=== PATIENT | male | born 1950 | race Caucasian/White ===

== ENCOUNTER 2016-09-14 16:31 | Emergency (ER) | payer OTHER ==
[~2016-09-14] VITALS: Ht 172.7 cm; Wt 82.0 kg
[~2016-09-14 16:31] MED LIST: ANTI2TAB PO; ATOR80TA PO; CARV3.12 PO; DUONI NEB; FLUT1INH INH; FLUT1SPR9 NASAL; FOLI1TAB PO; FURO40TA PO; HYDR10SO PO; KCL20 PO; LISI20 PO; MAGN400T PO; METF500 PO; NEUR400C PO; PLAV75TA PO; PROT40TA; VENTAER INH; ZOFR4TAB3 PO
[2016-09-14 16:46] VITALS: BP 136/81; PULSE 68; RESP 18; TEMP 97.7; O2SAT 93
[2016-09-14] MEDS ORDERED: FLUT50SP EACH NARE (17:12)
[2016-09-14] MEDS ORDERED: ATOR1TAB18 PO (17:12)
[2016-09-14] MEDS ORDERED: VENTAER INH (17:12)
[2016-09-14] MEDS ORDERED: LISI-515 PO (17:12)
[2016-09-14] MEDS ORDERED: METF500T PO (17:12)
[2016-09-14] MEDS ORDERED: POTA-163 PO (17:12)
[2016-09-14] MEDS ORDERED: CARV3.12 PO (17:12)
[2016-09-14] MEDS ORDERED: GABA400C5 PO (17:12)
[2016-09-14] MEDS ORDERED: FOLI1TAB4 PO (17:12)
[2016-09-14] MEDS ORDERED: FURO40TA PO (17:12)
[2016-09-14] MEDS ORDERED: PLAV75TA29 PO (17:12)
[2016-09-14] MEDS ORDERED: PANT40TA3 PO (17:12)
[2016-09-14] MEDS ORDERED: IPRASOL INH (17:12)
--- NOTE | 2016-09-14 17:47 | RADHPO ---
EXAM DATE/TIME: 09/14/2016 17:36 [facility] COMPARISON: No previous studies available for comparison. INDICATIONS : Left knee pain and abrasion after falling today. MEDICAL HISTORY : Unobtainable. SURGICAL HISTORY : Unobtainable. ENCOUNTER: Initial ACUITY: 1 day PAIN SCORE: Non-responsive. LOCATION: Left anterior knee. FINDINGS: Four view examination of the left knee demonstrates no evidence of fracture or dislocation. Bony min eralization is normal. The articular surfaces are intact. The suprapatellar soft tissues have a nor mal configuration. CONCLUSION: Unremarkable examination of the left knee. Aakash Reyes MD on September 14, 2016 at 17:45 Board Certified Radiologist. This report was verified electronically.
--- NOTE | 2016-09-14 17:49 | PD ---
HPI Chief Complaint: Alcohol/Drug Intoxication Time Seen by Provider: 16:39 Travel History International Travel<30 days: No Contact w/Intl Traveler<30days: No Traveled to known affect area: No History of Present Illness HPI 66-year-old male presents after he had difficulty getting out of the passenger side of the vehicle when he got home with his so she called 911 for assistance. Report was that he slid out and multiple people need to be involved to help. Patient notes taking multiple shots of alcohol. He states he doesn't think he hit his head but has an abrasion to his left knee. History is limited on initial exam PFSH Past Medical History Hx Anticoagulant Therapy: Yes Cancer: No Cardiovascular Problems: Yes High Cholesterol: Yes Chest Pain: Yes COPD: Yes Diabetes: Yes Patient Takes Glucophage: No (unknown) Gastrointestinal Disorders: No Genitourinary: No Hypertension: Yes Implanted Vascular Access Dvce: No Musculoskeletal: No Neurologic: No Psychiatric: No Reproductive: No Respiratory: Yes Immunizations Current: Yes Myocardial Infarction: Yes (2006) Past Surgical History Cardiac Surgery: Yes Coronary Stent: Yes (2006) Other Surgery: Yes (TRACHEOSTOMY AND REVERSAL 2012) Social History 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) Tobacco Use: Yes (1ppd) Substance Use: Yes (MARIJUANA DAILY) Allergies-Medications (Allergen,Severity, Reaction): Coded Allergies: No Known Allergies (Verified , 09/12/15) Reported Meds & Prescriptions Reported Meds & Active Scripts Active Reported Potassium Chloride ER (Potassium Chloride) 20 Meq Tab 20 Meq PO BID Pantoprazole (Pantoprazole Sodium) 40 Mg Tab 40 Mg PO DAILY Metformin (Metformin HCl) 500 Mg Tab 500 Mg PO BIDPC With meals Lisinopril 20 Mg Tab 20 Mg PO DAILY Gabapentin 400 Mg Cap 400 Cap PO TID Furosemide 40 Mg Tab 40 Mg PO DAILY Folate (Folic Acid) 1 Mg Tab 1 Mg PO DAILY Fluticasone Nasal [place] 50 Mcg/Act Naspr 50 Mcg EACH NARE BID 50 mcg/spray Plavix (Clopidogrel Bisulfate) 75 Mg Tab 75 Mg PO DAILY Carvedilol 3.125 Mg Tab 3.125 Mg PO BID Atorvastatin (Atorvastatin Calcium) 80 Mg Tab 80 Mg PO HS Ventolin Hfa 18 GM Inh (Albuterol Sulfate) 90 Mcg/Act Aer 2 Puff INH Q4H PRN Duoneb (Ipratropium-Albuterol Neb) 0.5-2.5 Mg/3 Ml Neb 1 Nebule INH Q4HR NEB Review of Systems Except as stated in HPI: all other systems reviewed are Neg Physical Exam Narrative GENERAL: Well-nourished, well-developed patient. SKIN: Warm and dry. HEAD: Normocephalic and atraumatic. EYES: No injection or drainage. ENT: No nasal drainage noted. NECK: Supple, trachea midline. CARDIOVASCULAR: Regular rate and rhythm RESPIRATORY: Breath sounds equal bilaterally. No accessory muscle use. GASTROINTESTINAL: Abdomen soft, non-tender, nondistended. EXTREMITIES: No edema. Abrasion noted to left knee without significant pain, neurovascularly intact, compartments soft BACK: Nontender without obvious deformity. NEUROLOGICAL: Awake and alert. Motor and sensory grossly within normal limits. Slurred speech. Data Data Last Documented VS Vital Signs Date Time Temp Pulse Resp B/P Pulse Ox O2 Delivery O2 Flow Rate FiO2 09/14/16 16:46 97.7 68 18 136/81 93 Orders Knee, Complete (4vws) (09/14/16 17:20) Ct Brain W/O Iv Contrast(Rout) (09/14/16 ) [facility] Medical Decision Making Medical Screen Exam Complete: Yes Emergency Medical Condition: Yes Medical Record Reviewed: Yes (past history confirmed) Interpretation(s) Last 24 hours Impressions Knee X-Ray 09/14/16 1720 Signed Impressions: Service Date/Time: Wednesday, September 14, 2016 17:36 - CONCLUSION: Unremarkable examination of the left knee. Aakash Reyes MD Head CT 09/14/16 0000 Signed Impressions: Service Date/Time: Wednesday, September 14, 2016 18:15 - CONCLUSION: 1. No acute intracranial abnormalities. 2. Suspected chronic change of the inferior orbital floor on the right and the right maxillary bone and sinus. Humphrey Carranza MD Differential Diagnosis Fracture, strain, head injury, alcohol intoxication Narrative Course Will check left knee x-ray and CT brain and monitored until clinically sober trauma imaging is negative, 191 patient's here to watch over patient, steady gait, clear speech, Patient denies any new complaints and states that they are feeling better. will watch over patient, all questions answered. knows that follow up is incumbent on them and to return to the emergency room immediately if new or worsening symptoms develop. given strict return precautions, vitals reviewed and are normal, agrees to further workup as an outpatient. Diagnosis Primary Impression: Alcohol intoxication Qualified Code: F10.120 - Alcohol intoxication, uncomplicated Additional Impressions: Fall Qualified Code: W19.XXXA - Fall, initial encounter Knee abrasion Qualified Code: S80.212A - Knee abrasion, left, initial encounter Patient Instructions: General Instructions Additional Instructions: return as needed, tylenol as needed, limit alcohol use Med/Other Pt SpecificInfo: No Change to Meds Disposition: 01 DISCHARGE HOME Condition: Stable Janet Sweet MD Sep 14, 2016 17:48
--- NOTE | 2016-09-14 18:54 | RADHPO ---
EXAM DATE/TIME: 09/14/2016 18:15 [facility] COMPARISON: CT BRAIN W/O CONTRAST, December 08, 2013, 15:56. INDICATIONS : Altered mental status with possible fall. RADIATION DOSE: 59.53 CTDIvol (mGy) MEDICAL HISTORY : Hypertension. Cardiovascular disease Chronic obstructive pulmonary disease. SURGICAL HISTORY : None. ENCOUNTER: Initial ACUITY: 1 day PAIN SCALE: 0/10 LOCATION: cranial TECHNIQUE: Multiple contiguous axial images were obtained of the head. Using automated exposure control and adj ustment of the mA and/or kV according to patient size, radiation dose was kept as low as reasonably a chievable to obtain optimal diagnostic quality images. FINDINGS: CEREBRUM: The ventricles are normal for age. No evidence of midline shift, mass lesion, hemorrhage or acute in farction. No extra-axial fluid collections are seen. POSTERIOR FOSSA: The cerebellum and brainstem are intact. The 4th ventricle is midline. The cerebellopontine angle i s unremarkable. EXTRACRANIAL: There is a deformity at the right orbital floor and right maxilla. This appears to have been present on the prior exam. There is increased soft tissue density at the right maxillary sinus. SKULL: The calvaria is intact. No evidence of skull fracture. CONCLUSION: 1. No acute intracranial abnormalities. 2. Suspected chronic change of the inferior orbital floor on the right and the right maxillary bone a nd sinus. Humphrey Carranza MD on September 14, 2016 at 18:50 Board Certified Radiologist. This report was verified electronically.
[2016-09-14 19:05] VITALS: BP 136/81; PULSE 69; RESP 18; O2SAT 97
== END 2016-09-14 19:13 | disposition home or self-care (01) ==
LOC: PHED 16:31
DX: F10.120 Alcohol abuse with intoxication, uncomplicated (principal); S80.212A Abrasion, left knee, initial encounter; J44.9 Chronic obstructive pulmonary disease, unspecified; E78.00 Pure hypercholesterolemia, unspecified; Z79.01 Long term (current) use of anticoagulants; E11.9 Type 2 diabetes mellitus without complications; I10 Essential (primary) hypertension; I25.2 Old myocardial infarction; F17.210 Nicotine dependence, cigarettes, uncomplicated; F12.220 Cannabis dependence with intoxication, uncomplicated; W17.89XA Other fall from one level to another, initial encounter; Y93.89 Activity, other specified; Y92.810 Car as the place of occurrence of the external cause; Y99.8 Other external cause status
CPT/HCPCS: 70450; 73564

== ENCOUNTER 2016-12-10 09:14 | Emergency (ER) | payer OTHER ==
[~2016-12-10] VITALS: Ht 172.7 cm; Wt 82.4 kg
[~2016-12-10 09:14] MED LIST changes: -ANTI2TAB PO; +ATOR1TAB18 PO; -ATOR80TA PO; -DUONI NEB; -FLUT1INH INH; -FLUT1SPR9 NASAL; +FLUT50SP EACH NARE; -FOLI1TAB PO; +FOLI1TAB4 PO; +GABA400C5 PO; -HYDR10SO PO; +IPRASOL INH; -KCL20 PO; +LISI-515 PO; -LISI20 PO; -MAGN400T PO; -METF500 PO; +METF500T PO; -NEUR400C PO; +PANT40TA3 PO; -PLAV75TA PO; +PLAV75TA29 PO; +POTA-163 PO; -PROT40TA; -ZOFR4TAB3 PO
[2016-12-10 09:26] VITALS: BP 166/104; PULSE 73; RESP 16; TEMP 97.9; O2SAT 96
--- NOTE | 2016-12-10 10:25 | PD ---
HPI Chief Complaint: Injury Time Seen by Provider: 10:11 Travel History International Travel<30 days: No Contact w/Intl Traveler<30days: No Traveled to known affect area: No History of Present Illness HPI This patient complains of low back pain. Yesterday afternoon he tripped over a curb and fell backwards landing on his buttocks. He developed low back pain from that fall. Duration is one day. Symptoms severity is moderate. He is ambulatory. No alleviating factors. Denies neurologic complaint PFSH Past Medical History Hx Anticoagulant Therapy: Yes Cancer: No Cardiovascular Problems: Yes High Cholesterol: Yes Chest Pain: Yes COPD: Yes Diabetes: Yes Patient Takes Glucophage: No Gastrointestinal Disorders: No Genitourinary: No Hypertension: Yes Implanted Vascular Access Dvce: No Musculoskeletal: No Neurologic: No Psychiatric: No Reproductive: No Respiratory: Yes Immunizations Current: Yes Myocardial Infarction: Yes (2006) Past Surgical History Cardiac Surgery: Yes Coronary Stent: Yes (2006) Other Surgery: Yes (TRACHEOSTOMY AND REVERSAL 2012) Social History Alcohol Use: Yes (6PACK DAILY) Tobacco Use: Yes (1ppd) Substance Use: No (DENIES AT PRESENT) Allergies-Medications (Allergen,Severity, Reaction): Coded Allergies: No Known Allergies (Verified , 12/10/16) Reported Meds & Prescriptions Reported Meds & Active Scripts Active Reported Potassium Chloride ER (Potassium Chloride) 20 Meq Tab 20 Meq PO BID Pantoprazole (Pantoprazole Sodium) 40 Mg Tab 40 Mg PO DAILY Metformin (Metformin HCl) 500 Mg Tab 500 Mg PO BIDPC With meals Lisinopril 20 Mg Tab 20 Mg PO DAILY Gabapentin 400 Mg Cap 400 Cap PO TID Furosemide 40 Mg Tab 40 Mg PO DAILY Folate (Folic Acid) 1 Mg Tab 1 Mg PO DAILY Fluticasone Nasal [place] 50 Mcg/Act Naspr 50 Mcg EACH NARE BID 50 mcg/spray Plavix (Clopidogrel Bisulfate) 75 Mg Tab 75 Mg PO DAILY Carvedilol 3.125 Mg Tab 3.125 Mg PO BID Atorvastatin (Atorvastatin Calcium) 80 Mg Tab 80 Mg PO HS Ventolin Hfa 18 GM Inh (Albuterol Sulfate) 90 Mcg/Act Aer 2 Puff INH Q4H PRN Duoneb (Ipratropium-Albuterol Neb) 0.5-2.5 Mg/3 Ml Neb 1 Nebule INH Q4HR NEB Review of Systems General / Constitutional: No: Fever HENT: No: Headaches Cardiovascular: No: Chest Pain or Discomfort Physical Exam Narrative GASTROINTESTINAL: Abdomen soft, non-tender, nondistended. Positive bowel sounds. No hepato-splenomegaly, or palpable masses. No guarding. SKIN: Focused skin assessment reveals no rash or ulcers. Skin is warm and dry. Palpation shows no induration or nodules. NEUROLOGICAL: Awake and alert. Pupils are equal round and reactive. Motor and sensory grossly within normal limits. Five out of 5 muscle strength in all muscle groups. Normal speech. Back: No objective findings. There is minor midline tenderness of the low lumbar spine. No bruising Data Data Last Documented VS Vital Signs Date Time Temp Pulse Resp B/P Pulse Ox O2 Delivery O2 Flow Rate FiO2 12/10/16 09:26 97.9 73 16 166/104 96 Orders Spine, Lumbar - Ltd (Ap & Lat) (12/10/16 ) [facility] Medical Decision Making Medical Screen Exam Complete: Yes Emergency Medical Condition: Yes Medical Record Reviewed: Yes Differential Diagnosis Compression fracture, contusion, muscle strain Narrative Course I have reviewed the patient's electronic medical record. No objective findings on exam. I reviewed his lumbar spine x-rays. He has some calcification of the aorta without aneurysmal dilatation. There looks to be a mild compression deformity at L1 but this is nowhere near where his pain is. He is not tender at L1. I don't think this is acute but an incidental finding. Stable for outpatient follow-up I wrote him a few pain pills Advised him not to take them with alcohol consumption. He is a heavy drinker. Diagnosis Primary Impression: Back pain due to injury Additional Instructions: The patient was advised to follow up with their physician and return if they worsen. The patient was warned about potential sedation for the medications they will receive on prescription. Don't drink alcohol with pain pills Med/Other Pt SpecificInfo: Prescription(s) given Disposition: DISCHARGE HOME Condition: Stable Deo Vila MD Dec 10, 2016 10:25
--- NOTE | 2016-12-10 11:17 | RADHPO ---
EXAM DATE/TIME: 12/10/2016 10:34 [facility] COMPARISON: No previous studies available for comparison. INDICATIONS : Low back pain post fall yesterday. MEDICAL HISTORY : Myocardial infarction. Hypercholesterolemia. Chronic obstructive pulmonary disease. Emphysema. Di abetic. Hypertension. SURGICAL HISTORY : Cardiac cath w/ setnt placement. Tracheostomy & reversal. ENCOUNTER: Initial ACUITY: 1 day PAIN SCORE: 9/10 LOCATION: Lumbar spine FINDINGS: AP and lateral views of the lumbar spine were obtained and demonstrate 5 nonrib-bearing lumbar-type v ertebra. There is diffused osteopenia. There is chronic mild wedging of the L1 vertebral body with sc lerotic margins. There is mild chronic appearing endplate invagination at the L2 and L3 levels as wel l. There is mild retrolisthesis of L2 on L3 and L3 on L4 of several millimeters. There are mild degen erative disc and degenerative joint changes. The sacrum appears intact. There are vascular calcificat ions. CONCLUSION: 1. Chronic mild wedging of the L1 vertebral body. 2. Chronic appearing mild endplate invagination at L2 and L3. 3. Mild retrolisthesis of L2 on L3 and L3 on L4. Edenilson Aguila MD on December 10, 2016 at 11:14 Board Certified Radiologist. This report was verified electronically.
[2016-12-10] MEDS ORDERED: TRAM50TA PO (11:23)
== END 2016-12-10 11:33 | disposition home or self-care (01) ==
LOC: PHEFT 09:14
DX: M54.5 Low back pain (principal); E78.00 Pure hypercholesterolemia, unspecified; J44.9 Chronic obstructive pulmonary disease, unspecified; E11.9 Type 2 diabetes mellitus without complications; I10 Essential (primary) hypertension; I25.2 Old myocardial infarction; F17.210 Nicotine dependence, cigarettes, uncomplicated; W01.0XXA Fall on same level from slipping, tripping and stumbling without subsequent striking against object, initial encounter; Y93.9 Activity, unspecified; Y92.9 Unspecified place or not applicable
CPT/HCPCS: 72100; 99283

== ENCOUNTER 2017-12-09 11:34 | Inpatient (IN) | payer OTHER, MEDICARE ==
[2017-12-09] VITALS (14 sets, daily range): BP systolic 101–165; BP diastolic 64–109; PULSE 93–110; RESP 18–30; TEMP 97.4–98.7; O2SAT 92–97
[~2017-12-09] VITALS: Ht 172.7 cm; Wt 80.5 kg
[~2017-12-09 11:34] MED LIST changes: -ATOR1TAB18 PO; +ATOR80TA45 PO; +TRAM50TA PO
[2017-12-09] MEDS ORDERED: FLUT1INH7 INH (11:57)
[2017-12-09] MEDS ORDERED: hydrocodone PO (11:57)
[2017-12-09] MEDS ORDERED: SODIUM CHLORIDE 0.9% FLUSH 10 ML FLUSH IVF PRN (12:00)
[2017-12-09] MEDS ORDERED: RESP: ALBUTEROL 2.5 MG/IPRATROPIUM 0.5 MG NEB (SCH) INH ONE (12:00)
--- NOTE | 2017-12-09 12:13 | PD ---
HPI Chief Complaint: Respiratory Symptoms Time Seen by Provider: 11:48 Travel History International Travel<30 days: No Contact w/Intl Traveler<30days: No Traveled to known affect area: No History of Present Illness HPI Patient is a 67 year old male who comes in complaining of SOB. He says that he has felt a little short of breath over the past few days, but says it got much worse today. He has history of lung issues and follows with a human resources intern. He says he has been taking his Spiriva as directed. He does not use albuterol at home. He denies chest pain. He says he has had a productive cough. He denies fever or chills. He says he has not noticed any leg swelling. Exertion seems to make his symptoms worse. Severity is moderate. PFSH Past Medical History Hx Anticoagulant Therapy: Yes (Plavix) Cancer: No Cardiovascular Problems: Yes (stent) High Cholesterol: Yes Chest Pain: Yes COPD: Yes Diabetes: Yes Patient Takes Glucophage: Yes Gastrointestinal Disorders: No Genitourinary: No Hypertension: Yes Implanted Vascular Access Dvce: No Musculoskeletal: No Neurologic: No Psychiatric: No Reproductive: No Respiratory: Yes (COPD, Trach) Immunizations Current: Yes Myocardial Infarction: Yes (2006) Influenza Vaccination: No ?: Not Past Surgical History Cardiac Surgery: Yes Coronary Stent: Yes (2006) Other Surgery: Yes (TRACHEOSTOMY AND REVERSAL 2012) Social History Alcohol Use: Yes (6PACK DAILY) Tobacco Use: Yes (1ppd) Substance Use: No (DENIES AT PRESENT) Allergies-Medications (Allergen,Severity, Reaction): Coded Allergies: No Known Allergies (Verified Allergy, Unknown, 12/09/17) Reported Meds & Prescriptions Reported Meds & Active Scripts Active Reported [hydrocodone] 7.5 Mg PO Q6HR PRN Breo Ellipta Inh (Fluticasone/Vilanterol) 200-25 Mcg/Act Inh 1 Puff INH DAILY Use daily at the same time. Potassium Chloride ER (Potassium Chloride) 20 Meq Tab 20 Meq PO BID Metformin (Metformin HCl) 500 Mg Tab 500 Mg PO BIDPC With meals Lisinopril 20 Mg Tab 20 Mg PO DAILY Gabapentin 400 Mg Cap 400 Cap PO TID Plavix (Clopidogrel Bisulfate) 75 Mg Tab 75 Mg PO DAILY Carvedilol 3.125 Mg Tab 3.125 Mg PO BID Atorvastatin (Atorvastatin Calcium) 80 Mg Tab 80 Mg PO HS Review of Systems Except as stated in HPI: all other systems reviewed are Neg General / Constitutional: No: Fever, Chills HENT: No: Headaches, Lightheadedness Cardiovascular: No: Chest Pain or Discomfort Respiratory: Positive: Cough, Shortness of Breath Gastrointestinal: No: Nausea, Vomiting Musculoskeletal: No: Myalgias Skin: No Rash, No Change in Pigmentation Neurologic: No: Weakness, Dizziness Physical Exam Narrative GENERAL: Awake and alert, in no acute distress. SKIN: Focused skin assessment warm/dry. HEAD: Atraumatic. Normocephalic. EYES: Pupils equal and round. No scleral icterus. ENT: No nasal bleeding or discharge. Mucous membranes pink and moist. NECK: Trachea midline. No JVD. CARDIOVASCULAR: Regular rate and rhythm. No murmur appreciated. RESPIRATORY:Tachypneic. Coarse breath sounds anteriorly. Breath sounds equal bilaterally. GASTROINTESTINAL: Abdomen soft, non-tender, nondistended. MUSCULOSKELETAL: No obvious deformities. No clubbing. No cyanosis. 1+ pitting edema of the left leg. NEUROLOGICAL: Awake and alert. No obvious cranial nerve deficits. Motor grossly within normal limits. Normal speech. PSYCHIATRIC: Appropriate mood and affect; insight and judgment normal. Data Data Last Documented VS Vital Signs Date Time Temp Pulse Resp B/P (MAP) Pulse Ox O2 Delivery O2 Flow Rate FiO2 12/09/17 13:40 103 22 114/64 (81) 92 Nasal Cannula 2.00 12/09/17 11:50 98.0 Orders Orders Complete Blood Count With Diff (12/09/17 11:52) Comprehensive Metabolic Panel (12/09/17 11:52) B-Type Natriuretic Peptide (12/09/17 11:52) Act Partial Throm Time (Ptt) (12/09/17 11:52) Prothrombin Time / Inr (Pt) (12/09/17 11:52) Troponin I (12/09/17 11:52) Iv Access Insert/Monitor (12/09/17 11:52) Electrocardiogram (12/09/17 11:52) Ecg Monitoring (12/09/17 11:52) Oximetry (12/09/17 11:52) Oxygen Administration (12/09/17 11:52) Chest, Single Ap (12/09/17 11:52) Us Leg Venous Doppler (12/09/17 11:52) Sodium Chloride 0.9% Flush (Ns Flush) (12/09/17 12:00) Albuterol-Ipratropium Neb (Duoneb Neb) (12/09/17 12:00) Ct Pulmonary Angiogram (12/09/17 12:24) Iohexol 350 Inj (Omnipaque 350 Inj) (12/09/17 14:00) Heparin-D5w 25,000 U/250 Ml (Heparin-D5w (12/09/17 15:00) Cbc No Diff, Includes Plts (12/12/17 06:00) Act Partial Throm Time (Ptt) (12/09/17 21:07) Occult Blood (Hemoccult) Stool (12/09/17 14:07) Sodium Chlorid 0.9% 500 Ml Inj (Ns 500 M (12/09/17 14:15) Labs Laboratory Tests Test 12/09/17 12:30 White Blood Count 6.6 TH/MM3 Red Blood Count 4.65 MIL/MM3 Hemoglobin 15.3 GM/DL Hematocrit 47.0 % Mean Corpuscular Volume 101.0 FL Mean Corpuscular Hemoglobin 32.8 PG Mean Corpuscular Hemoglobin Concent 32.5 % Red Cell Distribution Width 14.4 % Platelet Count 164 TH/MM3 Mean Platelet Volume 7.9 FL Neutrophils (%) (Auto) 65.7 % Lymphocytes (%) (Auto) 19.0 % Monocytes (%) (Auto) 11.5 % Eosinophils (%) (Auto) 1.1 % Basophils (%) (Auto) 2.7 % Neutrophils # (Auto) 4.3 TH/MM3 Lymphocytes # (Auto) 1.2 TH/MM3 Monocytes # (Auto) 0.8 TH/MM3 Eosinophils # (Auto) 0.1 TH/MM3 Basophils # (Auto) 0.2 TH/MM3 CBC Comment DIFF FINAL Differential Comment Prothrombin Time 11.0 SEC Prothromb Time International Ratio 1.1 RATIO Activated Partial Thromboplast Time 27.3 SEC Blood Urea Nitrogen 8 MG/DL Creatinine 0.68 MG/DL Random Glucose 73 MG/DL Total Protein 6.8 GM/DL Albumin 3.1 GM/DL Calcium Level 9.5 MG/DL Alkaline Phosphatase 159 U/L Aspartate Amino Transf (AST/SGOT) 76 U/L Alanine Aminotransferase (ALT/SGPT) 44 U/L Total Bilirubin 1.3 MG/DL Sodium Level 138 MEQ/L Potassium Level 3.4 MEQ/L Chloride Level 103 MEQ/L Carbon Dioxide Level 19.8 MEQ/L Anion Gap 15 MEQ/L Estimat Glomerular Filtration Rate 117 ML/MIN Troponin I 0.05 NG/ML B-Type Natriuretic Peptide 518 PG/ML MDM Medical Decision Making Medical Screen Exam Complete: Yes Emergency Medical Condition: Yes Medical Record Reviewed: Yes Interpretation(s) ECG shows sinus tachycardia at 107. RBBB Differential Diagnosis PE vs DVT vs pneumonia vs COPD exacerbation Narrative Course Patient is a 67-year-old male who comes in complaining of shortness of breath. There is edema of his left leg, it is larger than his right. Oxygen saturation is 92-94% on 2 L of oxygen. IV established, labs sent. Troponin is negative, however it is 0.05. Ultrasound study performed of the leg shows several DVTs. CT of the chest shows severe clot burden in the lungs. Last [address] Angiography 12/09/17 1224 Signed Impressions: Service Date/Time: Saturday, December 09, 2017 13:50 - CONCLUSION: Severe and extensive bilateral pulmonary embolism to both main pulmonary arteries with involvement of the lobar branches with the exception of the left upper lobe. Walter Plasencia MD Lower Extremity Ultrasound 12/09/17 1154 Signed Impressions: Service Date/Time: Saturday, December 09, 2017 12:46 - CONCLUSION: Study is positive for deep venous thrombosis with clot in the popliteal vein as well as the posterior tibial vein and peroneal veins. Aakash Reyes MD Chest X-Ray 12/09/17 0352 Signed Impressions: Service Date/Time: Saturday, December 09, 2017 11:59 - CONCLUSION: 1. Mildly tortuous aorta. No focal consolidation. Keyur Meneses MD Patient started on heparin. Due to his low oxygen saturation and his blood pressure has been slightly tenuous, with some readings in the 90s systolic, I feel the patient would be best served in the ICU. He will be admitted for further management. Critical Care Narrative Aggregate critical care time was 35 minutes. Time to perform other separately billable procedures was not included in the critical care time. My time did not include minutes spent treating any other patients simultaneously or on activities that did not directly contribute to the patient's treatment. The services I provided to this patient were to treat and/or prevent clinically significant deterioration that could result in: Serious illness or I provided critical care services requiring my management, as noted below: Chart data review, documentation time, medication orders and management, vital sign assessments/reviewing monitor data, ordering and reviewing lab tests, ordering and interpreting/reviewing x-rays and diagnostic studies, care of the patient and discussion of the patient with the admitting physicians. Diagnosis Primary Impression: Pulmonary embolism Qualified Codes: I26.99 - Other pulmonary embolism without acute cor pulmonale Additional Impressions: DVT (deep venous thrombosis) Qualified Codes: I82.492 - Acute embolism and thrombosis of other specified deep vein of left lower extremity Hypoxia Admitting Information Admitting Physician Requests: it Tabitha Lynn MD Dec 09, 2017 12:13
--- NOTE | 2017-12-09 12:27 | RADRPT ---
EXAM DATE/TIME: 12/09/2017 11:59 [facility] COMPARISON: No previous studies available for comparison. INDICATIONS : Short of breath, cough, weakness. MEDICAL HISTORY : Emphysema. Hypercholesterolemia. Chronic obstructive pulmonary disease. Smoker. Diabetic. Hyperte nison. SURGICAL HISTORY : Cardiac stent. Tracheotomy & reversal. ENCOUNTER: Initial ACUITY: 1 day PAIN SCORE: 0/10 LOCATION: chest FINDINGS: Aorta mildly tortuous. Heart size upper limits normal. No effusion or consolidation. No pneumothorax. CONCLUSION: 1. Mildly tortuous aorta. No focal consolidation. Keyur Meneses MD on December 09, 2017 at 12:23 Board Certified Radiologist. This report was verified electronically.
[2017-12-09 12:37] LABS: AUTOMATED NEUTROPHIL # 4.3 TH/MM3 (1.8-7.7); BASOPHIL # 0.2 TH/MM3 (0-0.2); BASOPHIL % 2.7 % (0.0-2.0); EOSINOPHIL # 0.1 TH/MM3 (0-0.4); EOSINOPHIL % 1.1 % (0.0-4.0); HEMOGLOBIN 15.3 GM/DL (13.0-17.0); LYMPHOCYTE # 1.2 TH/MM3 (1.0-4.8); MEAN CORPUSCULAR HEMOGLOBIN 32.8 PG (27.0-34.0); MEAN CORPUSCULAR HGB CONC 32.5 % (32.0-36.0); MEAN PLATELET VOLUME 7.9 FL (7.0-11.0); MONO % 11.5 % (0.0-8.0); MONOCYTE # 0.8 TH/MM3 (0-0.9); NEUT % 65.7 % (16.0-70.0); PLATELET COUNT 164 TH/MM3 (150-450); RED BLOOD COUNT 4.65 MIL/MM3 (4.50-5.90); RED CELL DISTRIBUTION WIDTH 14.4 % (11.6-17.2); WHITE BLOOD COUNT 6.6 TH/MM3 (4.0-11.0)
[2017-12-09 12:44] LABS: CHLORIDE 103 MEQ/L (98-107); SODIUM (NA) 138 MEQ/L (136-145)
[2017-12-09 12:48] LABS: ALBUMIN 3.1 GM/DL (3.4-5.0); BICARBONATE 19.8 MEQ/L (21.0-32.0); CALCIUM 9.5 MG/DL (8.5-10.1); GLUCOSE,RANDOM 73 MG/DL (74-106); INTERNATIONAL NORMALIZED RATIO 1.1 RATIO
[2017-12-09 12:49] LABS: BLOOD UREA NITROGEN 8 MG/DL (7-18)
[2017-12-09 12:51] LABS: ALT (GPT) 44 U/L (12-78); AST (GOT) 76 U/L (15-37); CREATININE 0.68 MG/DL (0.60-1.30); GLOMERULAR FILTRATION RATE 117 ML/MIN (>89)
[2017-12-09 12:53] LABS: TOTAL BILIRUBIN ADULT 1.3 MG/DL (0.2-1.0); TOTAL PROTEIN 6.8 GM/DL (6.4-8.2)
[2017-12-09 12:54] LABS: ALKALINE PHOSPHATASE 159 U/L (45-117)
[2017-12-09 12:56] LABS: TROPONIN I 0.05 NG/ML (0.02-0.05)
--- NOTE | 2017-12-09 13:26 | RADRPT ---
EXAM DATE/TIME: 12/09/2017 12:46 [facility] COMPARISON: No previous studies available for comparison. INDICATIONS : Left leg swelling. MEDICAL HISTORY : Myocardial infarction. Hypercholesterolemia. Hypertension. Anticoagulant therapy, Plavix. COPD. Di abetes. Emphysema. SURGICAL HISTORY : Coronary stent. Tracheostomy placement and reversal. ENCOUNTER: Initial ACUITY: 1 day PAIN SCORE: 0/10 LOCATION: Left leg. TECHNIQUE: Venous ultrasound of the leg was performed from the inguinal ligament to the proximal calf. Real-maryam e, color Doppler and spectral tracing, compression and augmentation techniques were used. FINDINGS: There is normal compressibility of the deep venous system from the inguinal region lower thigh. No e chogenic clot is seen in the lumen of the common femoral, and femoral veins. There is thrombus in the popliteal vein, posterior tibial vein and peroneal vein. CONCLUSION: Study is positive for deep venous thrombosis with clot in the popliteal vein as well as the posterior tibial vein and peroneal veins. Aakash Reyes MD on December 09, 2017 at 13:22 Board Certified Radiologist. This report was verified electronically.
[2017-12-09] MEDS ORDERED: IOHEXOL 350 MG/ML 10 ML VIAL (for RAD DIAG) IVCONTRAST ONE (14:00)
[2017-12-09] MEDS ORDERED: SODIUM CHLORID 0.9% 500 ML INJ 500 ML IV ONE ×2 (14:15→15:00)
--- NOTE | 2017-12-09 14:32 | RADRPT ---
EXAM DATE/TIME: 12/09/2017 13:50 [facility] COMPARISON: No previous studies available for comparison. INDICATIONS : Short of breath. IV CONTRAST: 75 cc Omnipaque 350 (iohexol) IV RADIATION DOSE: 19.28 CTDIvol (mGy) MEDICAL HISTORY : Diabetes mellitus type 2. Chronic obstructive pulmonary disease. Myocardial infarction.Hypertension. SURGICAL HISTORY : Coronary artery stent. Tracheostomy and reversal. ENCOUNTER: Initial ACUITY: 2 days PAIN SCALE: 0/10 LOCATION: chest TECHNIQUE: Volumetric scanning of the chest was performed using a pulmonary embolism protocol MIP images were re constructed. Using automated exposure control and adjustment of the mA and/or kV according to patien t size, radiation dose was kept as low as reasonably achievable to obtain optimal diagnostic quality images. DICOM format image data is available electronically for review and comparison. Follow-up recommendations for detected pulmonary nodules are based at a minimum on nodule size and pa tient risk factors according to Fleischner Society Guidelines. FINDINGS: There is severe and extensive bilateral pulmonary embolism to both distal main pulmonary arteries ext ending in to both lower lobes. There is sparing of the left upper lobe pulmonary artery but involveme nt of the lingula. There is a wedge-shaped area of peripheral density in the right middle lobe likely reflecting an area of infarction. There is atelectasis in the right lower lobe. Examination of the mediastinum demonstrates no abnormally enlarged lymph nodes by CT criteria. No axi llary or hilar abnormalities are identified. Coronary artery calcifications are present. There is no bulging of the intraventricular status them CONCLUSION: Severe and extensive bilateral pulmonary embolism to both main pulmonary arteries with involvement of the lobar branches with the exception of the left upper lobe. Walter Plasencia MD on December 09, 2017 at 14:23 Board Certified Radiologist. This report was verified electronically.
[2017-12-09] MEDS ORDERED: CHLORHEXIDINE GLUCONATE 2 % 1 PACK (2 CLOTHS) TOP PRN (14:45)
[2017-12-09] MEDS ORDERED: MAGNESIUM HYDROXIDE SUSP 30 ML CUP PO PRN (14:45)
[2017-12-09] MEDS ORDERED: BISACODYL 10 MG SUPP RECTAL PRN (14:45)
[2017-12-09] MEDS ORDERED: LACTULOSE SYRUP 20 GM/30 ML CUP PO PRN (14:45)
[2017-12-09] MEDS ORDERED: NURSING INFORMATION XX SCH (14:45)
[2017-12-09] MEDS ORDERED: SENNOSIDES 8.6 MG TAB PO PRN (14:45)
[2017-12-09] MEDS ORDERED: RESP: ALBUTEROL 2.5 MG/IPRATROPIUM 0.5 MG NEB (PRN) INH (14:45)
[2017-12-09] MEDS ORDERED: HEPARIN-D5W 25,000 U/250 ML 250 ML IV PRN (15:00)
[2017-12-09] MEDS ORDERED: POTASSIUM CHLOR 20 MEQ PREMIX 100 ML IV PRN ×2 (15:15)
[2017-12-09] MEDS ORDERED: DEXTROSE 50% IN WATER 50 ML VIAL(D50) IV PUSH PRN (15:15)
[2017-12-09] MEDS ORDERED: SODIUM PHOSPHATE INJ 30 MMOL in SODIUM CHLOR 0.9% 250 ML INJ 240 ML IV PRN (15:15)
[2017-12-09] MEDS ORDERED: POTASSIUM PHOSPHATE MONOBASIC 500 MG TAB PO/TUBE PRN (15:15)
[2017-12-09] MEDS ORDERED: POTASSIUM CHLORIDE 25 MEQ EFFERVESCENT TAB PO PRN (15:15)
[2017-12-09] MEDS ORDERED: MAGNESIUM OXIDE 400 MG TAB PO PRN (15:15)
[2017-12-09] MEDS ORDERED: MAGNESIUM SULFATE INJ 4 GM in SODIUM CHLORIDE 0.9% INJ 92 ML IV PRN (15:15)
[2017-12-09] MEDS ORDERED: POTASSIUM PHOSPHATE INJ 30 MMOL in SODIUM CHLOR 0.9% 250 ML INJ 250 ML IV PRN (15:15)
[2017-12-09] MEDS ORDERED: MAGNESIUM SULFATE INJ 2 GM in SODIUM CHLORIDE 0.9% INJ 96 ML IV PRN (15:15)
[2017-12-09] MEDS ORDERED: POTASSIUM PHOSPHATE MONOBASIC 500 MG TAB PO PRN (15:15)
[2017-12-09] MEDS ORDERED: GLUCAGON 1 MG/ML VIAL OTHER PRN (15:15)
[2017-12-09] MEDS ORDERED: POTASSIUM CHLOR 40 MEQ PREMIX 100 ML IV PRN ×2 (15:15)
[2017-12-09] MEDS: RESP: ALBUTEROL 2.5 MG/IPRATROPIUM 0.5 MG NEB (SCH) INH ×2 (15:37→21:03)
[2017-12-09] MEDS: INSULIN NovoLIN REGULAR SUPPLEMENTAL SCALE SQ SCH ×2 (16:00→20:00)
[2017-12-09] MEDS ORDERED: ALTEPLASE RECOMBINANT 2 MG VIAL ONE (17:30)
--- NOTE | 2017-12-09 17:30 | RADRPT ---
EXAM DATE/TIME: 12/09/2017 16:17 [facility] COMPARISON: CT BRAIN W/O CONTRAST, September 14, 2016, 18:15. INDICATIONS : General weakness. Pulmonary embolisms. Evaluate for acute process. RADIATION DOSE: 62.82 CTDIvol (mGy) MEDICAL HISTORY : Diabetes mellitus type 2. Chronic obstructive pulmonary disease. Myocardial infarction.Hypertension. SURGICAL HISTORY : Coronary artery stent. Tracheostomy and reversal. ENCOUNTER: Initial ACUITY: 1 day PAIN SCALE: 0/10 LOCATION: cranial TECHNIQUE: Multiple contiguous axial images were obtained of the head. Using automated exposure control and adj ustment of the mA and/or kV according to patient size, radiation dose was kept as low as reasonably a chievable to obtain optimal diagnostic quality images. DICOM format image data is available electro nically for review and comparison. FINDINGS: CEREBRUM: Old area of encephalomalacia in the high left frontal region. The ventricles are normal for age. No evidence of midline shift, mass lesion, hemorrhage or acute infarction. No extra-axial fluid collect ions are seen. POSTERIOR FOSSA: The cerebellum and brainstem are intact. The 4th ventricle is midline. The cerebellopontine angle i s unremarkable. EXTRACRANIAL: The visualized portion of the orbits is intact. Mild right maxillary sinus disease unchanged. The man dibular condyles are anteriorly subluxed similar to August SKULL: The calvaria is intact. No evidence of skull fracture. CONCLUSION: Small area of encephalomalacia in the left frontal lobe. No evidence of acute hemorrhage or edema. Ri ght maxillary sinus disease. Aakash Reyes MD on December 09, 2017 at 17:26 Board Certified Radiologist. This report was verified electronically.
[2017-12-09] MEDS: CATHFLO ACTIVASE INJ 10 MG in SODIUM CHLORID 0.9% 500 ML INJ 500 ML IV PRN ×2 (18:15→22:44)
--- NOTE | 2017-12-09 18:43 | PD.RAD ---
Post Procedure Progress Note Pre Procedure Diagnosis: (1) Pulmonary embolism (2) DVT (deep venous thrombosis) (3) Hypoxia Post Procedure Diagnosis: (1) Pulmonary embolism (2) DVT (deep venous thrombosis) (3) Hypoxia Procedure Date: Dec 09, 2017 Supervising Radiologist: Phill Proctor Proceduralist/Assist: Lianna Foy, RT(R)(), Kaylin Vizcarra RT(R) Anesthesia: Local Plan of Activity Patient to Unit: Critical Care Patient Condition: Good See PACS Report for procedural detail/treatment Central Venous Access Device Procedure 1 Right Internal Jugular Central Line Placement triple lumen [place]: 7 PICC Line Length (cm): 16 Findings: Bilateral PE. TPA infusion initiated through center port Phill Proctor MD Dec 09, 2017 18:43
[2017-12-09] MEDS ORDERED: HEPARIN-D5W 25,000 U/250 ML 250 ML IV SCH (18:45)
--- NOTE | 2017-12-09 19:10 | ECHRPT ---
Indication: EXTENSIVE PE CONCLUSIONS The left ventricular systolic function is hyperdynamic with an estimated ejection fraction in the ra nge of 65- 70%. Moderate concentric left ventricular hypertrophy. Doppler parameters are consistent with impaired left ventricular relaxtion (grade 1 diastolic dysfun ction). The right ventricle is severely dilated. The right ventricular systoilc function is severely decreased. There is RV free wall severe hypokinesis with apical hyperdynamic, consistent with Andrea's Sign, most likely due to pulmonary embolism. There is estimated [id number] pulmonary hypertension present (range 67 mmHg). BP: / HR: Rhythm: MEASUREMENTS (Male / Female) Normal Values Technical Quality: 2D ECHO LV Diastolic Diameter PLAX 3.6 cm 4.2 - 5.9 / 3.9 - 5.3 cm LV Systolic Diameter PLAX 2.4 cm IVS Diastolic Thickness 2.0 cm 0.6 - 1.0 / 0.6 - 0.9 cm LVPW Diastolic Thickness 0.7 cm 0.6 - 1.0 / 0.6 - 0.9 cm LV Relative Wall Thickness 0.8 RV Internal Dim ED PLAX 3.7 cm DOPPLER Mitral E Point Velocity 43.4 cm/s Mitral A Point Velocity 91.8 cm/s Mitral E to A Ratio 0.5 TR Peak Velocity 360.0 cm/s TR Peak Gradient 51.8 mmHg FINDINGS LEFT VENTRICLE Normal left ventricular size. Moderate concentric left ventricular hypertrophy. The left ventricular systolic function is hyperdynamic with an estimated ejection fraction in the ra nge of 65- 70%. Doppler parameters are consistent with impaired left ventricular relaxtion (grade 1 diastolic dysfun ction). RIGHT VENTRICLE The right ventricle is severely dilated. The right ventricular systoilc function is severely decreased. There is RV free wall severe hypokinesis with apical hyperdynamic, consistent with Andrea's Sign, most likely due to pulmonary embolism LEFT ATRIUM The left atrial size is normal. RIGHT ATRIUM The right atrial size is normal. ATRIAL SEPTUM Normal atrial septal thickness AORTA The aortic root and proximal ascending aorta are normal in size on limited imaging. MITRAL VALVE Structurally normal mitral valve. No mitral valve regurgitation. No mitral valve stenosis. AORTIC VALVE Aortic valve sclerosis is present. No aortic valve regurgitation. No aortic valve stenosis. TRICUSPID VALVE Grossly normal tricuspid valve There is mild tricuspid valve regurgitation. There is estimated [id number] pulmonary hypertension present (range 67 mmHg). PULMONARY VALVE The pulmonary valve is not well visualized. VESSELS The inferior vena cava is dilated. PERICARDIUM No pericardial effusion. George Eden DO (Electronically Signed) Final Date:09 December 2017 19:09
[2017-12-09] MEDS: DEXT 5%-NACL 0.9% 1000 ML INJ 1,000 ML IV SCH (20:10)
[2017-12-09] MEDS: FAMOTIDINE 20 MG TAB PO SCH (20:33)
[2017-12-09] MEDS: DOCUSATE SODIUM 50 MG/SENNA 8.6 MG TAB PO SCH (20:33)
[2017-12-09 22:37] LABS: AUTOMATED NEUTROPHIL # 4.9 TH/MM3 (1.8-7.7); BASOPHIL % 0.5 % (0.0-2.0); EOSINOPHIL % 0.3 % (0.0-4.0); HEMATOCRIT 41.2 % (39.0-51.0); HEMOGLOBIN 14.2 GM/DL (13.0-17.0); LYMPH % 19.9 % (9.0-44.0); LYMPHOCYTE # 1.4 TH/MM3 (1.0-4.8); MEAN CELL VOLUME 101.3 FL (80.0-100.0); MEAN CORPUSCULAR HEMOGLOBIN 34.9 PG (27.0-34.0); MEAN CORPUSCULAR HGB CONC 34.4 % (32.0-36.0); MEAN PLATELET VOLUME 8.7 FL (7.0-11.0); MONO % 9.9 % (0.0-8.0); MONOCYTE # 0.7 TH/MM3 (0-0.9); NEUT % 69.4 % (16.0-70.0); PLATELET COUNT 136 TH/MM3 (150-450); RED BLOOD COUNT 4.07 MIL/MM3 (4.50-5.90); RED CELL DISTRIBUTION WIDTH 14.6 % (11.6-17.2); WHITE BLOOD COUNT 7.1 TH/MM3 (4.0-11.0)
--- NOTE | 2017-12-09 23:44 | EKG ---
Date Performed: 12/09/2017 Time Performed: 11:57:28 PTAGE: 67 years EKG: SINUS TACHYCARDIA WITH SHORT OR INTERVAL MARKED RIGHT AXIS DEVIATION RIGHT BUNDLE BRANCH BL OCK MODERATE T-WAVE ABNORMALITY, CONSIDER INFERIOR ISCHEMIA ABNORMAL ECG PREVIOUS TRACING : 03/31/2014 19.44 Compared to previous tracing, now Sinus rhythm with RBBB and ST/T wave changes DOCTOR: George Eden Interpretating Date/Time 12/09/2017 23:42:46
[2017-12-10] VITALS (20 sets, daily range): BP systolic 121–185; BP diastolic 79–91; PULSE 69–105; RESP 23–35; TEMP 98–99.3; O2SAT 94–98
--- NOTE | 2017-12-10 00:10 | HHI.HP ---
[facility] Service Critical Care Medicine Note is for service provided December 09, 2017 Primary Care Physician Unknown Admission Diagnosis Multiple PEs, DVTs Diagnosis: Travel History International Travel<30 Days: No Contact w/Intl Traveler <30 Da: No Traveled to Known Affected Are: No History of Present Illness 67 year old male with history of COPD, hypertension, diabetes, dyslipidemia, coronary artery disease with a stent placement in the past presents complaining of SOB. He says that he has felt a little short of breath over the past few days, but says it got much worse today. 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 He says he has been taking his Spiriva as directed. He does not use albuterol at home. He denies chest pain. He says he has had a productive cough. He denies fever or chills. He says he has not noticed any leg swelling. Exertion seems to make his symptoms worse. The CT angiogram performed in the emergency department show severe and extensive bilateral pulmonary embolism to both main pulmonary arteries with involvement of the lobar branches with the exception of the left upper lobe. His ultrasound of the lower extremities also confirms extensive DVT. The echocardiogram performed emergently shows RV free wall severe hypokinesis with apical hyperdynamic, consistent with Andrea's Sign, due to pulmonary embolism. He was taken emergently to interventional radiology suite for TPA administration. Review of Systems Constitutional: DENIES: Diaphoretic episodes, Fatigue, Fever, Weight gain, Weight loss, Chills, Dizziness, Change in appetite, Night Sweats Endocrine: DENIES: Heat/cold intolerance, Polydipsia, Polyuria, Polyphagia Eyes: DENIES: Blurred vision, Diplopia, Eye inflammation, Eye pain, Vision loss , Photosensitivity, Double Vision Ears, nose, mouth, throat: DENIES: Tinnitus, Hearing loss, Vertigo, Nasal discharge, Oral lesions, Throat pain, Hoarseness, Ear Pain, Running Nose, Epistaxis, Sinus Pain, Toothache, Odynophagia Respiratory: COMPLAINS OF: Shortness of breath, DENIES: Apneas, Cough, Snoring , Wheezing, Hemoptysis, Sputum production Cardiovascular: DENIES: Chest pain, Palpitations, Syncope, Dyspnea on Exertion , PND, Lower Extremity Edema, Orthopnea, Claudication Gastrointestinal: DENIES: Abdominal pain, Black stools, Bloody stools, Constipation, Diarrhea, Nausea, Vomiting, Difficulty Swallowing, Anorexia Genitourinary: DENIES: Sexual dysfunction, Urinary frequency, Urinary incontinence, Urgency, Hematuria, Dysuria, Nocturia, Penile Discharge, Testicular Pain, Testicular Swelling Musculoskeletal: DENIES: Joint pain, Muscle aches, Stiffness, Joint Swelling, Back pain, Neck pain Integumentary: DENIES: Abnormal pigmentation, Nail changes, Pruritus, Rash Hematologic/lymphatic: DENIES: Bruising, Lymphadenopathy Immunologic/allergic: DENIES: Eczema, Urticaria Neurologic: DENIES: Abnormal gait, Headache, Localized weakness, Paresthesias, Seizures, Speech Problems, Tremor, Poor Balance Psychiatric: DENIES: Anxiety, Confusion, Mood changes, Depression, Hallucinations, Agitation, Suicidal Ideation, Homicidal Ideation, Delusions Past Family Social History Allergies: Coded Allergies: No Known Allergies (Verified Allergy, Unknown, 12/09/17) Past Medical History COPD Hypertension Dyslipidemia Diabetes mellitus Coronary artery disease with a stent placement in the past Past Surgical History Stent in coronary arteries in 2006 Tracheostomy and reversal in 2013 Reported Medications Reported Meds & Active Scripts Active Reported [hydrocodone] 7.5 Mg PO Q6HR PRN Breo Ellipta Inh (Fluticasone/Vilanterol) 200-25 Mcg/Act Inh 1 Puff INH DAILY Use daily at the same time. Potassium Chloride ER (Potassium Chloride) 20 Meq Tab 20 Meq PO BID Metformin (Metformin HCl) 500 Mg Tab 500 Mg PO BIDPC With meals Lisinopril 20 Mg Tab 20 Mg PO DAILY Gabapentin 400 Mg Cap 400 Cap PO TID Plavix (Clopidogrel Bisulfate) 75 Mg Tab 75 Mg PO DAILY Carvedilol 3.125 Mg Tab 3.125 Mg PO BID Atorvastatin (Atorvastatin Calcium) 80 Mg Tab 80 Mg PO HS Active Ordered Medications Current Medications Medications (Trade) Dose Ordered Sig/Rory Route PRN Reason Start Time Stop Time Status Last Admin Dose Admin Sodium Chloride (NS Flush) 2 ml UNSCH PRN IVF FLUSH AFTER USING IV ACCESS 12/09/17 12:00 Heparin Sodium/ Dextrose 250 ml @ 14 mls/hr TITRATE PRN IV Coagulation Management 12/09/17 15:00 12/09/17 14:30 Famotidine (Pepcid) 20 mg Q12HR PO 12/09/17 21:00 12/09/17 20:33 Albuterol/ Ipratropium (Duoneb Neb) 1 ampule Q4HR NEB INH 4/27/18 16:00 12/10/17 00:55 Albuterol/ Ipratropium (Duoneb Neb) 1 ampule Q2HR NEB PRN INH WHEEZING 12/09/17 14:45 Miscellaneous Information ([facility] 1 [id number] XX 12/09/17 14:45 Chlorhexidine Gluconate (Chlorhexidine 2% Cloth) 3 pack Taper DAILY@04 TOP 12/10/17 04:00 12/06/18 03:59 Chlorhexidine Gluconate (Chlorhexidine 2% Cloth) 3 pack UNSCH PRN TOP HYGIENIC CARE 12/09/17 14:45 Senna/Docusate Sodium (Stefania-Colace) 1 tab BID PO 12/09/17 21:00 Magnesium Hydroxide (Milk Of Magnesia Liq) 30 ml Q12H PRN PO Mild constipation 12/09/17 14:45 Sennosides (Senokot) 17.2 mg Q12H PRN PO Moderate constipation 12/09/17 14:45 Bisacodyl (Dulcolax Supp) 10 mg DAILY PRN RECTAL SEVERE CONSITIPATION 12/09/17 14:45 Lactulose (Lactulose Liq) 30 ml DAILY PRN PO SEVERE CONSITIPATION 12/09/17 14:45 Potassium Chloride 100 ml @ 50 mls/hr Q2H PRN IV For Potassium 2.8 - 3.2 mEq/L 12/09/17 15:15 Potassium Chloride 100 ml @ 50 mls/hr Q2H PRN IV For Potassium 2.8 - 3.2 mEq/L 12/09/17 15:15 Potassium Bicarb/ Potassium Chloride (K-Lyte Cl Eff) 50 meq UNSCH PRN PO For Potassium 3.3 - 3.5 mEq/L 12/09/17 15:15 Potassium Chloride 100 ml @ 25 mls/hr UNSCH PRN IV For Potassium 3.3 - 3.5 mEq/L 12/09/17 15:15 Potassium Chloride 100 ml @ 50 mls/hr Q2H PRN IV For Potassium 3.3 - 3.5 mEq/L 12/09/17 15:15 Magnesium Sulfate 4 gm/Sodium Chloride 100 ml @ 50 mls/hr UNSCH PRN IV For Magnesium 0.9 - 1.1 mg/dL 12/09/17 15:15 Magnesium Oxide (Mag-Ox) 800 mg UNSCH PRN PO For Magnesium 1.2 - 1.6 mg/dL 12/09/17 15:15 Magnesium Sulfate 2 gm/Sodium Chloride 100 ml @ 50 mls/hr UNSCH PRN IV For Magnesium 1.2 - 1.6 mg/dL 12/09/17 15:15 Potassium Phosphate (K-Phos) 2,000 mg Q4H PRN PO For Phosphorus < 2.5 mg/dL 12/09/17 15:15 Sodium Phosphate 30 mmol/Sodium Chloride 250 ml @ 42 mls/hr UNSCH PRN IV For Phosphorus < 2.5 mg/dL 12/09/17 15:15 Potassium Phosphate (K-Phos) 2,000 mg UNSCH PRN PO/TUBE SEE LABEL COMMENTS 12/09/17 15:15 Potassium Phosphate 30 mmol/ Sodium Chloride 260 ml @ 42 mls/hr UNSCH PRN IV SEE LABEL COMMENTS 12/09/17 15:15 Dextrose/Sodium Chloride 1,000 ml @ 75 mls/hr [id number] IV 12/09/17 15:15 12/09/17 20:10 Dextrose (D50w (Vial) Inj) 50 ml UNSCH PRN IV PUSH HYPOGLYCEMIA-SEE COMMENTS 12/09/17 15:15 Glucagon (Glucagon Inj) 1 mg UNSCH PRN OTHER HYPOGLYCEMIA-SEE COMMENTS 12/09/17 15:15 Insulin Human Regular (NovoLIN R SUPPLEMENTAL SCALE) 1 Q4H SQ 12/09/17 16:00 Alteplase, Recombinant 10 mg/ Sodium Chloride 500 ml @ 100 mls/hr TITRATE PRN IV See Protocol Table 12/09/17 18:45 12/09/17 22:44 Heparin Sodium/ Dextrose 250 ml @ 5 mls/hr CONTINUOUS IV 12/09/17 18:45 Atorvastatin Calcium (Lipitor) 80 mg HS PO 12/10/17 21:00 Carvedilol (Coreg) 3.125 mg BID PO 12/10/17 09:00 Fluticasone/ Vilanterol (Breo Ellipta 200-25 Inh) 1 puff DAILY INH 12/10/17 09:00 Gabapentin (Neurontin) 400 mg TID PO 12/10/17 09:00 Lisinopril (Prinivil) 20 mg DAILY PO 12/10/17 09:00 Hydralazine HCl (Apresoline Inj) 20 mg Q4H PRN IV PUSH SBP>160, DBP>90 12/10/17 01:00 12/10/17 01:02 Family History No family history significant of clotting disorder Social History Positive for tobacco use, negative for alcohol or illicit drugs Physical Exam Vital Signs Vital Signs Date Time Temp Pulse Resp B/P (MAP) Pulse Ox O2 Delivery O2 Flow Rate FiO2 12/09/17 22:00 93 12/09/17 21:06 95 Nasal Cannula 2.50 12/09/17 20:00 96 12/09/17 20:00 98.7 96 30 165/104 (124) 97 12/09/17 19:00 105 26 146/109 (121) 95 12/09/17 18:45 103 29 93 12/09/17 18:30 105 29 96 12/09/17 18:15 98.4 104 28 156/93 (114) 95 12/09/17 16:18 12/09/17 16:17 98 20 132/81 (98) 96 Nasal Cannula 2.00 12/09/17 15:10 108 20 119/77 (91) 94 Nasal Cannula 2.00 12/09/17 13:40 103 22 114/64 (81) 92 Nasal Cannula 2.00 12/09/17 13:39 108 22 114/64 (81) 92 Nasal Cannula 2.00 12/09/17 12:01 106 18 101/80 (87) 92 Room Air 12/09/17 11:58 22 93 Nasal Cannula 2.00 12/09/17 11:50 98.0 108 22 110/80 (90) 95 Nasal Cannula 2.00 12/09/17 11:40 94 Nasal Cannula 2.00 12/09/17 11:40 97.4 110 22 103/70 (81) 93 Physical Exam GENERAL: Well-nourished, well-developed patient. Moderate respiratory distress SKIN: Warm and dry. HEAD: Normocephalic. EYES: No scleral icterus. No injection or drainage. NECK: Supple, trachea midline. No JVD or lymphadenopathy. CARDIOVASCULAR: Regular rate and rhythm without murmurs, gallops, or rubs. RESPIRATORY: Breath sounds equal bilaterally. No accessory muscle use. GASTROINTESTINAL: Abdomen soft, non-tender, nondistended. MUSCULOSKELETAL: No cyanosis, or edema. BACK: Nontender without obvious deformity. NEURO EXAM: GCS: 15 Mental Status: The patient is alert and oriented to person, place, and time with normal speech. Cranial Nerves: Visual acuity intact bilaterally. Visual jeffers normal in all quadrants. Pupils are round, reactive to light. Extraocular movements are intact without ptosis. Hearing is normal bilaterally. Voice is normal. Tongue protrudes midline and moves symmetrically. Laboratory Laboratory Tests Test 12/09/17 12:30 12/09/17 18:15 12/09/17 20:38 12/09/17 21:58 White Blood Count 6.6 7.1 Red Blood Count 4.65 4.07 Hemoglobin 15.3 14.2 Hematocrit 47.0 41.2 Mean Corpuscular Volume 101.0 101.3 Mean Corpuscular Hemoglobin 32.8 34.9 Mean Corpuscular Hemoglobin Concent 32.5 34.4 Red Cell Distribution Width 14.4 14.6 Platelet Count 164 136 Mean Platelet Volume 7.9 8.7 Neutrophils (%) (Auto) 65.7 69.4 Lymphocytes (%) (Auto) 19.0 19.9 Monocytes (%) (Auto) 11.5 9.9 Eosinophils (%) (Auto) 1.1 0.3 Basophils (%) (Auto) 2.7 0.5 Neutrophils # (Auto) 4.3 4.9 Lymphocytes # (Auto) 1.2 1.4 Monocytes # (Auto) 0.8 0.7 Eosinophils # (Auto) 0.1 0.0 Basophils # (Auto) 0.2 0.0 CBC Comment DIFF FINAL DIFF FINAL Differential Comment Prothrombin Time 11.0 Prothromb Time International Ratio 1.1 Activated Partial Thromboplast Time 27.3 54.7 Blood Urea Nitrogen 8 Creatinine 0.68 Random Glucose 73 Total Protein 6.8 Albumin 3.1 Calcium Level 9.5 Alkaline Phosphatase 159 Aspartate Amino Transf (AST/SGOT) 76 Alanine Aminotransferase (ALT/SGPT) 44 Total Bilirubin 1.3 Sodium Level 138 Potassium Level 3.4 Chloride Level 103 Carbon Dioxide Level 19.8 Anion Gap 15 Estimat Glomerular Filtration Rate 117 Phosphorus Level 4.2 Troponin I 0.05 B-Type Natriuretic Peptide 518 Nasal Screen MRSA (PCR) MRSA NOT DETECTED Fibrinogen 353 Result Diagram: 12/09/17215712/09/17 1230 Imaging Last [address] Angiography 12/09/17 1224 Signed Impressions: Service Date/Time: Saturday, December 09, 2017 13:50 - CONCLUSION: Severe and extensive bilateral pulmonary embolism to both main pulmonary arteries with involvement of the lobar branches with the exception of the left upper lobe. Walter Plasencia MD Lower Extremity Ultrasound 12/09/17 7432 Signed Impressions: Service Date/Time: Saturday, December 09, 2017 12:46 - CONCLUSION: Study is positive for deep venous thrombosis with clot in the popliteal vein as well as the posterior tibial vein and peroneal veins. Aakash Reyes MD Chest X-Ray 12/09/17 2452 Signed Impressions: Service Date/Time: Saturday, December 09, 2017 11:59 - CONCLUSION: 1. Mildly tortuous aorta. No focal consolidation. MD Kristi Amezcua VTE Risk Assessment Caprini VTE Risk Assessment: Mod/High Risk (score >= 2) Caprini Risk Assessment Model Point Value = 1 Point Value = 2 Point Value = 3 Point Value = 5 Age 41-60 Minor surgery BMI > 25 kg/m2 Swollen legs Varicose veins or History of unexplained or recurrent spontaneous Oral contraceptives or hormone replacement Sepsis (< 1 month) Serious lung disease, including pneumonia (< 1 month) Abnormal pulmonary function Acute myocardial infarction Congestive heart failure (< 1 month) History of inflammatory bowel disease Medical patient at bed rest Age 61-74 Arthroscopic surgery Major open surgery (> 45 min) Laparoscopic surgery (> 45 min) Malignancy Confined to bed (> 72 hours) Immobilizing plaster cast Central venous access Age >= 75 History of VTE Family history of VTE Factor V Leiden Prothrombin [id number] Lupus anticoagulant Anticardiolipin antibodies Elevated serum homocysteine Heparin-induced thrombocytopenia Other congenital or acquired thrombophilia Stroke (< 1 month) Elective arthroplasty Hip, pelvis, or leg fracture Acute spinal cord injury (< 1 month) Prophylaxis Regimen Total Risk Factor Score Risk Level Prophylaxis Regimen 0-1 Low Early ambulation 2 Moderate Order ONE of the following: *Sequential Compression Device (SCD) *Heparin 5000 units SQ BID 3-4 Higher Order ONE of the following medications: *Heparin 5000 units SQ TID *Enoxaparin/Lovenox 40 mg SQ daily (WT < 150 kg, CrCl > 30 mL/min) *Enoxaparin/Lovenox 30 mg SQ daily (WT < 150 kg, CrCl > 10-29 mL/min) *Enoxaparin/Lovenox 30 mg SQ BID (WT < 150 kg, CrCl > 30 mL/min) AND/OR *Sequential Compression Device (SCD) 5 or more Highest Order ONE of the following medications: *Heparin 5000 units SQ TID (Preferred with Epidurals) *Enoxaparin/Lovenox 40 mg SQ daily (WT < 150 kg, CrCl > 30 mL/min) *Enoxaparin/Lovenox 30 mg SQ daily (WT < 150 kg, CrCl > 10-29 mL/min) *Enoxaparin/Lovenox 30 mg SQ BID (WT < 150 kg, CrCl > 30 mL/min) AND *Sequential Compression Device (SCD) Assessment and Plan Assessment and Plan Respiratory failure Massive pulmonary embolism -Status post TPA administration -Followed by heparin drip per protocol -O2 to keep sats above 92 COPD -DuoNeb scheduled and as needed -No indication of IV steroids or antibiotics at this time -O2 nasal cannula Left popliteal vein DVT -Heparin drip -Transition to p.o. anticoagulation when indicated Diabetes mellitus -Insulin sliding scale Hypertension -Lisinopril -Carvedilol -Hydralazine as needed to keep his BP less than 160 Dyslipidemia/coronary artery disease -Atorvastatin DVT GI prophylaxis -Franko's and SCDs -Heparin drip -Regular diet Critical Care: The total critical care time was 35 minutes. Time to perform other separately billable procedures was not included in the critical care time. Douglas Wise MD Dec 10, 2017 12:10 am
[2017-12-10] MEDS: RESP: ALBUTEROL 2.5 MG/IPRATROPIUM 0.5 MG NEB (SCH) INH ×6 (00:55→20:15)
[2017-12-10] MEDS: hydrALAZINE HCL 20 MG/ML VIAL IV PUSH PRN (01:02)
[2017-12-10 01:11] LABS: AUTOMATED NEUTROPHIL # 4.8 TH/MM3 (1.8-7.7); BASOPHIL % 0.5 % (0.0-2.0); EOSINOPHIL % 0.4 % (0.0-4.0); HEMATOCRIT 40.1 % (39.0-51.0); HEMOGLOBIN 13.6 GM/DL (13.0-17.0); LYMPH % 19.6 % (9.0-44.0); LYMPHOCYTE # 1.3 TH/MM3 (1.0-4.8); MEAN CELL VOLUME 101.6 FL (80.0-100.0); MEAN CORPUSCULAR HEMOGLOBIN 34.4 PG (27.0-34.0); MEAN CORPUSCULAR HGB CONC 33.8 % (32.0-36.0); MEAN PLATELET VOLUME 8.2 FL (7.0-11.0); MONO % 10.1 % (0.0-8.0); MONOCYTE # 0.7 TH/MM3 (0-0.9); NEUT % 69.4 % (16.0-70.0); PLATELET COUNT 122 TH/MM3 (150-450); RED BLOOD COUNT 3.94 MIL/MM3 (4.50-5.90); RED CELL DISTRIBUTION WIDTH 14.7 % (11.6-17.2); WHITE BLOOD COUNT 6.9 TH/MM3 (4.0-11.0)
[2017-12-10] MEDS ORDERED: SODIUM PHOSPHATE INJ 30 MMOL in SODIUM CHLOR 0.9% 250 ML INJ 240 ML IV PRN (01:30)
[2017-12-10] MEDS ORDERED: MAGNESIUM OXIDE 400 MG TAB PO PRN (01:30)
[2017-12-10] MEDS ORDERED: POTASSIUM PHOSPHATE MONOBASIC 500 MG TAB PO PRN (01:30)
[2017-12-10] MEDS ORDERED: POTASSIUM CHLOR 40 MEQ PREMIX 100 ML IV PRN ×2 (01:30)
[2017-12-10] MEDS ORDERED: MAGNESIUM SULFATE INJ 2 GM in SODIUM CHLORIDE 0.9% INJ 96 ML IV PRN (01:30)
[2017-12-10] MEDS ORDERED: POTASSIUM CHLOR 20 MEQ PREMIX 100 ML IV PRN ×2 (01:30)
[2017-12-10] MEDS ORDERED: MAGNESIUM SULFATE INJ 4 GM in SODIUM CHLORIDE 0.9% INJ 92 ML IV PRN (01:30)
[2017-12-10] MEDS ORDERED: POTASSIUM PHOSPHATE MONOBASIC 500 MG TAB PO/TUBE PRN (01:30)
[2017-12-10] MEDS ORDERED: POTASSIUM CHLORIDE 25 MEQ EFFERVESCENT TAB PO PRN (01:30)
[2017-12-10] MEDS: CATHFLO ACTIVASE INJ 10 MG in SODIUM CHLORID 0.9% 500 ML INJ 500 ML IV PRN ×3 (03:50→14:16)
[2017-12-10] MEDS: INSULIN NovoLIN REGULAR SUPPLEMENTAL SCALE SQ SCH ×7 (03:51→23:38)
[2017-12-10] MEDS: CHLORHEXIDINE GLUCONATE 2 % 1 PACK (2 CLOTHS) TOP SCH (03:54)
[2017-12-10] MEDS: DEXT 5%-NACL 0.9% 1000 ML INJ 1,000 ML IV SCH (05:58)
[2017-12-10 07:15] LABS: AUTOMATED NEUTROPHIL # 4.8 TH/MM3 (1.8-7.7); BASOPHIL % 0.3 % (0.0-2.0); EOSINOPHIL % 0.1 % (0.0-4.0); HEMATOCRIT 40.9 % (39.0-51.0); HEMOGLOBIN 13.9 GM/DL (13.0-17.0); LYMPH % 13.8 % (9.0-44.0); LYMPHOCYTE # 0.9 TH/MM3 (1.0-4.8); MEAN CELL VOLUME 101.9 FL (80.0-100.0); MEAN CORPUSCULAR HEMOGLOBIN 34.6 PG (27.0-34.0); MEAN CORPUSCULAR HGB CONC 33.9 % (32.0-36.0); MEAN PLATELET VOLUME 8.8 FL (7.0-11.0); MONO % 11.9 % (0.0-8.0); MONOCYTE # 0.8 TH/MM3 (0-0.9); NEUT % 73.9 % (16.0-70.0); PLATELET COUNT 123 TH/MM3 (150-450); RED BLOOD COUNT 4.01 MIL/MM3 (4.50-5.90); RED CELL DISTRIBUTION WIDTH 14.7 % (11.6-17.2); WHITE BLOOD COUNT 6.5 TH/MM3 (4.0-11.0)
[2017-12-10 07:55] LABS: BICARBONATE 25.9 MEQ/L (21.0-32.0); CALCIUM 8.2 MG/DL (8.5-10.1); CREATININE 0.55 MG/DL (0.60-1.30); MAGNESIUM 1.2 MG/DL (1.5-2.5); PHOSPHORUS 1.4 MG/DL (2.5-4.9)
[2017-12-10] MEDS: FAMOTIDINE 20 MG TAB PO SCH ×2 (07:56→20:06)
[2017-12-10] MEDS: FLUTICASONE 200 MCG/VILANTEROL 25 MCG INHALER INH SCH (07:56)
[2017-12-10] MEDS: GABAPENTIN 400 MG CAP PO SCH ×3 (07:56→17:06)
[2017-12-10] MEDS: CARVEDILOL 3.125 MG TAB PO SCH ×2 (07:56→20:06)
[2017-12-10] MEDS: LISINOPRIL 20 MG TAB PO SCH (07:57)
[2017-12-10] MEDS: DOCUSATE SODIUM 50 MG/SENNA 8.6 MG TAB PO SCH ×2 (07:57→20:06)
[2017-12-10] MEDS ORDERED: HYDR-3580 PO (10:28)
[2017-12-10] MEDS: POTASSIUM PHOSPHATE INJ 30 MMOL in SODIUM CHLOR 0.9% 250 ML INJ 250 ML IV PRN (12:41)
[2017-12-10] MEDS ORDERED: LABETALOL HCL 100 MG/20 ML VIAL IVS PRN (13:15)
--- NOTE | 2017-12-10 13:34 | HHI.CCPN ---
Subjective Remarks/Hospital Course 12/09: 67 year old male with history of COPD, hypertension, diabetes, dyslipidemia, coronary artery disease with a stent placement in the past presents complaining of SOB. He says that he has felt a little short of breath over the past few days, but says it got much worse today. 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 He says he has been taking his Spiriva as directed. He does not use albuterol at home. He denies chest pain. He says he has had a productive cough. He denies fever or chills. He says he has not noticed any leg swelling. Exertion seems to make his symptoms worse. The CT angiogram performed in the emergency department show severe and extensive bilateral pulmonary embolism to both main pulmonary arteries with involvement of the lobar branches with the exception of the left upper lobe. His ultrasound of the lower extremities also confirms extensive DVT. The echocardiogram performed emergently shows RV free wall severe hypokinesis with apical hyperdynamic, consistent with Andrea's Sign, due to pulmonary embolism. He was taken emergently to interventional radiology suite for TPA administration. 12/10: Resting comfortably on nasal cannula. On heparin and TPA infusion. Not in any acute distress. Objective Vital Signs Date Time Temp Pulse Resp B/P (MAP) Pulse Ox O2 Delivery O2 Flow Rate FiO2 12/10/17 10:00 71 12/10/17 09:00 23 159/84 (109) 96 12/10/17 08:19 Nasal Cannula 2.00 12/10/17 08:00 99.3 Intake and Output 12/10/17 12/10/17 12/11/17 08:00 16:00 00:00 Intake Total 1740 ml 700 ml Output Total 1375 ml Balance 365 ml 700 ml Result Diagram: 12/10/17 0600 12/10/17 0600 Imaging Last [address] Angiography 12/09/17 1224 Signed Impressions: Service Date/Time: Saturday, December 09, 2017 13:50 - CONCLUSION: Severe and extensive bilateral pulmonary embolism to both main pulmonary arteries with involvement of the lobar branches with the exception of the left upper lobe. Walter Plasencia MD Lower Extremity Ultrasound 12/09/17 1152 Signed Impressions: Service Date/Time: Saturday, December 09, 2017 12:46 - CONCLUSION: Study is positive for deep venous thrombosis with clot in the popliteal vein as well as the posterior tibial vein and peroneal veins. Aakash Reyes MD Chest X-Ray 12/09/17 1152 Signed Impressions: Service Date/Time: Saturday, December 09, 2017 11:59 - CONCLUSION: 1. Mildly tortuous aorta. No focal consolidation. Keyur Meneses MD Objective Remarks GENERAL: Well-nourished, well-developed patient. Moderate respiratory distress SKIN: Warm and dry. HEAD: Normocephalic. EYES: No scleral icterus. No injection or drainage. NECK: Supple, trachea midline. No JVD or lymphadenopathy. CARDIOVASCULAR: Regular rate and rhythm without murmurs, gallops, or rubs. RESPIRATORY: Breath sounds equal bilaterally. No accessory muscle use. GASTROINTESTINAL: Abdomen soft, non-tender, nondistended. MUSCULOSKELETAL: No cyanosis, or edema. BACK: Nontender without obvious deformity. NEURO EXAM: GCS: 15 Mental Status: The patient is alert and oriented to person, place, and time with normal speech. Cranial Nerves: Visual acuity intact bilaterally. Visual jeffers normal in all quadrants. Pupils are round, reactive to light. Extraocular movements are intact without ptosis. Hearing is normal bilaterally. Voice is normal. Tongue protrudes midline and moves symmetrically. A/P Assessment and Plan Respiratory failure Massive pulmonary embolism -TPA gtt to be stopped around 5 PM today. -heparin drip per protocol for anticoagulation following stopping TPA. -O2 to keep sats above 92 COPD -DuoNeb scheduled and as needed -No indication of IV steroids or antibiotics at this time -O2 nasal cannula Left popliteal vein DVT -Heparin drip -Transition to p.o. anticoagulation when indicated Diabetes mellitus -Insulin sliding scale Hypertension -Lisinopril -Carvedilol -Hydralazine as needed to keep his BP less than 160 Dyslipidemia/coronary artery disease -Atorvastatin DVT GI prophylaxis -Franko's and SCDs -Heparin drip -Regular diet Consult and transfer to hospitalist service for further medical management Tripp Anthony MD Dec 10, 2017 13:34
[2017-12-10 13:43] LABS: AUTOMATED NEUTROPHIL # 4.5 TH/MM3 (1.8-7.7); BASOPHIL % 0.3 % (0.0-2.0); EOSINOPHIL % 0.6 % (0.0-4.0); HEMATOCRIT 39.2 % (39.0-51.0); HEMOGLOBIN 13.2 GM/DL (13.0-17.0); LYMPHOCYTE # 1.2 TH/MM3 (1.0-4.8); MEAN CELL VOLUME 102.8 FL (80.0-100.0); MEAN CORPUSCULAR HEMOGLOBIN 34.6 PG (27.0-34.0); MEAN CORPUSCULAR HGB CONC 33.6 % (32.0-36.0); MEAN PLATELET VOLUME 8.6 FL (7.0-11.0); MONO % 10.9 % (0.0-8.0); MONOCYTE # 0.7 TH/MM3 (0-0.9); NEUT % 69.2 % (16.0-70.0); PLATELET COUNT 114 TH/MM3 (150-450); RED BLOOD COUNT 3.82 MIL/MM3 (4.50-5.90); RED CELL DISTRIBUTION WIDTH 14.9 % (11.6-17.2); WHITE BLOOD COUNT 6.5 TH/MM3 (4.0-11.0)
[2017-12-10] MEDS ORDERED: HEPARIN 25,000 UNITS-D5W 250 ML - PREMIX IV PRN (14:30)
[2017-12-10] MEDS ORDERED: HEPARIN-D5W 25,000 U/250 ML 250 ML IV SCH (14:30)
[2017-12-10] MEDS: SODIUM CHLOR 0.9% 1000 ML INJ 1,000 ML IV SCH (16:18)
[2017-12-10] MEDS: HEPARIN 25,000 UNITS-D5W 250 ML - PREMIX IV PRN (17:03)
[2017-12-10] MEDS: ATORVASTATIN 80 MG TAB PO SCH (20:06)
[2017-12-10 23:03] LABS: MAGNESIUM 1.9 MG/DL (1.5-2.5); PHOSPHORUS 2.3 MG/DL (2.5-4.9)
[2017-12-11] VITALS (22 sets, daily range): BP systolic 129–167; BP diastolic 76–101; PULSE 62–90; RESP 16–30; TEMP 97.8–99.1; O2SAT 93–98
[2017-12-11] MEDS: RESP: ALBUTEROL 2.5 MG/IPRATROPIUM 0.5 MG NEB (SCH) INH ×7 (03:49→23:10)
[2017-12-11] MEDS: CHLORHEXIDINE GLUCONATE 2 % 1 PACK (2 CLOTHS) TOP SCH ×2 (04:00→22:00)
[2017-12-11] MEDS: INSULIN NovoLIN REGULAR SUPPLEMENTAL SCALE SQ SCH ×5 (04:00→20:00)
[2017-12-11 05:54] LABS: AUTOMATED NEUTROPHIL # 3.7 TH/MM3 (1.8-7.7); BASOPHIL % 0.3 % (0.0-2.0); EOSINOPHIL # 0.1 TH/MM3 (0-0.4); EOSINOPHIL % 2.4 % (0.0-4.0); HEMATOCRIT 38.6 % (39.0-51.0); HEMOGLOBIN 12.9 GM/DL (13.0-17.0); LYMPH % 25.4 % (9.0-44.0); LYMPHOCYTE # 1.5 TH/MM3 (1.0-4.8); MEAN CELL VOLUME 103.7 FL (80.0-100.0); MEAN CORPUSCULAR HEMOGLOBIN 34.6 PG (27.0-34.0); MEAN CORPUSCULAR HGB CONC 33.4 % (32.0-36.0); MEAN PLATELET VOLUME 8.4 FL (7.0-11.0); MONO % 10.9 % (0.0-8.0); MONOCYTE # 0.7 TH/MM3 (0-0.9); PLATELET COUNT 105 TH/MM3 (150-450); RED BLOOD COUNT 3.72 MIL/MM3 (4.50-5.90); RED CELL DISTRIBUTION WIDTH 14.5 % (11.6-17.2); WHITE BLOOD COUNT 6.1 TH/MM3 (4.0-11.0)
[2017-12-11 06:27] LABS: ALBUMIN 2.3 GM/DL (3.4-5.0); ALT (GPT) 21 U/L (12-78); AST (GOT) 26 U/L (15-37); BICARBONATE 26.9 MEQ/L (21.0-32.0); BLOOD UREA NITROGEN 5 MG/DL (7-18); CALCIUM 8.1 MG/DL (8.5-10.1); CHLORIDE 110 MEQ/L (98-107); CREATININE 0.42 MG/DL (0.60-1.30); GLOMERULAR FILTRATION RATE 203 ML/MIN (>89); GLUCOSE,RANDOM 94 MG/DL (74-106); SODIUM (NA) 145 MEQ/L (136-145)
[2017-12-11 06:29] LABS: ALKALINE PHOSPHATASE 104 U/L (45-117); TOTAL BILIRUBIN ADULT 1.1 MG/DL (0.2-1.0); TOTAL PROTEIN 5.1 GM/DL (6.4-8.2)
[2017-12-11] MEDS: CARVEDILOL 3.125 MG TAB PO SCH ×2 (07:42→21:40)
[2017-12-11] MEDS: GABAPENTIN 400 MG CAP PO SCH ×3 (07:42→17:58)
[2017-12-11] MEDS: FAMOTIDINE 20 MG TAB PO SCH ×2 (07:42→21:40)
[2017-12-11] MEDS: FLUTICASONE 200 MCG/VILANTEROL 25 MCG INHALER INH SCH (07:42)
[2017-12-11] MEDS: POTASSIUM PHOSPHATE INJ 30 MMOL in SODIUM CHLOR 0.9% 250 ML INJ 250 ML IV PRN (07:43)
[2017-12-11] MEDS: LISINOPRIL 20 MG TAB PO SCH (07:43)
[2017-12-11] MEDS: DOCUSATE SODIUM 50 MG/SENNA 8.6 MG TAB PO SCH ×2 (09:00→21:40)
--- NOTE | 2017-12-11 10:21 | HHI.PR ---
Subjective Remarks Patient seen and examined this morning. He denies chest pain or difficulty breathing. States he feels better than yesterday. Unclear cause of PE. Patient denies any history of blood clot, PE. He denies long plane or car ride. Objective Vital Signs Date Time Temp Pulse Resp B/P (MAP) Pulse Ox O2 Delivery O2 Flow Rate FiO2 12/11/17 08:00 98.0 66 21 160/98 (118) 97 12/11/17 08:00 66 12/11/17 07:52 97 Nasal Cannula 2.00 12/11/17 07:00 71 29 157/88 (111) 96 12/11/17 06:00 70 12/11/17 04:00 65 12/11/17 04:00 98.1 65 24 147/77 (100) 93 12/11/17 02:00 71 12/11/17 00:00 98.4 77 25 129/78 (95) 94 12/11/17 00:00 77 12/10/17 22:00 77 12/10/17 20:15 96 Nasal Cannula 2.00 12/10/17 20:00 98.7 77 26 185/91 (122) 94 12/10/17 20:00 77 12/10/17 18:00 78 27 156/88 (110) 94 12/10/17 18:00 78 12/10/17 17:00 75 35 155/79 (104) 96 12/10/17 16:00 80 12/10/17 16:00 98.0 80 31 121/85 (97) 98 12/10/17 15:00 77 23 150/91 (110) 96 12/10/17 14:00 69 24 134/88 (103) 97 12/10/17 14:00 69 12/10/17 13:00 73 26 150/86 (107) 97 12/10/17 12:00 81 12/10/17 12:00 98.8 81 28 124/81 (95) 97 12/10/17 11:00 73 26 137/84 (101) 97 I/O 12/10/17 12/10/17 12/10/17 12/11/17 12/11/17 12/11/17 07:00 15:00 23:00 07:00 15:00 23:00 Intake Total 1740 ml 1193 ml 2071 ml Output Total 1375 ml 950 ml 500 ml Balance 365 ml 1193 ml 1121 ml -500 ml Intake Oral 240 ml 500 ml IV Total 1500 ml 1193 ml 1571 ml Output Urine Total 1375 ml 950 ml 500 ml # Bowel Movements 0 0 Result Diagram: 12/11/17 0520 12/11/17 [address] Angiography 12/09/17 1224 Signed Impressions: Service Date/Time: Saturday, December 09, 2017 13:50 - CONCLUSION: Severe and extensive bilateral pulmonary embolism to both main pulmonary arteries with involvement of the lobar branches with the exception of the left upper lobe. Walter Plasencia MD Lower Extremity Ultrasound 12/09/17 1152 Signed Impressions: Service Date/Time: Saturday, December 09, 2017 12:46 - CONCLUSION: Study is positive for deep venous thrombosis with clot in the popliteal vein as well as the posterior tibial vein and peroneal veins. Aakash Reyes MD Chest X-Ray 12/09/17 1152 Signed Impressions: Service Date/Time: Saturday, December 09, 2017 11:59 - CONCLUSION: 1. Mildly tortuous aorta. No focal consolidation. Keyur Meneses MD Head CT 12/09/17 0000 Signed Impressions: Service Date/Time: Saturday, December 09, 2017 16:17 - CONCLUSION: Small area of encephalomalacia in the left frontal lobe. No evidence of acute hemorrhage or edema. Right maxillary sinus disease. Aakash Reyes MD Objective Remarks GENERAL: Well-appearing, no acute distress SKIN: Warm and dry. HEAD: Normocephalic. EYES: No scleral icterus. No injection or drainage. NECK: Supple, trachea midline. No JVD or lymphadenopathy. CARDIOVASCULAR: Regular rate and rhythm without murmurs, gallops, or rubs. RESPIRATORY: Bilat end expiratory wheezing GASTROINTESTINAL: Abdomen soft, non-tender, nondistended. MUSCULOSKELETAL: No calf tenderness. A/P Problem List: (1) Diabetes mellitus ICD Code: E11.9 - Diabetes mellitus Status: Acute (2) CAD (coronary artery disease) ICD Code: I25.10 - CAD (coronary artery disease) Status: Acute (3) COPD exacerbation ICD Code: J44.1 - COPD exacerbation Status: Acute (4) DVT (deep venous thrombosis) ICD Code: I82.409 - Acute embolism and thrombosis of unspecified deep veins of unspecified lower extremity Status: Acute (5) Pulmonary embolism ICD Code: I26.99 - Other pulmonary embolism without acute cor pulmonale Status: Acute Assessment and Plan This is a 67-year-old male with a history of COPD, hypertension, diabetes, hyperlipidemia and coronary artery disease with stent placement who presented to [place] ED with shortness of breath. CTA showed severe and extensive bilateral PE to both main pulmonary arteries with involvement of the lobar branches. Ultrasound of lower extremities confirmed an extensive DVT. He was taken extensively to IR suite for TPA administration. Patient was then placed on heparin and TPA infusion. Patient initially admitted to critical care and then care was then transferred to the hospitalist team. Massive PE with respiratory failure Ultrasound confirms left leg DVT -Status post TPA infusion by IR -Currently on heparin drip per protocol -Hypercoagulable workup ordered -Hematology consulted COPD -Does not appear to be an exacerbation -Supplemental oxygen as needed -Breathing treatments as needed - cont home breo Diabetes - A1C orderd - on metformin as outpatient - supplemental sliding scale CAD - on plavix-- currently on hold - cont statin - cont lisinopril - cont carvedilol HypoK - repleated DVT proph on heparin drip Discharge Planning d/c pending hematologic workup and reccs for outpatient management Case discussed with nurse brown to transfer out of the ICU Problem Qualifiers (1) DVT (deep venous thrombosis): Qualified Codes: I82.492 - Acute embolism and thrombosis of other specified deep vein of left lower extremity (2) Pulmonary embolism: Qualified Codes: I26.99 - Other pulmonary embolism without acute cor pulmonale Emilia Garcia MD Dec 11, 2017 10:21
[2017-12-11] MEDS: SODIUM CHLOR 0.9% 1000 ML INJ 1,000 ML IV SCH (12:44)
--- NOTE | 2017-12-11 12:55 | RADRPT ---
EXAM DATE/TIME: 12/09/2017 17:37 [facility] COMPARISON: No previous studies available for comparison. INDICATIONS : Patient with extensive, bilateral pulmonary embolism in need of central line placement for throm bolytic infusion. MEDICAL HISTORY : HLD, COPD, Diabetes, HTN, [place] SURGICAL HISTORY : Tracheostomy and reversal 2012, Cardiac stent ENCOUNTER: Initial ACUITY: 1 day PAIN SCORE: 0/10 FLUORO TIME: 0.2 minutes IMAGE SERIES: 1 ACCESS: Right internal jugular vein DEVICE(S): 1.) 7 Turkmen triple lumen 16 cm Arrow central line PROCEDURE : 1. Ultrasound guided venipuncture. 2. Fluoroscopic guidance. 3. Central line placement. The risks, benefits and alternatives to the procedure were explained and verbal and written consent w as obtained. The site was prepped in sterile fashion. Full sterile technique was used, including ca p, mask, sterile gloves and gown and a large sterile sheet. Hand hygiene and 2% chlorhexidine prep w as utilized per protocol for cutaneous antisepsis with appropriate dry time for site. Sterile gel an d sterile probe cover were utilized for ultrasound guidance. The skin and subcutaneous tissues were infiltrated with local anesthetic solution. A suitable site a osiel the vein was selected with ultrasound and fluoroscopic guidance. A small incision was made. Th e vein was accessed under direct ultrasound visualization using the micropuncture technique. The alvin ropuncture set was exchanged for a 0.035 wire. The tract was dilated. The catheter was advanced int o position under direct fluoroscopic visualization. The catheter was fixed in place with suture and a sterile dressing was applied. The patient tolerated the procedure well and there were no complications. CONCLUSION: Uncomplicated line placement as above. TPA was initiated via the central port at 2 mg per hour Phill Proctor MD on December 11, 2017 at 12:51 Board Certified Radiologist. This report was verified electronically.
--- NOTE | 2017-12-11 13:07 | MB ---
cc: Shi Anglin MD DATE: 12/11/2017 CHIEF COMPLAINT: Pulmonary embolism. HISTORY OF PRESENT ILLNESS: Mr. Pedraza is a 67-year-old gentleman with a history of COPD, hypertension, diabetes, hyperlipidemia, coronary artery disease, status post stent placement, who was admitted to the hospital on 12/09/2017, with a 2-day history of progressively worsening shortness of breath, fatigue and chest pain. CT angiogram performed in the emergency room revealed severe extensive bilateral pulmonary emboli to both main pulmonary arteries with involvement of the lobar branches. Lower extremity ultrasound showed positive for DVT with clot in the popliteal vein as well as the posterior tibial vein and the peritoneal vein in the left leg. Echocardiogram performed showed right ventricular free wall severe hypokinesis with apical hyperdynamic consistent with Andrea sign. He was taken emergently to the interventional radiology suite and underwent tPA administration. He is currently resting comfortably in bed. He reports that his respiratory status has improved greatly after tPA. LABORATORY STUDIES: White blood cell count 6.1, hemoglobin 12.9. This was within normal limits on admission. MCV is 103.7, platelet count is 105,000. Platelet count on admission is 104,000, and he has a normal differential. CMP significant for total protein 5.1, albumin 2.3, total bilirubin is 1.1, creatinine 0.42 and potassium is 3.3. PAST MEDICAL HISTORY 1. Hypertension. 2. Hyperlipidemia. 3. COPD. 4. Diabetes mellitus. 5. Coronary artery disease with stent placement. 6. Tobacco abuse. 7. Alcohol abuse. PAST SURGICAL HISTORY: 1. Coronary artery stent in 2006. 2. Tracheostomy and reversal in 2012. HOSPITAL MEDICATIONS: Atorvastatin, labetalol, carvedilol, famotidine, Breo Ellipta, gabapentin, heparin drip. FAMILY HISTORY: No family history of blood clots. SOCIAL HISTORY: Tobacco and alcohol use. The patient lives in [facility], good support system with his . ROS as above in HPI. All other ROS negative. PHYSICAL EXAMINATION: VITAL SIGNS: Temperature of 97.9, pulse 62, blood pressure 153/86 and pulse oximetry is 98% on room air. GENERAL: Well-developed, well-nourished man in no distress. NECK: Supple with no palpable lymphadenopathy. Oropharynx clear. CARDIOVASCULAR: Regular rate and rhythm with no murmurs. RESPIRATORY: Clear to auscultation bilaterally. ABDOMEN: Protuberant abdomen but soft and nondistended with bowel sounds present. EXTREMITIES: With no edema. NEUROLOGIC: Grossly nonfocal. PSYCHIATRIC: Appropriate mood and affect. ASSESSMENT AND PLAN: 1. Massive pulmonary embolism. This pulmonary embolism is unprovoked. The patient denies any illness, surgery, recent hospitalization, prolonged periods of travel or prolonged bed rest leading up to this hospitalization and development of this clot. He is status post tPA administration with improvement of symptoms. He is currently on a heparin protocol with a therapeutic PTT. Discussed treatment of unprovoked pulmonary embolism with patient. Discussed that given male sex and unprovoked clot, he will need to be on indefinite anticoagulation. Discussed options for anticoagulation in the outpatient setting with patient to include warfarin versus apixaban versus Xarelto. Discussed that the major side effect of all 3 medications includes bleeding. Discussed that apixaban and rivaroxaban do not have a reversal agent. Discussed that studies have shown that warfarin has increased risk of major bleeding. At hospital discharge, we will start the patient on apixaban. He will continue this indefinitely and will have close followup in hematology clinic. 2. Tobacco abuse. The patient smoked 1-1/2 packs per day for several years. The patient reports that he does no desire to continue smoking at hospital discharge. 3. Alcohol abuse. Told patient under no uncertain terms that he would not be able to continue drinking while he is on anticoagulation. He expressed understanding and he expressed that he would not drink on hospital discharge. 4. Macrocytosis with an MCV of 100-103. We will check vitamin B12 and folate given past history of alcohol abuse. Could also be due to drug toxicity of alcohol on the bone marrow. MD STACEY Davenport/MERYL , 12:41 PM , 01:06 PM GLORIA
[2017-12-11 13:22] LABS: HEMOGLOBIN A1C 4.4 % (4.3-6.0)
[2017-12-11 13:36] LABS: FOLATE 11.4 NG/ML (3.1-17.5)
[2017-12-11] MEDS: hydrALAZINE HCL 20 MG/ML VIAL IV PUSH PRN (16:12)
[2017-12-11] MEDS: HEPARIN 25,000 UNITS-D5W 250 ML - PREMIX IV PRN (19:35)
[2017-12-11] MEDS: ATORVASTATIN 80 MG TAB PO SCH (21:40)
[2017-12-12] VITALS (21 sets, daily range): BP systolic 129–157; BP diastolic 75–93; PULSE 60–88; RESP 16–20; TEMP 97.8–98.7; O2SAT 93–95
[2017-12-12] MEDS: RESP: ALBUTEROL 2.5 MG/IPRATROPIUM 0.5 MG NEB (SCH) INH ×4 (03:06→16:00)
[2017-12-12 03:47] LABS: AUTOMATED NEUTROPHIL # 3.6 TH/MM3 (1.8-7.7); BASOPHIL % 0.5 % (0.0-2.0); EOSINOPHIL # 0.2 TH/MM3 (0-0.4); HEMATOCRIT 38.4 % (39.0-51.0); HEMOGLOBIN 12.9 GM/DL (13.0-17.0); LYMPH % 23.7 % (9.0-44.0); LYMPHOCYTE # 1.4 TH/MM3 (1.0-4.8); MEAN CELL VOLUME 103.2 FL (80.0-100.0); MEAN CORPUSCULAR HEMOGLOBIN 34.6 PG (27.0-34.0); MEAN CORPUSCULAR HGB CONC 33.5 % (32.0-36.0); MEAN PLATELET VOLUME 8.8 FL (7.0-11.0); MONO % 11.6 % (0.0-8.0); MONOCYTE # 0.7 TH/MM3 (0-0.9); NEUT % 61.2 % (16.0-70.0); PLATELET COUNT 118 TH/MM3 (150-450); RED BLOOD COUNT 3.72 MIL/MM3 (4.50-5.90); RED CELL DISTRIBUTION WIDTH 14.4 % (11.6-17.2); WHITE BLOOD COUNT 5.9 TH/MM3 (4.0-11.0)
[2017-12-12 03:54] LABS: BICARBONATE 27.4 MEQ/L (21.0-32.0); CALCIUM 8.9 MG/DL (8.5-10.1); CREATININE 0.42 MG/DL (0.60-1.30)
[2017-12-12] MEDS: INSULIN NovoLIN REGULAR SUPPLEMENTAL SCALE SQ SCH ×5 (04:00→16:00)
[2017-12-12] MEDS: FLUTICASONE 200 MCG/VILANTEROL 25 MCG INHALER INH SCH (09:10)
[2017-12-12] MEDS: DOCUSATE SODIUM 50 MG/SENNA 8.6 MG TAB PO SCH (09:13)
[2017-12-12] MEDS: FAMOTIDINE 20 MG TAB PO SCH (09:13)
[2017-12-12] MEDS: GABAPENTIN 400 MG CAP PO SCH ×3 (09:13→17:29)
[2017-12-12] MEDS: LISINOPRIL 20 MG TAB PO SCH (09:13)
[2017-12-12] MEDS: CARVEDILOL 3.125 MG TAB PO SCH (09:13)
[2017-12-12] MEDS: SODIUM CHLOR 0.9% 1000 ML INJ 1,000 ML IV SCH (09:26)
--- NOTE | 2017-12-12 11:10 | HHI.PR ---
Subjective Remarks Patient seen earlier this morning. He told me that he was feeling a lot better. Shortness of breath is much improved. No chest pains, nausea or vomiting. Objective Vitals Vital Signs Date Time Temp Pulse Resp B/P (MAP) Pulse Ox O2 Delivery O2 Flow Rate FiO2 12/12/17 10:05 94 21 12/12/17 08:14 95 Room Air 12/12/17 08:14 98.4 71 18 157/93 (114) 95 12/12/17 06:00 62 12/12/17 05:00 60 12/12/17 04:00 74 12/12/17 03:20 67 16 142/88 (106) 93 12/12/17 03:10 80 12/12/17 02:00 68 12/12/17 01:00 72 12/12/17 00:00 66 12/11/17 23:35 71 16 129/76 (93) 94 12/11/17 23:00 79 12/11/17 22:00 74 12/11/17 21:00 84 12/11/17 20:15 98.7 64 18 140/83 (102) 94 12/11/17 20:00 70 12/11/17 19:00 94 Room Air 12/11/17 19:00 79 12/11/17 18:59 96 21 12/11/17 18:00 84 12/11/17 17:00 82 12/11/17 16:58 99.1 82 146/84 (104) 96 12/11/17 16:58 90 12/11/17 16:58 95 Room Air 12/11/17 16:14 68 30 142/97 (112) 97 12/11/17 16:00 66 12/11/17 16:00 97.8 66 22 167/101 (123) 98 12/11/17 12:00 62 12/11/17 12:00 97.9 62 21 153/86 (108) 98 I/O 12/11/17 12/11/17 12/11/17 12/12/17 12/12/17 12/12/17 07:00 15:00 23:00 07:00 15:00 23:00 Intake Total 1004 ml 1500 ml 240 ml Output Total 500 ml 800 ml 1950 ml Balance -500 ml 1004 ml 700 ml -1710 ml Intake Oral 990 ml 240 ml IV Total 1004 ml 510 ml Output Urine Total 500 ml 800 ml 1950 ml # Bowel Movements 0 0 Result Diagram: 12/12/17 0320 12/12/17 [address] Angiography 12/09/17 1224 Signed Impressions: Service Date/Time: Saturday, December 09, 2017 13:50 - CONCLUSION: Severe and extensive bilateral pulmonary embolism to both main pulmonary arteries with involvement of the lobar branches with the exception of the left upper lobe. Walter Plasencia MD Lower Extremity Ultrasound 12/09/17 1152 Signed Impressions: Service Date/Time: Saturday, December 09, 2017 12:46 - CONCLUSION: Study is positive for deep venous thrombosis with clot in the popliteal vein as well as the posterior tibial vein and peroneal veins. Aakash Reyes MD Chest X-Ray 12/09/17 1152 Signed Impressions: Service Date/Time: Saturday, December 09, 2017 11:59 - CONCLUSION: 1. Mildly tortuous aorta. No focal consolidation. Keyur Meneses MD Head CT 12/09/17 0000 Signed Impressions: Service Date/Time: Saturday, December 09, 2017 16:17 - CONCLUSION: Small area of encephalomalacia in the left frontal lobe. No evidence of acute hemorrhage or edema. Right maxillary sinus disease. Aakash Reyes MD Central Venous Line 12/09/17 0000 Signed Impressions: Service Date/Time: Saturday, December 09, 2017 17:37 - CONCLUSION: Uncomplicated line placement as above. TPA was initiated via the central port at 2 mg per hour Phill Proctor MD Objective Remarks GENERAL: Well-appearing, appears comfortable and speaking in full sentences CARDIOVASCULAR: Regular rate and rhythm without murmurs RESPIRATORY: Clear to auscultation with no wheezing GASTROINTESTINAL: Abdomen soft, non-tender, nondistended. MUSCULOSKELETAL: No calf tenderness. A/P Assessment and Plan This is a 67-year-old male with a history of COPD, hypertension, diabetes, hyperlipidemia and coronary artery disease with stent placement who presented to [place] ED with shortness of breath. CTA showed severe and extensive bilateral PE to both main pulmonary arteries with involvement of the lobar branches. Ultrasound of lower extremities confirmed an extensive DVT. He was taken extensively to IR suite for TPA administration. Patient was then placed on heparin and TPA infusion. Patient initially admitted to critical care and then care was then transferred to the hospitalist team. Massive PE with respiratory failure Ultrasound confirms left leg DVT -Status post TPA infusion by IR -Currently on heparin drip per protocol. Will transition to apixaban 5 mg p.o. twice daily per hematology's recommendations. -Hypercoagulable workup ordered -Hematology consulted and appreciate recommendations. Patient will need to follow-up with hematology as an outpatient. COPD -Does not appear to be an exacerbation -Supplemental oxygen as needed -Breathing treatments as needed - cont home breo Diabetes - A1C four-point - on metformin as outpatient - supplemental sliding scale CAD - on plavix-- currently on hold but resume as an outpatient - cont statin - cont lisinopril - cont carvedilol HypoK - repleated DVT proph on heparin drip but will transition to apixaban Discharge Planning We will switch him to apixaban today, encourage ambulation, check a walk test to make sure he does not need home oxygen. I will also check a phosphate level as it was slightly low a few days ago. Discussed with hematology and agreeable with plan. Dr. Anglin would like to see the patient in 1 week. Judy Portillo MD Dec 12, 2017 11:10
[2017-12-12] MEDS ORDERED: CALCIUM ACETATE 667 MG CAP PO ONE (11:15)
[2017-12-12] MEDS ORDERED: APIXABAN 5 MG TABLET PO SCH (11:15)
[2017-12-12] MEDS ORDERED: APIX5TAB PO (15:50)
--- NOTE | 2017-12-12 15:53 | HHI.DS ---
Discharge Summary Admission Date Dec 09, 2017 at 14:59 Discharge Date: Dec 12, 2017 Admitting Diagnosis Multiple PEs, DVTs (1) Pulmonary embolism ICD Code: I26.99 - Other pulmonary embolism without acute cor pulmonale Status: Acute Procedures s/p TPA Brief History - From Admission 67 year old male with history of COPD, hypertension, diabetes, dyslipidemia, coronary artery disease with a stent placement in the past presents complaining of SOB. He says that he has felt a little short of breath over the past few days, but says it got much worse today. 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 He says he has been taking his Spiriva as directed. He does not use albuterol at home. He denies chest pain. He says he has had a productive cough. He denies fever or chills. He says he has not noticed any leg swelling. Exertion seems to make his symptoms worse. The CT angiogram performed in the emergency department show severe and extensive bilateral pulmonary embolism to both main pulmonary arteries with involvement of the lobar branches with the exception of the left upper lobe. His ultrasound of the lower extremities also confirms extensive DVT. The echocardiogram performed emergently shows RV free wall severe hypokinesis with apical hyperdynamic, consistent with Andrea's Sign, due to pulmonary embolism. He was taken emergently to interventional radiology suite for TPA administration. CBC/BMP: 12/12/17 0320 12/12/17 0320 Significant Findings Laboratory Tests Test 12/09/17 18:15 12/09/17 20:38 12/09/17 21:58 12/10/17 00:50 Activated Partial Thromboplast Time 54.7 SEC (24.3-30.1) 65.5 SEC (24.3-30.1) Red Blood Count 4.07 MIL/MM3 (4.50-5.90) 3.94 MIL/MM3 (4.50-5.90) Mean Corpuscular Volume 101.3 FL (80.0-100.0) 101.6 FL (80.0-100.0) Mean Corpuscular Hemoglobin 34.9 PG (27.0-34.0) 34.4 PG (27.0-34.0) Platelet Count 136 TH/MM3 (150-450) 122 TH/MM3 (150-450) Monocytes (%) (Auto) 9.9 % (0.0-8.0) 10.1 % (0.0-8.0) Test 12/10/17 06:00 12/10/17 12:30 12/10/17 12:50 12/10/17 22:06 Red Blood Count 4.01 MIL/MM3 (4.50-5.90) 3.82 MIL/MM3 (4.50-5.90) Mean Corpuscular Volume 101.9 FL (80.0-100.0) 102.8 FL (80.0-100.0) Mean Corpuscular Hemoglobin 34.6 PG (27.0-34.0) 34.6 PG (27.0-34.0) Platelet Count 123 TH/MM3 (150-450) 114 TH/MM3 (150-450) Neutrophils (%) (Auto) 73.9 % (16.0-70.0) Monocytes (%) (Auto) 11.9 % (0.0-8.0) 10.9 % (0.0-8.0) Lymphocytes # (Auto) 0.9 TH/MM3 (1.0-4.8) Activated Partial Thromboplast Time 31.8 SEC (24.3-30.1) 33.4 SEC (24.3-30.1) 36.8 SEC (24.3-30.1) Creatinine 0.55 MG/DL (0.60-1.30) Random Glucose 135 MG/DL (74-106) Calcium Level 8.2 MG/DL (8.5-10.1) Phosphorus Level 1.4 MG/DL (2.5-4.9) 2.3 MG/DL (2.5-4.9) Magnesium Level 1.2 MG/DL (1.5-2.5) Potassium Level 2.8 MEQ/L (3.5-5.1) Test 12/11/17 05:20 12/11/17 11:50 12/11/17 17:20 12/12/17 03:20 Red Blood Count 3.72 MIL/MM3 (4.50-5.90) 3.72 MIL/MM3 (4.50-5.90) Hemoglobin 12.9 GM/DL (13.0-17.0) 12.9 GM/DL (13.0-17.0) Hematocrit 38.6 % (39.0-51.0) 38.4 % (39.0-51.0) Mean Corpuscular Volume 103.7 FL (80.0-100.0) 103.2 FL (80.0-100.0) Mean Corpuscular Hemoglobin 34.6 PG (27.0-34.0) 34.6 PG (27.0-34.0) Platelet Count 105 TH/MM3 (150-450) 118 TH/MM3 (150-450) Monocytes (%) (Auto) 10.9 % (0.0-8.0) 11.6 % (0.0-8.0) Activated Partial Thromboplast Time 38.0 SEC (24.3-30.1) 34.3 SEC (24.3-30.1) 33.6 SEC (24.3-30.1) 39.2 SEC (24.3-30.1) Blood Urea Nitrogen 5 MG/DL (7-18) 4 MG/DL (7-18) Creatinine 0.42 MG/DL (0.60-1.30) 0.42 MG/DL (0.60-1.30) Total Protein 5.1 GM/DL (6.4-8.2) Albumin 2.3 GM/DL (3.4-5.0) Calcium Level 8.1 MG/DL (8.5-10.1) Total Bilirubin 1.1 MG/DL (0.2-1.0) Potassium Level 3.3 MEQ/L (3.5-5.1) Chloride Level 110 MEQ/L (98-107) 111 MEQ/L (98-107) Test 12/12/17 10:13 Activated Partial Thromboplast Time 43.4 SEC (24.3-30.1) Imaging Last Impressions CT Angiography 12/09/17 [id number] Signed Impressions: Service Date/Time: Saturday, December 09, 2017 13:50 - CONCLUSION: Severe and extensive bilateral pulmonary embolism to both main pulmonary arteries with involvement of the lobar branches with the exception of the left upper lobe. Walter Plasencia MD Lower Extremity Ultrasound 12/09/17 1152 Signed Impressions: Service Date/Time: Saturday, December 09, 2017 12:46 - CONCLUSION: Study is positive for deep venous thrombosis with clot in the popliteal vein as well as the posterior tibial vein and peroneal veins. Aakash Reyes MD Chest X-Ray 12/09/17 1152 Signed Impressions: Service Date/Time: Saturday, December 09, 2017 11:59 - CONCLUSION: 1. Mildly tortuous aorta. No focal consolidation. Keyur Meneses MD Head CT 12/09/17 0000 Signed Impressions: Service Date/Time: Saturday, December 09, 2017 16:17 - CONCLUSION: Small area of encephalomalacia in the left frontal lobe. No evidence of acute hemorrhage or edema. Right maxillary sinus disease. Aakash Reyes MD Central Venous Line 12/09/17 0000 Signed Impressions: Service Date/Time: Saturday, December 09, 2017 17:37 - CONCLUSION: Uncomplicated line placement as above. TPA was initiated via the central port at 2 mg per hour Phill Proctor MD PE at Discharge GENERAL: Well-appearing, appears comfortable and speaking in full sentences CARDIOVASCULAR: Regular rate and rhythm without murmurs RESPIRATORY: Clear to auscultation with no wheezing GASTROINTESTINAL: Abdomen soft, non-tender, nondistended. MUSCULOSKELETAL: No calf tenderness. Hospital Course This is a 67-year-old male with a history of COPD, hypertension, diabetes, hyperlipidemia and coronary artery disease with stent placement who presented to [facility] ED with shortness of breath. CTA showed severe and extensive bilateral PE to both main pulmonary arteries with involvement of the lobar branches. Ultrasound of lower extremities confirmed an extensive DVT. He was taken to IR suite for TPA administration. Patient was then placed on heparin and TPA infusion. Patient initially admitted to critical care and then care was then transferred to the hospitalist team. Throughout his hospital course, he did well and improved. On day of discharge, he denied any chest pain or shortness of breath, he passes walk test and does not require home oxygen. He was transitioned to Eliquis 5 mg p.o. twice daily and tolerated it thus far. I discussed case with Dr. Anglin who would like to see him in a week in her office. Encourage ambulation at home. Pt Condition on Discharge: Stable Discharge Disposition: Discharge Home Discharge Time: > 30 minutes Discharge Instructions DIET: Follow Instructions for: Heart Healthy Diet, Diabetic Diet Activities you can perform: Regular-No Restrictions Follow up Referrals: Hematology - 1 Week PCP Follow-up - 1 Week New Medications: Apixaban (Eliquis) 5 Mg Tab 5 MG PO BID, #60 TAB Continued Medications: Atorvastatin (Atorvastatin) 80 Mg Tab 80 MG PO HS for Cholesterol Management, #30 TAB 0 Refills Carvedilol (Carvedilol) 3.125 Mg Tab 3.125 MG PO BID, #60 TAB 0 Refills Clopidogrel (Plavix) 75 Mg Tab 75 MG PO DAILY for Blood Clot Prevention, #30 TAB 0 Refills Fluticasone-Vilanterol Inh (Breo Ellipta Inh) 200-25 Mcg/Act Inh 1 PUFF INH DAILY, #1 INHALER 0 Refills Use daily at the same time. Gabapentin (Gabapentin) 400 Mg Cap 400 CAP PO TID, #30 CAP 0 Refills Hydrocodone/Acetaminophen (Hydrocodone-Acetamin 7.5-325) 7.5 Mg-325 Mg Tablet 1 TAB PO Q6HR PRN for PAIN Lisinopril (Lisinopril) 20 Mg Tab 20 MG PO DAILY, #30 TAB 0 Refills Metformin (Metformin) 500 Mg Tab 500 MG PO BIDPC for Blood Sugar Management, #60 TAB 0 Refills With meals Potassium Chloride ER (Potassium Chloride ER) 20 Meq Tab 20 MEQ PO BID for Electrolyte Replacement, #60 TAB 0 Refills Judy Portillo MD Dec 12, 2017 15:53
[2017-12-14 13:52] LABS: APTT VON WILL EVAL 39 sec (22-34); COAG FACTOR VIII 109 (50-180)
[2017-12-14 17:51] LABS: VWF AG 280 % (50-217)
[2017-12-14 19:53] LABS: VWF RISTOCETIN CO FACTOR 297 (42-200)
[2017-12-15 03:50] LABS: THROMBIN TIME 19 sec (13-19)
== END 2017-12-12 18:02 | disposition home or self-care (01) | DRG 175 ==
LOC: PHED 11:34 → PHEDA 14:59 → HIME 17:55 → HCIS 12-11 16:51
PROVIDERS: ADMIT Hospitalist; ATTEND Hospitalist
PROC: 3E04317 Introduction of Other Thrombolytic into Central Vein, Percutaneous Approach (ICD-10-PCS; principal; 2017-12-09)
PROC: 05HM33Z Insertion of Infusion Device into Right Internal Jugular Vein, Percutaneous Approach (ICD-10-PCS; 2017-12-09)
DX: I26.99 Other pulmonary embolism without acute cor pulmonale (principal); J96.91 Respiratory failure, unspecified with hypoxia; I82.492 Acute embolism and thrombosis of other specified deep vein of left lower extremity; I82.432 Acute embolism and thrombosis of left popliteal vein; I82.442 Acute embolism and thrombosis of left tibial vein; J44.1 Chronic obstructive pulmonary disease with (acute) exacerbation; E11.649 Type 2 diabetes mellitus with hypoglycemia without coma; I10 Essential (primary) hypertension; E78.00 Pure hypercholesterolemia, unspecified; R60.9 Edema, unspecified; I25.10 Atherosclerotic heart disease of native coronary artery without angina pectoris; E78.5 Hyperlipidemia, unspecified; K59.00 Constipation, unspecified; R05 Cough; F17.210 Nicotine dependence, cigarettes, uncomplicated; F10.10 Alcohol abuse, uncomplicated; Z95.5 Presence of coronary angioplasty implant and graft; I25.2 Old myocardial infarction; D75.89 Other specified diseases of blood and blood-forming organs; E87.6 Hypokalemia
CPT/HCPCS: 36556; 37212; 70450; 71045; 71275; 76937; 77001; 80048; 80053; 82607; 82746; 82948; 83036; 83735; 83880; 84100; 84132; 84484; 85025; 85240; 85245; 85246; 85247; 85250; 85384; 85610; 85670; 85730; 87641; 93005; 93306; 93971; 94618; 94640; 94664; 96365; J0360; J1644; J2997; J3475; J3480; J7030; J7040; J7042; J7050; Q9967

== ENCOUNTER 2018-05-10 08:11 | Observation (INO) ==
[2018-05-10 09:17] LABS: Baso % (Auto) 0.8 % (0.0-2.0); Eos # (Auto) 0.1 th/mm3 (0.0-0.4); Eos % (Auto) 1.3 % (0.0-4.0); Hematocrit 39.9 % (39.0-51.0); Hemoglobin 13.5 gm/dL (13.0-17.0); Lymph % (Auto) 18.7 % (9.0-44.0); Mean Corpuscular HGB Conc 33.8 % (32.0-36.0); Mean Corpuscular Hemoglobin 35.4 pg (27.0-34.0); Mean Corpuscular Volume 104.9 fL (80.0-100.0); Mean Platelet Volume 8.4 fL (7.0-11.0); Mono # (Auto) 0.7 th/mm3 (0.0-0.9); Mono % (Auto) 14.3 % (0.0-8.0); Neut # (Auto) 3.4 th/mm3 (1.8-7.7); Neut % (Auto) 64.9 % (16.0-70.0); Platelet Count 146 th/mm3 (150-450); Red Blood Count 3.81 mil/mm3 (4.50-5.90); Red Cell Distribution Width 14.6 % (11.6-17.2); White Blood Count 5.2 th/mm3 (4.0-11.0)
--- NOTE | 2018-05-10 09:42 | CT ---
EXAM DATE: 05/10/2018 9:09 AM EDT AGE/SEX: 68 years / Male INDICATIONS: Trauma. Fell 2 days ago. CLINICAL DATA: This is the patient's initial encounter. Patient reports that signs and symptoms have been present for 1 day and indicates a pain score of 2/10. MEDICAL/SURGICAL HISTORY: Chronic obstructive pulmonary disease. Renal insufficiency, chronic. Ga stroesophageal reflux disease. Congestive heart failure. Diabetes. Hypertension. Coronary artery st ent. RADIATION DOSE: 63.75 CTDI (mGy) COMPARISON: [facility], CT HEAD W/O CONTRAST, 03/23/2018. . TECHNIQUE: CT of the head without contrast. Using automated exposure control and adjustment of the mA and/or kV according to patient size, radiation dose was kept as low as reasonably achievable to ob tain optimal diagnostic quality images. DICOM format image data is available electronically for revi ew and comparison. FINDINGS: Cerebrum: Stable focal encephalomalacia defect in the left frontal high convexities. Stable small bi lateral basal ganglia hypodensities which may reflect remote lacunar infarcts. Mild diffuse cerebral atrophy. The ventricles are normal for degree of atrophy. No evidence of midline shift, mass lesion, hemorrhage or acute infarction. No extraaxial fluid collections are seen. Posterior Fossa: The cerebellum and brainstem are intact. The 4th ventricle is midline. The cerebe llopontine angle is unremarkable. Extracranial: The visualized portion of the orbits is intact. Chronic appearing near opacification o f the right maxillary sinus Skull: The calvaria is intact. No evidence of skull fracture. CONCLUSION: 1. No acute intracranial abnormality. 2. Remote left frontal lobe infarct. 3. Chronic appearing right maxillary sinus disease. . Electronically signed by: Fadi Cardona MD 05/10/2018 9:40 AM EDT
--- NOTE | 2018-05-10 09:46 | CT ---
EXAM DATE: 05/10/2018 9:09 AM EDT AGE/SEX: 68 years / Male INDICATIONS: Trauma. Fell 2 days ago. Neck pain. CLINICAL DATA: This is the patient's initial encounter. Patient reports that signs and symptoms have been present for 1 day and indicates a pain score of 8/10. MEDICAL/SURGICAL HISTORY: Chronic obstructive pulmonary disease. Renal insufficiency, chronic. Gastroesophageal reflux disease. Congestive heart failure. Diabetes. Hypertension. Coronary arter y stent. RADIATION DOSE: 26.45 CTDI (mGy) COMPARISON: [facility], CT CERVICAL SPINE W/O CONTRAST, 03/23/2018. . TECHNIQUE: Contiguous axial images were obtained using helical multirow detector technique. The vol umetric data was post-processed with multiplanar reconstruction in oblique axial, sagittal, and coron al planes. Using automated exposure control and adjustment of the mA and/or kV according to patient s ize, radiation dose was kept as low as reasonably achievable to obtain optimal diagnostic quality last ges. DICOM format image data is available electronically for review and comparison. FINDINGS: OSSEOUS STRUCTURES: Vertebral body heights are maintained. Osseous structures are intact without evid ence for acute bony fracture. Dens is intact. ALIGNMENT: Sagittal alignment is maintained. There is a normal C1-2 relationship. Facets are normal ly aligned. SOFT TISSUES: There is no significant prevertebral soft tissue hematoma. No significant cervical agatha nopathy or gross mass. 2 cm low-density right thyroid nodule.Visualized lung apices demonstrates foc al scarring in the anterior left lung apex9. ADDITIONAL FINDINGS: Multilevel degenerative spondylosis of the cervical spine most prominently at C5 -6 and C6-7 with disc space narrowing and disc osteophytes. Multilevel facet arthropathy most promine ntly on the right at C2-3 and C3-4. Bony central canal is patent. Bony neural foramina are patent. CONCLUSION: 1. No acute fracture or subluxation. 2. Redemonstration of multilevel degenerative spondylosis, as above. 3. Redemonstration of 2 cm right thyroid nodule. Electronically signed by: Fadi Cardona MD 05/10/2018 9:45 AM EDT
[2018-05-10 09:47] LABS: Calcium 9.6 mg/dL (8.5-10.1)
[2018-05-10 09:48] LABS: Albumin 3.1 g/dL (3.4-5.0); Carbon Dioxide 33.7 meq/L (21.0-32.0); Glucose,Random 95 mg/dL (74-106)
--- NOTE | 2018-05-10 09:48 | XR ---
EXAM DATE: 05/10/2018 9:06 AM EDT AGE/SEX: 68 years / Male INDICATIONS: . Fall, weakness. CLINICAL DATA: This is the patient's initial encounter. Patient reports that signs and symptoms have been present for 2 days and indicates a pain score of 0/10. MEDICAL/SURGICAL HISTORY: Diabetes mellitus type II. Cardiovascular disease. Hypertension. Co ronary artery stent. COMPARISON: [facility], CHEST SINGLE AP, 12/09/2017. . FINDINGS: PA and lateral views of the chest demonstrate the lungs to be symmetrically aerated without evidence of mass, infiltrate or effusion. The cardiomediastinal contours are unremarkable. Osseous structures are intact. CONCLUSION: 1. No acute cardiopulmonary disease. Electronically signed by: Fadi Cardona MD 05/10/2018 9:47 AM EDT
[2018-05-10 09:51] LABS: Alanine Aminotransferase 373 U/L (12-78); Aspartate Aminotransferase 674 U/L (15-37); Glomerular Filtration Rate Greater Than 89 mL/min (>89)
[2018-05-10 09:53] LABS: Total Protein 6.5 g/dL (6.4-8.2)
[2018-05-10 10:07] LABS: Alkaline Phosphatase 215 U/L (45-117); Anion Gap 9 meq/L (5-15); Blood Urea Nitrogen 11 mg/dL (7-18); Chloride 97 meq/L (98-107); Sodium 140 meq/L (136-145)
[2018-05-10 10:09] LABS: Potassium 2.9 meq/L (3.5-5.1)
[2018-05-10] MEDS: Potassium Chlor 20 mEq Premix 20 MEQ/100 ML PIGGYBACK IV.SIG SCH ×2 (10:30→12:21)
[2018-05-10 10:54] LABS: Magnesium 1.5 mg/dL (1.5-2.5)
--- NOTE | 2018-05-10 10:54 | ED ---
HPI General Chief complaint: Weakness Stated complaint: fall and weakness Source: patient Mode of arrival: ambulatory Limitations: no limitations History of Present Illness HPI narrative: This 68-year-old man who presents to the emergency department complaining of generalized weakness. He states he has been weak for the past couple weeks. He came today because he fell couple days ago was having worsening head and neck pain. States he seen his primary doctor is adjusted some of his medications but that he remains persistently weak with difficulty walking. He is using a walker to ambulate now which he has not in the past. He drinks daily. Smokes tobacco. Endorses 30 pound weight loss recently. States he had lab work done in the past several days with his primary physician but does not know any results. No other complaints. Related Data Home Medications Medication Instructions Recorded Confirmed albuterol sulfate [Ventolin HFA] 2 puff INHALATION Q4-6H PRN 05/10/18 05/10/18 amlodipine 5 mg PO DAILY 05/10/18 05/10/18 apixaban [Eliquis] 5 mg PO BID 05/10/18 05/10/18 atorvastatin 80 mg PO DAILY 05/10/18 05/10/18 carvedilol 3.125 mg PO DAILY 05/10/18 05/10/18 fluticasone-vilanterol [Breo 1 inh INHALATION DAILY 05/10/18 05/10/18 Ellipta] furosemide 40 mg PO DAILY 05/10/18 05/10/18 gabapentin 400 mg PO DAILY 05/10/18 05/10/18 hydrocodone-acetaminophen 1 tab PO TID PRN 05/10/18 05/10/18 lisinopril 20 mg PO DAILY 05/10/18 05/10/18 metformin 250 mg PO BID 05/10/18 05/10/18 sycsmyop-oyh-UO-lycopen-lutein 1 tab PO DAILY 05/10/18 05/10/18 [Centrum Silver] vitamin E 400 unit PO DAILY 05/10/18 05/10/18 Allergies Allergy/AdvReac Type Severity Reaction Status Date / Time No Known Allergies Allergy Verified 05/10/18 08:20 Review of Systems ROS: all other systems reviewed are negative [facility] Medical History Medical History CAD (coronary artery disease) (Acute) CHF (congestive heart failure) (Acute) CKD (chronic kidney disease) (Acute) COPD (chronic obstructive pulmonary disease) (Acute) ETOH abuse (Acute) GERD (gastroesophageal reflux disease) (Acute) Macrocytosis without anemia (Acute) Obesity (Acute) Osteoarthritis of spine (Acute) Diabetes (Acute) High cholesterol (Acute) Hypertension (Acute) Liver disease due to alcohol (Acute) Neuropathy (Acute) Surgical History Surgical History H/O heart artery stent (Acute) Social History Social History Substance History: No History of Abuse Second Hand Smoke Exposure: Yes Smoking Status: Current every day smoker Tobacco Type: Cigarettes How Often Do You Have a Drink Containing Alcohol: 4 or more times a week Recent Travel in [facility] within the Last 8 Weeks: Yes Recent Out of Country Travel within the Last 8 Weeks: No Immunization History Tetanus Immunization: <5 Years Hx Influenza Vaccine This Season: No Exam Narrative Exam Narrative: GENERAL: 68-year-old man, nontoxic, no acute distress. SKIN: Focused skin assessment warm/dry. HEAD: Atraumatic. Normocephalic. EYES: Pupils equal and round. No scleral icterus. No injection or drainage. ENT: No nasal bleeding or discharge. Mucous membranes pink and moist. NECK: Trachea midline. No JVD. CARDIOVASCULAR: Regular rate and rhythm. No murmur appreciated. RESPIRATORY: No accessory muscle use. Clear to auscultation. Breath sounds equal bilaterally. GASTROINTESTINAL: Abdomen soft, non-tender, nondistended. Hepatic and splenic margins not palpable. MUSCULOSKELETAL: Decreased muscle bulk. NEUROLOGICAL: Awake and alert. No obvious cranial nerve deficits. Motor grossly within normal limits. Normal speech. PSYCHIATRIC: Appropriate mood and affect; insight and judgment normal. Course Initial Documented Vital Signs Temperature 97.4 F L 05/10/18 08:13 Pulse Rate 80 05/10/18 08:13 Respiratory Rate 20 05/10/18 08:13 Blood Pressure 137/71 05/10/18 08:13 Pulse Oximetry 96 05/10/18 08:13 Last Documented Vital Signs Temperature 97.4 F L 05/10/18 08:13 Pulse Rate 78 05/10/18 09:42 Respiratory Rate 18 05/10/18 09:42 Blood Pressure 131/88 05/10/18 09:42 Pulse Oximetry 98 05/10/18 09:42 Medical Decision Making MDM Narrative Medical decision making narrative: 68-year-old man with worsening generalized weakness, fall, head and neck CT are negative for acute traumatic injury. His potassium is markedly decrease of worsening liver markers suggestive of worsening underlying alcoholic liver disease. Magnesium is pending. EKG was performed and shows a QTC of 475. Will recommend IV potassium, check magnesium level, avoid alcohol. Discussed with Dr. Aubrey House, will admit patient. Medical Screen Exam Complete: Yes Emergency Medical Condition: Yes Lab Data Lab results reviewed: Yes I reviewed the patient's lab results. Result diagrams: 05/10/18 09:10 05/10/18 09:10 Lab Results 05/10/18 05/10/18 Range/Units 09:10 09:10 CBC w Diff Auto diff final WBC 5.2 (4.0-11.0) th/mm3 RBC 3.81 L (4.50-5.90) mil/mm3 Hgb 13.5 (13.0-17.0) gm/dL Hct 39.9 (39.0-51.0) % MCV 104.9 H (80.0-100.0) fL MCH 35.4 H (27.0-34.0) pg MCHC 33.8 (32.0-36.0) % RDW 14.6 (11.6-17.2) % Plt Count 146 L (150-450) th/mm3 MPV 8.4 (7.0-11.0) fL Neut % (Auto) 64.9 (16.0-70.0) % Lymph % (Auto) 18.7 (9.0-44.0) % [place] % (Auto) 14.3 H (0.0-8.0) % Eos % (Auto) 1.3 (0.0-4.0) % Baso % (Auto) 0.8 (0.0-2.0) % Neut # (Auto) 3.4 (1.8-7.7) th/mm3 Lymph # (Auto) 1.0 (1.0-4.8) th/mm3 [place] # (Auto) 0.7 (0.0-0.9) th/mm3 Eos # (Auto) 0.1 (0.0-0.4) th/mm3 Baso # (Auto) 0.0 (0.0-0.2) th/mm3 WBC Differential . Differential Comment . Sodium 140 (136-145) meq/L Potassium 2.9 L* (3.5-5.1) meq/L Chloride 97 L (98-107) meq/L Carbon Dioxide 33.7 H (21.0-32.0) meq/L Anion Gap 9 (5-15) meq/L BUN 11 (7-18) mg/dL Creatinine 0.83 (0.60-1.30) mg/dL Estimated GFR Greater than 89 (>89) mL/min Random Glucose 95 (74-106) mg/dL Calcium 9.6 (8.5-10.1) mg/dL Total Bilirubin 2.3 H (0.2-1.0) mg/dL AST 674 H (15-37) U/L ALT 373 H (12-78) U/L Alkaline Phosphatase 215 H (45-117) U/L Total Protein 6.5 (6.4-8.2) g/dL Albumin 3.1 L (3.4-5.0) g/dL Imaging Data Radiologist's impression: Cervical Spine CT 05/10/18 09:06 CONCLUSION: 1. No acute fracture or subluxation. 2. Redemonstration of multilevel degenerative spondylosis, as above. 3. Redemonstration of 2 cm right thyroid nodule. Chest X-Ray 05/10/18 09:06 CONCLUSION: 1. No acute cardiopulmonary disease. Head CT 05/10/18 09:06 CONCLUSION: 1. No acute intracranial abnormality. 2. Remote left frontal lobe infarct. 3. Chronic appearing right maxillary sinus disease. . Negative for acute traumatic injury. ECG Data Attestation: I personally reviewed and interpreted this ECG as follows: Interpretation: My review of EKG: Normal sinus rhythm at a rate of 71, right bundle branch block, QTC of 475, no definite evidence of acute ischemia. Discharge Plan Discharge Disposition Patient Disposition: 30 Still Patient Physicians Team ED Provider: Aakash Diaz Primary Care Provider: Primary Care Physici,Keely Rxs /Orders / Referrals /Forms Prescriptions: No Action furosemide 40 mg Tablet 40 mg PO DAILY RF: 0 metformin 500 mg Tablet 250 mg PO BID RF: 0 atorvastatin 80 mg Tablet 80 mg PO DAILY RF: 0 lisinopril 20 mg Tablet 20 mg PO DAILY RF: 0 gabapentin 400 mg Capsule 400 mg PO DAILY RF: 0 amlodipine 5 mg Tablet 5 mg PO DAILY RF: 0 carvedilol 3.125 mg Tablet 3.125 mg PO DAILY RF: 0 hydrocodone-acetaminophen 7.5-325 mg Tablet 1 tab PO TID PRN (Reason: Pain) RF: 0 albuterol sulfate [Ventolin HFA] 90 mcg/actuation Hfa Aerosol Inhaler 2 puff INHALATION Q4-6H PRN (Reason: Shortness Of Breath) RF: 0 vitamin E 400 unit Capsule 400 unit PO DAILY RF: 0 wormimbd-fqk-VP-lycopen-lutein [Centrum Silver] 0.4-300-250 mg-mcg-mcg Tablet 1 tab PO DAILY RF: 0 apixaban [Eliquis] 5 mg Tablet 5 mg PO BID RF: 0 fluticasone-vilanterol [Breo Ellipta] 200-25 mcg/dose Blister With Device 1 inh INHALATION DAILY RF: 0 Discharge Interventions Interventions: Vital Signs Last Done: 05/10/18 09:42 Status ED Status: With Nurse
[2018-05-10] MEDS ORDERED: Haloperidol Inj 5 MG/ML Ampul IV.PUSH PRN (12:51)
[2018-05-10] MEDS ORDERED: Dextrose 50% in Water 50 ML Vial IV.PUSH PRN (12:51)
[2018-05-10] MEDS ORDERED: LORazepam 1 MG Tablet PO PRN (12:51)
--- NOTE | 2018-05-10 12:56 | P.HP ---
History of Present Illness Primary Care Physician: No Primary Care Physician Chief Complaint: Neck pain History of Present Illness: 68-year-old male with rather significant history of hypertension, hyperlipidemia, coronary disease, pulmonary emboli, alcohol liver disease, chronic obstructive pulmonary disease, diabetes, chronic alcoholism who presented to hospital because of neck pain. Patient states that over the last 3 -4 months he has been falling more at home. 2 days ago he states that he fell backwards and landed on his buttocks and went his upper body went backwards and with his head back causing a forceful backward and forward motion of his neck. Patient states that he has been trying [id number] remedies without any significant relief. So he came to emergency department for evaluation of his neck pain. Patient had workup done and found to have worsening of his liver enzymes secondary to chronic daily alcohol use as well as hypokalemia. Is recommended by the ER physician that the patient be observed in the hospital for further evaluation and management. Patient denies any nausea, vomiting, diarrhea, loss of bowel or bladder control, unilateral weakness, difficulty eating swallowing food. - Diagnosis (1) Hypokalemia (2) Elevated liver enzymes (3) Chronic alcoholism Review of Systems All other systems reviewed negative except as stated in HPI Musculoskeletal: Reports neck pain Neurologic: Reports frequent falls PMFSH - History History Provided By: Patient - Medical History Medical History: Medical History (Last Reviewed 05/10/18 @ 12:46 by ZAHEER Lujan) CAD (coronary artery disease) CHF (congestive heart failure) CKD (chronic kidney disease) COPD (chronic obstructive pulmonary disease) ETOH abuse GERD (gastroesophageal reflux disease) Macrocytosis without anemia Obesity Osteoarthritis of spine Diabetes High cholesterol Hypertension Liver disease due to alcohol Neuropathy - Surgical History Surgical History: Surgical History (Last Reviewed 05/10/18 @ 12:46 by ZAHEER Lujan) H/O heart artery stent - Family History Family History: Family History (Last Updated 05/10/18 @ 12:47 by ZAHEER Lujan) Other No pertinent family history - Tobacco History Second Hand Smoke Exposure: No Tobacco Use In Past 30 Days: Yes Smoking Status: Current every day smoker Tobacco Type: Cigarettes Packs Per Day: 1.5 Years Smoked: 50 - Alcohol History How Often Do You Have a Drink Containing Alcohol: 4 or more times a week - Substance Use History Substance History: No History of Abuse - Travel History Recent Travel in the [place] Within the Last 8 Weeks: Yes Recent Travel Out of the Country Within the Last 8 Weeks: No - Immunization History Tetanus Immunization: <5 Years Hx Influenza Vaccine This Season: No Medications and Allergies Active Medications: Active Medications Al Hydroxide/Mg Hydroxide (Milk Of [place]) 30 ml PO Q12H PRN PRN Reason: Mild Constipation Potassium Chloride (Kcl 20 Meq Premix Inj) 20 meq in 100 mls @ 50 mls/hr IV.SIG Q2H HU Stop: 05/10/18 14:29 Last Admin: 05/10/18 12:21 Dose: 50 mls/hr Ondansetron HCl (Zofran Inj) 4 mg IV.PUSH Q6H PRN PRN Reason: NAUSEA OR VOMITING Sodium Chloride (Ns Flush) 2 ml IV.FLUSH PRN PRN PRN Reason: FLUSH AFTER USING IV ACCESS Allergies Allergy/AdvReac Type Severity Reaction Status Date / Time No Known Allergies Allergy Verified 05/10/18 08:20 Home Medications Medication Instructions Recorded Confirmed Type albuterol sulfate [Ventolin HFA] 2 puff INHALATION Q4-6H PRN 05/10/18 05/10/18 History amlodipine 5 mg PO DAILY 05/10/18 05/10/18 History apixaban [Eliquis] 5 mg PO BID 05/10/18 05/10/18 History atorvastatin 80 mg PO DAILY 05/10/18 05/10/18 History carvedilol 3.125 mg PO DAILY 05/10/18 05/10/18 History fluticasone-vilanterol [Breo 1 inh INHALATION DAILY 05/10/18 05/10/18 History Ellipta] furosemide 40 mg PO DAILY 05/10/18 05/10/18 History gabapentin 400 mg PO DAILY 05/10/18 05/10/18 History hydrocodone-acetaminophen 1 tab PO TID PRN 05/10/18 05/10/18 History lisinopril 20 mg PO DAILY 05/10/18 05/10/18 History metformin 250 mg PO BID 05/10/18 05/10/18 History foswmpij-yqh-HC-lycopen-lutein 1 tab PO DAILY 05/10/18 05/10/18 History [Centrum Silver] vitamin E 400 unit PO DAILY 05/10/18 05/10/18 History Exam Vital signs: Vital Signs 05/10/18 08:13 05/10/18 08:29 05/10/18 09:14 Temperature 97.4 F L Pulse Rate 80 85 77 Respiratory Rate 20 18 Blood Pressure 137/71 132/74 Pulse Oximetry 96 97 98 05/10/18 09:42 05/10/18 10:44 05/10/18 11:52 Temperature 97 F L Pulse Rate 78 68 72 Respiratory Rate 18 18 20 Blood Pressure 131/88 150/91 H 159/93 H Pulse Oximetry 98 97 96 Intake & Output 05/09/18 05/10/18 05/10/18 18:59 06:59 18:59 Intake Total 100.0 / 100.0 Balance 100.0 / 100.0 Weight 64.9 kg Intake: IV 100.0 / 100.0 KCl 20 mEq Premix Inj 20 meq In 100.0 / 100.0 100 ml @ 50 mls/hr IV.SIG Q2H HU Rx#:[id number] Other: Weight On Admission 64.9 kg Narrative: GENERAL: Well-developed, well-nourished, in no acute distress. alert and orientated HEENT: Head is normocephalic without any lesions or masses noted. Facial features are symmetric. Eyes: Pupils equal round reactive to light. Extraocular muscles are intact. Conjunctivae were clear. Oropharyngeal: Pharynx without any erythema edema. Tongue is midline without deviation. Buccal mucosa is moist without any masses or lesions NECK: Supple without any masses. Trachea midline no deviation. No JVD, no bruits are appreciated CARDIAC: Regular rhythm, regular rate. S1/S2 are heard. No murmurs gallops or rubs. LUNGS: Clear to auscultation bilaterally. No wheeze, rhonchi or rales. No use of accessory muscles on inspiration or expiration. ABDOMEN: Soft, nontender. Nondistended. Bowel sounds heard in all 4 quadrants. No organomegaly or masses. Negative rebound, negative guarding EXTREMITIES: No edema, pulses are equal bilaterally. No cyanosis or clubbing NEUROLOGY: Mood and affect appear appropriate. Cranial nerves II through XII grossly intact. Muscle strength 5/5 in upper and lower extremities bilaterally. Deep tendon reflexes are 2+ in upper and lower extremities bilaterally. Results - Labs CBC & Chem 7: 05/10/18 09:10 05/10/18 09:10 Labs: Laboratory Results - last 24 hr 05/10/18 05/10/18 09:10 09:10 CBC w Diff Auto diff final WBC 5.2 RBC 3.81 L Hgb 13.5 Hct 39.9 MCV 104.9 H MCH 35.4 H MCHC 33.8 RDW 14.6 Plt Count 146 L MPV 8.4 Neut % (Auto) 64.9 Lymph % (Auto) 18.7 [place] % (Auto) 14.3 H Eos % (Auto) 1.3 Baso % (Auto) 0.8 Neut # (Auto) 3.4 Lymph # (Auto) 1.0 [place] # (Auto) 0.7 Eos # (Auto) 0.1 Baso # (Auto) 0.0 WBC Differential . Differential Comment . Sodium 140 Potassium 2.9 L* Chloride 97 L Carbon Dioxide 33.7 H Anion Gap 9 BUN 11 Creatinine 0.83 Estimated GFR Greater than 89 Random Glucose 95 Calcium 9.6 Magnesium 1.5 Total Bilirubin 2.3 H AST 674 H ALT 373 H Alkaline Phosphatase 215 H Total Protein 6.5 Albumin 3.1 L - Imaging Impressions Cervical Spine CT 05/10/18 09:06 CONCLUSION: 1. No acute fracture or subluxation. 2. Redemonstration of multilevel degenerative spondylosis, as above. 3. Redemonstration of 2 cm right thyroid nodule. Chest X-Ray 05/10/18 09:06 CONCLUSION: 1. No acute cardiopulmonary disease. Head CT 05/10/18 09:06 CONCLUSION: 1. No acute intracranial abnormality. 2. Remote left frontal lobe infarct. 3. Chronic appearing right maxillary sinus disease. . Caprini VTE Risk Assessment Caprini VTE Risk Assessment: Moderate/High Risk (score >= 2) Caprini Risk Assessment Model: Point Value = 1 Point Value = 2 Point Value = 3 Point Value = 5 Age 41-60 Minor surgery BMI > 25 kg/m2 Swollen legs Varicose veins or History of unexplained or recurrent spontaneous Oral contraceptives or hormone replacement Sepsis (< 1 month) Serious lung disease, including pneumonia (< 1 month) Abnormal pulmonary function Acute myocardial infarction Congestive heart failure (< 1 month) History of inflammatory bowel disease Medical patient at bed rest Age 61-74 Arthroscopic surgery Major open surgery (> 45 min) Laparoscopic surgery (> 45 min) Malignancy Confined to bed (> 72 hours) Immobilizing plaster cast Central venous access Age >= 75 History of VTE Family history of VTE Factor V Leiden Prothrombin [id number] Lupus anticoagulant Anticardiolipin antibodies Elevated serum homocysteine Heparin-induced thrombocytopenia Other congenital or acquired thrombophilia Stroke (< 1 month) Elective arthroplasty Hip, pelvis, or leg fracture Acute spinal cord injury (< 1 month) Prophylaxis Regimen: Total Risk Factor Score Risk Level Prophylaxis Regimen 0-1 Low Early ambulation 2 Moderate Order ONE of the following: *Sequential Compression Device (SCD) *Heparin 5000 units SQ BID 3-4 Higher Order ONE of the following medications: *Heparin 5000 units SQ TID *Enoxaparin/Lovenox 40 mg SQ daily (WT < 150 kg, CrCl > 30 mL/min) *Enoxaparin/Lovenox 30 mg SQ daily (WT < 150 kg, CrCl > 10-29 mL/min) *Enoxaparin/Lovenox 30 mg SQ BID (WT < 150 kg, CrCl > 30 mL/min) AND/OR *Sequential Compression Device (SCD) 5 or more Highest Order ONE of the following medications: *Heparin 5000 units SQ TID (Preferred with Epidurals) *Enoxaparin/Lovenox 40 mg SQ daily (WT < 150 kg, CrCl > 30 mL/min) *Enoxaparin/Lovenox 30 mg SQ daily (WT < 150 kg, CrCl > 10-29 mL/min) *Enoxaparin/Lovenox 30 mg SQ BID (WT < 150 kg, CrCl > 30 mL/min) AND *Sequential Compression Device (SCD) Assessment and Plan - Assessment (1) Hypokalemia Code(s): E87.6 - Hypokalemia Status: Acute (2) Elevated liver enzymes Code(s): R74.8 - Abnormal levels of other serum enzymes Status: Acute (3) Chronic alcoholism Code(s): F10.20 - Alcohol dependence, uncomplicated Status: Acute - Plan Hypokalemia -Likely secondary to chronic alcohol use -Continue to monitor and replete as needed Recurrent falls with neck pain -CT scan of the neck did not indicate any acute findings -Obtain physical therapy evaluation Elevated liver enzymes secondary to alcohol liver disease -Continue to monitor liver enzymes Hypertension, hyperlipidemia, coronary disease, history of PE -Continue home medications Chronic obstructive pulmonary disease and chronic smoking patient -Counseled patient on smoking cessation -Continue O2 supplementation to maintain O2 sat greater than 90% -Duo nebs as needed Chronic alcohol abuse -Patient counseled on cessation -CIWA protocol -Start thiamine and folic acid Diabetes -Accu-Cheks with sliding scale insulin DVT prevention -Continue Eliquis
[2018-05-10] MEDS: Folic Acid 1 MG Tablet PO SCH (13:48)
[2018-05-10 13:53] LABS: Bilirubin,Urine Moderate (Negative); Clarity,Urine Clear (Clear); Color,Urine Yellow (Yellw/Straw); Glucose,Urine (UA) Negative (Negative); Leukocyte Esterase,Urine Negative (Negative); Nitrite,Urine Negative (Negative); PH,Urine 7.5 (5.0-8.5); Urobilinogen,Urine 8 or Greater mg/dL (Less than 2)
[2018-05-10 14:05] LABS: Ictotest,Urine Positive (Negative); RBC,Urine 0-3 /hpf (0-3)
[2018-05-10 14:06] LABS: Squamous Epithelial Cell,Urine 0-5 /hpf (0-5); WBC,Urine 0-5 /hpf (0-5)
[2018-05-10] MEDS: Insulin NovoLOG Aspart Correctional Sugar Inj SQ SCH ×2 (17:24→22:13)
[2018-05-10] MEDS ORDERED: Benzonatate 100 MG Capsule PO PRN (21:10)
[2018-05-11 01:40] VITALS: PULSE 70; O2SAT 96
[2018-05-11 05:57] LABS: Baso % (Auto) 0.5 % (0.0-2.0); Eos # (Auto) 0.1 th/mm3 (0.0-0.4); Eos % (Auto) 2.2 % (0.0-4.0); Hematocrit 38.8 % (39.0-51.0); Lymph # (Auto) 1.2 th/mm3 (1.0-4.8); Lymph % (Auto) 25.1 % (9.0-44.0); Mean Corpuscular HGB Conc 33.5 % (32.0-36.0); Mean Corpuscular Hemoglobin 35.3 pg (27.0-34.0); Mean Corpuscular Volume 105.3 fL (80.0-100.0); Mean Platelet Volume 8.8 fL (7.0-11.0); Mono # (Auto) 0.8 th/mm3 (0.0-0.9); Mono % (Auto) 16.6 % (0.0-8.0); Neut # (Auto) 2.9 th/mm3 (1.8-7.7); Neut % (Auto) 55.6 % (16.0-70.0); Platelet Count 136 th/mm3 (150-450); Red Blood Count 3.69 mil/mm3 (4.50-5.90); Red Cell Distribution Width 15.1 % (11.6-17.2)
[2018-05-11 06:42] LABS: Alanine Aminotransferase 385 U/L (12-78); Albumin 2.5 g/dL (3.4-5.0); Alkaline Phosphatase 210 U/L (45-117); Anion Gap 7 meq/L (5-15); Aspartate Aminotransferase 595 U/L (15-37); Blood Urea Nitrogen 9 mg/dL (7-18); Calcium 8.9 mg/dL (8.5-10.1); Carbon Dioxide 28.9 meq/L (21.0-32.0); Chloride 105 meq/L (98-107); Glomerular Filtration Rate Greater Than 89 mL/min (>89); Glucose,Random 90 mg/dL (74-106); Magnesium 1.4 mg/dL (1.5-2.5); Phosphorus 1.6 mg/dL (2.5-4.9); Potassium 3.8 meq/L (3.5-5.1); Sodium 141 meq/L (136-145); Total Protein 5.5 g/dL (6.4-8.2)
--- NOTE | 2018-05-11 08:12 | P.PN ---
Subjective Interval history: 68-year-old male who is seen and examined today for follow-up on hypokalemia, generalized weakness, alcohol abuse. Patient is resting comfortably in bed. Denies any new complaints. Patient states that he is feeling very well today. Patient is eating without any complications. Denies any nausea, vomiting, diarrhea. Records do not indicate any elevation in CIWA score. Vital signs are stable. Patient remains afebrile. Physical Exam Vital signs: Vital Signs 05/10/18 08:13 05/10/18 08:29 05/10/18 09:14 Temperature 97.4 F L Pulse Rate 80 85 77 Respiratory Rate 20 18 Blood Pressure 137/71 132/74 Pulse Oximetry 96 97 98 05/10/18 09:42 05/10/18 10:44 05/10/18 11:52 Temperature 97 F L Pulse Rate 78 68 72 Respiratory Rate 18 18 20 Blood Pressure 131/88 150/91 H 159/93 H Pulse Oximetry 98 97 96 05/10/18 16:00 05/10/18 20:00 05/11/18 00:00 Temperature 98.2 F 98.3 F 98.2 F Pulse Rate 75 70 Respiratory Rate 20 18 18 Blood Pressure 144/87 H 133/86 136/74 Pulse Oximetry 93 L 95 96 Intake & Output 05/10/18 05/11/18 05/11/18 18:59 06:59 18:59 Intake Total 820.0 / 820.0 1300 / 1300 Output Total 400 / 400 450 / 450 Balance 420.0 / 420.0 850 / 850 Weight 64.9 kg 64.9 kg Intake: IV 100.0 / 100.0 1100 / 1100 NS + KCl 20 mEq Inj 1,000 ML @ 1000 / 1000 100 mls/hr IV.CONT .Q10H HU Rx #:[id number] KCl 20 mEq Premix Inj 20 meq In 100.0 / 100.0 100 / 100 100 ml @ 50 mls/hr IV.SIG Q2H HU Rx#:[id number] Oral 720 / 720 200 / 200 Output: Urine 400 / 400 450 / 450 Other: Date of Last Bowel Movement 05/10/18 Weight On Admission 64.9 kg Narrative: GENERAL: Well-developed, well-nourished, in no acute distress. alert and orientated HEENT: Head is normocephalic without any lesions or masses noted. Facial features are symmetric. Eyes: Extraocular muscles are intact. Conjunctivae were clear. NECK: Supple without any masses. Trachea midline no deviation. No JVD, CARDIAC: Regular rhythm, regular rate. S1/S2 are heard. No murmurs gallops or rubs. LUNGS: Clear to auscultation bilaterally. No wheeze, rhonchi or rales. No use of accessory muscles on inspiration or expiration. ABDOMEN: Soft, nontender. Nondistended. Bowel sounds heard in all 4 quadrants. No organomegaly or masses. Negative rebound, negative guarding EXTREMITIES: No edema, pulses are equal bilaterally. No cyanosis or clubbing NEUROLOGY: Mood and affect appear appropriate. Cranial nerves II through XII grossly intact. Moving all extremities, speech is clear Results - Labs CBC & Chem 7: 05/11/18 05:35 05/11/18 05:35 Laboratory Results - last 24 hr 05/10/18 05/10/18 05/10/18 09:10 09:10 13:45 CBC w Diff Auto diff final WBC 5.2 RBC 3.81 L Hgb 13.5 Hct 39.9 MCV 104.9 H MCH 35.4 H MCHC 33.8 RDW 14.6 Plt Count 146 L MPV 8.4 Neut % (Auto) 64.9 Lymph % (Auto) 18.7 [place] % (Auto) 14.3 H Eos % (Auto) 1.3 Baso % (Auto) 0.8 Neut # (Auto) 3.4 Lymph # (Auto) 1.0 [place] # (Auto) 0.7 Eos # (Auto) 0.1 Baso # (Auto) 0.0 WBC Differential . Differential Comment . Sodium 140 Potassium 2.9 L* Chloride 97 L Carbon Dioxide 33.7 H Anion Gap 9 BUN 11 Creatinine 0.83 Estimated GFR Greater than 89 POC Glucose Random Glucose 95 Calcium 9.6 Phosphorus Magnesium 1.5 Total Bilirubin 2.3 H AST 674 H ALT 373 H Alkaline Phosphatase 215 H Total Protein 6.5 Albumin 3.1 L Ur Collection Type Clean catch Urine Color Yellow Urine Clarity Clear Urine pH 7.5 Ur Specific [place] 1.020 Urine Protein 100 H Urine Glucose (UA) Negative Urine Ketones 15 H Urine Occult Blood Trace Urine Nitrate Negative Urine Bilirubin Moderate H Urine Ictotest Positive H Urine Urobilinogen 8 or greater Ur Leukocyte Esterase Negative Urine RBC 0-3 Urine WBC 0-5 Ur Squamous Epith Cells 0-5 Hyaline Casts 4-10 H Micro UA Comment Culture not ind Ur Microscopic Review Microscopic reviewed Urine Culture Comments Culture not ind 05/10/18 05/10/18 05/10/18 15:20 16:44 22:12 CBC w Diff WBC RBC Hgb Hct MCV MCH MCHC RDW Plt Count MPV Neut % (Auto) Lymph % (Auto) [place] % (Auto) Eos % (Auto) Baso % (Auto) Neut # (Auto) Lymph # (Auto) [place] # (Auto) Eos # (Auto) Baso # (Auto) WBC Differential Differential Comment Sodium Potassium 3.1 L Chloride Carbon Dioxide Anion Gap BUN Creatinine Estimated GFR POC Glucose 100 98 Random Glucose Calcium Phosphorus Magnesium Total Bilirubin AST ALT Alkaline Phosphatase Total Protein Albumin Ur Collection Type Urine Color Urine Clarity Urine pH Ur Specific [place] Urine Protein Urine Glucose (UA) Urine Ketones Urine Occult Blood Urine Nitrate Urine Bilirubin Urine Ictotest Urine Urobilinogen Ur Leukocyte Esterase Urine RBC Urine WBC Ur Squamous Epith Cells Hyaline Casts Micro UA Comment Ur Microscopic Review Urine Culture Comments 05/11/18 05/11/18 05/11/18 05:35 05:35 07:28 CBC w Diff Auto diff final WBC 5.0 RBC 3.69 L Hgb 13.0 Hct 38.8 L MCV 105.3 H MCH 35.3 H MCHC 33.5 RDW 15.1 Plt Count 136 L MPV 8.8 Neut % (Auto) 55.6 Lymph % (Auto) 25.1 [place] % (Auto) 16.6 H Eos % (Auto) 2.2 Baso % (Auto) 0.5 Neut # (Auto) 2.9 Lymph # (Auto) 1.2 [place] # (Auto) 0.8 Eos # (Auto) 0.1 Baso # (Auto) 0.0 WBC Differential . Differential Comment . Sodium 141 Potassium 3.8 Chloride 105 D Carbon Dioxide 28.9 Anion Gap 7 BUN 9 Creatinine 0.66 Estimated GFR Greater than 89 POC Glucose 101 Random Glucose 90 Calcium 8.9 Phosphorus 1.6 L Magnesium 1.4 L Total Bilirubin 2.2 H AST 595 H ALT 385 H Alkaline Phosphatase 210 H Total Protein 5.5 L D Albumin 2.5 L D Ur Collection Type Urine Color Urine Clarity Urine pH Ur Specific [place] Urine Protein Urine Glucose (UA) Urine Ketones Urine Occult Blood Urine Nitrate Urine Bilirubin Urine Ictotest Urine Urobilinogen Ur Leukocyte Esterase Urine RBC Urine WBC Ur Squamous Epith Cells Hyaline Casts Micro UA Comment Ur Microscopic Review Urine Culture Comments - Imaging Impressions Cervical Spine CT 05/10/18 09:06 CONCLUSION: 1. No acute fracture or subluxation. 2. Redemonstration of multilevel degenerative spondylosis, as above. 3. Redemonstration of 2 cm right thyroid nodule. Chest X-Ray 05/10/18 09:06 CONCLUSION: 1. No acute cardiopulmonary disease. Head CT 05/10/18 09:06 CONCLUSION: 1. No acute intracranial abnormality. 2. Remote left frontal lobe infarct. 3. Chronic appearing right maxillary sinus disease. . - Procedures None Assessment and Plan - Assessment (1) Hypokalemia Code(s): E87.6 - Hypokalemia Status: Acute (2) Elevated liver enzymes Code(s): R74.8 - Abnormal levels of other serum enzymes Status: Acute (3) Chronic alcoholism Code(s): F10.20 - Alcohol dependence, uncomplicated Status: Acute - Plan Hypokalemia, resolved -Likely secondary to chronic alcohol use -Continue to monitor and replete as needed Recurrent falls with neck pain -CT scan of the neck did not indicate any acute findings -Physical therapy evaluation indicating the patient may require rehab placement versus home with home health care Elevated liver enzymes secondary to alcohol liver disease, improving -Continue to monitor liver enzymes Hypertension, hyperlipidemia, coronary disease, history of PE -Continue home medications Chronic obstructive pulmonary disease and chronic smoking patient -Counseled patient on smoking cessation -Continue O2 supplementation to maintain O2 sat greater than 90% -Duo nebs as needed Chronic alcohol abuse -Patient counseled on cessation -CIWA protocol, high score so far is 1 -Continue thiamine and folic acid Diabetes -Accu-Cheks with sliding scale insulin DVT prevention -Continue Eliquis Discharge Planning: Discharge home in stable condition Activity: Ad daniel. Diet: Healthy heart diet Medication per medication reconciliation Follow-up with primary medical doctor in 1 week
[2018-05-11 08:41] VITALS: BP 134/67; RESP 20; TEMP 97.8
[2018-05-11] MEDS ORDERED: Furosemide 40 MG Tablet PO SCH (09:00)
[2018-05-11] MEDS ORDERED: Gabapentin 400 MG Capsule PO SCH (09:00)
[2018-05-11] MEDS ORDERED: amLODIPine 5 MG Tablet PO SCH (09:00)
[2018-05-11] MEDS ORDERED: Lisinopril 20 MG Tablet PO SCH (09:00)
[2018-05-11] MEDS: Folic Acid 1 MG Tablet PO SCH (09:27)
[2018-05-11] MEDS: Insulin NovoLOG Aspart Correctional Sugar Inj SQ SCH (09:28)
--- NOTE | 2018-05-11 10:18 | P.DCO ---
- Physical Therapy Order: Evaluate and treat, Improve ambulation, Strength and gait training - Home Health Nursing Order: Medical education, Signs/symptoms of disease process, Nursing assessment with vital signs - Case Management Consult No - Certification I have seen patient Alexus Pedraza on 05/11/18. My clinical findings support the need for the requested home health care services because: Deconditioned with increased weakness, Medication compliance is questionable I certify that my clinical findings support that this patient is homebound because: Unsteady gait/balance, Unsafe to leave home unassisted
--- NOTE | 2018-05-11 22:52 | ECG ---
Date Performed: 05/10/2018 Time Performed: 10:35:43 PTAGE: 68 years EKG: Sinus rhythm MARKED RIGHT AXIS DEVIATION RIGHT BUNDLE BRANCH BLOCK ABNORMAL ECG PREVIOUS TRACING : 03/23/2018 14.12 Since the previous tracing, no significant change noted DOCTOR: Kelvin Saenz Interpretating Date/Time 05/11/2018 22:51:37
== END 2018-05-11 12:15 | disposition home health service (06) ==
LOC: PHED 08:11 → PHEDA 08:11 → PH3 11:38
PROVIDERS: ADMIT Hospitalist; ATTEND Hospitalist

== ENCOUNTER 2018-07-15 10:24 | Inpatient (IN) ==
[2018-07-15] MEDS ORDERED: Thiamine Inj 100 MG in Sodium Chlor 0.9% Inj 100 ML IV.SIG ONE (11:06)
--- NOTE | 2018-07-15 11:14 | ED ---
HPI General Chief Complaint: Altered Mental Status Stated Complaint: Faliure to Thrive Time Seen by Provider: 07/15/18 10:55 Source: patient and family Mode of arrival: EMS Limitations: physical limitation History of Present Illness HPI narrative: 68-year-old male complains of general malaise and weakness. Patient has history of alcohol abuse with frequent falls. Patient states that he has increasing weakness for the past 2 days. Patient has decreased appetite and decrease in fluid intake. Patient states that last alcohol drink was 2 days ago. Patient has history of osteoarthritis, chronic kidney disease, coronary disease, GERD, COPD, neuropathy, diabetes, elevated liver function enzymes, hypertension, PE on Eliquis and Plavix. Patient denies any fever chills. Patient denies headache. Patient denies any neck pain. Patient denies any chest pain or shortness of breath. Patient denies abdominal pain. Patient denies any focal weakness or numbness of the extremity. Patient states that he was able to walk with a walker occasionally in the past but not recently. MD complaint: Reports altered mental status and weakness Onset (ago): day(s) Timing confirmed by: spouse Severity: severe Consistency of symptoms: getting worse Context: Reports alcohol abuse, diabetes and liver disease Associated symptoms: Reports loss of appetite, malaise and weakness Related Data Home Medications Medication Instructions Recorded Confirmed albuterol sulfate [Ventolin HFA] 2 puff INHALATION Q4-6H PRN 05/10/18 07/15/18 amlodipine 5 mg PO DAILY 05/10/18 07/15/18 apixaban [Eliquis] 5 mg PO DAILY 05/10/18 07/15/18 atorvastatin 80 mg PO DAILY 05/10/18 07/15/18 carvedilol 3.125 mg PO DAILY 05/10/18 07/15/18 fluticasone-vilanterol [Breo 1 inh INHALATION DAILY 05/10/18 07/15/18 Ellipta] furosemide 40 mg PO DAILY 05/10/18 07/15/18 gabapentin 400 mg PO DAILY 05/10/18 07/15/18 hydrocodone-acetaminophen 1 tab PO TID PRN 05/10/18 07/15/18 lisinopril 20 mg PO DAILY 05/10/18 07/15/18 metformin 250 mg PO BID 05/10/18 07/15/18 zpxbduci-mha-OC-lycopen-lutein 1 tab PO DAILY 05/10/18 07/15/18 [Centrum Silver] vitamin E 400 unit PO DAILY 05/10/18 07/15/18 clopidogrel [Plavix] 75 mg PO DAILY 07/15/18 07/15/18 Allergies Allergy/AdvReac Type Severity Reaction Status Date / Time No Known Allergies Allergy Verified 05/10/18 08:20 Review of Systems ROS: all other systems reviewed are negative [facility] History Medical History CAD (coronary artery disease) (Acute) CHF (congestive heart failure) (Acute) CKD (chronic kidney disease) (Acute) COPD (chronic obstructive pulmonary disease) (Acute) Diabetes (Acute) ETOH abuse (Acute) GERD (gastroesophageal reflux disease) (Acute) High cholesterol (Acute) Hypertension (Acute) Liver disease due to alcohol (Acute) Macrocytosis without anemia (Acute) Neuropathy (Acute) Obesity (Acute) Osteoarthritis of spine (Acute) Surgical History Surgical History H/O heart artery stent (Acute) Family History Family History Other No pertinent family history Social History Social History Substance History: Past History Second Hand Smoke Exposure: Yes Smoking Status: Heavy tobacco smoker Tobacco Type: Cigarettes Packs Per Day: 1.5 Cigarettes Per Day: 30.0 Years Smoked: 50 Pack-Years: 75.00 How Often Do You Have a Drink Containing Alcohol: 4 or more times a week Recent Travel in [place] within the Last 8 Weeks: No Recent Out of Country Travel within the Last 8 Weeks: No Substance Abuse Detail Crack/Cocaine: Substance Use Status: Sustained Remission Route Used Substance Abuse: Inhalation Substance Frequency: Weekly Marijuana: Substance Use Status: Sustained Remission Route Used Substance Abuse: Inhalation Substance Frequency: Occasionally Reason for Use: Get High Immunization History Tetanus Immunization: Unsure Exam Narrative Exam Narrative: GENERAL: Well-nourished, well-developed patient. SKIN: Focused skin assessment warm/dry. HEAD: Normocephalic. EYES: No scleral icterus. No injection or drainage. NECK: Supple, trachea midline. No JVD or lymphadenopathy. CARDIOVASCULAR: Regular rate and rhythm without murmurs, gallops, or rubs. RESPIRATORY: Breath sounds equal bilaterally. No accessory muscle use. GASTROINTESTINAL: Abdomen soft, non-tender, nondistended. MUSCULOSKELETAL: No cyanosis, or edema. BACK: Nontender without obvious deformity. No CVA tenderness. Neurologic exam: Patient is awake and alert oriented x3. Patient moves all extremity well. No obvious focal neurological deficit. Course Initial Documented Vital Signs Pulse Rate 72 07/15/18 10:28 Respiratory Rate 16 07/15/18 10:28 Blood Pressure 108/63 07/15/18 10:28 Pulse Oximetry 95 07/15/18 10:28 Last Documented Vital Signs Temperature 97.9 F 07/15/18 10:56 Pulse Rate 74 07/15/18 13:07 Respiratory Rate 17 07/15/18 13:07 Blood Pressure 99/56 L 07/15/18 13:07 Pulse Oximetry 97 07/15/18 13:07 Medical Decision Making MDM Narrative Medical decision making narrative: 68-year-old male with generalized malaise and redness. History of alcohol abuse. Normal saline solution 125 cc an hour. Thiamine 100 mg IV given. Medical Screen Exam Complete: Yes Emergency Medical Condition: Yes Differential Diagnosis Differential Diagnosis: Differential diagnosis including physical deconditioning , electrolyte abnormality, dehydration, hepatic encephalopathy, sepsis. Lab Data Lab results reviewed: Yes I reviewed the patient's lab results. Result diagrams: 07/15/18 11:00 07/15/18 12:07 Lab Results 07/15/18 07/15/18 07/15/18 Range/Units 11:00 12:07 12:07 WBC 10.5 (4.0-11.0) th/mm3 RBC 3.97 L (4.50-5.90) mil/mm3 Hgb 13.2 (13.0-17.0) gm/dL Hct 40.0 (39.0-51.0) % MCV 100.8 H (80.0-100.0) fL MCH 33.3 (27.0-34.0) pg MCHC 33.0 (32.0-36.0) % RDW 14.5 (11.6-17.2) % Plt Count 227 (150-450) th/mm3 MPV 8.9 (7.0-11.0) fL Neut % (Auto) 75.2 H (16.0-70.0) % Lymph % (Auto) 13.9 (9.0-44.0) % Douglas % (Auto) 9.9 H (0.0-8.0) % Eos % (Auto) 0.4 (0.0-4.0) % Baso % (Auto) 0.6 (0.0-2.0) % Neut # (Auto) 7.9 H (1.8-7.7) th/mm3 Lymph # (Auto) 1.5 (1.0-4.8) th/mm3 Douglas # (Auto) 1.0 H (0.0-0.9) th/mm3 Eos # (Auto) 0.0 (0.0-0.4) th/mm3 Baso # (Auto) 0.1 (0.0-0.2) th/mm3 WBC Differential . Differential Comment Auto diff final PT 11.7 H (9.8-11.6) sec INR 1.2 Ratio APTT 33.8 H (23.4-31.7) sec Sodium 141 (136-145) meq/L Potassium 2.9 L* (3.5-5.1) meq/L Chloride 103 (98-107) meq/L Carbon Dioxide 28.3 (21.0-32.0) meq/L Anion Gap 10 (5-15) meq/L BUN 30 H (7-18) mg/dL Creatinine 1.83 H (0.60-1.30) mg/dL Estimated GFR 37 L (>89) mL/min Random Glucose 79 (74-106) mg/dL Lactic Acid (0.4-2.0) mmol/L Calcium 9.0 (8.5-10.1) mg/dL Magnesium 1.5 (1.5-2.5) mg/dL Total Bilirubin 0.7 (0.2-1.0) mg/dL AST 18 (15-37) U/L ALT 12 (12-78) U/L Alkaline Phosphatase 103 (45-117) U/L Ammonia (11-32) mcmol/L Total Creatine Kinase (39-308) U/L Total Protein 5.9 L (6.4-8.2) g/dL Albumin 1.9 L (3.4-5.0) g/dL TSH 0.056 L (0.358-3.740) uIU/mL Serum Alcohol Less than 3 (0-5) mg/dL 07/15/18 07/15/18 07/15/18 Range/Units 12:07 12:07 12:07 WBC (4.0-11.0) th/mm3 RBC (4.50-5.90) mil/mm3 Hgb (13.0-17.0) gm/dL Hct (39.0-51.0) % MCV (80.0-100.0) fL MCH (27.0-34.0) pg MCHC (32.0-36.0) % RDW (11.6-17.2) % Plt Count (150-450) th/mm3 MPV (7.0-11.0) fL Neut % (Auto) (16.0-70.0) % Lymph % (Auto) (9.0-44.0) % Douglas % (Auto) (0.0-8.0) % Eos % (Auto) (0.0-4.0) % Baso % (Auto) (0.0-2.0) % Neut # (Auto) (1.8-7.7) th/mm3 Lymph # (Auto) (1.0-4.8) th/mm3 Douglas # (Auto) (0.0-0.9) th/mm3 Eos # (Auto) (0.0-0.4) th/mm3 Baso # (Auto) (0.0-0.2) th/mm3 WBC Differential Differential Comment PT (9.8-11.6) sec INR Ratio APTT (23.4-31.7) sec Sodium (136-145) meq/L Potassium (3.5-5.1) meq/L Chloride (98-107) meq/L Carbon Dioxide (21.0-32.0) meq/L Anion Gap (5-15) meq/L BUN (7-18) mg/dL Creatinine (0.60-1.30) mg/dL Estimated GFR (>89) mL/min Random Glucose (74-106) mg/dL Lactic Acid 0.7 (0.4-2.0) mmol/L Calcium (8.5-10.1) mg/dL Magnesium (1.5-2.5) mg/dL Total Bilirubin (0.2-1.0) mg/dL AST (15-37) U/L ALT (12-78) U/L Alkaline Phosphatase (45-117) U/L Ammonia 12 (11-32) mcmol/L Total Creatine Kinase 59 (39-308) U/L Total Protein (6.4-8.2) g/dL Albumin (3.4-5.0) g/dL TSH (0.358-3.740) uIU/mL Serum Alcohol (0-5) mg/dL Imaging Data Attestation: I personally reviewed and interpreted this imaging study as follows : Radiologist's impression: Chest X-Ray 07/15/18 11:06 CONCLUSION: 1. No new or acute intrathoracic disease. 2. Chronic-appearing nondisplaced fracture involving the distal right clavicle. Discharge Plan Discharge Disposition Patient Disposition: 30 Still Patient Discharge Details Diagnosis: Hypokalemia, Chronic alcoholism, Physical deconditioning Physicians Team ED Provider: Roberto Molina Primary Care Provider: UNKNOWN, Rxs /Orders / Referrals /Forms Prescriptions: No Action furosemide 40 mg Tablet 40 mg PO DAILY RF: 0 metformin 500 mg Tablet 250 mg PO BID RF: 0 atorvastatin 80 mg Tablet 80 mg PO DAILY RF: 0 lisinopril 20 mg Tablet 20 mg PO DAILY RF: 0 gabapentin 400 mg Capsule 400 mg PO DAILY RF: 0 amlodipine 5 mg Tablet 5 mg PO DAILY RF: 0 carvedilol 3.125 mg Tablet 3.125 mg PO DAILY RF: 0 hydrocodone-acetaminophen 7.5-325 mg Tablet 1 tab PO TID PRN (Reason: Pain) RF: 0 albuterol sulfate [Ventolin HFA] 90 mcg/actuation Hfa Aerosol Inhaler 2 puff INHALATION Q4-6H PRN (Reason: Shortness Of Breath) RF: 0 vitamin E 400 unit Capsule 400 unit PO DAILY RF: 0 kyewvatp-ofe-EX-lycopen-lutein [Centrum Silver] 0.4-300-250 mg-mcg-mcg Tablet 1 tab PO DAILY RF: 0 apixaban [Eliquis] 5 mg Tablet 5 mg PO DAILY RF: 0 fluticasone-vilanterol [Breo Ellipta] 200-25 mcg/dose Blister With Device 1 inh INHALATION DAILY RF: 0 clopidogrel [Plavix] 75 mg Tablet 75 mg PO DAILY RF: 0 Discharge Interventions Interventions: Vital Signs Last Done: 07/15/18 13:48 Status ED Status: With Doctor
[2018-07-15] MEDS ORDERED: Sod Chloride 0.9% Inj 1,000 ML IV.CONT SCH (11:15)
[2018-07-15 11:33] LABS: Baso # (Auto) 0.1 th/mm3 (0.0-0.2); Baso % (Auto) 0.6 % (0.0-2.0); Eos % (Auto) 0.4 % (0.0-4.0); Hemoglobin 13.2 gm/dL (13.0-17.0); Lymph # (Auto) 1.5 th/mm3 (1.0-4.8); Lymph % (Auto) 13.9 % (9.0-44.0); Mean Corpuscular Hemoglobin 33.3 pg (27.0-34.0); Mean Corpuscular Volume 100.8 fL (80.0-100.0); Mean Platelet Volume 8.9 fL (7.0-11.0); Mono % (Auto) 9.9 % (0.0-8.0); Neut # (Auto) 7.9 th/mm3 (1.8-7.7); Neut % (Auto) 75.2 % (16.0-70.0); Platelet Count 227 th/mm3 (150-450); Red Blood Count 3.97 mil/mm3 (4.50-5.90); Red Cell Distribution Width 14.5 % (11.6-17.2); White Blood Count 10.5 th/mm3 (4.0-11.0)
--- NOTE | 2018-07-15 11:38 | XR ---
EXAM DATE: 07/15/2018 11:35 AM EST AGE/SEX: 68 years / Male INDICATIONS: Pain on right side from fall. CLINICAL DATA: This is the patient's initial encounter. Patient reports that signs and symptoms have been present for 1 day and indicates a pain score of 5/10. MEDICAL/SURGICAL HISTORY: . Diabetes mellitus type II. Cardiovascular disease. Hypertension. Co ronary artery stent. . COMPARISON: [facility], CHEST 2V PA&LAT, 05/10/2018. . FINDINGS: The lung jeffers are clear and well-aerated. No focal or acute pulmonary infiltrates are de monstrated. The heart size is within normal limits. There are no effusions or pulmonary edema. There is a chronic appearing nondisplaced fracture involving the distal right clavicle. There continues to be good alignment at the right AC joint. The rest the bony structures are grossly intact. CONCLUSION: 1. No new or acute intrathoracic disease. 2. Chronic-appearing nondisplaced fracture involving the distal right clavicle. Electronically signed by: John Turner MD 07/15/2018 11:37 AM EST
[2018-07-15 12:46] LABS: Activated Partial Thrombo Time 33.8 sec (23.4-31.7); INR 1.2 Ratio; Prothrombin Time 11.7 sec (9.8-11.6)
[2018-07-15 13:25] LABS: Alanine Aminotransferase 12 U/L (12-78); Albumin 1.9 g/dL (3.4-5.0); Alkaline Phosphatase 103 U/L (45-117); Anion Gap 10 meq/L (5-15); Aspartate Aminotransferase 18 U/L (15-37); Blood Urea Nitrogen 30 mg/dL (7-18); Carbon Dioxide 28.3 meq/L (21.0-32.0); Chloride 103 meq/L (98-107); Glomerular Filtration Rate 37 mL/min (>89); Glucose,Random 79 mg/dL (74-106); Magnesium 1.5 mg/dL (1.5-2.5); Sodium 141 meq/L (136-145); Thyroid Stimulating Hormone 0.056 uIU/mL (0.358-3.740); Total Protein 5.9 g/dL (6.4-8.2)
[2018-07-15 13:30] LABS: Potassium 2.9 meq/L (3.5-5.1)
[2018-07-15] MEDS ORDERED: Potassium Chlor 20 mEq Premix 20 MEQ/100 ML PIGGYBACK IV.SIG ONE (13:36)
[2018-07-15] MEDS ORDERED: LORazepam 1 MG Tablet PO PRN (14:17)
[2018-07-15] MEDS ORDERED: Haloperidol Inj 5 MG/ML Ampul IV.PUSH PRN (14:17)
[2018-07-15] MEDS ORDERED: Mag Sulf 1 gm/100 ml Premix 100 ML IV.SIG ONE (14:17)
[2018-07-15] MEDS ORDERED: Dextrose 50% in Water 50 ML Vial IV.PUSH PRN (14:21)
[2018-07-15] MEDS ORDERED: Acetaminophen 325 MG Tablet PO PRN (14:23)
[2018-07-15] MEDS ORDERED: Bisacodyl 10 MG Supp RECTAL PRN (14:23)
[2018-07-15 14:40] LABS: Bacteria,Urine Rare /hpf; Bilirubin,Urine Negative (Negative); Clarity,Urine Hazy (Clear); Color,Urine Amber (Yellw/Straw); Glucose,Urine (UA) Negative (Negative); Hyaline Casts,Urine 22 /lpf (0-3); Leukocyte Esterase,Urine Negative (Negative); Mucus,Urine Few /lpf (Occasional); Nitrite,Urine Negative (Negative); Specific Gravity,Urine 1.016 (1.002-1.035); Squamous Epithelial Cell,Urine 1 /hpf (0-5)
[2018-07-15] MEDS ORDERED: Heparin - SQ 10,000 UNITS/ML Vial SQ SCH (15:00)
--- NOTE | 2018-07-15 15:34 | P.HP ---
History of Present Illness Primary Care Physician: UNKNOWN Chief Complaint: Generalized weakness History of Present Illness: This is a 68-year-old male with a history of ETOH abuse, recurrent falls using walker, Coronary artery disease on Plavix, diabetes mellitus with neuropathy, hypertension, COPD and PE on Eliquis. His brought him to the hospital because he has been sleeping for the past 2 days. He has not been eating. Patient states that he got up last night because he was thirsty and fell while using his walker thinks he broke his right lower ribs. Denies head injury or injuries. Chest x-ray independently reviewed by me with no acute cardiopulmonary disease. ER evaluation shows acute kidney injury with creatinine 1.83 and hypokalemia 2.9. Patient received 20 mEq IV potassium and 40 mg p.o. EKG independently reviewed by me with sinus rhythm, marked right axis deviation, right bundle branch block no significant change from previous. Patient denies no new medications. No fever, chills, cough, UTI symptoms and diarrhea. All other systems reviewed negative Review of Systems All other systems reviewed negative except as stated in HPI PMFSH - History History Provided By: Patient - Medical History Medical History: Medical History (Last Reviewed 07/15/18 @ 15:29 by Varghese Fuentes MD) CAD (coronary artery disease) CHF (congestive heart failure) COPD (chronic obstructive pulmonary disease) Diabetes ETOH abuse GERD (gastroesophageal reflux disease) High cholesterol Hypertension Liver disease due to alcohol Macrocytosis without anemia Neuropathy Obesity Osteoarthritis of spine - Surgical History Surgical History: Surgical History (Last Reviewed 07/15/18 @ 15:29 by Varghese Fuentes MD) H/O heart artery stent - Family History Family History: Family History (Last Reviewed 07/15/18 @ 15:29 by Varghese Fuentes MD) Other No pertinent family history - Social History I have reviewed the patient's Social History: Yes - Tobacco History Second Hand Smoke Exposure: Yes Tobacco Use In Past 30 Days: Yes Smoking Status: Heavy tobacco smoker Tobacco Type: Cigarettes Packs Per Day: 1.5 Years Smoked: 50 - Alcohol History How Often Do You Have a Drink Containing Alcohol: 4 or more times a week - Substance Use History Substance History: Past History - Substance Use Type Crack/Cocaine Status: Sustained Remission Route Used: Inhalation Frequency: Weekly Marijuana Status: Sustained Remission Route Used: Inhalation Frequency: Occasionally Reason for Use: Get High - Travel History Recent Travel in the [place] Within the Last 8 Weeks: No Recent Travel Out of the Country Within the Last 8 Weeks: No - Immunization History Tetanus Immunization: Unsure Medications and Allergies Active Medications: Active Medications Acetaminophen (Tylenol) 650 mg PO Q4H PRN PRN Reason: Temp > 100.4 Hydrocodone Bitart/Acetaminophen ([place] 7.5/325) 1 tab PO TID PRN PRN Reason: PAIN 1-10 Al Hydroxide/Mg Hydroxide (Milk Of Magnesia Liq) 30 ml PO Q12H PRN PRN Reason: Mild Constipation Albuterol (Ventolin Hfa Inh) 2 puff INH Q4H PRN PRN Reason: SHORTNESS OF BREATH Apixaban (Eliquis) 5 mg PO BID HU Atorvastatin Calcium (Lipitor) 80 mg PO DAILY HU Bisacodyl (Dulcolax Supp) 10 mg RECTAL DAILY PRN PRN Reason: SEVERE CONSITIPATION Clopidogrel Bisulfate (Plavix) 75 mg PO DAILY HU Dextrose (D50w Vial) 50 ml IV.PUSH UNSCH PRN PRN Reason: PER HYPOGLYCEMIA PROTOCOL Flumazenil (Romazecon Inj) 0.2 mg IV.PUSH Q1M PRN PRN Reason: OVERSEDATION Fluticasone/Vilanterol (Breo Ellipta 200/25 Mcg Inh) 2 puff INH DAILY HU Folic Acid (Folic Acid) 1 mg PO DAILY HU Stop: 07/21/18 08:59 Gabapentin (Neurontin) 400 mg PO DAILY HU Glucagon (Glucagon Inj) 1 mg OTHER PRN PRN PRN Reason: for Hypoglycemia Protocol Haloperidol Lactate (Haldol Inj) 1 mg IV.PUSH Q15M PRN PRN Reason: for severe agitation Potassium Chloride (Kcl 20 Meq Premix Inj) 20 meq in 100 mls @ 50 mls/hr IV.SIG ONCE ONE Stop: 07/15/18 15:35 Last Admin: 07/15/18 13:47 Dose: 50 mls/hr Potassium Chloride/Sodium Chloride (Ns + Kcl 20 Meq Inj) 1,000 mls @ 100 mls/ hr IV.CONT .Q10H HU Insulin Aspart (Novolog Insulin Correctional Sugar Inj) 0 unit SQ ACHS HU; Protocol Lactulose (Lactulose Liq) 30 ml PO DAILY PRN PRN Reason: SEVERE CONSITIPATION Lorazepam (Ativan) 1 mg PO Q4H PRN PRN Reason: for CIWA 8-10 Lorazepam (Ativan) 2 mg PO Q2H PRN PRN Reason: for CIWA 11-14 Lorazepam (Ativan Inj) 2 mg IV.PUSH Q1H PRN PRN Reason: for CIWA 15-20 Lorazepam (Ativan Inj) 2 mg IV.PUSH Q15M PRN PRN Reason: for CIWA > 20 Lorazepam (Ativan Inj) 1 mg IV.PUSH Q4H PRN PRN Reason: for CIWA 8-10 Lorazepam (Ativan Inj) 2 mg IV.PUSH Q2H PRN PRN Reason: for CIWA 11-14 Magnesium Oxide (Mag-Ox) 400 mg PO BID [facility] Multivitamins/Minerals (Theragran-M) 1 tab PO DAILY [facility] Stop: 07/21/18 08:59 Ondansetron HCl (Zofran Inj) 4 mg IV.PUSH Q6H PRN PRN Reason: NAUSEA OR VOMITING Potassium Chloride (K-Dur) 20 meq PO ONCE ONE Stop: 07/15/18 18:23 Senna/Docusate Sodium (Stefania-Colace) 1 tab PO BID [facility] Sennosides (Senokot) 17.2 mg PO Q12H PRN PRN Reason: Moderate Constipation Sodium Chloride (Ns Flush) 2 ml IV.FLUSH BID [facility] Sodium Chloride (Ns Flush) 2 ml IV.FLUSH PRN PRN PRN Reason: FLUSH AFTER USING IV ACCESS Thiamine HCl (Vitamin B1) 100 mg PO DAILY [facility] Allergies Allergy/AdvReac Type Severity Reaction Status Date / Time No Known Allergies Allergy Verified 05/10/18 08:20 Home Medications Medication Instructions Recorded Confirmed Type albuterol sulfate [Ventolin HFA] 2 puff INHALATION Q4-6H PRN 05/10/18 07/15/18 History amlodipine 5 mg PO DAILY 05/10/18 07/15/18 History apixaban [Eliquis] 5 mg PO BID 05/10/18 07/15/18 History atorvastatin 80 mg PO DAILY 05/10/18 07/15/18 History carvedilol 3.125 mg PO DAILY 05/10/18 07/15/18 History fluticasone-vilanterol [Breo 1 inh INHALATION DAILY 05/10/18 07/15/18 History Ellipta] furosemide 40 mg PO DAILY 05/10/18 07/15/18 History gabapentin 400 mg PO DAILY 05/10/18 07/15/18 History hydrocodone-acetaminophen 1 tab PO TID PRN 05/10/18 07/15/18 History lisinopril 20 mg PO DAILY 05/10/18 07/15/18 History metformin 250 mg PO BID 05/10/18 07/15/18 History hqntgshk-nxg-OO-lycopen-lutein 1 tab PO DAILY 05/10/18 07/15/18 History [Centrum Silver] vitamin E 400 unit PO DAILY 05/10/18 07/15/18 History clopidogrel [Plavix] 75 mg PO DAILY 07/15/18 07/15/18 History Exam Vital signs: Vital Signs 07/15/18 10:28 07/15/18 10:56 07/15/18 11:06 Temperature 97.9 F Pulse Rate 72 Respiratory Rate 16 Blood Pressure 108/63 Pulse Oximetry 95 94 L 07/15/18 13:07 07/15/18 13:48 07/15/18 14:25 Temperature Pulse Rate 74 78 77 Respiratory Rate 17 17 Blood Pressure 99/56 L 102/52 L 93/54 L Pulse Oximetry 97 98 95 Intake & Output 07/14/18 07/15/18 07/15/18 18:59 06:59 18:59 Intake Total 1101 / 1101 Balance 1101 / 1101 Weight 68.039 kg Intake: IV 1101 / 1101 NS Inj 1,000 ML @ 125 mls/hr IV 1000 / 1000 .CONT .Q8H HU Rx#:[id number] Thiamine Inj 100 MG In NS Inj 101 / 101 100 ML @ 100 mls/hr IV.SIG ONCE ONE Rx#:[id number] Narrative: GENERAL: Well-developed, well-nourished in no distress. Looks dehydrated SKIN: Warm and dry. HEAD: Atraumatic. Normocephalic. EYES: Pupils equal and round. No scleral icterus. No injection or drainage. ENT: No nasal bleeding or discharge. Dry oral mucosa NECK: Trachea midline. No JVD. CARDIOVASCULAR: Regular rate and rhythm. RESPIRATORY: No accessory muscle use. Clear to auscultation. Breath sounds equal bilaterally. Tender right posterior lower rib GASTROINTESTINAL: Abdomen soft, non-tender, nondistended. MUSCULOSKELETAL: Extremities without clubbing, cyanosis, or edema. No obvious deformities. NEUROLOGICAL: Awake and alert. No obvious cranial nerve deficits. Motor grossly within normal limits. Five out of 5 muscle strength in the arms and legs. Normal speech. PSYCHIATRIC: Appropriate mood and affect; insight and judgment normal. Results - Labs CBC & Chem 7: 07/15/18 11:00 07/15/18 12:07 Labs: Laboratory Results - last 24 hr 07/15/18 07/15/18 07/15/18 11:00 12:07 12:07 WBC 10.5 RBC 3.97 L Hgb 13.2 Hct 40.0 MCV 100.8 H MCH 33.3 MCHC 33.0 RDW 14.5 Plt Count 227 MPV 8.9 Neut % (Auto) 75.2 H Lymph % (Auto) 13.9 Adams % (Auto) 9.9 H Eos % (Auto) 0.4 Baso % (Auto) 0.6 Neut # (Auto) 7.9 H Lymph # (Auto) 1.5 Adams # (Auto) 1.0 H Eos # (Auto) 0.0 Baso # (Auto) 0.1 WBC Differential . Differential Comment Auto diff final PT 11.7 H INR 1.2 APTT 33.8 H Sodium 141 Potassium 2.9 L* Chloride 103 Carbon Dioxide 28.3 Anion Gap 10 BUN 30 H Creatinine 1.83 H Estimated GFR 37 L Random Glucose 79 Lactic Acid Calcium 9.0 Magnesium 1.5 Total Bilirubin 0.7 AST 18 ALT 12 Alkaline Phosphatase 103 Ammonia Total Creatine Kinase Total Protein 5.9 L Albumin 1.9 L TSH 0.056 L Urine Color Urine Clarity Urine pH Ur Specific [place] Urine Protein Urine Glucose (UA) Urine Ketones Urine Occult Blood Urine Nitrate Urine Bilirubin Urine Urobilinogen Ur Leukocyte Esterase Urine RBC Urine WBC Ur Squamous Epith Cells Urine Bacteria Hyaline Casts Urine Mucus Micro UA Comment Ur Microscopic Review Urine Culture Comments Serum Alcohol Less than 3 07/15/18 07/15/18 07/15/18 12:07 12:07 12:07 WBC RBC Hgb Hct MCV MCH MCHC RDW Plt Count MPV Neut % (Auto) Lymph % (Auto) Adams % (Auto) Eos % (Auto) Baso % (Auto) Neut # (Auto) Lymph # (Auto) Adams # (Auto) Eos # (Auto) Baso # (Auto) WBC Differential Differential Comment PT INR APTT Sodium Potassium Chloride Carbon Dioxide Anion Gap BUN Creatinine Estimated GFR Random Glucose Lactic Acid 0.7 Calcium Magnesium Total Bilirubin AST ALT Alkaline Phosphatase Ammonia 12 Total Creatine Kinase 59 Total Protein Albumin TSH Urine Color Urine Clarity Urine pH Ur Specific [place] Urine Protein Urine Glucose (UA) Urine Ketones Urine Occult Blood Urine Nitrate Urine Bilirubin Urine Urobilinogen Ur Leukocyte Esterase Urine RBC Urine WBC Ur Squamous Epith Cells Urine Bacteria Hyaline Casts Urine Mucus Micro UA Comment Ur Microscopic Review Urine Culture Comments Serum Alcohol 07/15/18 14:05 WBC RBC Hgb Hct MCV MCH MCHC RDW Plt Count MPV Neut % (Auto) Lymph % (Auto) [place] % (Auto) Eos % (Auto) Baso % (Auto) Neut # (Auto) Lymph # (Auto) Adams # (Auto) Eos # (Auto) Baso # (Auto) WBC Differential Differential Comment PT INR APTT Sodium Potassium Chloride Carbon Dioxide Anion Gap BUN Creatinine Estimated GFR Random Glucose Lactic Acid Calcium Magnesium Total Bilirubin AST ALT Alkaline Phosphatase Ammonia Total Creatine Kinase Total Protein Albumin TSH Urine Color Sunshine Urine Clarity Hazy H Urine pH 5.0 Ur Specific [place] 1.016 Urine Protein 30 H Urine Glucose (UA) Negative Urine Ketones Trace H Urine Occult Blood Negative Urine Nitrate Negative Urine Bilirubin Negative Urine Urobilinogen 2.0 H Ur Leukocyte Esterase Negative Urine RBC Less than 1 Urine WBC 4 Ur Squamous Epith Cells 1 Urine Bacteria Rare H Hyaline Casts 22 Urine Mucus Few H Micro UA Comment Culture not ind Ur Microscopic Review Not Reportable Urine Culture Comments Culture not ind Serum Alcohol - Imaging Impressions Chest X-Ray 07/15/18 11:06 CONCLUSION: 1. No new or acute intrathoracic disease. 2. Chronic-appearing nondisplaced fracture involving the distal right clavicle. Caprini VTE Risk Assessment Caprini VTE Risk Assessment: Moderate/High Risk (score >= 2) Caprini Risk Assessment Model: Point Value = 1 Point Value = 2 Point Value = 3 Point Value = 5 Age 41-60 Minor surgery BMI > 25 kg/m2 Swollen legs Varicose veins or History of unexplained or recurrent spontaneous Oral contraceptives or hormone replacement Sepsis (< 1 month) Serious lung disease, including pneumonia (< 1 month) Abnormal pulmonary function Acute myocardial infarction Congestive heart failure (< 1 month) History of inflammatory bowel disease Medical patient at bed rest Age 61-74 Arthroscopic surgery Major open surgery (> 45 min) Laparoscopic surgery (> 45 min) Malignancy Confined to bed (> 72 hours) Immobilizing plaster cast Central venous access Age >= 75 History of VTE Family history of VTE Factor V Leiden Prothrombin [id number] Lupus anticoagulant Anticardiolipin antibodies Elevated serum homocysteine Heparin-induced thrombocytopenia Other congenital or acquired thrombophilia Stroke (< 1 month) Elective arthroplasty Hip, pelvis, or leg fracture Acute spinal cord injury (< 1 month) Prophylaxis Regimen: Total Risk Factor Score Risk Level Prophylaxis Regimen 0-1 Low Early ambulation 2 Moderate Order ONE of the following: *Sequential Compression Device (SCD) *Heparin 5000 units SQ BID 3-4 Higher Order ONE of the following medications: *Heparin 5000 units SQ TID *Enoxaparin/Lovenox 40 mg SQ daily (WT < 150 kg, CrCl > 30 mL/min) *Enoxaparin/Lovenox 30 mg SQ daily (WT < 150 kg, CrCl > 10-29 mL/min) *Enoxaparin/Lovenox 30 mg SQ BID (WT < 150 kg, CrCl > 30 mL/min) AND/OR *Sequential Compression Device (SCD) 5 or more Highest Order ONE of the following medications: *Heparin 5000 units SQ TID (Preferred with Epidurals) *Enoxaparin/Lovenox 40 mg SQ daily (WT < 150 kg, CrCl > 30 mL/min) *Enoxaparin/Lovenox 30 mg SQ daily (WT < 150 kg, CrCl > 10-29 mL/min) *Enoxaparin/Lovenox 30 mg SQ BID (WT < 150 kg, CrCl > 30 mL/min) AND *Sequential Compression Device (SCD) Assessment and Plan - Plan This is a 68-year-old male with a history of ETOH abuse, recurrent falls using walker, Coronary artery disease on Plavix, diabetes mellitus with neuropathy, hypertension, COPD and PE on Eliquis. Presents to the emergency room because of general weakness, sleeping more than usual and not eating. He also fell x1. ER evaluation shows dehydration with creatinine 1.83 Generalized weakness with history of recurrent falls. Consult physical therapy. Fall precautions. Acute kidney injury secondary to dehydration. CK within normal limits. Patient received fluid bolus in the emergency room but will continue IV hydration and check urinalysis. Repeat BMP and magnesium in the morning. Avoid Hypokalemia 2.9. Patient received 20 mEq IV potassium and 40 mg p.o. we will give another dose of 20 mEq p.o. in 6 hours. Monitor on telemetry. Check BMP and magnesium in the morning Low TSH but not suppressed. Check free T3 and free T4 Alcohol abuse. Extensively counseled especially on anticoagulation. [place] protocol. DVT prophylaxis with SCD and Eliquis Discharge Planning: Needs rehab
[2018-07-15] MEDS: Magnesium Oxide 400 MG Tablet PO SCH ×2 (16:24→22:15)
[2018-07-15] MEDS: Insulin NovoLOG Aspart Correctional Sugar Inj SQ SCH ×2 (17:09→22:15)
[2018-07-15] MEDS: Senna/Docusate Sodium 8.6/50 MG Tablet PO SCH (22:15)
[2018-07-15 22:43] LABS: Free T4 (Free Thyroxine) 1.76 ng/dL (0.76-1.46); Triiodothyronine (T3) Free 1.58 pg/mL (2.18-3.98)
[2018-07-16 05:53] LABS: Bilirubin,Urine Negative (Negative); Clarity,Urine Hazy (Clear); Color,Urine Yellow (Yellw/Straw); Glucose,Urine (UA) Negative (Negative); Hyaline Casts,Urine 23 /lpf (0-3); Leukocyte Esterase,Urine Negative (Negative); Mucus,Urine Few /lpf (Occasional); Nitrite,Urine Negative (Negative); Specific Gravity,Urine 1.015 (1.002-1.035); Squamous Epithelial Cell,Urine <1 /hpf (0-5)
[2018-07-16 07:25] LABS: Baso % (Auto) 0.4 % (0.0-2.0); Eos # (Auto) 0.1 th/mm3 (0.0-0.4); Eos % (Auto) 1.7 % (0.0-4.0); Hematocrit 36.7 % (39.0-51.0); Hemoglobin 12.5 gm/dL (13.0-17.0); Lymph # (Auto) 1.3 th/mm3 (1.0-4.8); Lymph % (Auto) 16.4 % (9.0-44.0); Mean Corpuscular HGB Conc 33.9 % (32.0-36.0); Mean Corpuscular Hemoglobin 33.5 pg (27.0-34.0); Mean Corpuscular Volume 98.7 fL (80.0-100.0); Mean Platelet Volume 8.3 fL (7.0-11.0); Mono # (Auto) 0.8 th/mm3 (0.0-0.9); Mono % (Auto) 10.4 % (0.0-8.0); Neut # (Auto) 5.8 th/mm3 (1.8-7.7); Neut % (Auto) 71.1 % (16.0-70.0); Platelet Count 201 th/mm3 (150-450); Red Blood Count 3.72 mil/mm3 (4.50-5.90); Red Cell Distribution Width 14.1 % (11.6-17.2); White Blood Count 8.2 th/mm3 (4.0-11.0)
[2018-07-16 07:49] LABS: Calcium 8.9 mg/dL (8.5-10.1); Carbon Dioxide 29.1 meq/L (21.0-32.0); Potassium 3.6 meq/L (3.5-5.1)
[2018-07-16] MEDS: Multivitamin/Minerals Therapeutic Tablet PO SCH (08:13)
[2018-07-16] MEDS: Gabapentin 400 MG Capsule PO SCH (08:13)
[2018-07-16] MEDS: Senna/Docusate Sodium 8.6/50 MG Tablet PO SCH ×2 (08:13→20:28)
[2018-07-16] MEDS: Magnesium Oxide 400 MG Tablet PO SCH ×2 (08:13→20:27)
[2018-07-16] MEDS: Folic Acid 1 MG Tablet PO SCH (08:14)
[2018-07-16] MEDS ORDERED: Vancomycin Consult Pharmacy OTHER PRN (09:33)
[2018-07-16] MEDS: Insulin NovoLOG Aspart Correctional Sugar Inj SQ SCH ×4 (10:09→20:27)
--- NOTE | 2018-07-16 10:17 | P.PN ---
Subjective Interval history: Follow-up for fatigue, weakness, fall, JOEL, now with + bacteremia. The patient reports continued fatigue and weakness today. Discussed his positive blood cultures. The patient denies any recent infections. Denies any skin wounds, cough, congestion, sore throat, chest pain, shortness of breath, or urinary complaints. He does endorse a 2-week history of diffuse periumbilical and lower abdominal pain. He reports he previously had problems with constipation, now having more loose stools with occasional diarrhea. Denies any melena/ hematochezia. He reports an unintentional 40 pound weight loss over the past year. He states he had a colonoscopy years ago which showed polyps that were removed. Patient does also report daily alcohol use. He states he drinks probably 56 shots daily in addition to 34 beers a day. He has not quit drinking in at least 3-4 months, but states he did experience withdrawals during previous cessation from alcohol. Physical Exam Vital signs: Vital Signs 07/15/18 10:28 07/15/18 10:56 07/15/18 11:06 Temperature 97.9 F Pulse Rate 72 Respiratory Rate 16 Blood Pressure 108/63 Pulse Oximetry 95 94 L 07/15/18 13:07 07/15/18 13:48 07/15/18 14:25 Temperature Pulse Rate 74 78 77 Respiratory Rate 17 17 Blood Pressure 99/56 L 102/52 L 93/54 L Pulse Oximetry 97 98 95 07/15/18 19:18 07/15/18 19:42 07/15/18 20:00 Temperature 98.5 F Pulse Rate 74 74 68 Respiratory Rate 17 18 Blood Pressure 90/60 L Pulse Oximetry 95 07/16/18 00:00 07/16/18 04:00 07/16/18 08:00 Temperature 98.1 F 98.3 F Pulse Rate 63 66 69 Respiratory Rate 18 18 16 Blood Pressure 92/60 L 90/62 L 117/71 Pulse Oximetry 95 92 L 95 07/16/18 08:05 Temperature Pulse Rate Respiratory Rate Blood Pressure Pulse Oximetry 98 Intake & Output 07/15/18 07/16/18 07/16/18 18:59 06:59 18:59 Intake Total 1201 / 1201 1100 / 1100 Output Total 450 / 450 Balance 1201 / 1201 650 / 650 Weight 68.039 kg 67.8 kg Intake: IV 1201 / 1201 1100 / 1100 NS + KCl 20 mEq Inj 1,000 ML @ 1000 / 1000 100 mls/hr IV.CONT .Q10H HU Rx #:[id number] NS Inj 1,000 ML @ 125 mls/hr IV 1000 / 1000 .CONT .Q8H HU Rx#:[id number] Magnesium Sulfate 1 gm/D5W 100 100 / 100 ml Premix 100 ML @ 100 mls/hr IV.SIG ONCE ONE Rx#:[id number] KCl 20 mEq Premix Inj 20 meq In 100 / 100 100 ml @ 50 mls/hr IV.SIG ONCE ONE Rx#:[id number] Thiamine Inj 100 MG In NS Inj 101 / 101 100 ML @ 100 mls/hr IV.SIG ONCE ONE Rx#:[id number] Output: Urine 450 / 450 Other: # Voids 1 Date of Last Bowel Movement 07/16/18 Narrative: GENERAL: Well-nourished, well-developed middle-age male patient in [facility]. SKIN: Warm and dry. No rash. HEENT: Normocephalic. Atraumatic. Pupils equal and round. Mucous membranes pink and moist. CARDIOVASCULAR: Regular rate and rhythm. No murmur appreciated. RESPIRATORY: No accessory muscle use. Clear to auscultation. Breath sounds equal bilaterally. GASTROINTESTINAL: Abdomen soft, non-tender, nondistended. Normoactive bowel sounds x4. MUSCULOSKELETAL: No obvious deformities. Extremities without clubbing, cyanosis , or edema. NEUROLOGICAL: Awake and alert. No obvious cranial nerve deficits. Motor grossly within normal limits. Moving all extremities spontaneously. Normal speech. PSYCHIATRIC: Appropriate mood and affect; insight and judgment normal. Results - Labs CBC & Chem 7: 07/16/18 06:40 07/16/18 06:40 Laboratory Results - last 24 hr 07/15/18 07/15/18 07/15/18 11:00 12:07 12:07 WBC 10.5 RBC 3.97 L Hgb 13.2 Hct 40.0 MCV 100.8 H MCH 33.3 MCHC 33.0 RDW 14.5 Plt Count 227 MPV 8.9 Neut % (Auto) 75.2 H Lymph % (Auto) 13.9 Eagle % (Auto) 9.9 H Eos % (Auto) 0.4 Baso % (Auto) 0.6 Neut # (Auto) 7.9 H Lymph # (Auto) 1.5 Eagle # (Auto) 1.0 H Eos # (Auto) 0.0 Baso # (Auto) 0.1 WBC Differential . Differential Comment Auto diff final PT 11.7 H INR 1.2 APTT 33.8 H Sodium 141 Potassium 2.9 L* Chloride 103 Carbon Dioxide 28.3 Anion Gap 10 BUN 30 H Creatinine 1.83 H Estimated GFR 37 L POC Glucose Random Glucose 79 Lactic Acid Calcium 9.0 Magnesium 1.5 Total Bilirubin 0.7 AST 18 ALT 12 Alkaline Phosphatase 103 Ammonia Total Creatine Kinase Total Protein 5.9 L Albumin 1.9 L TSH 0.056 L Free T4 Free T3 Urine Color Urine Clarity Urine pH Ur Specific [place] Urine Protein Urine Glucose (UA) Urine Ketones Urine Occult Blood Urine Nitrate Urine Bilirubin Urine Urobilinogen Ur Leukocyte Esterase Urine RBC Urine WBC Ur Squamous Epith Cells Urine Bacteria Hyaline Casts Granular Casts Waxy Casts Urine Mucus Micro UA Comment Ur Microscopic Review Urine Culture Comments Serum Alcohol Less than 3 07/15/18 07/15/18 07/15/18 12:07 12:07 12:07 WBC RBC Hgb Hct MCV MCH MCHC RDW Plt Count MPV Neut % (Auto) Lymph % (Auto) Eagle % (Auto) Eos % (Auto) Baso % (Auto) Neut # (Auto) Lymph # (Auto) Eagle # (Auto) Eos # (Auto) Baso # (Auto) WBC Differential Differential Comment PT INR APTT Sodium Potassium Chloride Carbon Dioxide Anion Gap BUN Creatinine Estimated GFR POC Glucose Random Glucose Lactic Acid 0.7 Calcium Magnesium Total Bilirubin AST ALT Alkaline Phosphatase Ammonia 12 Total Creatine Kinase 59 Total Protein Albumin TSH Free T4 Free T3 Urine Color Urine Clarity Urine pH Ur Specific [place] Urine Protein Urine Glucose (UA) Urine Ketones Urine Occult Blood Urine Nitrate Urine Bilirubin Urine Urobilinogen Ur Leukocyte Esterase Urine RBC Urine WBC Ur Squamous Epith Cells Urine Bacteria Hyaline Casts Granular Casts Waxy Casts Urine Mucus Micro UA Comment Ur Microscopic Review Urine Culture Comments Serum Alcohol 07/15/18 07/15/18 07/15/18 12:07 14:05 17:09 WBC RBC Hgb Hct MCV MCH MCHC RDW Plt Count MPV Neut % (Auto) Lymph % (Auto) Eagle % (Auto) Eos % (Auto) Baso % (Auto) Neut # (Auto) Lymph # (Auto) Eagle # (Auto) Eos # (Auto) Baso # (Auto) WBC Differential Differential Comment PT INR APTT Sodium Potassium Chloride Carbon Dioxide Anion Gap BUN Creatinine Estimated GFR POC Glucose 121 H Random Glucose Lactic Acid Calcium Magnesium Total Bilirubin AST ALT Alkaline Phosphatase Ammonia Total Creatine Kinase Total Protein Albumin TSH Free T4 1.76 H Free T3 1.58 L Urine Color Sunshine Urine Clarity Hazy H Urine pH 5.0 Ur Specific [place] 1.016 Urine Protein 30 H Urine Glucose (UA) Negative Urine Ketones Trace H Urine Occult Blood Negative Urine Nitrate Negative Urine Bilirubin Negative Urine Urobilinogen 2.0 H Ur Leukocyte Esterase Negative Urine RBC Less than 1 Urine WBC 4 Ur Squamous Epith Cells 1 Urine Bacteria Rare H Hyaline Casts 22 Granular Casts Waxy Casts Urine Mucus Few H Micro UA Comment Culture not ind Ur Microscopic Review Not Reportable Urine Culture Comments Culture not ind Serum Alcohol 07/15/18 07/16/18 07/16/18 22:14 04:00 06:40 WBC 8.2 RBC 3.72 L Hgb 12.5 L Hct 36.7 L MCV 98.7 MCH 33.5 MCHC 33.9 RDW 14.1 Plt Count 201 MPV 8.3 Neut % (Auto) 71.1 H Lymph % (Auto) 16.4 Eagle % (Auto) 10.4 H Eos % (Auto) 1.7 Baso % (Auto) 0.4 Neut # (Auto) 5.8 Lymph # (Auto) 1.3 Eagle # (Auto) 0.8 Eos # (Auto) 0.1 Baso # (Auto) 0.0 WBC Differential . Differential Comment Auto diff final PT INR APTT Sodium Potassium Chloride Carbon Dioxide Anion Gap BUN Creatinine Estimated GFR POC Glucose 101 Random Glucose Lactic Acid Calcium Magnesium Total Bilirubin AST ALT Alkaline Phosphatase Ammonia Total Creatine Kinase Total Protein Albumin TSH Free T4 Free T3 Urine Color Yellow Urine Clarity Hazy H Urine pH 5.0 Ur Specific [place] 1.015 Urine Protein Negative Urine Glucose (UA) Negative Urine Ketones Trace H Urine Occult Blood Negative Urine Nitrate Negative Urine Bilirubin Negative Urine Urobilinogen 2.0 H Ur Leukocyte Esterase Negative Urine RBC Less than 1 Urine WBC 3 Ur Squamous Epith Cells <1 Urine Bacteria Hyaline Casts 23 Granular Casts 14 Waxy Casts 1 Urine Mucus Few H Micro UA Comment Culture not ind Ur Microscopic Review Not Reportable Urine Culture Comments Culture not ind Serum Alcohol 12/02/18 12/02/18 06:40 08:19 WBC RBC Hgb Hct MCV MCH MCHC RDW Plt Count MPV Neut % (Auto) Lymph % (Auto) Eagle % (Auto) Eos % (Auto) Baso % (Auto) Neut # (Auto) Lymph # (Auto) Eagle # (Auto) Eos # (Auto) Baso # (Auto) WBC Differential Differential Comment PT INR APTT Sodium 142 Potassium 3.6 Chloride 106 Carbon Dioxide 29.1 Anion Gap 7 BUN 25 H Creatinine 0.97 Estimated GFR 77 L POC Glucose 81 Random Glucose 83 Lactic Acid Calcium 8.9 Magnesium Total Bilirubin AST ALT Alkaline Phosphatase Ammonia Total Creatine Kinase Total Protein Albumin TSH Free T4 Free T3 Urine Color Urine Clarity Urine pH Ur Specific [place] Urine Protein Urine Glucose (UA) Urine Ketones Urine Occult Blood Urine Nitrate Urine Bilirubin Urine Urobilinogen Ur Leukocyte Esterase Urine RBC Urine WBC Ur Squamous Epith Cells Urine Bacteria Hyaline Casts Granular Casts Waxy Casts Urine Mucus Micro UA Comment Ur Microscopic Review Urine Culture Comments Serum Alcohol Microbiology 07/15/18 11:15 Blood - Peripheral Anaerobic Blood Culture - Preliminary gram positive cocci 07/15/18 11:00 Blood - Peripheral Aerobic Blood Culture - Preliminary gram positive cocci 07/15/18 11:00 Blood - Peripheral Anaerobic Blood Culture - Preliminary gram positive cocci - Imaging Impressions Chest X-Ray 07/15/18 11:06 CONCLUSION: 1. No new or acute intrathoracic disease. 2. Chronic-appearing nondisplaced fracture involving the distal right clavicle. Assessment and Plan - Plan 68-year-old male with a history of ETOH abuse, recurrent falls using walker, Coronary artery disease on Plavix, diabetes mellitus with neuropathy, hypertension, COPD and PE on Eliquis. Presents to the emergency room because of general weakness, sleeping more than usual and not eating. He also fell x1. ER evaluation shows dehydration with creatinine 1.83 Generalized weakness, Recurrent Falls: suspect multifactorial with chronic deconditioning, alcohol abuse, dehydration/JOEL -Give IVF hydration -Fall precautions. -Consult physical therapy Suspected Bacteremia: acute. Unclear source vs contaminant. -3/4 preliminary blood cultures with gram positive cocci -ordered stat repeat blood cultures -start on IV Vanco with pharmacy consult -Consult ID Abdominal Pain: [id number], with occasional associated diarrhea -check CT abdomen/pelvis -stool studies if an further diarrhea Acute kidney injury: secondary to dehydration. Cr 1.83. -CK within normal limits. -UA negative -Continue IVF hydration -Repeat BMP shows significant improvement, Cr 1.83 --> 0.97 -Avoid nephrotoxins -Monitor renal function Hypokalemia: K 2.9. Mag 1.5. -Patient received 20 mEq IV potassium and 40 mg p.o. -Given another dose of 20 mEq p.o. -Monitor on telemetry. -Repeat BMP shows improvement with K 3.6 Low TSH but not suppressed. -Free T4 1.76, T3 1.58 -Recommend repeat TSH/T4 in 2-4weeks as outpatient Alcohol abuse: acute -Extensively counseled on cessation, especially on anticoagulation. -thiamine/folate/MV -CIWA protocol. CAD: chronic -continue patient's plavix, statin -unable to start BB due to low BP -monitor on telemetry DVT prophylaxis with SCD and Eliquis
[2018-07-16] MEDS ORDERED: Diatrizoate Meglum/Diatrizoate Sod Liq 9 ML UDC PO ONE (11:26)
[2018-07-16] MEDS: Vancomycin Inj 1,000 MG in Sodium Chlor 0.9% Inj 250 ML IV.SIG SCH ×2 (11:58→23:15)
--- NOTE | 2018-07-16 12:59 | ECG ---
Date Performed: 07/15/2018 Time Performed: 11:30:59 PTAGE: 68 years EKG: Sinus rhythm WITH OCCASIONAL SUPRAVENTRICULAR PREMATURE COMPLEXES MARKED RIGHT AXIS DEVIATION RIGHT BUNDLE BRANCH BLOCK ABNORMAL ECG Since the PREVIOUS TRACING , no significant change noted PREVIOUS TRACIN05/10/2018 10.35 DOCTOR: Chava Schumacher Interpretating Date/Time 07/16/2018 12:57:10
[2018-07-16 15:56] LABS: Amphetamine Screen,Urine Neg (Neg); Barbiturate Screen,Urine Neg (Neg); Cannabinoid Screen,Urine Neg (Neg); Cocaine Screen,Urine Neg (Neg)
[2018-07-16 15:57] LABS: Opiate Screen,Urine Neg (Neg)
--- NOTE | 2018-07-16 16:03 | P.CONID ---
History of Present Illness Service: ID Consult date: 07/16/18 Requesting Physician: Kaylin Sabillon Reason for Consult: bacteremia Primary Care Provider: UNKNOWN Chief Complaint: Generalized weakness History of Present Illness: 68 yo male very poor historian Apparently brought by for lethargy + h/o ETOH absue His blood cultures today are positive for MSSA, 3/4 bottles He is now awake, somewhat confused; unable to give meaningful history No fever no leukocytosis He also endorses some weakness in BLE and difficulty walkin Uses walker he co some lower back pain but could not tell me how long he has it Review of Systems All other systems reviewed negative except as stated in HPI PMFSH - History History Provided By: Patient - Medical History Medical History: Medical History (Last Reviewed 07/16/18 @ 19:38 by Alissa Shafer MD) CAD (coronary artery disease) CHF (congestive heart failure) COPD (chronic obstructive pulmonary disease) Diabetes ETOH abuse GERD (gastroesophageal reflux disease) High cholesterol Hypertension Liver disease due to alcohol Macrocytosis without anemia Neuropathy Obesity Osteoarthritis of spine - Surgical History Surgical History: Surgical History (Last Reviewed 07/16/18 @ 19:38 by Alissa Shafer MD) H/O heart artery stent - Family History Family History: Family History (Last Reviewed 07/16/18 @ 19:38 by Alissa Shafer MD) Other No pertinent family history - Social History I have reviewed the patient's Social History: Yes - Tobacco History Second Hand Smoke Exposure: Yes Tobacco Use In Past 30 Days: Yes Smoking Status: Current every day smoker Tobacco Type: Cigarettes Packs Per Day: 1.5 Years Smoked: 50 - Alcohol History How Often Do You Have a Drink Containing Alcohol: 4 or more times a week - Substance Use History Substance History: No History of Abuse - Substance Use Type Crack/Cocaine Status: Sustained Remission Route Used: Inhalation Frequency: Weekly Marijuana Status: Sustained Remission Route Used: Inhalation Frequency: Occasionally Reason for Use: Get High - Travel History Recent Travel in the [place] Within the Last 8 Weeks: No Recent Travel Out of the Country Within the Last 8 Weeks: No - Immunization History Tetanus Immunization: Unsure Medications and Allergies Active Medications: Active Medications Acetaminophen (Tylenol) 650 mg PO Q4H PRN PRN Reason: Temp > 100.4 Hydrocodone Bitart/Acetaminophen (Alva 7.5/325) 1 tab PO TID PRN PRN Reason: PAIN 1-10 Last Admin: 07/16/18 07:35 Dose: 1 tab Al Hydroxide/Mg Hydroxide (Milk Of Magnesia Liq) 30 ml PO Q12H PRN PRN Reason: Mild Constipation Albuterol (Ventolin Hfa Inh) 2 puff INH Q4H PRN PRN Reason: SHORTNESS OF BREATH Albuterol (Duoneb Neb ([facility])) 1 ampul NEB TID NEB [facility] Last Admin: 07/16/18 15:00 Dose: 1 ampul Apixaban (Eliquis) 5 mg PO BID [facility] Last Admin: 07/16/18 08:14 Dose: 5 mg Atorvastatin Calcium (Lipitor) 80 mg PO DAILY [facility] Last Admin: 07/16/18 08:13 Dose: 80 mg Bisacodyl (Dulcolax Supp) 10 mg RECTAL DAILY PRN PRN Reason: SEVERE CONSITIPATION Clopidogrel Bisulfate (Plavix) 75 mg PO DAILY [facility] Last Admin: 07/16/18 08:13 Dose: 75 mg Dextrose (D50w Vial) 50 ml IV.PUSH UNSCH PRN PRN Reason: PER HYPOGLYCEMIA PROTOCOL Flumazenil (Romazecon Inj) 0.2 mg IV.PUSH Q1M PRN PRN Reason: OVERSEDATION Fluticasone/Vilanterol (Breo Ellipta 200/25 Mcg Inh) 2 puff INH DAILY [facility] Last Admin: 07/16/18 11:57 Dose: 2 puff Folic Acid (Folic Acid) 1 mg PO DAILY [facility] Stop: 07/21/18 08:59 Last Admin: 07/16/18 08:14 Dose: 1 mg Gabapentin (Neurontin) 400 mg PO DAILY [facility] Last Admin: 07/16/18 08:13 Dose: 400 mg Glucagon (Glucagon Inj) 1 mg OTHER PRN PRN PRN Reason: for Hypoglycemia Protocol Haloperidol Lactate (Haldol Inj) 1 mg IV.PUSH Q15M PRN PRN Reason: for severe agitation Potassium Chloride/Sodium Chloride (Ns + Kcl 20 Meq Inj) 1,000 mls @ 100 mls/ hr IV.CONT .Q10H [facility] Last Infusion: 07/16/18 14:01 Dose: 100 mls/hr Vancomycin HCl 1,000 mg/ (Sodium Chloride) 250 mls @ 250 mls/hr IV.SIG Q12H [facility] Last Infusion: 07/16/18 14:00 Dose: Infused Insulin Aspart (Novolog Insulin Correctional Sugar Inj) 0 unit SQ ACHS [facility]; Protocol Last Admin: 07/16/18 14:00 Dose: Not Given Lactulose (Lactulose Liq) 30 ml PO DAILY PRN PRN Reason: SEVERE CONSITIPATION Lorazepam (Ativan) 1 mg PO Q4H PRN PRN Reason: for CIWA 8-10 Lorazepam (Ativan) 2 mg PO Q2H PRN PRN Reason: for CIWA 11-14 Lorazepam (Ativan Inj) 2 mg IV.PUSH Q1H PRN PRN Reason: for CIWA 15-20 Lorazepam (Ativan Inj) 2 mg IV.PUSH Q15M PRN PRN Reason: for CIWA > 20 Lorazepam (Ativan Inj) 1 mg IV.PUSH Q4H PRN PRN Reason: for CIWA 8-10 Lorazepam (Ativan Inj) 2 mg IV.PUSH Q2H PRN PRN Reason: for CIWA 11-14 Magnesium Oxide (Mag-Ox) 400 mg PO BID [facility] Last Admin: 07/16/18 08:13 Dose: 400 mg Miscellaneous Information ([facility] Ordered Lab Info) 0 each OTHER ONCE ONE Stop: 07/17/18 22:46 Multivitamins/Minerals (Theragran-M) 1 tab PO DAILY [facility] Stop: 07/21/18 08:59 Last Admin: 07/16/18 08:13 Dose: 1 tab Ondansetron HCl (Zofran Inj) 4 mg IV.PUSH Q6H PRN PRN Reason: NAUSEA OR VOMITING Pharmacy Profile Note (Vancomycin Consult Pharmacy) 1 each OTHER UNSCH PRN PRN Reason: Pharmacy to dose Senna/Docusate Sodium (Stefania-Colace) 1 tab PO BID [facility] Last Admin: 07/16/18 08:13 Dose: Not Given Sennosides (Senokot) 17.2 mg PO Q12H PRN PRN Reason: Moderate Constipation Sodium Chloride (Ns Flush) 2 ml IV.FLUSH BID [facility] Last Admin: 07/16/18 08:14 Dose: 2 ml Sodium Chloride (Ns Flush) 2 ml IV.FLUSH PRN PRN PRN Reason: FLUSH AFTER USING IV ACCESS Thiamine HCl (Vitamin B1) 100 mg PO DAILY [facility] Last Admin: 07/16/18 08:13 Dose: 100 mg Allergies Allergy/AdvReac Type Severity Reaction Status Date / Time No Known Allergies Allergy Verified 05/10/18 08:20 Home Medications Medication Instructions Recorded Confirmed Type albuterol sulfate [Ventolin HFA] 2 puff INHALATION Q4-6H PRN 05/10/18 07/15/18 History amlodipine 5 mg PO DAILY 05/10/18 07/15/18 History apixaban [Eliquis] 5 mg PO BID 05/10/18 07/15/18 History atorvastatin 80 mg PO DAILY 05/10/18 07/15/18 History carvedilol 3.125 mg PO DAILY 05/10/18 07/15/18 History fluticasone-vilanterol [Breo 1 inh INHALATION DAILY 05/10/18 07/15/18 History Ellipta] furosemide 40 mg PO DAILY 05/10/18 07/15/18 History gabapentin 400 mg PO DAILY 05/10/18 07/15/18 History hydrocodone-acetaminophen 1 tab PO TID PRN 05/10/18 07/15/18 History lisinopril 20 mg PO DAILY 05/10/18 07/15/18 History metformin 250 mg PO BID 05/10/18 07/15/18 History rgzkdgpd-vbi-SW-lycopen-lutein 1 tab PO DAILY 05/10/18 07/15/18 History [Centrum Silver] vitamin E 400 unit PO DAILY 05/10/18 07/15/18 History clopidogrel [Plavix] 75 mg PO DAILY 07/15/18 07/15/18 History Exam Vital signs: Vital Signs 07/15/18 19:18 07/15/18 19:42 07/15/18 20:00 Temperature 98.5 F Pulse Rate 74 74 68 Respiratory Rate 17 18 Blood Pressure 90/60 L Pulse Oximetry 95 07/16/18 00:00 07/16/18 04:00 07/16/18 08:00 Temperature 98.1 F 98.3 F Pulse Rate 63 66 69 Respiratory Rate 18 18 16 Blood Pressure 92/60 L 90/62 L 117/71 Pulse Oximetry 95 92 L 95 07/16/18 08:05 07/16/18 09:00 07/16/18 11:33 Temperature 98.0 F Pulse Rate 66 63 Respiratory Rate 16 Blood Pressure 91/60 L Pulse Oximetry 98 95 07/16/18 15:00 Temperature Pulse Rate 60 Respiratory Rate 18 Blood Pressure Pulse Oximetry Intake & Output 07/15/18 07/16/18 07/16/18 18:59 06:59 18:59 Intake Total 1201 / 1201 1100 / 1100 750 / 750 Output Total 450 / 450 Balance 1201 / 1201 650 / 650 750 / 750 Weight 68.039 kg 67.8 kg Intake: IV 1201 / 1201 1100 / 1100 750 / 750 NS + KCl 20 mEq Inj 1,000 ML @ 1000 / 1000 500 / 500 100 mls/hr IV.CONT .Q10H [facility] Rx #:[id number] NS Inj 1,000 ML @ 125 mls/hr IV 1000 / 1000 .CONT .Q8H [facility] Rx#:[id number] Magnesium Sulfate 1 gm/D5W 100 100 / 100 ml Premix 100 ML @ 100 mls/hr IV.SIG ONCE ONE Rx#:[id number] KCl 20 mEq Premix Inj 20 meq In 100 / 100 100 ml @ 50 mls/hr IV.SIG ONCE ONE Rx#:[id number] Thiamine Inj 100 MG In NS Inj 101 / 101 100 ML @ 100 mls/hr IV.SIG ONCE ONE Rx#:[id number] Vancomycin Inj 1,000 MG In NS 250 / 250 Inj 250 ML @ 250 mls/hr IV.SIG Q12H [facility] Rx#:[id number] Output: Urine 450 / 450 Other: # Voids 1 Date of Last Bowel Movement 07/16/18 - Constitutional no acute distress, average body habitus - Routine HEENT Exam Head: Present: normocephalic, atraumatic Eye: Present: EOMI, PERRL ENT: Present: mucous membranes moist. Absent: dentition normal (poor) - Routine Neck Exam Present: supple, full ROM. Absent: lymphadenopathy - Routine Respiratory Exam Present: CTA bilaterally. Absent: accessory muscle use, decreased breath sounds , rhonchi - Routine Cardiovascular Exam Present: RRR, S1, S2. Absent: murmur, gallop, rubs - Routine Abdominal Exam Present: soft, normoactive bowel sounds. Absent: tenderness, distended, organomegaly, mass - Routine Extremities Exam Present: cyanosis. Absent: clubbing, edema, pulses intact, normal capillary refill - Routine Skin Exam Present: dry, warm. Absent: rash - Routine Neurological Exam Present: alert, oriented X3, CN II-XII intact. Absent: sensory deficit, motor deficit - Routine Psychiatric Exam Present: normal affect, cooperative Results - Labs CBC & Chem 7: 07/16/18 06:40 07/16/18 06:40 Labs: Laboratory Results - last 24 hr 07/15/18 07/15/18 07/15/18 12:07 17:09 22:14 WBC RBC Hgb Hct MCV MCH MCHC RDW Plt Count MPV Neut % (Auto) Lymph % (Auto) Hamlin % (Auto) Eos % (Auto) Baso % (Auto) Neut # (Auto) Lymph # (Auto) Hamlin # (Auto) Eos # (Auto) Baso # (Auto) WBC Differential Differential Comment Sodium Potassium Chloride Carbon Dioxide Anion Gap BUN Creatinine Estimated GFR POC Glucose 121 H 101 Random Glucose Calcium Free T4 1.76 H Free T3 1.58 L Urine Color Urine Clarity Urine pH Ur Specific Victoria Urine Protein Urine Glucose (UA) Urine Ketones Urine Occult Blood Urine Nitrate Urine Bilirubin Urine Urobilinogen Ur Leukocyte Esterase Urine RBC Urine WBC Ur Squamous Epith Cells Hyaline Casts Granular Casts Waxy Casts Urine Mucus Micro UA Comment Ur Microscopic Review Urine Culture Comments 07/16/18 07/16/18 07/16/18 04:00 06:40 06:40 WBC 8.2 RBC 3.72 L Hgb 12.5 L Hct 36.7 L MCV 98.7 MCH 33.5 MCHC 33.9 RDW 14.1 Plt Count 201 MPV 8.3 Neut % (Auto) 71.1 H Lymph % (Auto) 16.4 Hamlin % (Auto) 10.4 H Eos % (Auto) 1.7 Baso % (Auto) 0.4 Neut # (Auto) 5.8 Lymph # (Auto) 1.3 Hamlin # (Auto) 0.8 Eos # (Auto) 0.1 Baso # (Auto) 0.0 WBC Differential . Differential Comment Auto diff final Sodium 142 Potassium 3.6 Chloride 106 Carbon Dioxide 29.1 Anion Gap 7 BUN 25 H Creatinine 0.97 Estimated GFR 77 L POC Glucose Random Glucose 83 Calcium 8.9 Free T4 Free T3 Urine Color Yellow Urine Clarity Hazy H Urine pH 5.0 Ur Specific Victoria 1.015 Urine Protein Negative Urine Glucose (UA) Negative Urine Ketones Trace H Urine Occult Blood Negative Urine Nitrate Negative Urine Bilirubin Negative Urine Urobilinogen 2.0 H Ur Leukocyte Esterase Negative Urine RBC Less than 1 Urine WBC 3 Ur Squamous Epith Cells <1 Hyaline Casts 23 Granular Casts 14 Waxy Casts 1 Urine Mucus Few H Micro UA Comment Culture not ind Ur Microscopic Review Not Reportable Urine Culture Comments Culture not ind 07/16/18 07/16/18 08:19 12:21 WBC RBC Hgb Hct MCV MCH MCHC RDW Plt Count MPV Neut % (Auto) Lymph % (Auto) Hamlin % (Auto) Eos % (Auto) Baso % (Auto) Neut # (Auto) Lymph # (Auto) Hamlin # (Auto) Eos # (Auto) Baso # (Auto) WBC Differential Differential Comment Sodium Potassium Chloride Carbon Dioxide Anion Gap BUN Creatinine Estimated GFR POC Glucose 81 112 H Random Glucose Calcium Free T4 Free T3 Urine Color Urine Clarity Urine pH Ur Specific Victoria Urine Protein Urine Glucose (UA) Urine Ketones Urine Occult Blood Urine Nitrate Urine Bilirubin Urine Urobilinogen Ur Leukocyte Esterase Urine RBC Urine WBC Ur Squamous Epith Cells Hyaline Casts Granular Casts Waxy Casts Urine Mucus Micro UA Comment Ur Microscopic Review Urine Culture Comments - Imaging ITS Impressions Chest X-Ray 07/15/18 11:06 CONCLUSION: 1. No new or acute intrathoracic disease. 2. Chronic-appearing nondisplaced fracture involving the distal right clavicle. Assessment and Plan - Plan MSSA sepsis, awaiting final sensies Source at this point not apparent + some vague complaint on low back pain no fever or typicl embolic phenomena to clinically suggest endocarditis cont cvanco Will add cefazolin If confirmed MSSA will drop vancomycin 2 D echo repeat BC MR L spine
[2018-07-16] MEDS ORDERED: Gadobutrol PF 7.5 MMOL/7.5 ML Vial (for RAD) IV.SIG ONE (21:40)
--- NOTE | 2018-07-16 21:59 | CT ---
EXAM DATE: 07/16/2018 9:42 PM EST AGE/SEX: 68 years / Male INDICATIONS: Abdominal pain. CLINICAL DATA: This is the patient's initial encounter. Patient reports that signs and symptoms have been present for 1 day and indicates a pain score of 6/10. MEDICAL/SURGICAL HISTORY: Cardiovascular disease. Coronary artery stent. ORAL CONTRAST: No oral contrast ingested. RADIATION DOSE: 6.57 CTDI (mGy) COMPARISON: [facility], XR SPINE LUMBAR AP AND LAT W/ FLEX AND EXT, 02/02/2016. . TECHNIQUE: Multiple contiguous axial images were obtained through the abdomen and pelvis following b olus infusion of 97 ml Omnipaque 350 (iohexol) nonionic water-soluble contrast as a single exam dos e. No oral contrast ingested. Using automated exposure control and adjustment of the mA and/or kV ac cording to patient size, radiation dose was kept as low as reasonably achievable to obtain optimal di agnostic quality images. DICOM format image data is available electronically for review and comparis on. FINDINGS: LOWER LUNGS: Trace bilateral pleural effusions and associated airspace consolidation at the lung bas es. LIVER: Mild diffusely decreased hepatic density without intrahepatic ductal dilatation. Apparent gal lbladder wall thickening measuring up to 5 mm. SPLEEN: Homogeneous density without enlargement. PANCREAS: Unremarkable without mass or calcification. KIDNEYS: Kidneys demonstrate symmetrical enhancement and are symmetrical in size without evidence fo r radiopaque renal calculi or hydronephrosis. 12 mm cyst in the mid right kidney. ADRENAL GLANDS: Adreniform enlargement of the left adrenal gland. AORTA: Moderate atherosclerotic calcifications without aneurysm. BOWEL/MESENTERY: Circumferential rectal wall thickening. Bowel loops are otherwise grossly unremarka ble. No evidence for bowel obstruction. No drainable fluid collections. Trace perihepatic ascites. No free air. ABDOMINAL WALL: Small fat-containing periumbilical hernia. RETROPERITONEUM: No evidence of adenopathy in the retrocrural, para-aortic, or deep pelvic regions. BLADDER: Contours are smooth. REPRODUCTIVE: Prostate is nonspecifically enlarged and contains coarse calcification. BONY STRUCTURES: Wedge-shaped deformity of T12 with apparent ill-defined erosive changes and sara alberto deformity of T11 superior endplate. CONCLUSION: 1. Circumferential rectal wall thickening. Correlation with physical exam/sigmoidoscopy is recommend ed. 2. Ill-defined superior endplate erosive changes and subtle compression deformity of T11 superior en dplate with prevertebral soft tissue changes. Differential considerations include osteomyelitis. Wenceslao mmend further characterization with contrast-enhanced MRI exam. 3. Trace bilateral pleural effusions with associated airspace consolidation at the lung bases. 4. Apparent gallbladder wall thickening. This may be due to hypoalbuminemia. Ultrasound examination may be performed if there is continued clinical concern. Electronically signed by: Fadi Cardona MD 07/16/2018 9:57 PM EST
[2018-07-16] MEDS: ceFAZolin 2 GM Premix Inj 2 GM/50 ML PIGGYBACK IV.SIG SCH (22:02)
--- NOTE | 2018-07-16 22:31 | MR ---
EXAM DATE: 07/16/2018 10:00 PM EST AGE/SEX: 68 years / Male INDICATIONS: Pain. Frequent falls. CLINICAL DATA: This is the patient's initial encounter. Patient reports that signs and symptoms have been present for 2 days and indicates a pain score of 3/10. MEDICAL/SURGICAL HISTORY: Chronic obstructive pulmonary disease. Diabetes mellitus type II. H ypertension. None. Heart stent. COMPARISON: [facility], CT CERVICAL SPINE W/O CONTRAST, 05/10/2018. . TECHNIQUE: Multiplanar, multisequence MRI examination of the lumbar spine was performed without and with 6cc ml Gadavist (gadobutrol) contrast as a single exam dose. FINDINGS: Vertebra: There is abnormal signal and edema with associated abnormal enhancement involving the T10 and T11 vertebral bodies, most notably in the anterior right T11 vertebral body. There is mild compre ssion deformity of the superior endplate of T11. There is abnormal prevertebral enhancement at T11. N o abnormal epidural enhancement. Discs: Disc desiccation at T12-L1. No abnormal signal or enhancement of the discs. Conus: Normal level and configuration. Paraspinal Soft Tissues: 2 cm cyst in the mid right kidney. Visualized aorta is non-aneurysmal. No Re troperitoneal adenopathy. T12-L1: The thecal sac has a normal diameter. No evidence of disc bulge or protrusion. The neural foramina are patent bilaterally. L1-L2: The thecal sac has a normal diameter. No evidence of disc bulge or protrusion. The neural foramina are patent bilaterally. L2-L3: The thecal sac has a normal diameter. No evidence of disc bulge or protrusion. The neural foramina are patent bilaterally. L3-L4: Minimal diffuse disc bulge and bilateral facet arthropathy. No significant central canal or neural foraminal stenosis. L4-L5: Mild diffuse disc bulge and bilateral facet arthropathy. No significant central canal or wendy ral foraminal stenosis. L5-S1: The thecal sac has a normal diameter. No evidence of disc bulge or protrusion. The neural foramina are patent bilaterally. CONCLUSION: 1. Abnormal signal and enhancement at T10 and T11 vertebral bodies without significant intervening d isc signal abnormality or epidural enhancement. There is some prevertebral soft tissue prominence and enhancement particularly at T11. Findings are most concerning for metastatic disease with associated pathologic fracture at T11. Differential considerations include osteomyelitis. This process is not c ompletely imaged on this lumbar MRI exam. Recommend MRI examination of the thoracic spine with contra st for better evaluation. Electronically signed by: Fadi Cardona MD 07/16/2018 10:30 PM EST
[2018-07-17] MEDS: ceFAZolin 2 GM Premix Inj 2 GM/50 ML PIGGYBACK IV.SIG SCH ×3 (04:18→22:28)
[2018-07-17 05:12] LABS: Baso % (Auto) 0.6 % (0.0-2.0); Eos # (Auto) 0.2 th/mm3 (0.0-0.4); Eos % (Auto) 2.5 % (0.0-4.0); Hemoglobin 12.1 gm/dL (13.0-17.0); Lymph # (Auto) 1.1 th/mm3 (1.0-4.8); Lymph % (Auto) 17.4 % (9.0-44.0); Mean Corpuscular HGB Conc 33.6 % (32.0-36.0); Mean Corpuscular Hemoglobin 33.5 pg (27.0-34.0); Mean Corpuscular Volume 99.6 fL (80.0-100.0); Mean Platelet Volume 8.4 fL (7.0-11.0); Mono # (Auto) 0.7 th/mm3 (0.0-0.9); Mono % (Auto) 11.2 % (0.0-8.0); Neut # (Auto) 4.2 th/mm3 (1.8-7.7); Neut % (Auto) 68.3 % (16.0-70.0); Platelet Count 184 th/mm3 (150-450); Red Blood Count 3.61 mil/mm3 (4.50-5.90); Red Cell Distribution Width 14.4 % (11.6-17.2); White Blood Count 6.1 th/mm3 (4.0-11.0)
[2018-07-17 05:33] LABS: Alanine Aminotransferase 11 U/L (12-78); Albumin 1.7 g/dL (3.4-5.0); Anion Gap 8 meq/L (5-15); Aspartate Aminotransferase 18 U/L (15-37); Blood Urea Nitrogen 18 mg/dL (7-18); Calcium 8.4 mg/dL (8.5-10.1); Carbon Dioxide 26.1 meq/L (21.0-32.0); Chloride 107 meq/L (98-107); Glomerular Filtration Rate Greater Than 89 mL/min (>89); Glucose,Random 90 mg/dL (74-106); Potassium 3.3 meq/L (3.5-5.1); Sodium 141 meq/L (136-145)
[2018-07-17 05:35] LABS: Alkaline Phosphatase 95 U/L (45-117); Total Protein 5.2 g/dL (6.4-8.2)
[2018-07-17] MEDS: Insulin NovoLOG Aspart Correctional Sugar Inj SQ SCH ×4 (07:35→22:24)
[2018-07-17] MEDS ORDERED: Gadobutrol PF 2 MMOL/2 ML Vial (for RAD) IV.SIG ONE (07:41)
[2018-07-17] MEDS: Folic Acid 1 MG Tablet PO SCH (08:17)
[2018-07-17] MEDS: Senna/Docusate Sodium 8.6/50 MG Tablet PO SCH ×2 (08:18→22:26)
[2018-07-17] MEDS: Multivitamin/Minerals Therapeutic Tablet PO SCH (08:18)
[2018-07-17] MEDS: Gabapentin 400 MG Capsule PO SCH (08:18)
[2018-07-17] MEDS: Magnesium Oxide 400 MG Tablet PO SCH ×2 (08:18→22:28)
--- NOTE | 2018-07-17 09:20 | P.PN ---
Subjective Interval history: Follow-up bacteremia. Complaining of lower back pain history of falls Physical Exam Vital signs: Vital Signs 07/16/18 11:33 07/16/18 15:00 07/16/18 17:57 Temperature 98.0 F 97.8 F Pulse Rate 63 60 75 Respiratory Rate 16 18 18 Blood Pressure 91/60 L 113/74 Pulse Oximetry 95 94 L 07/16/18 20:00 07/16/18 20:38 07/17/18 00:00 Temperature 97.5 F L Pulse Rate 79 66 Respiratory Rate 17 Blood Pressure 107/69 Pulse Oximetry 94 L 94 L 07/17/18 04:00 07/17/18 08:07 Temperature 97.3 F L Pulse Rate 62 64 Respiratory Rate 17 18 Blood Pressure 117/71 Pulse Oximetry 94 L Intake & Output 07/16/18 07/17/18 07/17/18 18:59 06:59 18:59 Intake Total 1989 1350 / 1350 Output Total 425 / 425 Balance 1989 925 / 925 Weight 63.6 kg 64.1 kg Intake: IV 1750 / 1750 1350 / 1350 NS + KCl 20 mEq Inj 1,000 ML @ 1500 / 1500 1000 / 1000 100 mls/hr IV.CONT .Q10H HU Rx #:[id number] Vancomycin Inj 1,000 MG In NS 250 / 250 250 / 250 Inj 250 ML @ 250 mls/hr IV.SIG Q12H HU Rx#:[id number] Ancef 2 GM Premix Inj 2 gm In 100 / 100 50 ml @ 200 mls/hr IV.SIG Q8H HU Rx#:[id number] Oral 240 / 240 Output: Urine 425 / 425 Other: Date of Last Bowel Movement 07/16/18 07/16/18 07/16/18 Weight On Admission 63.6 kg Narrative: GENERAL: Well-nourished, well-developed middle-age male patient in [facility]. SKIN: Warm and dry. No rash. CARDIOVASCULAR: Regular rate and rhythm. No murmur appreciated. RESPIRATORY: No accessory muscle use. Clear to auscultation. Breath sounds equal bilaterally. GASTROINTESTINAL: Abdomen soft, non-tender, nondistended. Normoactive bowel sounds x4. MUSCULOSKELETAL: No obvious deformities. Extremities without clubbing, cyanosis , or edema. Tender lower thoracic to upper lumbar spine NEUROLOGICAL: Awake and alert. No obvious cranial nerve deficits. Motor grossly within normal limits. Moving all extremities spontaneously. Normal speech. PSYCHIATRIC: Appropriate mood and affect; insight and judgment normal. Results - Labs CBC & Chem 7: 07/17/18 04:46 07/17/18 04:46 Laboratory Results - last 24 hr 07/16/18 07/16/18 07/16/18 12:21 15:19 15:34 WBC RBC Hgb Hct MCV MCH MCHC RDW Plt Count MPV Neut % (Auto) Lymph % (Auto) [place] % (Auto) Eos % (Auto) Baso % (Auto) Neut # (Auto) Lymph # (Auto) [place] # (Auto) Eos # (Auto) Baso # (Auto) WBC Differential Differential Comment Sodium Potassium Chloride Carbon Dioxide Anion Gap BUN Creatinine Estimated GFR POC Glucose 112 H Random Glucose Calcium Total Bilirubin AST ALT Alkaline Phosphatase Total Protein Albumin Stl C.difficile DNA Amp Negative St C. diff Tox Epid 027 Negative Urine Opiates Screen Neg Ur Barbiturates Screen Neg Ur Amphetamines Screen Neg U Benzodiazepines Scrn Neg Urine Cocaine Screen Neg U Cannabinoids Screen Neg 07/16/18 07/16/18 07/17/18 17:04 19:53 04:46 WBC 6.1 RBC 3.61 L Hgb 12.1 L Hct 36.0 L MCV 99.6 MCH 33.5 MCHC 33.6 RDW 14.4 Plt Count 184 MPV 8.4 Neut % (Auto) 68.3 Lymph % (Auto) 17.4 [place] % (Auto) 11.2 H Eos % (Auto) 2.5 Baso % (Auto) 0.6 Neut # (Auto) 4.2 Lymph # (Auto) 1.1 [place] # (Auto) 0.7 Eos # (Auto) 0.2 Baso # (Auto) 0.0 WBC Differential . Differential Comment Auto diff final Sodium Potassium Chloride Carbon Dioxide Anion Gap BUN Creatinine Estimated GFR POC Glucose 79 106 Random Glucose Calcium Total Bilirubin AST ALT Alkaline Phosphatase Total Protein Albumin Stl C.difficile DNA Amp St C. diff Tox Epid 027 Urine Opiates Screen Ur Barbiturates Screen Ur Amphetamines Screen U Benzodiazepines Scrn Urine Cocaine Screen U Cannabinoids Screen 07/17/18 07/17/18 04:46 07:31 WBC RBC Hgb Hct MCV MCH MCHC RDW Plt Count MPV Neut % (Auto) Lymph % (Auto) [place] % (Auto) Eos % (Auto) Baso % (Auto) Neut # (Auto) Lymph # (Auto) [place] # (Auto) Eos # (Auto) Baso # (Auto) WBC Differential Differential Comment Sodium 141 Potassium 3.3 L Chloride 107 Carbon Dioxide 26.1 Anion Gap 8 BUN 18 Creatinine 0.59 L Estimated GFR Greater than 89 POC Glucose 98 Random Glucose 90 Calcium 8.4 L Total Bilirubin 0.4 AST 18 ALT 11 L Alkaline Phosphatase 95 Total Protein 5.2 L D Albumin 1.7 L Stl C.difficile DNA Amp St C. diff Tox Epid 027 Urine Opiates Screen Ur Barbiturates Screen Ur Amphetamines Screen U Benzodiazepines Scrn Urine Cocaine Screen U Cannabinoids Screen Microbiology 07/15/18 11:00 Blood - Peripheral Aerobic Blood Culture - Preliminary Staphylococcus aureus 07/15/18 11:00 Blood - Peripheral Anaerobic Blood Culture - Preliminary gram positive cocci 07/15/18 11:15 Blood - Peripheral Aerobic Blood Culture - Preliminary No growth in 1 day 07/15/18 11:15 Blood - Peripheral Anaerobic Blood Culture - Preliminary gram positive cocci - Imaging Impressions Abdomen/Pelvis CT 07/16/18 00:00 CONCLUSION: 1. Circumferential rectal wall thickening. Correlation with physical exam/ sigmoidoscopy is recommended. 2. Ill-defined superior endplate erosive changes and subtle compression deformity of T11 superior endplate with prevertebral soft tissue changes. Differential considerations include osteomyelitis. Recommend further characterization with contrast-enhanced MRI exam. 3. Trace bilateral pleural effusions with associated airspace consolidation at the lung bases. 4. Apparent gallbladder wall thickening. This may be due to hypoalbuminemia. Ultrasound examination may be performed if there is continued clinical concern. Lumbar Spine MRI 07/16/18 00:00 CONCLUSION: 1. Abnormal signal and enhancement at T10 and T11 vertebral bodies without significant intervening disc signal abnormality or epidural enhancement. There is some prevertebral soft tissue prominence and enhancement particularly at T11. Findings are most concerning for metastatic disease with associated pathologic fracture at T11. Differential considerations include osteomyelitis. This process is not completely imaged on this lumbar MRI exam. Recommend MRI examination of the thoracic spine with contrast for better evaluation. Assessment and Plan - Plan 68-year-old male with a history of ETOH abuse, recurrent falls using walker, Coronary artery disease on Plavix, diabetes mellitus with neuropathy, hypertension, COPD and PE on Eliquis. Presents to the emergency room because of general weakness, sleeping more than usual and not eating. He also fell x1. ER evaluation shows dehydration with creatinine 1.83 Generalized weakness, Recurrent Falls: suspect multifactorial with chronic deconditioning, alcohol abuse, dehydration/JOEL -Give IVF hydration -Fall precautions. -Consult physical therapy Suspected Bacteremia: acute. Unclear source vs contaminant. -3/4 preliminary blood cultures with gram positive cocci/MSSA -ordered stat repeat blood cultures -ct IV Vanco with pharmacy consult -Consulted ID, added IV Ancef. Patient with rectal wall thickening and changes in the T-spine suggestive of osteomyelitis and T11 fracture. GI and neurosurgery consulted. May need to hold Plavix and Eliquis. Check ESR Abdominal Pain: [id number], with occasional associated diarrhea -CT shows rectal wall thickened -stool studies if further diarrhea Acute kidney injury: secondary to dehydration. Cr 1.83. -CK within normal limits. -UA negative -Improving decrease IVF hydration -Repeat BMP shows significant improvement, Cr 1.83 --> 0.97 -Avoid nephrotoxins -Monitor renal function Hypokalemia: K 2.9. Mag 1.5. -Patient received 20 mEq IV potassium and 40 mg p.o. -Given another dose of 20 mEq p.o. -Monitor on telemetry. -Repeat BMP shows improvement with K 3.6 Low TSH but not suppressed. -Free T4 1.76, T3 1.58 -Recommend repeat TSH/T4 in 2-4weeks as outpatient Alcohol abuse: acute -Extensively counseled on cessation, especially on anticoagulation. -thiamine/folate/MV -CIWA protocol. CAD: chronic -continue patient's plavix, statin -unable to start BB due to low BP -monitor on telemetry DVT prophylaxis with SCD and Eliquis Discharge Planning: Needs rehab
[2018-07-17] MEDS: Vancomycin Inj 1,000 MG in Sodium Chlor 0.9% Inj 250 ML IV.SIG SCH ×2 (10:20→23:22)
--- NOTE | 2018-07-17 12:01 | P.CONNS ---
History of Present Illness Service: Neurosurgery Consult date: 07/17/18 Requesting Physician: Varghese Fuentes Reason for Consult: Thoracic vertebral body fracture Primary Care Provider: UNKNOWN Chief Complaint: Generalized weakness History of Present Illness: 68-year-old gentleman who is recurrent falls with weakness in his legs which is been ongoing for the last couple of months. He states that he fell 3 days ago and presented to the emergency room. Is also found to be bacteremic and started on antibiotics as per infectious disease. He relates a chronic peripheral neuropathy in his feet from diabetes and is also contemplating getting spinal epidural stimulator placed by his pain specialist. Complains of lower thoracic back pain although denies any radiculopathy or numbness that is new in the upper or lower extremities. He denies any incontinence. He has a chronic cough and COPD and is also on Plavix and Eliquis for her history of coronary artery disease and pulmonary embolus. MRI of the lumbar spine with and without contrast reveals lower thoracic area enhancing vertebral body without any spinal stenosis or epidural component with a mild T11 superior endplate compression deformity. Review of Systems All other systems reviewed negative except as stated in HPI PMFSH - History History Provided By: Patient - Medical History Medical History: Medical History (Last Reviewed 07/17/18 @ 11:57 by Tim Borden MD) CAD (coronary artery disease) CHF (congestive heart failure) COPD (chronic obstructive pulmonary disease) Diabetes ETOH abuse GERD (gastroesophageal reflux disease) High cholesterol Hypertension Liver disease due to alcohol Macrocytosis without anemia Neuropathy Obesity Osteoarthritis of spine - Surgical History Surgical History: Surgical History (Last Reviewed 07/17/18 @ 11:57 by Tim Borden MD) H/O heart artery stent - Family History Family History: Family History (Last Reviewed 07/16/18 @ 19:38 by Alissa Shafer MD) Other No pertinent family history - Tobacco History Second Hand Smoke Exposure: Yes Tobacco Use In Past 30 Days: Yes Smoking Status: Current every day smoker Tobacco Type: Cigarettes Packs Per Day: 1.5 Years Smoked: 50 - Alcohol History How Often Do You Have a Drink Containing Alcohol: 4 or more times a week - Substance Use History Substance History: No History of Abuse - Substance Use Type Crack/Cocaine Status: Sustained Remission Route Used: Inhalation Frequency: Weekly Marijuana Status: Sustained Remission Route Used: Inhalation Frequency: Occasionally Reason for Use: Get High - Travel History Recent Travel in the [place] Within the Last 8 Weeks: No Recent Travel Out of the Country Within the Last 8 Weeks: No - Immunization History Tetanus Immunization: Unsure Medications and Allergies Active Medications: Active Medications Acetaminophen (Tylenol) 650 mg PO Q4H PRN PRN Reason: Temp > 100.4 Hydrocodone Bitart/Acetaminophen ([place] 7.5/325) 1 tab PO TID PRN PRN Reason: PAIN 1-10 Last Admin: 07/17/18 05:59 Dose: 1 tab Al Hydroxide/Mg Hydroxide (Milk Of Elizabeth Liq) 30 ml PO Q12H PRN PRN Reason: Mild Constipation Albuterol (Ventolin Hfa Inh) 2 puff INH Q4H PRN PRN Reason: SHORTNESS OF BREATH Albuterol (Duoneb Neb ([facility])) 1 ampul NEB TID NEB [facility] Last Admin: 07/17/18 08:02 Dose: 1 ampul Apixaban (Eliquis) 5 mg PO BID [facility] Last Admin: 07/17/18 08:16 Dose: 5 mg Atorvastatin Calcium (Lipitor) 80 mg PO DAILY [facility] Last Admin: 07/17/18 08:17 Dose: 80 mg Bisacodyl (Dulcolax Supp) 10 mg RECTAL DAILY PRN PRN Reason: SEVERE CONSITIPATION Clopidogrel Bisulfate (Plavix) 75 mg PO DAILY [facility] Last Admin: 07/17/18 08:18 Dose: 75 mg Dextrose (D50w Vial) 50 ml IV.PUSH UNSCH PRN PRN Reason: PER HYPOGLYCEMIA PROTOCOL Flumazenil (Romazecon Inj) 0.2 mg IV.PUSH Q1M PRN PRN Reason: OVERSEDATION Fluticasone/Vilanterol (Breo Ellipta 200/25 Mcg Inh) 2 puff INH DAILY [facility] Last Admin: 07/17/18 08:16 Dose: 2 puff Folic Acid (Folic Acid) 1 mg PO DAILY [facility] Stop: 07/21/18 08:59 Last Admin: 07/17/18 08:17 Dose: 1 mg Gabapentin (Neurontin) 400 mg PO DAILY [facility] Last Admin: 07/17/18 08:18 Dose: 400 mg Glucagon (Glucagon Inj) 1 mg OTHER PRN PRN PRN Reason: for Hypoglycemia Protocol Haloperidol Lactate (Haldol Inj) 1 mg IV.PUSH Q15M PRN PRN Reason: for severe agitation Potassium Chloride/Sodium Chloride (Ns + Kcl 20 Meq Inj) 1,000 mls @ 60 mls/hr IV.CONT .[id number] [facility] Last Admin: 07/17/18 05:55 Dose: 100 mls/hr Vancomycin HCl 1,000 mg/ (Sodium Chloride) 250 mls @ 250 mls/hr IV.SIG Q12H [facility] Last Infusion: 07/17/18 10:53 Dose: Infused Cefazolin Sodium/Dextrose (Ancef 2 Gm Premix Inj) 2 gm in 50 mls @ 200 mls/hr IV.SIG Q8H [facility] Last Admin: 07/17/18 11:16 Dose: 200 mls/hr Insulin Aspart (Novolog Insulin Correctional Sugar Inj) 0 unit SQ [facility]; Protocol Last Admin: 07/17/18 11:17 Dose: Not Given Lactulose (Lactulose Liq) 30 ml PO DAILY PRN PRN Reason: SEVERE CONSITIPATION Lorazepam (Ativan) 1 mg PO Q4H PRN PRN Reason: for CIWA 8-10 Lorazepam (Ativan) 2 mg PO Q2H PRN PRN Reason: for CIWA 11-14 Lorazepam (Ativan Inj) 2 mg IV.PUSH Q1H PRN PRN Reason: for CIWA 15-20 Lorazepam (Ativan Inj) 2 mg IV.PUSH Q15M PRN PRN Reason: for CIWA > 20 Lorazepam (Ativan Inj) 1 mg IV.PUSH Q4H PRN PRN Reason: for CIWA 8-10 Lorazepam (Ativan Inj) 2 mg IV.PUSH Q2H PRN PRN Reason: for CIWA 11-14 Magnesium Oxide (Mag-Ox) 400 mg PO BID [facility] Last Admin: 07/17/18 08:18 Dose: 400 mg Miscellaneous Information ([facility] Ordered Lab Info) 0 each OTHER ONCE ONE Stop: 07/17/18 22:46 Multivitamins/Minerals (Theragran-M) 1 tab PO DAILY [facility] Stop: 07/21/18 08:59 Last Admin: 07/17/18 08:18 Dose: 1 tab Ondansetron HCl (Zofran Inj) 4 mg IV.PUSH Q6H PRN PRN Reason: NAUSEA OR VOMITING Pharmacy Profile Note (Vancomycin Consult Pharmacy) 1 each OTHER UNSCH PRN PRN Reason: Pharmacy to dose Senna/Docusate Sodium (Stefania-Colace) 1 tab PO BID [facility] Last Admin: 07/17/18 08:18 Dose: Not Given Sennosides (Senokot) 17.2 mg PO Q12H PRN PRN Reason: Moderate Constipation Sodium Chloride (Ns Flush) 2 ml IV.FLUSH BID [facility] Last Admin: 07/17/18 08:18 Dose: Not Given Sodium Chloride (Ns Flush) 2 ml IV.FLUSH PRN PRN PRN Reason: FLUSH AFTER USING IV ACCESS Thiamine HCl (Vitamin B1) 100 mg PO DAILY [facility] Last Admin: 07/17/18 08:18 Dose: 100 mg Allergies Allergy/AdvReac Type Severity Reaction Status Date / Time No Known Allergies Allergy Verified 05/10/18 08:20 Home Medications Medication Instructions Recorded Confirmed Type albuterol sulfate [Ventolin HFA] 2 puff INHALATION Q4-6H PRN 05/10/18 07/15/18 History amlodipine 5 mg PO DAILY 05/10/18 07/15/18 History apixaban [Eliquis] 5 mg PO BID 05/10/18 07/15/18 History atorvastatin 80 mg PO DAILY 05/10/18 07/15/18 History carvedilol 3.125 mg PO DAILY 05/10/18 07/15/18 History fluticasone-vilanterol [Breo 1 inh INHALATION DAILY 05/10/18 07/15/18 History Ellipta] furosemide 40 mg PO DAILY 05/10/18 07/15/18 History gabapentin 400 mg PO DAILY 05/10/18 07/15/18 History hydrocodone-acetaminophen 1 tab PO TID PRN 05/10/18 07/15/18 History lisinopril 20 mg PO DAILY 05/10/18 07/15/18 History metformin 250 mg PO BID 05/10/18 07/15/18 History ozyjgwez-izs-UL-lycopen-lutein 1 tab PO DAILY 05/10/18 07/15/18 History [Centrum Silver] vitamin E 400 unit PO DAILY 05/10/18 07/15/18 History clopidogrel [Plavix] 75 mg PO DAILY 07/15/18 07/15/18 History Exam Vital signs: Vital Signs 07/16/18 15:00 07/16/18 17:57 07/16/18 20:00 Temperature 97.8 F Pulse Rate 60 75 79 Respiratory Rate 18 18 Blood Pressure 113/74 Pulse Oximetry 94 L 07/16/18 20:38 07/17/18 00:00 07/17/18 04:00 Temperature 97.5 F L 97.3 F L Pulse Rate 66 62 Respiratory Rate 17 17 Blood Pressure 107/69 117/71 Pulse Oximetry 94 L 94 L 94 L 07/17/18 08:00 07/17/18 08:07 Temperature 98.0 F Pulse Rate 65 64 Respiratory Rate 18 18 Blood Pressure 115/75 Pulse Oximetry 95 Intake & Output 07/16/18 07/17/18 07/17/18 18:59 06:59 18:59 Intake Total 1989 1350 / 1350 250 / 250 Output Total 425 / 425 Balance 1989 925 / 925 250 / 250 Weight 63.6 kg 64.1 kg Intake: IV 1750 / 1750 1350 / 1350 250 / 250 NS + KCl 20 mEq Inj 1,000 ML @ 1500 / 1500 1000 / 1000 100 mls/hr IV.CONT .Q10H HU Rx #:[id number] Vancomycin Inj 1,000 MG In NS 250 / 250 250 / 250 250 / 250 Inj 250 ML @ 250 mls/hr IV.SIG Q12H HU Rx#:[id number] Ancef 2 GM Premix Inj 2 gm In 100 / 100 50 ml @ 200 mls/hr IV.SIG Q8H HU Rx#:[id number] Oral 240 / 240 Output: Urine 425 / 425 Other: Date of Last Bowel Movement 07/16/18 07/16/18 07/16/18 Weight On Admission 63.6 kg - Constitutional no acute distress, cooperative - Routine HEENT Exam Head: Present: normocephalic, atraumatic Eye: Present: EOMI, PERRL ENT: Present: oropharynx clear, nares patent, external ear normal - Routine Neck Exam Present: supple, full ROM - Routine Respiratory Exam Present: rhonchi - Routine Cardiovascular Exam Present: RRR, S1, S2 - Routine Abdominal Exam Present: soft, normoactive bowel sounds - Routine Extremities Exam Present: full ROM - Routine Skin Exam Present: intact - Routine Neurological Exam Present: oriented X3, CN II-XII intact, plantar reflex, moving all extremities, normal speech - Routine Psychiatric Exam Present: normal affect, normal thought process, cooperative Results - Laboratory Findings CBC and BMP: 07/17/18 04:46 07/17/18 04:46 Abnormal lab findings: Abnormal Labs 07/15/18 07/15/18 07/15/18 11:00 12:07 12:07 RBC 3.97 L Hgb Hct MCV 100.8 H Neut % (Auto) 75.2 H [place] % (Auto) 9.9 H Neut # (Auto) 7.9 H [place] # (Auto) 1.0 H PT 11.7 H APTT 33.8 H Potassium 2.9 L* BUN 30 H Creatinine 1.83 H Estimated GFR 37 L POC Glucose Calcium ALT Total Protein 5.9 L Albumin 1.9 L TSH 0.056 L Free T4 Free T3 Urine Clarity Urine Protein Urine Ketones Urine Urobilinogen Urine Bacteria Urine Mucus 07/15/18 07/15/18 07/15/18 12:07 14:05 17:09 RBC Hgb Hct MCV Neut % (Auto) [place] % (Auto) Neut # (Auto) [place] # (Auto) PT APTT Potassium BUN Creatinine Estimated GFR POC Glucose 121 H Calcium ALT Total Protein Albumin TSH Free T4 1.76 H Free T3 1.58 L Urine Clarity Hazy H Urine Protein 30 H Urine Ketones Trace H Urine Urobilinogen 2.0 H Urine Bacteria Rare H Urine Mucus Few H 07/16/18 07/16/18 07/16/18 04:00 06:40 06:40 RBC 3.72 L Hgb 12.5 L Hct 36.7 L MCV Neut % (Auto) 71.1 H [place] % (Auto) 10.4 H Neut # (Auto) [place] # (Auto) PT APTT Potassium BUN 25 H Creatinine Estimated GFR 77 L POC Glucose Calcium ALT Total Protein Albumin TSH Free T4 Free T3 Urine Clarity Hazy H Urine Protein Urine Ketones Trace H Urine Urobilinogen 2.0 H Urine Bacteria Urine Mucus Few H 07/16/18 07/17/18 07/17/18 12:21 04:46 04:46 RBC 3.61 L Hgb 12.1 L Hct 36.0 L MCV Neut % (Auto) [place] % (Auto) 11.2 H Neut # (Auto) [place] # (Auto) PT APTT Potassium 3.3 L BUN Creatinine 0.59 L Estimated GFR POC Glucose 112 H Calcium 8.4 L ALT 11 L Total Protein 5.2 L D Albumin 1.7 L TSH Free T4 Free T3 Urine Clarity Urine Protein Urine Ketones Urine Urobilinogen Urine Bacteria Urine Mucus - Diagnostic Findings Additional findings: Impressions Abdomen/Pelvis CT 07/16/18 00:00 CONCLUSION: 1. Circumferential rectal wall thickening. Correlation with physical exam/ sigmoidoscopy is recommended. 2. Ill-defined superior endplate erosive changes and subtle compression deformity of T11 superior endplate with prevertebral soft tissue changes. Differential considerations include osteomyelitis. Recommend further characterization with contrast-enhanced MRI exam. 3. Trace bilateral pleural effusions with associated airspace consolidation at the lung bases. 4. Apparent gallbladder wall thickening. This may be due to hypoalbuminemia. Ultrasound examination may be performed if there is continued clinical concern. Lumbar Spine MRI 07/16/18 00:00 CONCLUSION: 1. Abnormal signal and enhancement at T10 and T11 vertebral bodies without significant intervening disc signal abnormality or epidural enhancement. There is some prevertebral soft tissue prominence and enhancement particularly at T11. Findings are most concerning for metastatic disease with associated pathologic fracture at T11. Differential considerations include osteomyelitis. This process is not completely imaged on this lumbar MRI exam. Recommend MRI examination of the thoracic spine with contrast for better evaluation. Assessment and Plan - Assessment (1) Fracture, thoracic vertebra, compression Code(s): S22.000A - Wedge compression fracture of unspecified thoracic vertebra , initial encounter for closed fracture Status: Acute - Plan 68-year-old gentleman with a history of recurrent falls and subjective weakness in his legs for the past couple of months. Complains of lower thoracic back pain after a fall 3 days ago and MRI scan of the lumbar spine with and without contrast shows enhancing material bodies at T10 and T11 with mild superior endplate T11 vertebral body compression fracture without any spinal stenosis. He is also bacteremic and the radiologist raises the concern about the possibility of either thoracic vertebral body osteomyelitis or metastasis/ pathologic fracture. I agree with the MRI of the thoracic spine with and without contrast to further evaluate the thoracic spine abnormality visualized on the lumbar spine incompletely. Continue with pain control and physical therapy involvement to prevent further deconditioning. His unsteadiness may also be related to the diabetic peripheral neuropathy which is chronic. (1) Fracture, thoracic vertebra, compression Qualifiers: Encounter type: initial encounter Fracture type: closed Qualified Code(s): S22.000A - Wedge compression fracture of unspecified thoracic vertebra, initial encounter for closed fracture
--- NOTE | 2018-07-17 15:02 | MR ---
EXAM DATE: 07/17/2018 2:36 PM EST AGE/SEX: 68 years / Male INDICATIONS: Pain. Neoplasm. CLINICAL DATA: This is the patient's initial encounter. Patient reports that signs and symptoms have been present for 3 days and indicates a pain score of 4/10. MEDICAL/SURGICAL HISTORY: Chronic obstructive pulmonary disease. Congestive heart failure. Hy pertension. Coronary artery stent. COMPARISON: No prior exams available for comparison. TECHNIQUE: Multiplanar, multisequence MRI of the thoracic spine was performed without and with 6 ml Gadavist (gadobutrol) contrast as a single exam dose. FINDINGS: Vertebrae: There is abnormal signal within the vertebral bodies of T10 and T11.. There is no evidenc e of any abnormal enhancement at the disc space of T10-T11. The rest of the thoracic vertebral bodies demonstrate normal signal intensity. There are some mild degenerative changes noted throughout the t horacic spine. There appears to be some chronic loss of height of T8. There appears to be some compre ssion along the superior endplate of T11. Alignment: Normal. Cord: Normal position and configuration. Post Contrast: There is diffuse enhancement within the bodies of T10 and T11 as well as in the garrett atul soft tissue in this location associated with T10 and T11. T1-T2: The thecal sac has a normal diameter. No evidence of disc bulge or protrusion. T2-T3: The thecal sac has a normal diameter. No evidence of disc bulge or protrusion. T3-T4: The thecal sac has a normal diameter. No evidence of disc bulge or protrusion. T4-T5: The thecal sac has a normal diameter. No evidence of disc bulge or protrusion. T5-T6: The thecal sac has a normal diameter. No evidence of disc bulge or protrusion. T6-T7: The thecal sac has a normal diameter. No evidence of disc bulge or protrusion. T7-T8: The thecal sac has a normal diameter. No evidence of disc bulge or protrusion. T8-T9: The thecal sac has a normal diameter. No evidence of disc bulge or protrusion. T9-T10: The thecal sac has a normal diameter. No evidence of disc bulge or protrusion. T10-T11: The thecal sac has a normal diameter. No evidence of disc bulge or protrusion. However, t here is abnormal signal within the body of T10 and T11. There is also abnormal soft tissue changes in the paraspinal soft tissues at this level. T11-T12: The thecal sac has a normal diameter. No evidence of disc bulge or protrusion. T12-L1: The thecal sac has a normal diameter. No evidence of disc bulge or protrusion. CONCLUSION: 1. There is abnormal signal in the bodies of T10 and T11 with some compression along the superior en dplate of T11. There is no abnormal enhancement at the disc space of T10-T11. There is abnormal enhan cing soft tissue surrounding the vertebral bodies of T10 and T11. These findings suggest either an in flammatory process such as osteomyelitis without discitis versus neoplastic disease. Recommend correl ation with patient's physical, clinical exam and laboratory values. A CT-guided needle biopsy of this area could be performed for pathologic diagnosis.. Electronically signed by: John Turner MD 07/17/2018 3:00 PM EST
[2018-07-17] MEDS ORDERED: Diatrizoate Meglum/Diatrizoate Sod Liq 9 ML UDC PO ONE (16:36)
--- NOTE | 2018-07-17 16:54 | P.CONGI ---
History of Present Illness Consult date: 07/17/18 Consult reason: 40 pound weight loss Abdominal pain with irregular bowel movements History of polyps Possible rectal bleeding Chief complaint: hypokalemia, weakness, unable to ambulate History of Present Illness: This patient is a 68-year-old male who presented to the emergency room at [facility] with complaint of general weakness and fatigue. Patient endorses history of alcohol abuse and frequent falls. Upon consultation, patient states that he has had generalized weakness for 2-3 months. States that his stools have been darker than usual but denies they are black or tarry. Patient states that he currently takes Eliquis and Plavix for history of DVT and pulmonary embolism. Patient denies any heartburn or difficulty swallowing but does endorse a 40 pound weight loss in the last 3 months. Patient denies any nausea vomiting but does endorse upper abdominal cramping that is intermittent accompanied by decreased appetite for the last month. He states last colonoscopy was done 2 years ago where to his recollection benign polyps were found. Patient denies any history of EGD in the past. Patient denies diarrhea but does endorse occasional constipation for which he takes jcnk-zcx-[id number] medications. Patient states that he smokes 1 pack/day of cigarettes and also states that he drinks 2-3 shots of whiskey with 2 beers daily. Our service has been consulted to evaluate patient for 40 pound weight loss as well as possible rectal bleeding and irregular bowel movements. Review of Systems All other systems reviewed negative except as stated in HPI PMFSH - History History Provided By: Patient - Medical History Medical History: Medical History (Last Reviewed 07/17/18 @ 11:57 by Tim Borden MD) CAD (coronary artery disease) CHF (congestive heart failure) COPD (chronic obstructive pulmonary disease) Diabetes ETOH abuse GERD (gastroesophageal reflux disease) High cholesterol Hypertension Liver disease due to alcohol Macrocytosis without anemia Neuropathy Obesity Osteoarthritis of spine - Surgical History Surgical History: Surgical History (Last Reviewed 07/17/18 @ 11:57 by Tim Borden MD) H/O heart artery stent - Family History Family History: Family History (Last Reviewed 07/16/18 @ 19:38 by Alissa Shafer MD) Other No pertinent family history - Tobacco History Second Hand Smoke Exposure: Yes Tobacco Use In Past 30 Days: Yes Smoking Status: Current every day smoker Tobacco Type: Cigarettes Packs Per Day: 1.5 Years Smoked: 50 - Alcohol History How Often Do You Have a Drink Containing Alcohol: 4 or more times a week - Substance Use History Substance History: No History of Abuse - Substance Use Type Crack/Cocaine Status: Sustained Remission Route Used: Inhalation Frequency: Weekly Marijuana Status: Sustained Remission Route Used: Inhalation Frequency: Occasionally Reason for Use: Get High - Travel History Recent Travel in the [place] Within the Last 8 Weeks: No Recent Travel Out of the Country Within the Last 8 Weeks: No - Immunization History Tetanus Immunization: Unsure Hx Influenza Vaccine This Season: No Medications and Allergies Active Medications: Active Medications Acetaminophen (Tylenol) 650 mg PO Q4H PRN PRN Reason: Temp > 100.4 Hydrocodone Bitart/Acetaminophen ([place] 7.5/325) 1 tab PO TID PRN PRN Reason: PAIN 1-10 Last Admin: 07/17/18 15:14 Dose: 1 tab Al Hydroxide/Mg Hydroxide (Milk Of Magnesia Liq) 30 ml PO Q12H PRN PRN Reason: Mild Constipation Albuterol (Ventolin Hfa Inh) 2 puff INH Q4H PRN PRN Reason: SHORTNESS OF BREATH Albuterol (Duoneb Neb ([facility])) 1 ampul NEB TID NEB [facility] Last Admin: 07/17/18 12:17 Dose: 1 ampul Apixaban (Eliquis) 5 mg PO BID [facility] Last Admin: 07/17/18 08:16 Dose: 5 mg Atorvastatin Calcium (Lipitor) 80 mg PO DAILY [facility] Last Admin: 07/17/18 08:17 Dose: 80 mg Bisacodyl (Dulcolax Supp) 10 mg RECTAL DAILY PRN PRN Reason: SEVERE CONSITIPATION Clopidogrel Bisulfate (Plavix) 75 mg PO DAILY [facility] Last Admin: 07/17/18 08:18 Dose: 75 mg Dextrose (D50w Vial) 50 ml IV.PUSH UNSCH PRN PRN Reason: PER HYPOGLYCEMIA PROTOCOL Flumazenil (Romazecon Inj) 0.2 mg IV.PUSH Q1M PRN PRN Reason: OVERSEDATION Fluticasone/Vilanterol (Breo Ellipta 200/25 Mcg Inh) 2 puff INH DAILY [facility] Last Admin: 07/17/18 08:16 Dose: 2 puff Folic Acid (Folic Acid) 1 mg PO DAILY [facility] Stop: 07/21/18 08:59 Last Admin: 07/17/18 08:17 Dose: 1 mg Gabapentin (Neurontin) 400 mg PO DAILY [facility] Last Admin: 07/17/18 08:18 Dose: 400 mg Glucagon (Glucagon Inj) 1 mg OTHER PRN PRN PRN Reason: for Hypoglycemia Protocol Haloperidol Lactate (Haldol Inj) 1 mg IV.PUSH Q15M PRN PRN Reason: for severe agitation Potassium Chloride/Sodium Chloride (Ns + Kcl 20 Meq Inj) 1,000 mls @ 60 mls/hr IV.CONT .[id number] [facility] Last Admin: 07/17/18 15:30 Dose: 60 mls/hr Vancomycin HCl 1,000 mg/ (Sodium Chloride) 250 mls @ 250 mls/hr IV.SIG Q12H [facility] Last Infusion: 07/17/18 10:53 Dose: Infused Cefazolin Sodium/Dextrose (Ancef 2 Gm Premix Inj) 2 gm in 50 mls @ 200 mls/hr IV.SIG Q8H [facility] Last Infusion: 07/17/18 14:35 Dose: Infused Influenza Virus Vaccine (Fluarix (Quad) Vaccine Inj) 0.5 ml IM .ONCE ONE Stop: 07/17/18 17:01 Insulin Aspart (Novolog Insulin [employer] Inj) 0 unit SQ ACHS [facility]; Protocol Last Admin: 07/17/18 16:11 Dose: Not Given Lactulose (Lactulose Liq) 30 ml PO DAILY PRN PRN Reason: SEVERE CONSITIPATION Lorazepam (Ativan) 1 mg PO Q4H PRN PRN Reason: for CIWA 8-10 Lorazepam (Ativan) 2 mg PO Q2H PRN PRN Reason: for CIWA 11-14 Lorazepam (Ativan Inj) 2 mg IV.PUSH Q1H PRN PRN Reason: for CIWA 15-20 Lorazepam (Ativan Inj) 2 mg IV.PUSH Q15M PRN PRN Reason: for CIWA > 20 Lorazepam (Ativan Inj) 1 mg IV.PUSH Q4H PRN PRN Reason: for CIWA 8-10 Lorazepam (Ativan Inj) 2 mg IV.PUSH Q2H PRN PRN Reason: for CIWA 11-14 Magnesium Oxide (Mag-Ox) 400 mg PO BID [facility] Last Admin: 07/17/18 08:18 Dose: 400 mg Miscellaneous Information ([facility] Ordered Lab Info) 0 each OTHER ONCE ONE Stop: 07/17/18 22:46 Multivitamins/Minerals (Theragran-M) 1 tab PO DAILY [facility] Stop: 07/21/18 08:59 Last Admin: 07/17/18 08:18 Dose: 1 tab Ondansetron HCl (Zofran Inj) 4 mg IV.PUSH Q6H PRN PRN Reason: NAUSEA OR VOMITING Pharmacy Profile Note (Vancomycin Consult Pharmacy) 1 each OTHER UNSCH PRN PRN Reason: Pharmacy to dose Senna/Docusate Sodium (Stefania-Colace) 1 tab PO BID [facility] Last Admin: 07/17/18 08:18 Dose: Not Given Sennosides (Senokot) 17.2 mg PO Q12H PRN PRN Reason: Moderate Constipation Sodium Chloride (Ns Flush) 2 ml IV.FLUSH BID [facility] Last Admin: 07/17/18 08:18 Dose: Not Given Sodium Chloride (Ns Flush) 2 ml IV.FLUSH PRN PRN PRN Reason: FLUSH AFTER USING IV ACCESS Thiamine HCl (Vitamin B1) 100 mg PO DAILY [facility] Last Admin: 07/17/18 08:18 Dose: 100 mg Allergies Allergy/AdvReac Type Severity Reaction Status Date / Time No Known Allergies Allergy Verified 05/10/18 08:20 Home Medications Medication Instructions Recorded Confirmed Type albuterol sulfate [Ventolin HFA] 2 puff INHALATION Q4-6H PRN 05/10/18 07/15/18 History amlodipine 5 mg PO DAILY 05/10/18 07/15/18 History apixaban [Eliquis] 5 mg PO BID 05/10/18 07/15/18 History atorvastatin 80 mg PO DAILY 05/10/18 07/15/18 History carvedilol 3.125 mg PO DAILY 05/10/18 07/15/18 History fluticasone-vilanterol [Breo 1 inh INHALATION DAILY 05/10/18 07/15/18 History Ellipta] furosemide 40 mg PO DAILY 05/10/18 07/15/18 History gabapentin 400 mg PO DAILY 05/10/18 07/15/18 History hydrocodone-acetaminophen 1 tab PO TID PRN 05/10/18 07/15/18 History lisinopril 20 mg PO DAILY 05/10/18 07/15/18 History metformin 250 mg PO BID 05/10/18 07/15/18 History gvzhrcew-vbe-WK-lycopen-lutein 1 tab PO DAILY 05/10/18 07/15/18 History [Centrum Silver] vitamin E 400 unit PO DAILY 05/10/18 07/15/18 History clopidogrel [Plavix] 75 mg PO DAILY 07/15/18 07/15/18 History Exam Vital signs: Vital Signs 07/16/18 17:57 07/16/18 20:00 07/16/18 20:38 Temperature 97.8 F Pulse Rate 75 79 Respiratory Rate 18 Blood Pressure 113/74 Pulse Oximetry 94 L 94 L 07/17/18 00:00 07/17/18 04:00 07/17/18 08:00 Temperature 97.5 F L 97.3 F L 98.0 F Pulse Rate 66 62 65 Respiratory Rate 17 17 18 Blood Pressure 107/69 117/71 115/75 Pulse Oximetry 94 L 94 L 95 07/17/18 08:07 07/17/18 12:00 07/17/18 12:19 Temperature 97.9 F Pulse Rate 64 70 72 Respiratory Rate 18 16 18 Blood Pressure 109/73 Pulse Oximetry 96 Intake & Output 07/16/18 07/17/18 07/17/18 18:59 06:59 18:59 Intake Total 1989 1350 / 1350 1300 / 1300 Output Total 425 / 425 575 / 575 Balance 1989 925 / 925 725 / 725 Weight 63.6 kg 64.1 kg Intake: IV 1750 / 1750 1350 / 1350 1300 / 1300 NS + KCl 20 mEq Inj 1,000 ML @ 1500 / 1500 1000 / 1000 1000 / 1000 60 mls/hr IV.CONT .[id number] [facility] Rx#:[id number] Vancomycin Inj 1,000 MG In NS 250 / 250 250 / 250 250 / 250 Inj 250 ML @ 250 mls/hr IV.SIG Q12H [facility] Rx#:[id number] Ancef 2 GM Premix Inj 2 gm In 100 / 100 50 / 50 50 ml @ 200 mls/hr IV.SIG Q8H [facility] Rx#:[id number] Oral 240 / 240 Output: Urine 425 / 425 575 / 575 Other: Date of Last Bowel Movement 07/16/18 07/16/18 07/16/18 Weight On Admission 63.6 kg - Constitutional no acute distress - Routine HEENT Exam Head: Present: normocephalic - Routine Respiratory Exam Present: CTA bilaterally. Absent: accessory muscle use - Routine Cardiovascular Exam Present: RRR - Routine Abdominal Exam Present: soft, normoactive bowel sounds. Absent: tenderness, distended, guarding, firm - Routine Skin Exam Present: dry, warm - Routine Psychiatric Exam Present: normal affect, cooperative Results - Labs CBC & Chem 7: 07/17/18 04:46 07/17/18 04:46 Labs: Laboratory Results - last 24 hr 07/16/18 07/16/18 07/16/18 15:19 17:04 19:53 WBC RBC Hgb Hct MCV MCH MCHC RDW Plt Count MPV Neut % (Auto) Lymph % (Auto) Bremer % (Auto) Eos % (Auto) Baso % (Auto) Neut # (Auto) Lymph # (Auto) Bremer # (Auto) Eos # (Auto) Baso # (Auto) WBC Differential Differential Comment Sodium Potassium Chloride Carbon Dioxide Anion Gap BUN Creatinine Estimated GFR POC Glucose 79 106 Random Glucose Calcium Total Bilirubin AST ALT Alkaline Phosphatase Total Protein Albumin Stl C.difficile DNA Amp Negative St C. diff Tox Epid 027 Negative 07/17/18 07/17/18 07/17/18 04:46 04:46 07:31 WBC 6.1 RBC 3.61 L Hgb 12.1 L Hct 36.0 L MCV 99.6 MCH 33.5 MCHC 33.6 RDW 14.4 Plt Count 184 MPV 8.4 Neut % (Auto) 68.3 Lymph % (Auto) 17.4 Bremer % (Auto) 11.2 H Eos % (Auto) 2.5 Baso % (Auto) 0.6 Neut # (Auto) 4.2 Lymph # (Auto) 1.1 Bremer # (Auto) 0.7 Eos # (Auto) 0.2 Baso # (Auto) 0.0 WBC Differential . Differential Comment Auto diff final Sodium 141 Potassium 3.3 L Chloride 107 Carbon Dioxide 26.1 Anion Gap 8 BUN 18 Creatinine 0.59 L Estimated GFR Greater than 89 POC Glucose 98 Random Glucose 90 Calcium 8.4 L Total Bilirubin 0.4 AST 18 ALT 11 L Alkaline Phosphatase 95 Total Protein 5.2 L D Albumin 1.7 L Stl C.difficile DNA Amp St C. diff Tox Epid 027 07/17/18 11:14 WBC RBC Hgb Hct MCV MCH MCHC RDW Plt Count MPV Neut % (Auto) Lymph % (Auto) Bremer % (Auto) Eos % (Auto) Baso % (Auto) Neut # (Auto) Lymph # (Auto) Bremer # (Auto) Eos # (Auto) Baso # (Auto) WBC Differential Differential Comment Sodium Potassium Chloride Carbon Dioxide Anion Gap BUN Creatinine Estimated GFR POC Glucose 108 Random Glucose Calcium Total Bilirubin AST ALT Alkaline Phosphatase Total Protein Albumin Stl C.difficile DNA Amp St C. diff Tox Epid 027 - Imaging Impressions Abdomen/Pelvis CT 07/16/18 00:00 CONCLUSION: 1. Circumferential rectal wall thickening. Correlation with physical exam/ sigmoidoscopy is recommended. 2. Ill-defined superior endplate erosive changes and subtle compression deformity of T11 superior endplate with prevertebral soft tissue changes. Differential considerations include osteomyelitis. Recommend further characterization with contrast-enhanced MRI exam. 3. Trace bilateral pleural effusions with associated airspace consolidation at the lung bases. 4. Apparent gallbladder wall thickening. This may be due to hypoalbuminemia. Ultrasound examination may be performed if there is continued clinical concern. Lumbar Spine MRI 07/16/18 00:00 CONCLUSION: 1. Abnormal signal and enhancement at T10 and T11 vertebral bodies without significant intervening disc signal abnormality or epidural enhancement. There is some prevertebral soft tissue prominence and enhancement particularly at T11. Findings are most concerning for metastatic disease with associated pathologic fracture at T11. Differential considerations include osteomyelitis. This process is not completely imaged on this lumbar MRI exam. Recommend MRI examination of the thoracic spine with contrast for better evaluation. Thoracic Spine MRI 07/17/18 00:00 CONCLUSION: 1. There is abnormal signal in the bodies of T10 and T11 with some compression along the superior endplate of T11. There is no abnormal enhancement at the disc space of T10-T11. There is abnormal enhancing soft tissue surrounding the vertebral bodies of T10 and T11. These findings suggest either an inflammatory process such as osteomyelitis without discitis versus neoplastic disease. Recommend correlation with patient's physical, clinical exam and laboratory values. A CT-guided needle biopsy of this area could be performed for pathologic diagnosis.. Assessment and Plan (1) GI bleed Status: Acute Code(s): K92.2 - Gastrointestinal hemorrhage, unspecified (2) Unintentional weight loss Status: Acute Code(s): R63.4 - Abnormal weight loss - Plan This patient is a 68-year-old male who presented to the emergency room at [facility] with complaint of general weakness and fatigue. Patient endorses history of alcohol abuse and frequent falls. Upon consultation, patient states that he has had generalized weakness for 2-3 months. States that his stools have been darker than usual but denies they are black or tarry. Patient states that he currently takes Eliquis and Plavix for history of DVT and pulmonary embolism. Patient denies any heartburn or difficulty swallowing but does endorse a 40 pound weight loss in the last 3 months. Patient denies any nausea vomiting but does endorse upper abdominal cramping that is intermittent accompanied by decreased appetite for the last month. He states last colonoscopy was done 2 years ago where to his recollection benign polyps were found. Patient denies any history of EGD in the past. Patient denies diarrhea but does endorse occasional constipation for which he takes oyzg-fuh-qknvdro medications. Patient states that he smokes 1 pack/day of cigarettes and also states that he drinks 2-3 shots of whiskey with 2 beers daily. Our service has been consulted to evaluate patient for 40 pound weight loss as well as possible rectal bleeding and irregular bowel movements. Possible GI bleed 40 pound weight loss unintentional Irregular bowel movements Patient endorses 2-3-month history of generalized weakness with darker colored brown stools. Patient denies any noted bleeding. Patient endorses 40 pound weight loss in the last 3 months. Denies nausea or vomiting but does report upper abdominal cramping with decreased appetite for 1 month. States occasional constipation for which he takes [id number]-eri-hgmemgk laxatives. States stools have been soft and brown up until 2 months ago. 07/16/2018 CT abdomen and pelvis-- 1. Circumferential rectal wall thickening. Correlation with physical exam/ sigmoidoscopy is recommended. 2. Ill-defined superior endplate erosive changes and subtle compression deformity of T11 superior endplate with prevertebral soft tissue changes. Differential considerations include osteomyelitis. Recommend further characterization with contrast-enhanced MRI exam. 3. Trace bilateral pleural effusions with associated airspace consolidation at the lung bases. 4. Apparent gallbladder wall thickening. This may be due to hypoalbuminemia. Ultrasound examination may be performed if there is continued clinical concern. 07/17/2018 total bilirubin 0.4 AST 18 ALT 11 alk phos 95 WBC 6.1 hemoglobin 12.1 hematocrit 36 Plan -Diet as tolerated -Obtain consent for colonoscopy -Please hold Eliquis for 48 hours- order to hold placed as per Dr. Fuentes -Plan for colonoscopy on 07/20/18 -Monitor for bleeding -Monitor hemoglobin and hematocrit -Antiemetic as per attending -Continue IV hydration -Bowel regimen -Supportive care -Further recommendations to follow This patient has been seen by Dr. Rosario and myself and this note is written on his behalf - Attending Attestation Dr. Rosario
[2018-07-17] MEDS ORDERED: Influenza (Quadrivalent) Vaccine 0.5 ML Syringe IM ONE (17:00)
[2018-07-17] MEDS ORDERED: Pharmacy Ordered Lab Info OTHER ONE (22:45)
[2018-07-18] MEDS: ceFAZolin 2 GM Premix Inj 2 GM/50 ML PIGGYBACK IV.SIG SCH ×3 (05:37→21:01)
[2018-07-18] MEDS: Insulin NovoLOG Aspart Correctional Sugar Inj SQ SCH ×4 (07:25→21:06)
[2018-07-18] MEDS: Multivitamin/Minerals Therapeutic Tablet PO SCH (08:22)
[2018-07-18] MEDS: Senna/Docusate Sodium 8.6/50 MG Tablet PO SCH ×2 (08:22→21:06)
[2018-07-18] MEDS: Folic Acid 1 MG Tablet PO SCH (08:23)
[2018-07-18] MEDS: Gabapentin 400 MG Capsule PO SCH (08:23)
[2018-07-18] MEDS: Magnesium Oxide 400 MG Tablet PO SCH ×2 (08:23→21:02)
[2018-07-18] MEDS ORDERED: Mag Sulf 1 gm/100 ml Premix 100 ML IV.SIG ONE (09:31)
--- NOTE | 2018-07-18 09:35 | P.PN ---
Subjective Interval history: Follow-up bacteremia, rectal wall thickening and T10/T11 compression fracture. No new complaints agrees holding Eliquis to undergo endoscopy and possible biopsy of the T-spine Physical Exam Vital signs: Vital Signs 07/17/18 12:00 07/17/18 12:19 07/17/18 16:00 Temperature 97.9 F 97.6 F Pulse Rate 70 72 74 Respiratory Rate 16 18 18 Blood Pressure 109/73 111/75 Pulse Oximetry 96 96 07/17/18 19:23 07/17/18 19:24 07/17/18 20:00 Temperature 97.4 F L Pulse Rate 72 66 Respiratory Rate 18 18 Blood Pressure 117/70 Pulse Oximetry 94 L 95 07/17/18 23:42 07/18/18 00:00 07/18/18 04:00 Temperature 97.8 F 97.6 F Pulse Rate 66 62 62 Respiratory Rate 18 17 Blood Pressure 100/60 139/74 Pulse Oximetry 95 94 L 07/18/18 07:48 07/18/18 08:00 Temperature Pulse Rate 67 Respiratory Rate 18 Blood Pressure Pulse Oximetry 95 Intake & Output 07/17/18 07/18/18 07/18/18 18:59 06:59 18:59 Intake Total 1300 / 1300 2050 / 2050 1000 / 1000 Output Total 575 / 575 700 / 700 Balance 725 / 725 1350 / 1350 1000 / 1000 Weight 64.4 kg Intake: IV 1300 / 1300 1350 / 1350 1000 / 1000 NS + KCl 20 mEq Inj 1,000 ML @ 1000 / 1000 1000 / 1000 1000 / 1000 60 mls/hr IV.CONT .[id number] [facility] Rx#:[id number] Vancomycin Inj 1,000 MG In NS 250 / 250 250 / 250 Inj 250 ML @ 250 mls/hr IV.SIG Q12H [facility] Rx#:[id number] Ancef 2 GM Premix Inj 2 gm In 50 / 50 100 / 100 50 ml @ 200 mls/hr IV.SIG Q8H [facility] Rx#:[id number] Oral 700 / 700 Output: Urine 575 / 575 700 / 700 Other: Date of Last Bowel Movement 07/16/18 07/16/18 07/17/18 # Bowel Movements 1 Narrative: GENERAL: Well-nourished, well-developed middle-age male patient in [facility]. SKIN: Warm and dry. No rash. CARDIOVASCULAR: Regular rate and rhythm. No murmur appreciated. RESPIRATORY: No accessory muscle use. Clear to auscultation. Breath sounds equal bilaterally. GASTROINTESTINAL: Abdomen soft, non-tender, nondistended. Normoactive bowel sounds x4. MUSCULOSKELETAL: No obvious deformities. Extremities without clubbing, cyanosis , or edema. Tender lower thoracic to upper lumbar spine NEUROLOGICAL: Awake and alert. No obvious cranial nerve deficits. Motor grossly within normal limits. Moving all extremities spontaneously. Normal speech. Results - Labs CBC & Chem 7: 07/17/18 04:46 07/17/18 04:46 Laboratory Results - last 24 hr 07/17/18 07/17/18 07/17/18 11:14 22:24 23:00 ESR POC Glucose 108 99 Magnesium Vancomycin Trough 16.5 H 07/17/18 07/18/18 07/18/18 23:00 06:40 07:18 ESR 49 H POC Glucose 85 Magnesium 1.2 L Vancomycin Trough Microbiology 07/15/18 11:15 Blood - Peripheral Aerobic Blood Culture - Preliminary gram positive cocci 07/15/18 11:15 Blood - Peripheral Anaerobic Blood Culture - Final Staphylococcus aureus 07/15/18 11:00 Blood - Peripheral Aerobic Blood Culture - Preliminary Staphylococcus aureus 07/15/18 11:00 Blood - Peripheral Anaerobic Blood Culture - Final Staphylococcus aureus 07/16/18 13:23 Blood - Peripheral Aerobic Blood Culture - Preliminary No growth in 1 day 07/16/18 13:23 Blood - Peripheral Anaerobic Blood Culture - Preliminary No growth in 1 day 07/16/18 13:13 Blood - Peripheral Aerobic Blood Culture - Preliminary No growth in 1 day 07/16/18 13:13 Blood - Peripheral Anaerobic Blood Culture - Preliminary No growth in 1 day - Imaging ITS Impressions Chest X-Ray 07/15/18 11:06 CONCLUSION: 1. No new or acute intrathoracic disease. 2. Chronic-appearing nondisplaced fracture involving the distal right clavicle. Abdomen/Pelvis CT 07/16/18 00:00 CONCLUSION: 1. Circumferential rectal wall thickening. Correlation with physical exam/ sigmoidoscopy is recommended. 2. Ill-defined superior endplate erosive changes and subtle compression deformity of T11 superior endplate with prevertebral soft tissue changes. Differential considerations include osteomyelitis. Recommend further characterization with contrast-enhanced MRI exam. 3. Trace bilateral pleural effusions with associated airspace consolidation at the lung bases. 4. Apparent gallbladder wall thickening. This may be due to hypoalbuminemia. Ultrasound examination may be performed if there is continued clinical concern. Lumbar Spine MRI 07/16/18 00:00 CONCLUSION: 1. Abnormal signal and enhancement at T10 and T11 vertebral bodies without significant intervening disc signal abnormality or epidural enhancement. There is some prevertebral soft tissue prominence and enhancement particularly at T11. Findings are most concerning for metastatic disease with associated pathologic fracture at T11. Differential considerations include osteomyelitis. This process is not completely imaged on this lumbar MRI exam. Recommend MRI examination of the thoracic spine with contrast for better evaluation. Thoracic Spine MRI 07/17/18 00:00 CONCLUSION: 1. There is abnormal signal in the bodies of T10 and T11 with some compression along the superior endplate of T11. There is no abnormal enhancement at the disc space of T10-T11. There is abnormal enhancing soft tissue surrounding the vertebral bodies of T10 and T11. These findings suggest either an inflammatory process such as osteomyelitis without discitis versus neoplastic disease. Recommend correlation with patient's physical, clinical exam and laboratory values. A CT-guided needle biopsy of this area could be performed for pathologic diagnosis.. Assessment and Plan - Plan 68-year-old male with a history of ETOH abuse, recurrent falls using walker, Coronary artery disease on Plavix, diabetes mellitus with neuropathy, hypertension, COPD and PE on Eliquis. Presents to the emergency room because of general weakness, sleeping more than usual and not eating. He also fell x1. ER evaluation shows dehydration with creatinine 1.83 Generalized weakness, Recurrent Falls: suspect multifactorial with chronic deconditioning, alcohol abuse, dehydration/JOEL -s/p IVF hydration -Fall precautions. -Consult physical therapy Suspected Bacteremia: acute. Unclear source vs contaminant. -3/4 preliminary blood cultures with gram positive cocci/MSSA -ordered stat repeat blood cultures -ct IV Vanco with pharmacy consult -Consulted ID, added IV Ancef. Patient with rectal wall thickening and changes in the T-spine suggestive of osteomyelitis and T11 fracture. ESR 49. GI and neurosurgery consulted. For EGD/colonoscopy this need to hold Eliquis for 2 days may continue Plavix per GI. Neurosurgery consulted may need biopsy Abdominal Pain: [id number], with occasional associated diarrhea -CT shows rectal wall thickened -stool studies if further diarrhea Acute kidney injury: secondary to dehydration. Cr 1.83. Resolved -CK within normal limits. -UA negative -Discontinue IVF hydration -Avoid nephrotoxins -Monitor renal function Hypokalemia: K 2.9. Mag 1.5. -Patient received 20 mEq IV potassium and 40 mg p.o. -Given another dose of 20 mEq p.o. -Monitor on telemetry. -Repeat BMP shows improvement with K 3.6 Low TSH but not suppressed. -Free T4 1.76, T3 1.58 suggestive of sick euthyroid -Recommend repeat TSH/T4 in 2-4weeks as outpatient Alcohol abuse: acute -Extensively counseled on cessation, especially on anticoagulation. -thiamine/folate/MV -CIWA protocol. CAD: chronic -continue patient's plavix, statin -unable to start BB due to low BP -monitor on telemetry DVT prophylaxis with SCD and Eliquis (on hold, resume when cleared by GI and neurosurgery) Discharge Planning: Needs rehab
[2018-07-18] MEDS: Vancomycin Inj 1,000 MG in Sodium Chlor 0.9% Inj 250 ML IV.SIG SCH (10:33)
--- NOTE | 2018-07-18 12:47 | P.PNGI ---
Subjective Interval history: Patient awake and alert resting in bed Denies any noted bleeding Discussed plan of care, plan for colonoscopy prep tomorrow with EGD/colonoscopy on Physical Exam Vital signs: Vital Signs 07/17/18 16:00 07/17/18 19:23 07/17/18 19:24 Temperature 97.6 F Pulse Rate 74 72 Respiratory Rate 18 18 Blood Pressure 111/75 Pulse Oximetry 96 94 L 07/17/18 20:00 07/17/18 23:42 07/18/18 00:00 Temperature 97.4 F L 97.8 F Pulse Rate 66 66 62 Respiratory Rate 18 18 Blood Pressure 117/70 100/60 Pulse Oximetry 95 95 07/18/18 04:00 07/18/18 07:48 07/18/18 08:00 Temperature 97.6 F Pulse Rate 62 67 Respiratory Rate 17 18 Blood Pressure 139/74 Pulse Oximetry 94 L 95 07/18/18 12:05 Temperature Pulse Rate 72 Respiratory Rate 18 Blood Pressure Pulse Oximetry Intake & Output 07/17/18 07/18/18 07/18/18 18:59 06:59 18:59 Intake Total 1300 / 1300 2050 / 2050 1350 / 1350 Output Total 575 / 575 700 / 700 Balance 725 / 725 1350 / 1350 1350 / 1350 Weight 64.4 kg Intake: IV 1300 / 1300 1350 / 1350 1350 / 1350 NS + KCl 20 mEq Inj 1,000 ML @ 1000 / 1000 1000 / 1000 1000 / 1000 60 mls/hr IV.CONT .[id number] [facility] Rx#:[id number] Magnesium Sulfate 1 gm/D5W 100 100 / 100 ml Premix 100 ML @ 100 mls/hr IV.SIG ONCE ONE Rx#:[id number] Vancomycin Inj 1,000 MG In NS 250 / 250 250 / 250 250 / 250 Inj 250 ML @ 250 mls/hr IV.SIG Q12H [facility] Rx#:[id number] Ancef 2 GM Premix Inj 2 gm In 50 / 50 100 / 100 50 ml @ 200 mls/hr IV.SIG Q8H [facility] Rx#:[id number] Oral 700 / 700 Output: Urine 575 / 575 700 / 700 Other: Date of Last Bowel Movement 07/16/18 07/16/18 07/17/18 # Bowel Movements 1 - Constitutional no acute distress, chronically ill appearing - Routine HEENT Exam Head: Present: normocephalic - Routine Respiratory Exam Present: CTA bilaterally - Routine Abdominal Exam Present: soft, normoactive bowel sounds. Absent: tenderness, distended, guarding, firm - Routine Skin Exam Present: dry, warm - Routine Neurological Exam Present: alert Results - Labs CBC & Chem 7: 07/17/18 04:46 07/17/18 04:46 Laboratory Results - last 24 hr 07/17/18 07/17/18 07/17/18 22:24 23:00 23:00 ESR POC Glucose 99 Magnesium 1.2 L Vancomycin Trough 16.5 H 07/18/18 07/18/18 06:40 07:18 ESR 49 H POC Glucose 85 Magnesium Vancomycin Trough Microbiology 07/16/18 15:19 Stool Enteric Pathogens (PCR) - Final No enteric pathogens detected by PCR (No Salmonella sp., Shigella sp., Campylobacter sp., Yersinia enterocolitica, Vibrio sp., Norovirus, or EHEC (Shiga Toxin 1 or Shiga Toxin 2) detected. 07/16/18 13:23 Blood - Peripheral Aerobic Blood Culture - Preliminary No growth in 2 days 07/16/18 13:23 Blood - Peripheral Anaerobic Blood Culture - Preliminary No growth in 2 days 07/16/18 13:13 Blood - Peripheral Aerobic Blood Culture - Preliminary No growth in 2 days 07/16/18 13:13 Blood - Peripheral Anaerobic Blood Culture - Preliminary No growth in 2 days 07/15/18 11:15 Blood - Peripheral Aerobic Blood Culture - Final Staphylococcus aureus 07/15/18 11:15 Blood - Peripheral Anaerobic Blood Culture - Final Staphylococcus aureus 07/15/18 11:00 Blood - Peripheral Aerobic Blood Culture - Final Staphylococcus aureus 07/15/18 11:00 Blood - Peripheral Anaerobic Blood Culture - Final Staphylococcus aureus - Imaging Impressions Thoracic Spine MRI 07/17/18 00:00 CONCLUSION: 1. There is abnormal signal in the bodies of T10 and T11 with some compression along the superior endplate of T11. There is no abnormal enhancement at the disc space of T10-T11. There is abnormal enhancing soft tissue surrounding the vertebral bodies of T10 and T11. These findings suggest either an inflammatory process such as osteomyelitis without discitis versus neoplastic disease. Recommend correlation with patient's physical, clinical exam and laboratory values. A CT-guided needle biopsy of this area could be performed for pathologic diagnosis.. Assessment and Plan (1) GI bleed Status: Acute Code(s): K92.2 - Gastrointestinal hemorrhage, unspecified (2) Unintentional weight loss Status: Acute Code(s): R63.4 - Abnormal weight loss - Plan This patient is a 68-year-old male who presented to the emergency room at [facility] with complaint of general weakness and fatigue. Patient endorses history of alcohol abuse and frequent falls. Upon consultation, patient states that he has had generalized weakness for 2-3 months. States that his stools have been darker than usual but denies they are black or tarry. Patient states that he currently takes Eliquis and Plavix for history of DVT and pulmonary embolism. Patient denies any heartburn or difficulty swallowing but does endorse a 40 pound weight loss in the last 3 months. Patient denies any nausea vomiting but does endorse upper abdominal cramping that is intermittent accompanied by decreased appetite for the last month. He states last colonoscopy was done 2 years ago where to his recollection benign polyps were found. Patient denies any history of EGD in the past. Patient denies diarrhea but does endorse occasional constipation for which he takes [id number] medications. Patient states that he smokes 1 pack/day of cigarettes and also states that he drinks 2-3 shots of whiskey with 2 beers daily. Our service has been consulted to evaluate patient for 40 pound weight loss as well as possible rectal bleeding and irregular bowel movements. Possible GI bleed 40 pound weight loss unintentional Irregular bowel movements Patient endorses 2-3-month history of generalized weakness with darker colored brown stools. Patient denies any noted bleeding. Patient endorses 40 pound weight loss in the last 3 months. Denies nausea or vomiting but does report upper abdominal cramping with decreased appetite for 1 month. States occasional constipation for which he takes [id number] laxatives. States stools have been soft and brown up until 2 months ago. 07/16/2018 CT abdomen and pelvis-- 1. Circumferential rectal wall thickening. Correlation with physical exam/ sigmoidoscopy is recommended. 2. Ill-defined superior endplate erosive changes and subtle compression deformity of T11 superior endplate with prevertebral soft tissue changes. Differential considerations include osteomyelitis. Recommend further characterization with contrast-enhanced MRI exam. 3. Trace bilateral pleural effusions with associated airspace consolidation at the lung bases. 4. Apparent gallbladder wall thickening. This may be due to hypoalbuminemia. Ultrasound examination may be performed if there is continued clinical concern. 07/17/2018 total bilirubin 0.4 AST 18 ALT 11 alk phos 95 WBC 6.1 hemoglobin 12.1 hematocrit 36 07/18/2018 Patient endorses no noted bleeding Denies any nausea or vomiting Eliquis on hold for planned colonoscopy with a EGD on 07/16/2018 CT abdomen and pelvis-circumferential rectal wall thickening Plan -Diet as tolerated -Plan for colonoscopy on 07/20/18 -Monitor for bleeding -Monitor hemoglobin and hematocrit -Antiemetic as per attending -Continue IV hydration -Bowel regimen -Supportive care -Further recommendations to follow This patient has been seen by Dr. Rosario and myself and this note is written on his behalf - Attending Attestation silas
--- NOTE | 2018-07-18 14:59 | P.PNNS ---
Subjective Interval history: 68-year-old gentleman who is recurrent falls with weakness in his legs which is been ongoing for the last couple of months. He states that he fell 3 days ago and presented to the emergency room. Is also found to be bacteremic and started on antibiotics as per infectious disease. He relates a chronic peripheral neuropathy in his feet from diabetes and is also contemplating getting spinal epidural stimulator placed by his pain specialist. Complains of lower thoracic back pain although denies any radiculopathy or numbness that is new in the upper or lower extremities. He denies any incontinence. He has a chronic cough and COPD and is also on Plavix and Eliquis for her history of coronary artery disease and pulmonary embolus. MRI of the lumbar spine with and without contrast reveals lower thoracic area enhancing vertebral body without any spinal stenosis or epidural component with a mild T11 superior endplate compression deformity. 07/18/18: No new symptoms an MRI scan of the thoracic spine with enhancing T10 and T11 vertebral body abnormalities with differential diagnosis including osteomyelitis as well metastases. Physical Exam Vital signs: Vital Signs 07/17/18 16:00 07/17/18 19:23 07/17/18 19:24 Temperature 97.6 F Pulse Rate 74 72 Respiratory Rate 18 18 Blood Pressure 111/75 Pulse Oximetry 96 94 L 07/17/18 20:00 07/17/18 23:42 07/18/18 00:00 Temperature 97.4 F L 97.8 F Pulse Rate 66 66 62 Respiratory Rate 18 18 Blood Pressure 117/70 100/60 Pulse Oximetry 95 95 07/18/18 04:00 07/18/18 07:48 07/18/18 08:00 Temperature 97.6 F 97.8 F Pulse Rate 62 67 63 Respiratory Rate 17 18 19 Blood Pressure 139/74 120/81 Pulse Oximetry 94 L 95 07/18/18 12:00 07/18/18 12:05 Temperature 97.6 F Pulse Rate 67 72 Respiratory Rate 19 18 Blood Pressure 115/73 Pulse Oximetry 95 Intake & Output 07/17/18 07/18/18 07/18/18 18:59 06:59 18:59 Intake Total 1300 / 1300 2050 / 0 2200 / 2200 Output Total 575 / 575 700 / 700 Balance 725 / 725 1350 / 1350 2200 / 2200 Weight 64.4 kg Intake: IV 1300 / 1300 1350 / 1350 2200 / 2200 NS + KCl 20 mEq Inj 1,000 ML @ 1000 / 1000 1000 / 1000 1800 / 1800 60 mls/hr IV.CONT .[id number] [facility] Rx#:[id number] Magnesium Sulfate 1 gm/D5W 100 100 / 100 ml Premix 100 ML @ 100 mls/hr IV.SIG ONCE ONE Rx#:[id number] Vancomycin Inj 1,000 MG In NS 250 / 250 250 / 250 250 / 250 Inj 250 ML @ 250 mls/hr IV.SIG Q12H [facility] Rx#:[id number] Ancef 2 GM Premix Inj 2 gm In 50 / 50 100 / 100 50 / 50 50 ml @ 200 mls/hr IV.SIG Q8H [facility] Rx#:[id number] Oral 700 / 700 Output: Urine 575 / 575 700 / 700 Other: Date of Last Bowel Movement 07/16/18 07/16/18 07/17/18 # Bowel Movements 1 - Constitutional no acute distress - Routine HEENT Exam Head: Present: normocephalic, atraumatic Eye: Present: EOMI, PERRL ENT: Present: mucous membranes moist, oropharynx clear, external ear normal - Routine Neck Exam Present: supple, full ROM - Routine Respiratory Exam Present: CTA bilaterally - Routine Cardiovascular Exam Present: RRR, S1, S2 - Routine Abdominal Exam Present: soft, normoactive bowel sounds - Routine Extremities Exam Present: full ROM - Routine Skin Exam Present: intact - Routine Neurological Exam Present: oriented X3, CN II-XII intact, moving all extremities, normal speech - Routine Psychiatric Exam Present: normal affect, normal thought process - Additional findings Additional findings: Impressions Thoracic Spine MRI 07/17/18 00:00 CONCLUSION: 1. There is abnormal signal in the bodies of T10 and T11 with some compression along the superior endplate of T11. There is no abnormal enhancement at the disc space of T10-T11. There is abnormal enhancing soft tissue surrounding the vertebral bodies of T10 and T11. These findings suggest either an inflammatory process such as osteomyelitis without discitis versus neoplastic disease. Recommend correlation with patient's physical, clinical exam and laboratory values. A CT-guided needle biopsy of this area could be performed for pathologic diagnosis.. Assessment and Plan - Assessment (1) Fracture, thoracic vertebra, compression Code(s): S22.000A - Wedge compression fracture of unspecified thoracic vertebra , initial encounter for closed fracture Status: Acute Qualifiers: Encounter type: initial encounter Fracture type: closed Qualified Code(s) : S22.000A - Wedge compression fracture of unspecified thoracic vertebra, initial encounter for closed fracture - Plan 68-year-old gentleman with T10 and T11 vertebral body enhancing abnormalities concerning for either infectious or malignant process. Agree with a CT-guided percutaneous core biopsy of either T10 or T11 vertebral body by special procedure radiology staff when anticoagulation has worn off.
--- NOTE | 2018-07-18 18:24 | P.PNID ---
Subjective Remarks: MR showed L spine lesion osteo vs mets Pt was seen by neurosurgeon scheduled for CT guided bx after holding anticoagulation No new issue Growing MSSA in 4/4 bottles of bl clx Antibiotics: cefazolin vancomycin Allergies/Adverse Reactions: Allergies No Known Allergies Allergy (Verified 05/10/18 08:20) Objective Vital Signs 07/17/18 19:23 07/17/18 19:24 07/17/18 20:00 Temperature 97.4 F L Pulse Rate 72 66 Respiratory Rate 18 18 Blood Pressure 117/70 Pulse Oximetry 94 L 95 07/17/18 23:42 07/18/18 00:00 07/18/18 04:00 Temperature 97.8 F 97.6 F Pulse Rate 66 62 62 Respiratory Rate 18 17 Blood Pressure 100/60 139/74 Pulse Oximetry 95 94 L 07/18/18 07:48 07/18/18 08:00 07/18/18 12:00 Temperature 97.8 F 97.6 F Pulse Rate 67 63 67 Respiratory Rate 18 19 19 Blood Pressure 120/81 115/73 Pulse Oximetry 95 95 07/18/18 12:05 Temperature Pulse Rate 72 Respiratory Rate 18 Blood Pressure Pulse Oximetry Intake & Output 07/17/18 07/18/18 07/18/18 18:59 06:59 18:59 Intake Total 1300 / 1300 2050 / 2050 2200 / 2200 Output Total 575 / 575 700 / 700 Balance 725 / 725 1350 / 1350 2200 / 2200 Weight 64.4 kg Intake: IV 1300 / 1300 1350 / 1350 2200 / 2200 NS + KCl 20 mEq Inj 1,000 ML @ 1000 / 1000 1000 / 1000 1800 / 1800 60 mls/hr IV.CONT .[id number] [facility] Rx#:[id number] Magnesium Sulfate 1 gm/D5W 100 100 / 100 ml Premix 100 ML @ 100 mls/hr IV.SIG ONCE ONE Rx#:[id number] Vancomycin Inj 1,000 MG In NS 250 / 250 250 / 250 250 / 250 Inj 250 ML @ 250 mls/hr IV.SIG Q12H [facility] Rx#:[id number] Ancef 2 GM Premix Inj 2 gm In 50 / 50 100 / 100 50 / 50 50 ml @ 200 mls/hr IV.SIG Q8H [facility] Rx#:[id number] Oral 700 / 700 Output: Urine 575 / 575 700 / 700 Other: Date of Last Bowel Movement 07/16/18 07/16/18 07/17/18 # Bowel Movements 1 07/16/18 15:19 Stool Enteric Pathogens (PCR) - Final No enteric pathogens detected by PCR (No Salmonella sp., Shigella sp., Campylobacter sp., Yersinia enterocolitica, Vibrio sp., Norovirus, or EHEC (Shiga Toxin 1 or Shiga Toxin 2) detected. 07/16/18 13:23 Blood - Peripheral Aerobic Blood Culture - Preliminary No growth in 2 days 07/16/18 13:23 Blood - Peripheral Anaerobic Blood Culture - Preliminary No growth in 2 days 07/16/18 13:13 Blood - Peripheral Aerobic Blood Culture - Preliminary No growth in 2 days 07/16/18 13:13 Blood - Peripheral Anaerobic Blood Culture - Preliminary No growth in 2 days 07/15/18 11:15 Blood - Peripheral Aerobic Blood Culture - Final Staphylococcus aureus 07/15/18 11:15 Blood - Peripheral Anaerobic Blood Culture - Final Staphylococcus aureus 07/15/18 11:00 Blood - Peripheral Aerobic Blood Culture - Final Staphylococcus aureus 07/15/18 11:00 Blood - Peripheral Anaerobic Blood Culture - Final Staphylococcus aureus Lab - Hematology Results 07/17/18 07/18/18 04:46 06:40 WBC 6.1 RBC 3.61 L Hgb 12.1 L Hct 36.0 L MCV 99.6 MCH 33.5 MCHC 33.6 RDW 14.4 Plt Count 184 MPV 8.4 Neut % (Auto) 68.3 Lymph % (Auto) 17.4 Traill % (Auto) 11.2 H Eos % (Auto) 2.5 Baso % (Auto) 0.6 Neut # (Auto) 4.2 Lymph # (Auto) 1.1 Traill # (Auto) 0.7 Eos # (Auto) 0.2 Baso # (Auto) 0.0 WBC Differential . Differential Comment Auto diff final ESR 49 H Lab - Chemistry Results 07/16/18 07/17/18 07/17/18 19:53 04:46 07:31 Sodium 141 Potassium 3.3 L Chloride 107 Carbon Dioxide 26.1 Anion Gap 8 BUN 18 Creatinine 0.59 L Estimated GFR Greater than 89 POC Glucose 106 98 Random Glucose 90 Calcium 8.4 L Magnesium Total Bilirubin 0.4 AST 18 ALT 11 L Alkaline Phosphatase 95 Total Protein 5.2 L D Albumin 1.7 L 07/17/18 07/17/18 07/17/18 11:14 22:24 23:00 Sodium Potassium Chloride Carbon Dioxide Anion Gap BUN Creatinine Estimated GFR POC Glucose 108 99 Random Glucose Calcium Magnesium 1.2 L Total Bilirubin AST ALT Alkaline Phosphatase Total Protein Albumin 07/18/18 07/18/18 07:18 16:06 Sodium Potassium Chloride Carbon Dioxide Anion Gap BUN Creatinine Estimated GFR POC Glucose 85 109 Random Glucose Calcium Magnesium Total Bilirubin AST ALT Alkaline Phosphatase Total Protein Albumin Imaging: ITS Impressions Chest X-Ray 07/15/18 11:06 CONCLUSION: 1. No new or acute intrathoracic disease. 2. Chronic-appearing nondisplaced fracture involving the distal right clavicle. Abdomen/Pelvis CT 07/16/18 00:00 CONCLUSION: 1. Circumferential rectal wall thickening. Correlation with physical exam/ sigmoidoscopy is recommended. 2. Ill-defined superior endplate erosive changes and subtle compression deformity of T11 superior endplate with prevertebral soft tissue changes. Differential considerations include osteomyelitis. Recommend further characterization with contrast-enhanced MRI exam. 3. Trace bilateral pleural effusions with associated airspace consolidation at the lung bases. 4. Apparent gallbladder wall thickening. This may be due to hypoalbuminemia. Ultrasound examination may be performed if there is continued clinical concern. Lumbar Spine MRI 07/16/18 00:00 CONCLUSION: 1. Abnormal signal and enhancement at T10 and T11 vertebral bodies without significant intervening disc signal abnormality or epidural enhancement. There is some prevertebral soft tissue prominence and enhancement particularly at T11. Findings are most concerning for metastatic disease with associated pathologic fracture at T11. Differential considerations include osteomyelitis. This process is not completely imaged on this lumbar MRI exam. Recommend MRI examination of the thoracic spine with contrast for better evaluation. Thoracic Spine MRI 07/17/18 00:00 CONCLUSION: 1. There is abnormal signal in the bodies of T10 and T11 with some compression along the superior endplate of T11. There is no abnormal enhancement at the disc space of T10-T11. There is abnormal enhancing soft tissue surrounding the vertebral bodies of T10 and T11. These findings suggest either an inflammatory process such as osteomyelitis without discitis versus neoplastic disease. Recommend correlation with patient's physical, clinical exam and laboratory values. A CT-guided needle biopsy of this area could be performed for pathologic diagnosis.. Physical Exam: GENERAL: NAD SKIN: Warm and dry. HEAD: Atraumatic. Normocephalic. EYES: Pupils equal and round. No scleral icterus. No injection or drainage. ENT: No nasal bleeding or discharge. Mucous membranes pink and moist. NECK: Trachea midline. No JVD. CARDIOVASCULAR: Regular rate and rhythm. RESPIRATORY: No accessory muscle use. Clear to auscultation. Breath sounds equal bilaterally. GASTROINTESTINAL: Abdomen soft, non-tender, nondistended. Hepatic and splenic margins not palpable. MUSCULOSKELETAL: Extremities without clubbing, cyanosis, or edema. NEUROLOGICAL: Awake and alert. Non focal moves BLE 5/5 PSYCHIATRIC: calm, cooperative Assessment and Plan - Plan MSSA sepsis, awaiting final sensies Source at this point not apparent + some vague complaint on low back pain no fever or typicl embolic phenomena to clinically suggest endocarditis dc vanco cont cefazolin 2 D echo fu repeat BC awaiting L spine lesion bx
[2018-07-19] MEDS: ceFAZolin 2 GM Premix Inj 2 GM/50 ML PIGGYBACK IV.SIG SCH ×3 (05:00→20:42)
[2018-07-19 06:53] LABS: Anion Gap 6 meq/L (5-15); Blood Urea Nitrogen 7 mg/dL (7-18); Calcium 9.1 mg/dL (8.5-10.1); Carbon Dioxide 27.5 meq/L (21.0-32.0); Chloride 110 meq/L (98-107); Glomerular Filtration Rate Greater Than 89 mL/min (>89); Glucose,Random 73 mg/dL (74-106); Magnesium 1.9 mg/dL (1.5-2.5); Potassium 4.1 meq/L (3.5-5.1); Sodium 143 meq/L (136-145)
[2018-07-19] MEDS: Insulin NovoLOG Aspart Correctional Sugar Inj SQ SCH ×4 (08:46→20:46)
[2018-07-19] MEDS: Gabapentin 400 MG Capsule PO SCH (10:07)
[2018-07-19] MEDS: Multivitamin/Minerals Therapeutic Tablet PO SCH (10:07)
[2018-07-19] MEDS: Folic Acid 1 MG Tablet PO SCH (10:07)
[2018-07-19] MEDS: Magnesium Oxide 400 MG Tablet PO SCH ×2 (10:07→20:49)
[2018-07-19] MEDS: Senna/Docusate Sodium 8.6/50 MG Tablet PO SCH ×2 (10:11→20:49)
--- NOTE | 2018-07-19 10:23 | P.PNIM ---
Subjective Interval history: in no acute distress. pain is fairly controlled. no fever. Physical Exam Vital signs: Vital Signs 07/18/18 12:00 07/18/18 12:05 07/18/18 16:00 Temperature 97.6 F 97.8 F Pulse Rate 67 72 74 Respiratory Rate 19 18 15 Blood Pressure 115/73 101/67 Pulse Oximetry 95 94 L 07/18/18 20:00 07/19/18 00:00 07/19/18 04:00 Temperature 97.3 F L 97.3 F L 97.7 F Pulse Rate 70 68 59 L Respiratory Rate 18 18 18 Blood Pressure 101/68 123/75 106/59 L Pulse Oximetry 93 L 93 L 95 07/19/18 08:00 Temperature 97.6 F Pulse Rate 69 Respiratory Rate 14 Blood Pressure 143/70 H Pulse Oximetry 94 L Intake & Output 07/18/18 07/19/18 07/19/18 18:59 06:59 18:59 Intake Total 2200 / 2200 580 / 580 Output Total 350 / 350 Balance 2200 / 2200 580 / 580 -350 / -350 Weight 64.4 kg Intake: IV 2200 / 2200 100 / 100 NS + KCl 20 mEq Inj 1,000 ML @ 1800 / 1800 60 mls/hr IV.CONT .[id number] [facility] Rx#:[id number] Magnesium Sulfate 1 gm/D5W 100 100 / 100 ml Premix 100 ML @ 100 mls/hr IV.SIG ONCE ONE Rx#:[id number] Vancomycin Inj 1,000 MG In NS 250 / 250 Inj 250 ML @ 250 mls/hr IV.SIG Q12H [facility] Rx#:[id number] Ancef 2 GM Premix Inj 2 gm In 50 / 50 100 / 100 50 ml @ 200 mls/hr IV.SIG Q8H [facility] Rx#:[id number] Oral 480 / 480 Output: Urine 350 / 350 Other: # Voids 300 Date of Last Bowel Movement 07/17/18 - Constitutional no acute distress - Routine Respiratory Exam Present: CTA bilaterally - Routine Cardiovascular Exam Present: RRR - Routine Abdominal Exam Present: soft - Routine Extremities Exam Comments: no pedal edema. - Routine Neurological Exam Present: alert, oriented X3 Results - Labs CBC & Chem 7: 07/17/18 04:46 07/19/18 04:49 Laboratory Results - last 24 hr 07/17/18 07/18/18 07/18/18 16:07 11:31 16:06 Sodium Potassium Chloride Carbon Dioxide Anion Gap BUN Creatinine Estimated GFR POC Glucose 119 H 94 109 Random Glucose Calcium Magnesium 07/18/18 07/19/18 07/19/18 21:01 04:49 08:08 Sodium 143 Potassium 4.1 Chloride 110 H Carbon Dioxide 27.5 Anion Gap 6 BUN 7 Creatinine 0.59 L Estimated GFR Greater than 89 POC Glucose 116 H 98 Random Glucose 73 L Calcium 9.1 Magnesium 1.9 D Microbiology 07/16/18 15:19 Stool Enteric Pathogens (PCR) - Final No enteric pathogens detected by PCR (No Salmonella sp., Shigella sp., Campylobacter sp., Yersinia enterocolitica, Vibrio sp., Norovirus, or EHEC (Shiga Toxin 1 or Shiga Toxin 2) detected. 07/16/18 13:23 Blood - Peripheral Aerobic Blood Culture - Preliminary No growth in 2 days 07/16/18 13:23 Blood - Peripheral Anaerobic Blood Culture - Preliminary No growth in 2 days 07/16/18 13:13 Blood - Peripheral Aerobic Blood Culture - Preliminary No growth in 2 days 07/16/18 13:13 Blood - Peripheral Anaerobic Blood Culture - Preliminary No growth in 2 days 07/15/18 11:15 Blood - Peripheral Aerobic Blood Culture - Final Staphylococcus aureus 07/15/18 11:15 Blood - Peripheral Anaerobic Blood Culture - Final Staphylococcus aureus 07/15/18 11:00 Blood - Peripheral Aerobic Blood Culture - Final Staphylococcus aureus 07/15/18 11:00 Blood - Peripheral Anaerobic Blood Culture - Final Staphylococcus aureus Assessment and Plan - Plan Generalized weakness, Recurrent Falls: suspect multifactorial with chronic deconditioning, alcohol abuse, dehydration/JOEL -s/p IVF hydration -Fall precautions. -Consulted physical therapy Bacteremia: acute. -3/4 preliminary blood cultures with gram positive cocci/MSSA -continue Ancef -repeated blood cultures negative so far. -ID following, T-spine changes suggestive of osteomyelitis and T11 fracture. ESR 49. neurosurgery consulted. might need biopsy. rectal wall thickening; GI consulted; plan for Colonoscopy tomorrow. Acute kidney injury: secondary to dehydration. Cr 1.83. Resolved -CK within normal limits. -UA negative -Discontinud IVF hydration -Avoid nephrotoxins -Monitor renal function Hypokalemia:resolved Low TSH but not suppressed. -Free T4 1.76, T3 1.58 suggestive of sick euthyroid -Recommend repeat TSH/T4 in 2-4weeks as outpatient Alcohol abuse: acute -Extensively counseled on cessation, especially on anticoagulation. -thiamine/folate/MV -CIWA protocol. CAD: chronic -continue patient's plavix, statin -unable to start BB due to low BP -monitor on telemetry DVT prophylaxis with SCD and Eliquis (on hold, resume when cleared by GI and neurosurgery) Discharge Planning: w/u pending.
--- NOTE | 2018-07-19 14:52 | P.PNGI ---
Subjective Interval history: Pt is resting in bed Continues to have diarrhea Intermittent mid abdominal pain, unsure of aggravating or alleviating factors Denies nausea, vomiting Poor appetite, has not touched his lunch tray Physical Exam Vital signs: Vital Signs 07/18/18 16:00 07/18/18 20:00 07/19/18 00:00 Temperature 97.8 F 97.3 F L 97.3 F L Pulse Rate 74 70 68 Respiratory Rate 15 18 18 Blood Pressure 101/67 101/68 123/75 Pulse Oximetry 94 L 93 L 93 L 07/19/18 04:00 07/19/18 08:00 07/19/18 12:00 Temperature 97.7 F 97.6 F 97.6 F Pulse Rate 59 L 69 68 Respiratory Rate 18 14 15 Blood Pressure 106/59 L 143/70 H 124/74 Pulse Oximetry 95 94 L 94 L Intake & Output 07/18/18 07/19/18 07/19/18 18:59 06:59 18:59 Intake Total 2200 / 2200 580 / 580 50 / 50 Output Total 350 / 350 Balance 2200 / 2200 580 / 580 -300 / -300 Weight 64.4 kg Intake: IV 2200 / 2200 100 / 100 50 / 50 NS + KCl 20 mEq Inj 1,000 ML @ 1800 / 1800 60 mls/hr IV.CONT .[id number] [facility] Rx#:[id number] Magnesium Sulfate 1 gm/D5W 100 100 / 100 ml Premix 100 ML @ 100 mls/hr IV.SIG ONCE ONE Rx#:[id number] Vancomycin Inj 1,000 MG In NS 250 / 250 Inj 250 ML @ 250 mls/hr IV.SIG Q12H [facility] Rx#:[id number] Ancef 2 GM Premix Inj 2 gm In 50 / 50 100 / 100 50 / 50 50 ml @ 200 mls/hr IV.SIG Q8H [facility] Rx#:[id number] Oral 480 / 480 Output: Urine 350 / 350 Other: # Voids 300 Date of Last Bowel Movement 07/17/18 - Constitutional no acute distress - Routine HEENT Exam Head: Present: normocephalic, atraumatic - Routine Respiratory Exam Absent: accessory muscle use - Routine Abdominal Exam Present: soft, normoactive bowel sounds. Absent: tenderness, distended - Routine Skin Exam Present: dry, warm - Routine Neurological Exam Present: alert, oriented X3 Results - Labs CBC & Chem 7: 07/17/18 04:46 07/19/18 04:49 Laboratory Results - last 24 hr 07/17/18 07/18/18 07/18/18 16:07 11:31 16:06 Sodium Potassium Chloride Carbon Dioxide Anion Gap BUN Creatinine Estimated GFR POC Glucose 119 H 94 109 Random Glucose Calcium Magnesium 07/18/18 07/19/18 07/19/18 21:01 04:49 08:08 Sodium 143 Potassium 4.1 Chloride 110 H Carbon Dioxide 27.5 Anion Gap 6 BUN 7 Creatinine 0.59 L Estimated GFR Greater than 89 POC Glucose 116 H 98 Random Glucose 73 L Calcium 9.1 Magnesium 1.9 D Microbiology 07/16/18 13:23 Blood - Peripheral Aerobic Blood Culture - Preliminary No growth in 3 days 07/16/18 13:23 Blood - Peripheral Anaerobic Blood Culture - Preliminary No growth in 3 days 07/16/18 13:13 Blood - Peripheral Aerobic Blood Culture - Preliminary No growth in 3 days 07/16/18 13:13 Blood - Peripheral Anaerobic Blood Culture - Preliminary No growth in 3 days 07/16/18 15:19 Stool Enteric Pathogens (PCR) - Final No enteric pathogens detected by PCR (No Salmonella sp., Shigella sp., Campylobacter sp., Yersinia enterocolitica, Vibrio sp., Norovirus, or EHEC (Shiga Toxin 1 or Shiga Toxin 2) detected. 07/15/18 11:15 Blood - Peripheral Aerobic Blood Culture - Final Staphylococcus aureus 07/15/18 11:15 Blood - Peripheral Anaerobic Blood Culture - Final Staphylococcus aureus 07/15/18 11:00 Blood - Peripheral Aerobic Blood Culture - Final Staphylococcus aureus 07/15/18 11:00 Blood - Peripheral Anaerobic Blood Culture - Final Staphylococcus aureus Assessment and Plan (1) GI bleed Status: Acute Code(s): K92.2 - Gastrointestinal hemorrhage, unspecified (2) Unintentional weight loss Status: Acute Code(s): R63.4 - Abnormal weight loss - Plan Assessment: - Unintentional weight loss- states approximately 40 lbs over the past few months Denies previous EGD or colonoscopy. Denies family history of colon cancer. States that stools have been darker than normal but no melena. Denies nausea and vomiting. States diarrhea for 3 weeks, denies hematochezia. Reports poor appetite CT abd/pelvis W IV contrast (07/16) Circumferential rectal wall thickening. Trace bilateral pleural effusions with associated airspace consolidation at the lung bases. Apparent gallbladder wall thickening. This may be due to hypoalbuminemia. - History of ETOH abuse- 2-3 hosts of whiskey with 2 beers daily. On CIWA protocol. Thiamine, folate. - History of DVT and PE- on Eliquis, on hold since admission - MSSA sepsis, ? osteomyelitis- ID and neurosurgery following - JOEL- resolved - Coronary artery disease- On Plavix - DM, COPD, HTN- per primary team Plan: EGD/colonoscopy tomorrow Obtain consent Eliquis on hold Remains on Plavix Clear liquid today Golytely prep NPO after MN Further recommendations to follow based on endoscopic findings This patient has been seen and examined by myself and Dr. Rosario and this note is written on his behalf
--- NOTE | 2018-07-19 15:07 | ECHRPT ---
Indication: sepsis poss endocarditis CONCLUSIONS Normal left ventricular size. Wall thickness is normal. The left ventricular systolic function is hyperdynamic with an estimated ejection fraction in the ra nge of 65- 70%. Mild thickening of the aortic valve leaflets. The estimated pulmonary arterial pressure is 31 mmHg. There is mild tricuspid valve regurgitation. BP: / HR: Rhythm: MEASUREMENTS (Male / Female) Normal Values Technical Quality:Technically difficult study 2D ECHO LV Diastolic Diameter PLAX 4.3 cm 4.2 - 5.9 / 3.9 - 5.3 cm LV Systolic Diameter PLAX 2.8 cm IVS Diastolic Thickness 1.2 cm 0.6 - 1.0 / 0.6 - 0.9 cm LVPW Diastolic Thickness 1.1 cm 0.6 - 1.0 / 0.6 - 0.9 cm LV Relative Wall Thickness 0.5 RV Internal Dim ED PLAX 4.4 cm Aortic Root Diameter 3.0 cm LA Systolic Diameter LX 3.8 cm 3.0 - 4.0 / 2.7 - 3.8 cm LV Ejection Fraction MOD BP 66.7 % >= 55 % LV Ejection Fraction MOD 4C 73.6 % LV Ejection Fraction 4C AL 74.6 % LV Ejection Fraction MOD 2C 53.4 % LV Ejection Fraction 2C AL 54.2 % M-MODE Aortic Root Diameter MM 1.0 cm LA Systolic Diameter MM 1.0 cm LA Ao Ratio MM 1.0 AV Cusp Separation MM 1.0 cm DOPPLER AV Peak Velocity 136.0 cm/s AV Peak Gradient 7.4 mmHg AI Peak Velocity 204.0 cm/s AI Peak Gradient 16.6 mmHg AI Pressure Half Time 316.0 ms LVOT Peak Velocity 99.2 cm/s LVOT Peak Gradient 3.9 mmHg Mitral E Point Velocity 78.0 cm/s Mitral A Point Velocity 57.3 cm/s Mitral E to A Ratio 1.4 TR Peak Velocity 229.0 cm/s TR Peak Gradient 21.0 mmHg Right Atrial Pressure 10.0 mmHg Pulmonary Artery Systolic Pressu 31.0 mmHg Right Ventricular Systolic Press 31.0 mmHg PV Peak Velocity 76.6 cm/s PV Peak Gradient 2.3 mmHg FINDINGS LEFT VENTRICLE Normal left ventricular size. Wall thickness is normal. The left ventricular systolic function is hyperdynamic with an estimated ejection fraction in the ra nge of 65- 70%. RIGHT VENTRICLE Normal right ventricular size and systolic function. LEFT ATRIUM The left atrial size is normal. RIGHT ATRIUM The right atrial size is normal. ATRIAL SEPTUM Normal atrial septal thickness without atrial level shunting by limited color doppler interrogation. AORTA The aortic root and proximal ascending aorta are normal in size on limited imaging. MITRAL VALVE Structurally normal mitral valve. No mitral valve stenosis or regurgitation. AORTIC VALVE Mild thickening of the aortic valve leaflets. TRICUSPID VALVE The estimated pulmonary arterial pressure is 31 mmHg. There is mild tricuspid valve regurgitation. PULMONARY VALVE No pulmonary valve regurgitation or stenosis. VESSELS The inferior vena cava is normal in size. PERICARDIUM No pericardial effusion. Kelvin Saenz MD, FACC (Electronically Signed) Final Date:19 July 2018 15:07
[2018-07-19] MEDS ORDERED: PEG 3350/E-Lyte Soln 4000 ML Bottle PO ONE (16:00)
[2018-07-19 23:13] LABS: INR 1.2 Ratio; Prothrombin Time 12.1 sec (9.8-11.6)
[2018-07-20] MEDS: ceFAZolin 2 GM Premix Inj 2 GM/50 ML PIGGYBACK IV.SIG SCH ×3 (04:50→20:17)
[2018-07-20] MEDS: Insulin NovoLOG Aspart Correctional Sugar Inj SQ SCH ×4 (08:22→20:20)
--- NOTE | 2018-07-20 09:52 | P.PNIM ---
Subjective Interval history: f/u; bacteremia/ rectal wall thickening in no acute distress. resting comfortably. no new complaints. no fever. Physical Exam Vital signs: Vital Signs 07/19/18 10:03 07/19/18 12:00 07/19/18 16:00 Temperature 97.6 F 98.1 F Pulse Rate 77 68 63 Respiratory Rate 15 14 Blood Pressure 124/74 112/72 Pulse Oximetry 94 L 94 L 07/19/18 19:55 07/19/18 20:07 07/20/18 00:00 Temperature 98.1 F 97.8 F Pulse Rate 71 70 69 Respiratory Rate 18 17 19 Blood Pressure 118/75 111/65 Pulse Oximetry 95 95 07/20/18 04:00 07/20/18 08:00 Temperature 97.9 F 97.8 F Pulse Rate 68 77 Respiratory Rate 19 17 Blood Pressure 115/63 170/75 H Pulse Oximetry 93 L 96 Intake & Output 07/19/18 07/20/18 07/20/18 18:59 06:59 18:59 Intake Total 50 / 50 700 / 700 Output Total 725 / 725 750 / 750 Balance -675 / -675 -50 / -50 Weight 62.4 kg Intake: IV 50 / 50 100 / 100 Ancef 2 GM Premix Inj 2 gm In 50 / 50 100 / 100 50 ml @ 200 mls/hr IV.SIG Q8H [facility] Rx#:[id number] Oral 600 / 600 Output: Urine 725 / 725 750 / 750 Other: Date of Last Bowel Movement 07/18/18 - Constitutional no acute distress - Routine Respiratory Exam Present: CTA bilaterally - Routine Cardiovascular Exam Present: RRR - Routine Abdominal Exam Present: soft - Routine Extremities Exam Comments: no pedal edema. - Routine Neurological Exam Present: alert, oriented X3 Results - Labs CBC & Chem 7: 07/17/18 04:46 07/19/18 04:49 Laboratory Results - last 24 hr 07/19/18 07/19/18 07/19/18 16:47 20:43 22:39 PT 12.1 H INR 1.2 POC Glucose 101 96 Microbiology 07/16/18 13:23 Blood - Peripheral Aerobic Blood Culture - Preliminary No growth in 3 days 07/16/18 13:23 Blood - Peripheral Anaerobic Blood Culture - Preliminary No growth in 3 days 07/16/18 13:13 Blood - Peripheral Aerobic Blood Culture - Preliminary No growth in 3 days 07/16/18 13:13 Blood - Peripheral Anaerobic Blood Culture - Preliminary No growth in 3 days Assessment and Plan - Plan Generalized weakness, Recurrent Falls: suspect multifactorial with chronic deconditioning, alcohol abuse, dehydration/JOEL -s/p IVF hydration -Fall precautions. -Consulted physical therapy Bacteremia: -3/4 preliminary blood cultures with gram positive cocci/MSSA -continue Ancef -repeated blood cultures negative so far. -ID following, T-spine changes suggestive of osteomyelitis and T11 fracture. ESR 49. neurosurgery consulted. Ct guided biopsy when anticoagulation has worn off. rectal wall thickening; GI consulted; plan for Colonoscopy today. Acute kidney injury: secondary to dehydration. Cr 1.83. Resolved -CK within normal limits. -UA negative -Avoid nephrotoxins -Monitor renal function Hypokalemia:resolved Low TSH but not suppressed. -Free T4 1.76, T3 1.58 suggestive of sick euthyroid -Recommend repeat TSH/T4 in 2-4weeks as outpatient Alcohol abuse: acute -Extensively counseled on cessation, especially on anticoagulation. -thiamine/folate/MV -CIWA protocol. CAD: chronic -continue patient's plavix, statin -unable to start BB due to low BP -monitor on telemetry DVT prophylaxis with SCD and Eliquis (on hold, resume when cleared by GI and neurosurgery) Discharge Planning: GI/neurosurgery w/u in progress.
--- NOTE | 2018-07-20 13:44 | GIPROC ---
[facility] [address] [facility]. [facility], [address] COLONOSCOPY PROCEDURE REPORT EXAM DATE: 07/20/2018 PATIENT NAME: Alexus Pedraza MR #: [id number] BIRTHDATE: 1950 ENDOSCOPIST: Seng Rosario MD ORDER #: [id number] SPORTS BOOKMAKER: Camilo Mendoza and Shelley Kaufman STATUS: inpatient INDICATIONS: The patient is a 68 yr old male here for a colonoscopy due to weight loss and possible malignancy PROCEDURE PERFORMED: Colonoscopy with polypectomy MEDICATIONS: Per Anesthesia and None. PREP QUALITY: poor ESTIMATED BLOOD LOSS: None CONSENT: The patient understands the risks and benefits of the procedure and understands that these risks include, but are not limited to: sedation, allergic reaction, infection, perforation and/or bleeding. Alternative means of evaluation and treatment include, among others: physical exam, x-rays, and/or surgical intervention. The patient elects to proceed with this endoscopic procedure. medical equipment was checked for proper function. Hand hygiene and appropriate measures for infection prevention was taken. After the risks, benefits and alternatives of the procedure were thoroughly explained, Informed consent was verified, confirmed and timeout was successfully executed by the treatment team. A digital exam was performed and revealed no abnormalities of the rectum The Pentax EC-[id number] endoscope was introduced through the anus and advanced to the cecum, which was identified by both the appendix and ileocecal valve. The instrument was then slowly withdrawn as the colon was fully examined. COLON FINDINGS: Moderate diverticulosis was noted in the descending colon and sigmoid colon. Six sessile polyps ranging between 5-9mm in size were found at the cecum, in the ascending colon, descending colon, and sigmoid colon. A polypectomy was performed using snare cautery. Retroflexed views revealed internal hemorrhoids and Retroflexed views revealed medium internal hemorrhoids The scope was then completely withdrawn from the patient and the procedure terminated. PROCEDURE WITHDRAWAL TIME:12minutes ADVERSE EVENTS: There were no complications. IMPRESSIONS: 1. Moderate diverticulosis was noted in the descending colon and sigmoid colon 2. Six sessile polyps ranging between 5-9mm in size were found at the cecum, in the ascending colon, descending colon, and sigmoid colon; polypectomy was performed using snare cautery 3. Retroflexed views revealed internal hemorrhoids 4. Retroflexed views revealed medium internal hemorrhoids 5. Was performed 6. Revealed no abnormalities of the rectum RECOMMENDATIONS: Await biopsy results. Biopsy results will not be ready for 7-10 days. If you don't hear from us in two weeks, call our office for results. RECALL: Return 1 year Colonoscopy Colon prep poor Seng Rosario MD eSigned: Seng Rosario MD 07/20/2018 1:43 PM cc: PATIENT NAME: Alexus Pedraza MR#: [id number]
--- NOTE | 2018-07-20 13:48 | GIPROC ---
[facility] [address] [facility]. [facility], [address] EGD PROCEDURE REPORT EXAM DATE: 07/20/2018 PATIENT NAME: Alexus Pedraza MR #: [id number] BIRTHDATE: 1950 ATTENDING: Seng Rosario MD ORDER #: [id number] MEMORIAL DESIGNER: Shelley Kaufman and Camilo Mendoza STATUS: inpatient INDICATIONS: The patient is a 68 yr old male here for an EGD due to weight loss and dyspepsia PROCEDURE PERFORMED: EGD w/ biopsy MEDICATIONS: Per Anesthesia and None. TOPICAL ANESTHETIC: none CONSENT: The patient understands the risks and benefits of the procedure and understands that these risks include, but are not limited to: sedation, allergic reaction, infection, perforation and/or bleeding. Alternative means of evaluation and treatment include, among others: physical exam, x-rays, and/or surgical intervention. The patient elects to proceed with this endoscopic procedure. medical equipment was checked for proper function. Hand hygiene and appropriate measures for infection prevention was taken. After the risks, benefits and alternatives of the procedure were thoroughly explained, Informed consent was verified, confirmed and timeout was successfully executed by the treatment team. The patient was anesthetized with topical anesthesia and the EC-3490Li (Pedi C) endoscope was introduced through the mouth and advanced to the second portion of the duodenum. Retroflexed views revealed a hiatal hernia The gastroscope was then slowly withdrawn and removed. ESOPHAGUS: A Schatzki ring was found in the distal esophagus. The Z-line was located 42 from the incisors. STOMACH: There was mild antral gastropathy noted. Cold forcep biopsies were taken at the antrum and angularis. DUODENUM: The duodenal mucosa appeared normal in the entire duodenum. ADVERSE EVENTS: There were no complications. IMPRESSIONS: 1. Schatzki ring was found in the distal esophagus 2. There was mild antral gastropathy noted [T2] 3. Normal duodenal mucosa in the entire duodenum 4. Retroflexed views revealed a hiatal hernia RECOMMENDATIONS: Await biopsy results. Biopsy results will not be ready for 7-10 days. If you don't hear from us in two weeks, call our office for biopsy results. PATIENT CONDITION: stable DISPOSITION: Inpatient REPEAT EXAM: Return as needed for EGD Seng Rosario MD eSigned: Seng Rosario MD 07/20/2018 1:48 PM cc: PATIENT NAME: Alexus Pedraza MR#: [id number]
[2018-07-20] MEDS: Magnesium Oxide 400 MG Tablet PO SCH ×2 (14:41→20:17)
[2018-07-20] MEDS: Multivitamin/Minerals Therapeutic Tablet PO SCH (14:41)
[2018-07-20] MEDS: Folic Acid 1 MG Tablet PO SCH (14:41)
[2018-07-20] MEDS: Gabapentin 400 MG Capsule PO SCH (14:41)
[2018-07-20] MEDS: Senna/Docusate Sodium 8.6/50 MG Tablet PO SCH ×2 (14:42→20:18)
--- NOTE | 2018-07-20 17:23 | ECG ---
Date Performed: 07/19/2018 Time Performed: 21:00:55 PTAGE: 68 years EKG: Sinus rhythm WITH OCCASIONAL SUPRAVENTRICULAR PREMATURE COMPLEXES INDETERMINATE AXIS RIGHT BUNDLE BRANCH BLOCK Si nce the previous tracing, no significant change noted ABNORMAL ECG PREVIOUS TRACING : 07/15/2018 11.30 DOCTOR: Helena Bermudez Interpretating Date/Time 07/20/2018 17:21:40
[2018-07-21] MEDS: ceFAZolin 2 GM Premix Inj 2 GM/50 ML PIGGYBACK IV.SIG SCH ×3 (04:41→19:50)
[2018-07-21] MEDS: Insulin NovoLOG Aspart Correctional Sugar Inj SQ SCH ×4 (07:30→19:59)
--- NOTE | 2018-07-21 08:35 | P.PNIM ---
Subjective Interval history: in no acute distress. afebrile. pain is controlled. Physical Exam Vital signs: Vital Signs 07/20/18 11:46 07/20/18 13:55 07/20/18 16:00 Temperature 97.6 F 97.8 F Pulse Rate 64 78 76 Respiratory Rate 20 20 18 Blood Pressure 154/88 H 98/67 L 142/79 H Pulse Oximetry 94 L 95 95 07/20/18 20:00 07/21/18 00:00 07/21/18 04:00 Temperature 98.1 F 97.9 F 98.8 F Pulse Rate 75 69 70 Respiratory Rate 18 17 18 Blood Pressure 95/59 L 107/56 L 113/69 Pulse Oximetry 93 L 92 L 92 L 07/21/18 08:00 Temperature 97.3 F L Pulse Rate 55 L Respiratory Rate 17 Blood Pressure 111/69 Pulse Oximetry 99 Intake & Output 07/20/18 07/21/18 07/21/18 18:59 06:59 18:59 Intake Total 1350 / 1350 100 / 100 120 / 120 Output Total 600 / 600 450 / 450 Balance 750 / 750 -350 / -350 120 / 120 Weight 67 kg Intake: IV 50 / 50 100 / 100 Ancef 2 GM Premix Inj 2 gm In 50 / 50 100 / 100 50 ml @ 200 mls/hr IV.SIG Q8H HU Rx#:[id number] Oral 1000 / 1000 120 / 120 Anesthesia Amount 300 / 300 Output: Urine 600 / 600 450 / 450 Other: # Bowel Movements 1 - Constitutional no acute distress - Routine Respiratory Exam Present: CTA bilaterally - Routine Cardiovascular Exam Present: RRR - Routine Abdominal Exam Present: soft - Routine Extremities Exam Comments: no pedal edema. - Routine Neurological Exam Present: alert, oriented X3 Results - Labs CBC & Chem 7: 07/17/18 04:46 07/19/18 04:49 Laboratory Results - last 24 hr 07/20/18 07/20/18 07/20/18 08:22 09:37 11:33 POC Glucose 74 148 H 107 07/20/18 07/20/18 07/20/18 14:11 17:22 20:19 POC Glucose 77 85 69 07/20/18 07/21/18 21:01 07:20 POC Glucose 78 84 Microbiology 07/16/18 13:23 Blood - Peripheral Aerobic Blood Culture - Preliminary No growth in 4 days 07/16/18 13:23 Blood - Peripheral Anaerobic Blood Culture - Preliminary No growth in 4 days 07/16/18 13:13 Blood - Peripheral Aerobic Blood Culture - Preliminary No growth in 4 days 07/16/18 13:13 Blood - Peripheral Anaerobic Blood Culture - Preliminary No growth in 4 days Assessment and Plan - Plan Generalized weakness, Recurrent Falls: suspect multifactorial with chronic deconditioning, alcohol abuse, dehydration/JOEL -s/p IVF hydration -Fall precautions. -Consulted physical therapy Bacteremia: -3/4 preliminary blood cultures with gram positive cocci/MSSA -continue Ancef -repeated blood cultures negative so far. -ID following, T-spine changes suggestive of osteomyelitis and T11 fracture. ESR 49. neurosurgery consulted. CT guided biopsy when anticoagulation has worn off; IR consulted. rectal wall thickening; GI consulted- s/p colonoscopy with no rectal abnormalities/ revealed diverticulosis and polyps- s/p polypectomy- biopsies to be followed up. s/p EGD with Schatzki's ring and antral gastropathy- f/u biopsy. Acute kidney injury: secondary to dehydration. Resolved -CK within normal limits. -UA negative -Avoid nephrotoxins -Monitor renal function Hypokalemia:resolved Low TSH but not suppressed. -Free T4 1.76, T3 1.58 suggestive of sick euthyroid -Recommend repeat TSH/T4 in 2-4weeks as outpatient Alcohol abuse: acute -Extensively counseled on cessation, especially on anticoagulation. -thiamine/folate/MV -CIWA protocol. CAD: chronic -continue patient's plavix, statin -unable to start BB due to low BP -monitor on telemetry DVT prophylaxis with SCD and Eliquis (on hold, resume when cleared by GI and neurosurgery) Discharge Planning: neurosurgery w/u in progress/ pending T spine biopsy and ID recommendations.
[2018-07-21] MEDS ORDERED: Pharmacy Ordered Lab Info OTHER ONE (10:45)
--- NOTE | 2018-07-21 11:35 | P.PNGI ---
Subjective Interval history: Pt is resting in bed. Has passed flatus since EGD and colonoscopy yesterday, has not had BM. Denies nausea, vomiting. Has not eaten much today because he does not like the liquid diet. Physical Exam Vital signs: Vital Signs 07/20/18 11:46 07/20/18 13:55 07/20/18 16:00 Temperature 97.6 F 97.8 F Pulse Rate 64 78 76 Respiratory Rate 20 20 18 Blood Pressure 154/88 H 98/67 L 142/79 H Pulse Oximetry 94 L 95 95 07/20/18 20:00 07/21/18 00:00 07/21/18 04:00 Temperature 98.1 F 97.9 F 98.8 F Pulse Rate 75 69 70 Respiratory Rate 18 17 18 Blood Pressure 95/59 L 107/56 L 113/69 Pulse Oximetry 93 L 92 L 92 L 07/21/18 08:00 Temperature 97.3 F L Pulse Rate 55 L Respiratory Rate 17 Blood Pressure 111/69 Pulse Oximetry 99 Intake & Output 07/20/18 07/21/18 07/21/18 18:59 06:59 18:59 Intake Total 1350 / 1350 100 / 100 120 / 120 Output Total 600 / 600 450 / 450 Balance 750 / 750 -350 / -350 120 / 120 Weight 67 kg Intake: IV 50 / 50 100 / 100 Ancef 2 GM Premix Inj 2 gm In 50 / 50 100 / 100 50 ml @ 200 mls/hr IV.SIG Q8H HU Rx#:[id number] Oral 1000 / 1000 120 / 120 Anesthesia Amount 300 / 300 Output: Urine 600 / 600 450 / 450 Other: # Bowel Movements 1 - Constitutional no acute distress - Routine HEENT Exam Head: Present: normocephalic, atraumatic - Routine Respiratory Exam Absent: accessory muscle use - Routine Abdominal Exam Present: soft, normoactive bowel sounds, tenderness (mild RLQ tenderness ). Absent: distended - Routine Skin Exam Present: dry, warm - Routine Neurological Exam Present: alert, oriented X3 Results - Labs CBC & Chem 7: 07/17/18 04:46 07/19/18 04:49 Laboratory Results - last 24 hr 07/20/18 07/20/18 07/20/18 08:22 09:37 11:33 POC Glucose 74 148 H 107 07/20/18 07/20/18 07/20/18 14:11 17:22 20:19 POC Glucose 77 85 69 07/20/18 07/21/18 21:01 07:20 POC Glucose 78 84 Microbiology 07/16/18 13:23 Blood - Peripheral Aerobic Blood Culture - Final No growth in 5 days 07/16/18 13:23 Blood - Peripheral Anaerobic Blood Culture - Final No growth in 5 days 07/16/18 13:13 Blood - Peripheral Aerobic Blood Culture - Final No growth in 5 days 07/16/18 13:13 Blood - Peripheral Anaerobic Blood Culture - Final No growth in 5 days Assessment and Plan (1) GI bleed Status: Acute Code(s): K92.2 - Gastrointestinal hemorrhage, unspecified (2) Unintentional weight loss Status: Acute Code(s): R63.4 - Abnormal weight loss - Plan Assessment: - Unintentional weight loss- states approximately 40 lbs over the past few months Denies previous EGD or colonoscopy. Denies family history of colon cancer. States that stools have been darker than normal but no melena. Denies nausea and vomiting. States diarrhea for 3 weeks, denies hematochezia. Reports poor appetite CT abd/pelvis W IV contrast (07/16) Circumferential rectal wall thickening. Trace bilateral pleural effusions with associated airspace consolidation at the lung bases. Apparent gallbladder wall thickening. This may be due to hypoalbuminemia. - History of ETOH abuse- 2-3 hosts of whiskey with 2 beers daily. On CIWA protocol. Thiamine, folate. - History of DVT and PE- on Eliquis, on hold since admission - MSSA sepsis, ? osteomyelitis- ID and neurosurgery following - JOEL- resolved - Coronary artery disease- On Plavix - DM, COPD, HTN- per primary team (07/21) S/P EGD and colonoscopy --> Schatzki ring was found in the distal esophagus, mild antral gastropathy, normal duodenal mucosa in the entire examined duodenum, hiatal hernia. Moderate diverticulosis was noted in the descending colon and sigmoid colon, six sessile polyps ranging between 5-9 mm in size were found at the cecum, ascending colon, descending colon, and sigmoid colon S/P polypectomy, internal hemorrhoids. Biopsies pending. No mention of rectal issues as noted in CT scan. Pt with some mild abdominal discomfort today. Denies nausea, vomiting. He is passing flatus, no BM since procedures. Has been on clear liquid diet, does not like the taste of the food options so hasn't been eating much. Plan: EGD/colon biopsies pending OK to advance diet from a GI standpoint OK to resume anticoagulation from a GI standpoint Still undergoing work up by ID, planned for thoracic CT guided biopsy when anticoagulation wears off Our service will sign off, please reconsult as needed Have pt follow up with GI after DC This patient has been seen and examined by myself and Dr. Rosario and this note is written on his behalf
[2018-07-21] MEDS: Gabapentin 400 MG Capsule PO SCH (12:01)
[2018-07-21] MEDS: Magnesium Oxide 400 MG Tablet PO SCH ×2 (12:02→19:59)
[2018-07-21] MEDS: Senna/Docusate Sodium 8.6/50 MG Tablet PO SCH ×2 (12:03→19:59)
[2018-07-22] MEDS: ceFAZolin 2 GM Premix Inj 2 GM/50 ML PIGGYBACK IV.SIG SCH ×3 (05:02→20:55)
[2018-07-22] MEDS: Insulin NovoLOG Aspart Correctional Sugar Inj SQ SCH ×4 (09:09→20:55)
[2018-07-22] MEDS: Gabapentin 400 MG Capsule PO SCH (09:09)
[2018-07-22] MEDS: Senna/Docusate Sodium 8.6/50 MG Tablet PO SCH ×2 (09:10→20:56)
[2018-07-22] MEDS: Magnesium Oxide 400 MG Tablet PO SCH ×2 (09:10→20:55)
--- NOTE | 2018-07-22 09:31 | P.PNIM ---
Subjective Interval history: in no acute distress. pain seems to be controlled. no fever. Physical Exam Vital signs: Vital Signs 07/21/18 12:00 07/21/18 16:00 07/21/18 20:00 Temperature 97.4 F L 97.3 F L 97.6 F Pulse Rate 71 72 68 Respiratory Rate 17 18 18 Blood Pressure 112/71 103/68 103/68 Pulse Oximetry 93 L 95 92 L 07/21/18 20:10 07/22/18 00:00 07/22/18 04:00 Temperature 98.1 F 98.1 F Pulse Rate 66 64 71 Respiratory Rate 16 17 Blood Pressure 126/64 109/75 Pulse Oximetry 94 L 92 L Intake & Output 07/21/18 07/22/18 07/22/18 18:59 06:59 18:59 Intake Total 1370 / 1370 100 / 100 Output Total 700 / 700 Balance 1370 / 1370 -600 / -600 Weight 66.5 kg Intake: IV 50 / 50 100 / 100 Ancef 2 GM Premix Inj 2 gm In 50 / 50 100 / 100 50 ml @ 200 mls/hr IV.SIG Q8H HU Rx#:[id number] Oral 1320 / 1320 Output: Urine 700 / 700 Other: # Bowel Movements 0 - Constitutional no acute distress - Routine Respiratory Exam Present: CTA bilaterally - Routine Cardiovascular Exam Present: RRR - Routine Abdominal Exam Present: soft - Routine Extremities Exam Comments: no pedal edema. - Routine Neurological Exam Present: alert, oriented X3 Results - Labs CBC & Chem 7: 07/17/18 04:46 07/19/18 04:49 Laboratory Results - last 24 hr 07/21/18 07/21/18 07/21/18 11:04 11:32 17:23 POC Glucose 74 86 Vancomycin Trough 5.5 07/21/18 07/22/18 19:51 07:30 POC Glucose 103 80 Vancomycin Trough Microbiology 07/16/18 13:23 Blood - Peripheral Aerobic Blood Culture - Final No growth in 5 days 07/16/18 13:23 Blood - Peripheral Anaerobic Blood Culture - Final No growth in 5 days 07/16/18 13:13 Blood - Peripheral Aerobic Blood Culture - Final No growth in 5 days 07/16/18 13:13 Blood - Peripheral Anaerobic Blood Culture - Final No growth in 5 days Assessment and Plan - Plan Generalized weakness, Recurrent Falls: suspect multifactorial with chronic deconditioning, alcohol abuse, dehydration/JOEL -s/p IVF hydration -Fall precautions. -Consulted physical therapy Bacteremia: -3/4 preliminary blood cultures with gram positive cocci/MSSA -continue Ancef -repeated blood cultures negative so far. -ID following, T-spine changes suggestive of osteomyelitis and T11 fracture. ESR 49. neurosurgery consulted. CT guided biopsy when anticoagulation has worn off; IR consulted. rectal wall thickening; GI consulted- s/p colonoscopy with no rectal abnormalities/ revealed diverticulosis and polyps- s/p polypectomy- biopsies to be followed up. s/p EGD with Schatzki's ring and antral gastropathy- f/u biopsy. Acute kidney injury: secondary to dehydration. Resolved -CK within normal limits. -UA negative -Avoid nephrotoxins -Monitor renal function Hypokalemia:resolved Low TSH but not suppressed. -Free T4 1.76, T3 1.58 suggestive of sick euthyroid -Recommend repeat TSH/T4 in 2-4weeks as outpatient Alcohol abuse: acute -Extensively counseled on cessation, especially on anticoagulation. -thiamine/folate/MV -CIWA protocol. CAD: chronic -continue patient's plavix, statin -unable to start BB due to low BP -monitor on telemetry DVT prophylaxis with SCD and Eliquis (on hold, resume when cleared by GI and neurosurgery) Discharge Planning: neurosurgery w/u in progress/ pending T spine biopsy and ID recommendations.
[2018-07-23] MEDS: ceFAZolin 2 GM Premix Inj 2 GM/50 ML PIGGYBACK IV.SIG SCH ×3 (03:55→21:36)
[2018-07-23] MEDS: Insulin NovoLOG Aspart Correctional Sugar Inj SQ SCH ×4 (08:24→21:35)
[2018-07-23] MEDS: Senna/Docusate Sodium 8.6/50 MG Tablet PO SCH ×2 (08:37→21:36)
[2018-07-23] MEDS: Gabapentin 400 MG Capsule PO SCH (08:37)
[2018-07-23] MEDS: Magnesium Oxide 400 MG Tablet PO SCH ×2 (08:37→21:35)
--- NOTE | 2018-07-23 09:12 | P.PNIM ---
Subjective Interval history: in no acute distress. pain is controlled. no fever. Physical Exam Vital signs: Vital Signs 07/22/18 16:00 07/22/18 20:00 07/23/18 00:00 Temperature 97.6 F 97.9 F 98.4 F Pulse Rate 74 67 62 Respiratory Rate 18 18 18 Blood Pressure 109/71 122/74 120/75 Pulse Oximetry 93 L 95 95 07/23/18 04:00 07/23/18 08:00 Temperature 98.0 F 98.2 F Pulse Rate 59 L 60 Respiratory Rate 18 17 Blood Pressure 118/59 L 109/62 Pulse Oximetry 95 93 L Intake & Output 07/22/18 07/23/18 07/23/18 18:59 06:59 18:59 Intake Total 1010 / 1010 220 / 220 Balance 1010 / 1010 220 / 220 Weight 64.6 kg Intake: IV 50 / 50 100 / 100 Ancef 2 GM Premix Inj 2 gm In 50 / 50 100 / 100 50 ml @ 200 mls/hr IV.SIG Q8H HU Rx#:[id number] Oral 960 / 960 120 / 120 Other: # Voids 4 2 - Constitutional no acute distress - Routine Respiratory Exam Present: CTA bilaterally - Routine Cardiovascular Exam Present: RRR - Routine Abdominal Exam Present: soft - Routine Extremities Exam Comments: no pedal edema. - Routine Neurological Exam Present: alert, oriented X3 Results - Labs CBC & Chem 7: 07/17/18 04:46 07/19/18 04:49 Laboratory Results - last 24 hr 07/22/18 07/22/18 07/22/18 11:43 16:52 19:52 POC Glucose 75 148 H 127 H 07/23/18 07:30 POC Glucose 84 Assessment and Plan - Plan Generalized weakness, Recurrent Falls: suspect multifactorial with chronic deconditioning, alcohol abuse, dehydration/JOEL -s/p IVF hydration -Fall precautions. -Consulted physical therapy Bacteremia: -3/4 preliminary blood cultures with gram positive cocci/MSSA -continue Ancef -repeated blood cultures negative so far. -ID following, T-spine changes suggestive of osteomyelitis and T11 fracture. ESR 49. neurosurgery consulted. CT guided biopsy when anticoagulation has worn off; IR consulted. rectal wall thickening; GI consulted- s/p colonoscopy with no rectal abnormalities/ revealed diverticulosis and polyps- s/p polypectomy- biopsies to be followed up. s/p EGD with Schatzki's ring and antral gastropathy- f/u biopsy. Acute kidney injury: secondary to dehydration. Resolved -CK within normal limits. -UA negative -Avoid nephrotoxins -Monitor renal function Hypokalemia:resolved Low TSH but not suppressed. -Free T4 1.76, T3 1.58 suggestive of sick euthyroid -Recommend repeat TSH/T4 in 2-4weeks as outpatient Alcohol abuse: acute -Extensively counseled on cessation, especially on anticoagulation. -thiamine/folate/MV -CIWA protocol. CAD: chronic -continue patient's plavix, statin -unable to start BB due to low BP -monitor on telemetry DVT prophylaxis with SCD and Eliquis (on hold, resume when cleared by GI and neurosurgery) Discharge Planning: neurosurgery w/u in progress/ pending T spine biopsy and ID recommendations.
[2018-07-24] MEDS: ceFAZolin 2 GM Premix Inj 2 GM/50 ML PIGGYBACK IV.SIG SCH ×3 (03:41→21:47)
[2018-07-24 07:27] LABS: Baso # (Auto) 0.1 th/mm3 (0.0-0.2); Baso % (Auto) 0.9 % (0.0-2.0); Eos # (Auto) 0.2 th/mm3 (0.0-0.4); Eos % (Auto) 3.9 % (0.0-4.0); Hematocrit 36.2 % (39.0-51.0); Hemoglobin 12.3 gm/dL (13.0-17.0); Lymph # (Auto) 2.2 th/mm3 (1.0-4.8); Lymph % (Auto) 35.7 % (9.0-44.0); Mean Corpuscular HGB Conc 33.8 % (32.0-36.0); Mean Corpuscular Hemoglobin 33.7 pg (27.0-34.0); Mean Corpuscular Volume 99.8 fL (80.0-100.0); Mono # (Auto) 0.5 th/mm3 (0.0-0.9); Mono % (Auto) 8.3 % (0.0-8.0); Neut # (Auto) 3.2 th/mm3 (1.8-7.7); Neut % (Auto) 51.2 % (16.0-70.0); Platelet Count 231 th/mm3 (150-450); Red Blood Count 3.63 mil/mm3 (4.50-5.90); White Blood Count 6.3 th/mm3 (4.0-11.0)
[2018-07-24 07:53] LABS: Albumin 1.6 g/dL (3.4-5.0); Anion Gap 6 meq/L (5-15); Aspartate Aminotransferase 44 U/L (15-37); Blood Urea Nitrogen 9 mg/dL (7-18); Calcium 8.9 mg/dL (8.5-10.1); Carbon Dioxide 25.2 meq/L (21.0-32.0); Chloride 111 meq/L (98-107); Glomerular Filtration Rate Greater Than 89 mL/min (>89); Glucose,Random 72 mg/dL (74-106); Sodium 142 meq/L (136-145)
[2018-07-24 07:57] LABS: Alanine Aminotransferase 20 U/L (12-78); Alkaline Phosphatase 140 U/L (45-117); Total Protein 5.2 g/dL (6.4-8.2)
[2018-07-24] MEDS: Insulin NovoLOG Aspart Correctional Sugar Inj SQ SCH ×4 (08:50→21:50)
[2018-07-24] MEDS: Magnesium Oxide 400 MG Tablet PO SCH ×2 (08:50→21:47)
[2018-07-24] MEDS: Gabapentin 400 MG Capsule PO SCH (08:50)
[2018-07-24] MEDS: Senna/Docusate Sodium 8.6/50 MG Tablet PO SCH ×2 (08:52→21:51)
--- NOTE | 2018-07-24 10:02 | P.PNIM ---
Subjective Interval history: in no acute distress. pain is fairly controlled. no fever. no new complaints. Physical Exam Vital signs: Last Vital Signs Temp 97.4 F L 07/24/18 08:00 Pulse 65 07/24/18 08:00 Resp 17 07/24/18 08:00 BP 118/71 07/24/18 08:00 Pulse Ox 90 L 07/24/18 08:00 Intake & Output 07/22/18 07/23/18 07/24/18 07/25/18 06:59 06:59 06:59 06:59 Intake Total 1470 / 1470 1230 / 1230 1200 / 1200 Output Total 700 / 700 Balance 770 / 770 1230 / 1230 1200 / 1200 Weight 66.5 kg 64.6 kg 64.8 kg Constitutional no acute distress Routine Respiratory Exam Present CTA bilaterally Routine Cardiovascular Exam Present RRR Routine Abdominal Exam Present soft Routine Extremities Exam Comments: no pedal edema. Routine Neurological Exam Present alert and oriented X3 Results Labs CBC & Chem 7: 07/24/18 06:12 07/24/18 06:12 Assessment and Plan Plan Generalized weakness, Recurrent Falls: suspect multifactorial with chronic deconditioning, alcohol abuse, dehydration/JOEL -s/p IVF hydration -Fall precautions. -Consulted physical therapy Bacteremia: -3/4 preliminary blood cultures with gram positive cocci/MSSA -continue Ancef -repeated blood cultures negative so far. -ID following, T-spine changes suggestive of osteomyelitis and T11 fracture. ESR 49. neurosurgery consulted. CT guided biopsy when anticoagulation has worn off; IR consulted. rectal wall thickening; GI consulted- s/p colonoscopy with no rectal abnormalities/ revealed diverticulosis and polyps- s/p polypectomy- biopsies to be followed up. s/p EGD with Schatzki's ring and antral gastropathy- f/u biopsy. Acute kidney injury: secondary to dehydration. Resolved -CK within normal limits. -UA negative -Avoid nephrotoxins -Monitor renal function Hypokalemia:resolved Low TSH but not suppressed. -Free T4 1.76, T3 1.58 suggestive of sick euthyroid -Recommend repeat TSH/T4 in 2-4weeks as outpatient Alcohol abuse: acute -Extensively counseled on cessation, especially on anticoagulation. -thiamine/folate/MV -CIWA protocol. CAD: chronic -continue patient's plavix, statin -unable to start BB due to low BP -monitor on telemetry DVT prophylaxis with SCD and Eliquis (on hold, resume when cleared by GI and neurosurgery) Discharge Planning: neurosurgery w/u in progress/ pending T spine biopsy and ID recommendations. Progress Note: Quality VTE Deep Vein Thrombosis/Pulmonary Embolism Present on Admission: No
--- NOTE | 2018-07-24 17:05 | P.PNID ---
Subjective Remarks: MR showed L spine lesion osteo vs mets scheduled for CT guided bx after holding Plavix till the end of the week No new issue Growing MSSA in 4/4 bottles of bl clx Antibiotics: cefazolin Allergies/Adverse Reactions: Allergies No Known Allergies Allergy (Verified 05/10/18 08:20) Objective Vital Signs 07/23/18 19:55 07/23/18 20:00 07/24/18 00:00 Temperature 98.1 F 97.8 F Pulse Rate 58 L 58 L 61 Respiratory Rate 16 16 Blood Pressure 111/66 116/73 Pulse Oximetry 93 L 94 L 07/24/18 04:00 07/24/18 08:00 07/24/18 12:25 Temperature 98.0 F 97.4 F L 97.3 F L Pulse Rate 57 L 65 67 Respiratory Rate 15 17 17 Blood Pressure 117/67 118/71 114/71 Pulse Oximetry 94 L 93 L 93 L 07/24/18 15:46 Temperature 98.1 F Pulse Rate 63 Respiratory Rate 17 Blood Pressure 104/67 Pulse Oximetry 94 L Intake & Output 07/23/18 07/24/18 07/24/18 18:59 06:59 18:59 Intake Total 650 / 650 550 / 550 50 / 50 Balance 650 / 650 550 / 550 50 / 50 Weight 64.8 kg Intake: IV 50 / 50 100 / 100 50 / 50 Ancef 2 GM Premix Inj 2 gm In 50 / 50 100 / 100 50 / 50 50 ml @ 200 mls/hr IV.SIG Q8H HU Rx#:[id number] Oral 600 / 600 450 / 450 Other: # Voids 4 3 Date of Last Bowel Movement 07/18/18 Lab - Hematology Results 07/24/18 06:12 WBC 6.3 RBC 3.63 L Hgb 12.3 L Hct 36.2 L MCV 99.8 MCH 33.7 MCHC 33.8 RDW 15.0 Plt Count 231 MPV 8.0 Neut % (Auto) 51.2 Lymph % (Auto) 35.7 Bowie % (Auto) 8.3 H Eos % (Auto) 3.9 Baso % (Auto) 0.9 Neut # (Auto) 3.2 Lymph # (Auto) 2.2 Bowie # (Auto) 0.5 Eos # (Auto) 0.2 Baso # (Auto) 0.1 WBC Differential . Differential Comment Auto diff final Lab - Chemistry Results 07/22/18 07/23/18 07/23/18 19:52 07:30 11:40 Sodium Potassium Chloride Carbon Dioxide Anion Gap BUN Creatinine Estimated GFR POC Glucose 127 H 84 77 Random Glucose Calcium Total Bilirubin AST ALT Alkaline Phosphatase Total Protein Albumin 07/23/18 07/23/18 07/24/18 16:57 19:30 06:12 Sodium 142 Potassium 4.0 Chloride 111 H Carbon Dioxide 25.2 Anion Gap 6 BUN 9 Creatinine 0.52 L Estimated GFR Greater than 89 POC Glucose 90 140 H Random Glucose 72 L Calcium 8.9 Total Bilirubin 0.4 AST 44 H ALT 20 Alkaline Phosphatase 140 H Total Protein 5.2 L Albumin 1.6 L 07/24/18 07/24/18 07/24/18 08:15 11:51 16:39 Sodium Potassium Chloride Carbon Dioxide Anion Gap BUN Creatinine Estimated GFR POC Glucose 76 94 130 H Random Glucose Calcium Total Bilirubin AST ALT Alkaline Phosphatase Total Protein Albumin Imaging: ITS Impressions Chest X-Ray 07/15/18 11:06 CONCLUSION: 1. No new or acute intrathoracic disease. 2. Chronic-appearing nondisplaced fracture involving the distal right clavicle. Abdomen/Pelvis CT 07/16/18 00:00 CONCLUSION: 1. Circumferential rectal wall thickening. Correlation with physical exam/ sigmoidoscopy is recommended. 2. Ill-defined superior endplate erosive changes and subtle compression deformity of T11 superior endplate with prevertebral soft tissue changes. Differential considerations include osteomyelitis. Recommend further characterization with contrast-enhanced MRI exam. 3. Trace bilateral pleural effusions with associated airspace consolidation at the lung bases. 4. Apparent gallbladder wall thickening. This may be due to hypoalbuminemia. Ultrasound examination may be performed if there is continued clinical concern. Lumbar Spine MRI 07/16/18 00:00 CONCLUSION: 1. Abnormal signal and enhancement at T10 and T11 vertebral bodies without significant intervening disc signal abnormality or epidural enhancement. There is some prevertebral soft tissue prominence and enhancement particularly at T11. Findings are most concerning for metastatic disease with associated pathologic fracture at T11. Differential considerations include osteomyelitis. This process is not completely imaged on this lumbar MRI exam. Recommend MRI examination of the thoracic spine with contrast for better evaluation. Thoracic Spine MRI 07/17/18 00:00 CONCLUSION: 1. There is abnormal signal in the bodies of T10 and T11 with some compression along the superior endplate of T11. There is no abnormal enhancement at the disc space of T10-T11. There is abnormal enhancing soft tissue surrounding the vertebral bodies of T10 and T11. These findings suggest either an inflammatory process such as osteomyelitis without discitis versus neoplastic disease. Recommend correlation with patient's physical, clinical exam and laboratory values. A CT-guided needle biopsy of this area could be performed for pathologic diagnosis.. Physical Exam: GENERAL: NAD SKIN: Warm and dry. HEAD: Atraumatic. Normocephalic. EYES: Pupils equal and round. No scleral icterus. No injection or drainage. ENT: No nasal bleeding or discharge. Mucous membranes pink and moist. NECK: Trachea midline. No JVD. CARDIOVASCULAR: Regular rate and rhythm. RESPIRATORY: No accessory muscle use. Clear to auscultation. Breath sounds equal bilaterally. GASTROINTESTINAL: Abdomen soft, non-tender, nondistended. Hepatic and splenic margins not palpable. MUSCULOSKELETAL: Extremities without clubbing, cyanosis, or edema. BACK: some tenderness to palpation NEUROLOGICAL: Awake and alert. Non focal moves BLE 5/5 PSYCHIATRIC: calm, cooperative Assessment and Plan - Plan MSSA sepsis, awaiting final sensies Source at this point not apparent + some vague complaint on low back pain no fever or typicl embolic phenomena to clinically suggest endocarditis 2 D echo negative cont cefazolin fu repeat BC awaiting L spine lesion bx dw Dr Matamoros
[2018-07-25] MEDS: ceFAZolin 2 GM Premix Inj 2 GM/50 ML PIGGYBACK IV.SIG SCH ×3 (05:34→20:47)
[2018-07-25] MEDS: Insulin NovoLOG Aspart Correctional Sugar Inj SQ SCH ×4 (09:03→20:50)
[2018-07-25] MEDS: Magnesium Oxide 400 MG Tablet PO SCH ×2 (09:03→20:47)
[2018-07-25] MEDS: Senna/Docusate Sodium 8.6/50 MG Tablet PO SCH ×2 (09:04→20:51)
[2018-07-25] MEDS: Gabapentin 400 MG Capsule PO SCH (09:04)
--- NOTE | 2018-07-25 10:07 | P.PNIM ---
Subjective Interval history: in no acute distress. pain is controlled. working with PT. Physical Exam Vital signs: Last Vital Signs Temp 98.0 F 07/25/18 08:00 Pulse 65 07/25/18 08:00 Resp 17 07/25/18 08:00 BP 117/77 07/25/18 08:00 Pulse Ox 94 L 07/25/18 08:00 Intake & Output 07/23/18 07/24/18 07/25/18 07/26/18 06:59 06:59 06:59 06:59 Intake Total 1230 / 1230 1200 / 1200 2049 Balance 1230 / 1230 1200 / 1200 2049 Weight 64.6 kg 64.8 kg 64.8 kg Constitutional no acute distress Routine Respiratory Exam Present CTA bilaterally Routine Cardiovascular Exam Present RRR Routine Abdominal Exam Present soft Routine Extremities Exam Comments: no pedal edema. Routine Neurological Exam Present alert and oriented X3 Results Labs CBC & Chem 7: 07/24/18 06:12 07/24/18 06:12 Assessment and Plan Plan Generalized weakness, Recurrent Falls: suspect multifactorial with chronic deconditioning, alcohol abuse, dehydration/JOEL -s/p IVF hydration -Fall precautions. -Consulted physical therapy Bacteremia: -3/4 preliminary blood cultures with gram positive cocci/MSSA -continue Ancef -repeated blood cultures negative so far. -ID following, T-spine changes suggestive of osteomyelitis and T11 fracture. ESR 49. neurosurgery consulted. CT guided biopsy when anticoagulation has worn off- possibly on or Tuesday. previously d/w Drs. Plasencia and Hollis. rectal wall thickening; GI consulted- s/p colonoscopy with no rectal abnormalities/ revealed diverticulosis and polyps- s/p polypectomy- biopsies to be followed up. s/p EGD with Schatzki's ring and antral gastropathy- f/u biopsy. Acute kidney injury: secondary to dehydration. Resolved -CK within normal limits. -UA negative -Avoid nephrotoxins -Monitor renal function Hypokalemia:resolved Low TSH but not suppressed. -Free T4 1.76, T3 1.58 suggestive of sick euthyroid -Recommend repeat TSH/T4 in 2-4weeks as outpatient Alcohol abuse: acute -Extensively counseled on cessation, especially on anticoagulation. -thiamine/folate/MV -CIWA protocol. CAD: chronic -continue patient's plavix, statin -unable to start BB due to low BP -monitor on telemetry DVT prophylaxis with SCD and Eliquis (on hold, resume when cleared by GI and neurosurgery) Discharge Planning: pending T spine biopsy and ID recommendations. Progress Note: Quality VTE Deep Vein Thrombosis/Pulmonary Embolism Present on Admission: No
[2018-07-26] MEDS: ceFAZolin 2 GM Premix Inj 2 GM/50 ML PIGGYBACK IV.SIG SCH ×3 (05:18→20:53)
[2018-07-26] MEDS: Insulin NovoLOG Aspart Correctional Sugar Inj SQ SCH ×4 (08:44→23:17)
[2018-07-26] MEDS: Magnesium Oxide 400 MG Tablet PO SCH ×2 (08:45→20:52)
[2018-07-26] MEDS: Gabapentin 400 MG Capsule PO SCH (08:45)
[2018-07-26] MEDS: Senna/Docusate Sodium 8.6/50 MG Tablet PO SCH ×2 (08:46→20:52)
--- NOTE | 2018-07-26 11:03 | P.PNIM ---
Subjective Interval history: in no acute distress. remains afebrile. no new complaints. Physical Exam Vital signs: Last Vital Signs Temp 97.2 F L 07/26/18 08:00 Pulse 62 07/26/18 08:00 Resp 18 07/26/18 08:00 BP 121/77 07/26/18 08:00 Pulse Ox 93 L 07/26/18 08:00 Intake & Output 07/24/18 07/25/18 07/26/18 07/27/18 06:59 06:59 06:59 06:59 Intake Total 1200 / 1200 2049 2200 / 2200 50 / 50 Output Total 250 / 250 Balance 1200 / 1200 2049 1950 / 1950 50 / 50 Weight 64.8 kg 64.8 kg 64.8 kg Constitutional no acute distress Routine Respiratory Exam Present CTA bilaterally Routine Cardiovascular Exam Present RRR Routine Abdominal Exam Present soft Routine Extremities Exam Comments: no pedal edema. Routine Neurological Exam Present alert and oriented X3 Results Labs CBC & Chem 7: 07/24/18 06:12 07/24/18 06:12 Assessment and Plan Plan Generalized weakness, Recurrent Falls: suspect multifactorial with chronic deconditioning, alcohol abuse, dehydration/JOEL -s/p IVF hydration -Fall precautions. -Consulted physical therapy Bacteremia: -3/4 preliminary blood cultures with gram positive cocci/MSSA -continue Ancef -repeated blood cultures negative so far. -ID following, T-spine changes suggestive of osteomyelitis and T11 fracture. ESR 49. neurosurgery consulted. CT guided biopsy when anticoagulation has worn off- possibly on Tuesday.( off Eliquis and Plavix)- previously d/w Drs. Plasencia and Hollis. rectal wall thickening; GI consulted- s/p colonoscopy with no rectal abnormalities/ revealed diverticulosis and polyps- s/p polypectomy- biopsies to be followed up. s/p EGD with Schatzki's ring and antral gastropathy- f/u biopsy. Acute kidney injury: secondary to dehydration. Resolved -CK within normal limits. -UA negative -Avoid nephrotoxins -Monitor renal function Hypokalemia:resolved Low TSH but not suppressed. -Free T4 1.76, T3 1.58 suggestive of sick euthyroid -Recommend repeat TSH/T4 in 2-4weeks as outpatient Alcohol abuse: acute -Extensively counseled on cessation, especially on anticoagulation. -thiamine/folate/MV -CIWA protocol. CAD: chronic -continue statin- plavix on hold for now for spine biopsy. -unable to start BB due to low BP -monitor on telemetry DVT prophylaxis with SCD and Eliquis (on hold, awaiting spine biopsy) Discharge Planning: pending T spine biopsy and ID recommendations. Progress Note: Quality VTE Deep Vein Thrombosis/Pulmonary Embolism Present on Admission: No
[2018-07-27 00:46] LABS: Anion Gap 4 meq/L (5-15); Blood Urea Nitrogen 10 mg/dL (7-18); Calcium 8.6 mg/dL (8.5-10.1); Carbon Dioxide 26.8 meq/L (21.0-32.0); Chloride 111 meq/L (98-107); Glomerular Filtration Rate Greater Than 89 mL/min (>89); Glucose,Random 87 mg/dL (74-106); Magnesium 1.8 mg/dL (1.5-2.5); Sodium 142 meq/L (136-145)
[2018-07-27] MEDS: ceFAZolin 2 GM Premix Inj 2 GM/50 ML PIGGYBACK IV.SIG SCH ×3 (05:49→20:56)
[2018-07-27] MEDS: Senna/Docusate Sodium 8.6/50 MG Tablet PO SCH ×2 (08:40→20:56)
[2018-07-27] MEDS: Gabapentin 400 MG Capsule PO SCH (08:40)
[2018-07-27] MEDS: Insulin NovoLOG Aspart Correctional Sugar Inj SQ SCH ×4 (08:40→20:56)
[2018-07-27] MEDS: Magnesium Oxide 400 MG Tablet PO SCH ×2 (08:45→20:55)
--- NOTE | 2018-07-27 09:46 | P.PNIM ---
Subjective Interval history: f/u; discitis in no acute distress. resting comfortably. afebrile. no new complaints. Physical Exam Vital signs: Last Vital Signs Temp 98.3 F 07/27/18 00:00 Pulse 63 07/27/18 00:00 Resp 18 07/27/18 00:00 BP 105/70 07/27/18 00:00 Pulse Ox 95 07/27/18 00:00 Intake & Output 07/25/18 07/26/18 07/27/18 07/28/18 06:59 06:59 06:59 06:59 Intake Total 2049 2200 / 220 1040 / 1040 Output Total 250 / 250 450 / 450 Balance 2049 1950 / 1950 590 / 590 Weight 64.8 kg 64.8 kg 63.6 kg Constitutional no acute distress Routine Respiratory Exam Present CTA bilaterally Routine Cardiovascular Exam Present RRR Routine Abdominal Exam Present soft Routine Extremities Exam Comments: no pedal edema. Routine Neurological Exam Present alert and oriented X3 Results Labs CBC & Chem 7: 07/24/18 06:12 07/27/18 00:17 Assessment and Plan Plan Generalized weakness, Recurrent Falls: suspect multifactorial with chronic deconditioning, alcohol abuse, dehydration/JOEL -s/p IVF hydration -Fall precautions. -Consulted physical therapy Bacteremia: -3/4 preliminary blood cultures with gram positive cocci/MSSA -continue Ancef -repeated blood cultures negative so far. -ID following, T-spine changes suggestive of osteomyelitis and T11 fracture. ESR 49. neurosurgery consulted. CT guided biopsy when anticoagulation has worn off- possibly on Tuesday.( off Eliquis and Plavix)- previously d/w Drs. Plasencia and Hollis. rectal wall thickening; GI consulted- s/p colonoscopy with no rectal abnormalities/ revealed diverticulosis and polyps- s/p polypectomy- biopsies to be followed up. s/p EGD with Schatzki's ring and antral gastropathy- f/u biopsy. Acute kidney injury: secondary to dehydration. Resolved -CK within normal limits. -UA negative -Avoid nephrotoxins -Monitor renal function Hypokalemia:resolved Low TSH but not suppressed. -Free T4 1.76, T3 1.58 suggestive of sick euthyroid -Recommend repeat TSH/T4 in 2-4weeks as outpatient Alcohol abuse: acute -Extensively counseled on cessation, especially on anticoagulation. -thiamine/folate/MV -CIWA protocol. CAD: chronic -continue statin- plavix on hold for now for spine biopsy. -unable to start BB due to low BP -monitor on telemetry DVT prophylaxis with SCD and Eliquis (on hold, awaiting spine biopsy) Discharge Planning: pending T spine biopsy and ID recommendations. Progress Note: Quality VTE Deep Vein Thrombosis/Pulmonary Embolism Present on Admission: No
[2018-07-28] MEDS: ceFAZolin 2 GM Premix Inj 2 GM/50 ML PIGGYBACK IV.SIG SCH ×3 (05:20→20:16)
[2018-07-28] MEDS ORDERED: fentaNYL Citrate Inj 250 MCG/5 ML Ampul ONE (08:32)
[2018-07-28] MEDS ORDERED: BUPIVACAINE 0.75% ONE (08:55)
--- NOTE | 2018-07-28 10:10 | P.RAD ---
Post Procedure Progress Note - Procedure Information Procedure Date: 07/28/18 Supervising Radiologist: Fadi Cardona MD Estimated blood loss (mL): 5 Anesthesia: Conscious Sedation - Plan of Activity Patient to Unit: [facility] Patient Condition: Good See PACS Report for procedural detail/treatment.
--- NOTE | 2018-07-28 10:25 | P.PN ---
Subjective Interval history: Seen the patient was seen s/p LP today. Feels sleepy and tired. Says he does not have pain at this time. No nausea or vomiting. Denies fever or chills. No chest pain or shortness of breath. Physical Exam Vital signs: Vital Signs 07/27/18 12:00 07/27/18 16:00 07/27/18 20:00 Temperature 97.6 F 97.7 F 98.2 F Pulse Rate 77 73 68 Respiratory Rate 18 19 18 Blood Pressure 134/82 114/72 118/76 Pulse Oximetry 95 94 L 95 07/28/18 00:00 07/28/18 04:00 07/28/18 08:00 Temperature 98.1 F 98.2 F 97.6 F Pulse Rate 70 62 73 Respiratory Rate 18 18 19 Blood Pressure 125/73 126/66 132/85 Pulse Oximetry 95 94 L 93 L Intake & Output 07/27/18 07/28/18 07/28/18 18:59 06:59 18:59 Intake Total 50 / 50 170 / 170 50 / 50 Balance 50 / 50 170 / 170 50 / 50 Weight 63.7 kg Intake: IV 50 / 50 50 / 50 50 / 50 Ancef 2 GM Premix Inj 2 gm In 50 / 50 50 / 50 50 / 50 50 ml @ 200 mls/hr IV.SIG Q8H HU Rx#:[id number] Oral 120 / 120 Other: # Voids 2 Narrative: GENERAL: 68-year-old male, chronically ill appearing, pale, appears tired however not in obvious distress. SKIN: Warm and dry. No rash. CARDIOVASCULAR: Regular rate and rhythm. No murmur appreciated. RESPIRATORY: No accessory muscle use. Clear to auscultation. Breath sounds equal bilaterally. GASTROINTESTINAL: Abdomen soft, non-tender, nondistended. Normoactive bowel sounds x4. MUSCULOSKELETAL: No obvious deformities. Extremities without clubbing, cyanosis , or edema. Tender lower thoracic to upper lumbar spine NEUROLOGICAL: Awake and alert. No obvious cranial nerve deficits. Moving all extremities spontaneously. Normal speech. Results - Labs CBC & Chem 7: 07/24/18 06:12 07/27/18 00:17 Laboratory Results - last 24 hr 07/27/18 07/27/18 07/27/18 11:56 16:24 20:25 POC Glucose 87 123 H 100 07/28/18 07:25 POC Glucose 80 - Procedures Status post T-spine biopsy by IR on 07/28/18 Assessment and Plan - Plan Generalized weakness, Recurrent Falls: -suspect multifactorial with chronic deconditioning, alcohol abuse, dehydration/JOEL -s/p IVF hydration -Fall precautions. -Consulted physical therapy Bacteremia: -3/4 preliminary blood cultures with gram positive cocci/MSSA -continue Ancef -repeated blood cultures negative so far. -ID following, T-spine changes suggestive of osteomyelitis and T11 fracture. ESR 49. neurosurgery consulted. CT guided biopsy ( anticoagulation has worn off- patient was off Eliquis and Plavix)- will need to restart after the procedure Status post T-spine biopsy by IR on 07/28/18 Rectal wall thickening Diverticulosis and polyps- s/p polypectomy Schatzki's ring and antral gastropathy GI consulted s/p colonoscopy with no rectal abnormalities/ revealed diverticulosis and polyps- s/p polypectomy- biopsies to be followed up. s/p EGD with Schatzki's ring and antral gastropathy- f/u biopsy. Acute kidney injury: secondary to dehydration. Resolved -CK within normal limits. -UA negative -Avoid nephrotoxins -Monitor renal function Hypokalemia:resolved Low TSH but not suppressed. -Free T4 1.76, T3 1.58 suggestive of sick euthyroid -Recommend repeat TSH/T4 in 2-4weeks as outpatient Alcohol abuse: acute -Extensively counseled on cessation, especially on anticoagulation. -thiamine/folate/MV -CIWA protocol. CAD: chronic -continue statin- plavix on hold for now for spine biopsy. -unable to start BB due to low BP -monitor on telemetry DVT prophylaxis with SCD and Eliquis (on hold, awaiting spine biopsy) Status post T-spine biopsy by IR on 07/28/18 Discharge plan: Discharge when improved and cleared by ID. The patient is status post a spine biopsy on 07/28/18
[2018-07-28] MEDS: Insulin NovoLOG Aspart Correctional Sugar Inj SQ SCH ×4 (10:30→20:30)
[2018-07-28] MEDS: Magnesium Oxide 400 MG Tablet PO SCH ×2 (10:32→20:17)
[2018-07-28] MEDS: Gabapentin 400 MG Capsule PO SCH (10:36)
[2018-07-28] MEDS: Senna/Docusate Sodium 8.6/50 MG Tablet PO SCH ×2 (10:37→20:18)
--- NOTE | 2018-07-28 16:45 | IR ---
EXAM DATE: 07/28/2018 10:17 AM EST AGE/SEX: 68 years / Male INDICATIONS: Patient presents with history recurrent falls and suspected Osteomyelitis in need of a Bone Biopsy. CLINICAL DATA: This is the patient's initial encounter. Patient reports that signs and symptoms have been present for 1 day and indicates a pain score of Nonresponsive. MEDICAL/SURGICAL HISTORY: Chronic obstructive pulmonary disease. Gastroesophageal reflux disea se. Diabetes. CAD, CHF, ETOH abuse, High Cholesterol, HTN, Liver disease, Macrocytosis without Anem ia, Obesity, Neuropathy, Osteoarthritis of spine. . Heart Artery stent. COMPARISON: No prior exams available for comparison. FLUORO TIME (min): 3.3 IMAGE SERIES: 4 SEDATION TIME (min): 40 MEDICATION(S): 4 mg midazolam (Versed) IV 200 mcg fentanyl (Sublimaze) IV DEVICE(s): SPECIMEN(S): Core specimen(s) obtained and submitted to laboratory for pathologic evaluation. . . PROCEDURE : 1. Fluoroscopically guided needle biopsy. 2. Conscious sedation with continuous EKG and Oximetry monitoring. The risks, benefits and alternatives to the procedure were explained and verbal and written consent w as obtained. The site was prepped in sterile fashion. Full sterile technique was used, including cap, mask, steri le gloves and gown and a large sterile sheet. Hand hygiene and 2% chlorhexidine and/or betadine/alco hol prep was utilized per protocol for cutaneous antisepsis. The skin and subcutaneous tissues were infiltrated with local anesthetic solution. With fluoroscopic guidance an 11-gauge bone biopsy trocar needle was advanced into the T11 vertebral body utilizing a left transpedicular approach. 3 separate core specimens were obtained with samples s ubmitted for both pathology and cultures including AFP. Needle was then removed and small dressing ap plied the puncture site. Conscious sedation was performed with the prescribed dosages and duration as above in the presence of an independent trained radiology nurse to assist in the monitoring of the patient. EKG and oximetry remained stable throughout the procedure. CONCLUSION: 1. Uncomplicated needle biopsy of the T11 vertebral body as above. Electronically signed by: Fadi Cardona MD Board Certified Radiologist 07/28/2018 4:44 PM FABRICE Barreto
[2018-07-29] MEDS: ceFAZolin 2 GM Premix Inj 2 GM/50 ML PIGGYBACK IV.SIG SCH ×3 (04:18→20:23)
[2018-07-29] MEDS: Insulin NovoLOG Aspart Correctional Sugar Inj SQ SCH ×4 (07:59→20:25)
[2018-07-29] MEDS: Gabapentin 400 MG Capsule PO SCH (08:01)
[2018-07-29] MEDS: Magnesium Oxide 400 MG Tablet PO SCH ×2 (08:01→20:25)
[2018-07-29] MEDS: Senna/Docusate Sodium 8.6/50 MG Tablet PO SCH ×2 (08:01→20:24)
--- NOTE | 2018-07-29 14:57 | P.PN ---
Subjective Interval history: Says has constipation. no nausea, able to eat. Not much back pain No fever or chills. Physical Exam Vital signs: Vital Signs 07/28/18 15:14 07/28/18 16:00 07/28/18 20:00 Temperature 97.7 F 98.4 F Pulse Rate 67 64 Respiratory Rate 18 19 17 Blood Pressure 112/78 105/56 L Pulse Oximetry 93 L 97 07/29/18 00:00 07/29/18 04:00 07/29/18 08:00 Temperature 98.4 F 98.1 F 97.6 F Pulse Rate 63 58 L 62 Respiratory Rate 17 17 17 Blood Pressure 116/66 112/69 105/65 Pulse Oximetry 94 L 94 L 93 L 07/29/18 12:00 Temperature 97.6 F Pulse Rate 58 L Respiratory Rate 16 Blood Pressure 110/69 Pulse Oximetry 93 L Intake & Output 07/28/18 07/29/18 07/29/18 18:59 06:59 18:59 Intake Total 100 / 100 580 / 580 50 / 50 Output Total 700 / 700 Balance 100 / 100 -120 / -120 50 / 50 Weight 63.7 kg Intake: IV 100 / 100 100 / 100 50 / 50 Ancef 2 GM Premix Inj 2 gm In 100 / 100 100 / 100 50 / 50 50 ml @ 200 mls/hr IV.SIG Q8H [facility] Rx#:[id number] Oral 480 / 480 Output: Urine 700 / 700 Narrative: GENERAL: 68-year-old male, chronically ill appearing, pale, appears tired however not in obvious distress. SKIN: Warm and dry. No rash. CARDIOVASCULAR: Regular rate and rhythm. No murmur appreciated. RESPIRATORY: No accessory muscle use. Clear to auscultation. Breath sounds equal bilaterally. GASTROINTESTINAL: Abdomen soft, non-tender, nondistended. Normoactive bowel sounds x4. MUSCULOSKELETAL: No obvious deformities. Extremities without clubbing, cyanosis , or edema. Tender lower thoracic to upper lumbar spine NEUROLOGICAL: Awake and alert. No obvious cranial nerve deficits. Moving all extremities spontaneously. Normal speech. Results - Labs CBC & Chem 7: 07/24/18 06:12 07/27/18 00:17 Laboratory Results - last 24 hr 07/28/18 07/28/18 07/29/18 16:55 20:29 07:58 POC Glucose 114 H 98 81 Microbiology 07/28/18 09:25 Tissue - Back Gram Stain - Final 07/28/18 09:25 Tissue - Back Wound Culture - Preliminary No growth in 24 hours - Imaging Impressions Biopsy,Fluoroscopy Guided 07/28/18 00:00 CONCLUSION: 1. Uncomplicated needle biopsy of the T11 vertebral body as above. - Procedures Status post T-spine biopsy by IR on 07/28/18 Assessment and Plan - Plan Generalized weakness, Recurrent Falls: -suspect multifactorial with chronic deconditioning, alcohol abuse, dehydration/JOEL -s/p IVF hydration -Fall precautions. -Consulted physical therapy Bacteremia: -3/4 preliminary blood cultures with gram positive cocci/MSSA -continue Ancef -repeated blood cultures negative so far. -ID following, T-spine changes suggestive of osteomyelitis and T11 fracture. ESR 49. neurosurgery consulted. CT guided biopsy ( anticoagulation has worn off- patient was off Eliquis and Plavix)- will need to restart after the procedure Status post T-spine biopsy by IR on 07/28/18 Rectal wall thickening Diverticulosis and polyps- s/p polypectomy Schatzki's ring and antral gastropathy GI consulted s/p colonoscopy with no rectal abnormalities/ revealed diverticulosis and polyps- s/p polypectomy- biopsies to be followed up. s/p EGD with Schatzki's ring and antral gastropathy- f/u biopsy. Acute kidney injury: secondary to dehydration. Resolved -CK within normal limits. -UA negative -Avoid nephrotoxins -Monitor renal function Hypokalemia:resolved Low TSH but not suppressed. -Free T4 1.76, T3 1.58 suggestive of sick euthyroid -Recommend repeat TSH/T4 in 2-4weeks as outpatient Constipation: Bowel regimen. Alcohol abuse: acute -Extensively counseled on cessation, especially on anticoagulation. -thiamine/folate/MV -CIWA protocol. CAD: chronic -continue statin- plavix on hold for now for spine biopsy. -unable to start BB due to low BP -monitor on telemetry DVT prophylaxis with SCD and Eliquis (on hold, awaiting spine biopsy) Status post T-spine biopsy by IR on 07/28/18 Discharge plan: Discharge when improved and cleared by ID. The patient is status post a spine biopsy on 07/28/18
[2018-07-30] MEDS: ceFAZolin 2 GM Premix Inj 2 GM/50 ML PIGGYBACK IV.SIG SCH ×3 (05:37→21:38)
[2018-07-30] MEDS: Insulin NovoLOG Aspart Correctional Sugar Inj SQ SCH ×4 (07:59→21:39)
[2018-07-30] MEDS: Magnesium Oxide 400 MG Tablet PO SCH ×2 (08:00→21:38)
[2018-07-30] MEDS: Gabapentin 400 MG Capsule PO SCH (08:01)
[2018-07-30] MEDS: Senna/Docusate Sodium 8.6/50 MG Tablet PO SCH ×2 (08:03→21:40)
--- NOTE | 2018-07-30 10:38 | P.PN ---
Subjective Interval history: Patient is in bed he appears tired. Has some back pain with certain movements. Not eating much. No nausea or vomiting. No fever or chills overnight. Physical Exam Vital signs: Vital Signs 07/29/18 12:00 07/29/18 16:00 07/29/18 20:00 Temperature 97.6 F 98.8 F 98.1 F Pulse Rate 58 L 80 70 Respiratory Rate 16 17 17 Blood Pressure 110/69 105/70 114/73 Pulse Oximetry 93 L 95 94 L 07/30/18 00:00 07/30/18 04:00 07/30/18 08:00 Temperature 98.3 F 98.3 F 98.6 F Pulse Rate 61 60 62 Respiratory Rate 16 17 16 Blood Pressure 114/69 117/71 140/69 Pulse Oximetry 95 96 94 L Intake & Output 07/29/18 07/30/18 07/30/18 18:59 06:59 18:59 Intake Total 50 / 50 820 / 820 Balance 50 / 50 820 / 820 Weight 65.4 kg Intake: IV 50 / 50 100 / 100 Ancef 2 GM Premix Inj 2 gm In 50 / 50 100 / 100 50 ml @ 200 mls/hr IV.SIG Q8H [facility] Rx#:[id number] Oral 720 / 720 Other: # Voids 3 Narrative: GENERAL: 68-year-old male, chronically ill appearing, pale, appears tired however not in obvious distress. SKIN: Warm and dry. No rash. CARDIOVASCULAR: Regular rate and rhythm. No murmur appreciated. RESPIRATORY: No accessory muscle use. Clear to auscultation. Breath sounds equal bilaterally. GASTROINTESTINAL: Abdomen soft, non-tender, nondistended. Normoactive bowel sounds x4. MUSCULOSKELETAL: No obvious deformities. Extremities without clubbing, cyanosis , or edema. Tender lower thoracic to upper lumbar spine NEUROLOGICAL: Awake and alert. No obvious cranial nerve deficits. Moving all extremities spontaneously. Normal speech. Results - Labs CBC & Chem 7: 07/24/18 06:12 07/27/18 00:17 Laboratory Results - last 24 hr 07/29/18 07/29/18 07/30/18 15:54 20:24 07:59 POC Glucose 179 H 99 93 Microbiology 07/28/18 09:25 Tissue - Back Gram Stain - Final 07/28/18 09:25 Tissue - Back Wound Culture - Preliminary No growth in 48 hours - Procedures Status post T-spine biopsy by IR on 07/28/18 Assessment and Plan - Plan Generalized weakness, Recurrent Falls: -suspect multifactorial with chronic deconditioning, alcohol abuse, dehydration/JOEL -s/p IVF hydration -Fall precautions. -Consulted physical therapy Bacteremia: -3/4 preliminary blood cultures with gram positive cocci/MSSA -continue Ancef -repeated blood cultures negative so far. -ID following, T-spine changes suggestive of osteomyelitis and T11 fracture. ESR 49. neurosurgery consulted. CT guided biopsy ( anticoagulation has worn off- patient was off Eliquis and Plavix)- will need to restart after the procedure Status post T-spine biopsy by IR on 07/28/18 Rectal wall thickening Diverticulosis and polyps- s/p polypectomy Schatzki's ring and antral gastropathy GI consulted s/p colonoscopy with no rectal abnormalities/ revealed diverticulosis and polyps- s/p polypectomy- biopsies to be followed up. s/p EGD with Schatzki's ring and antral gastropathy- f/u biopsy. Acute kidney injury: secondary to dehydration. Resolved -CK within normal limits. -UA negative -Avoid nephrotoxins -Monitor renal function Hypokalemia:resolved Low TSH but not suppressed. -Free T4 1.76, T3 1.58 suggestive of sick euthyroid -Recommend repeat TSH/T4 in 2-4weeks as outpatient Constipation: Bowel regimen. Alcohol abuse: acute -Extensively counseled on cessation, especially on anticoagulation. -thiamine/folate/MV -CIWA protocol. CAD: chronic -continue statin- plavix on hold for now for spine biopsy. -unable to start BB due to low BP -monitor on telemetry DVT prophylaxis with SCD and Eliquis (on hold, awaiting spine biopsy) Status post T-spine biopsy by IR on 07/28/18 Discharge plan: Discharge when improved and cleared by ID. The patient is status post a spine biopsy on 07/28/18
[2018-07-31] MEDS: ceFAZolin 2 GM Premix Inj 2 GM/50 ML PIGGYBACK IV.SIG SCH ×4 (05:18→20:02)
[2018-07-31] MEDS: Gabapentin 400 MG Capsule PO SCH (08:42)
[2018-07-31] MEDS: Magnesium Oxide 400 MG Tablet PO SCH ×2 (08:43→20:02)
[2018-07-31] MEDS: Insulin NovoLOG Aspart Correctional Sugar Inj SQ SCH ×4 (08:44→20:04)
[2018-07-31] MEDS: Senna/Docusate Sodium 8.6/50 MG Tablet PO SCH ×2 (08:46→20:03)
--- NOTE | 2018-07-31 08:59 | P.PN ---
Subjective Interval history: The patient is in bed appears tired. Has back pain with movement mainly. Not eating much. No nausea vomiting no diarrhea constipation. Had a bowel movement today in the morning. Physical Exam Vital signs: Vital Signs 07/30/18 12:00 07/30/18 16:33 07/30/18 20:00 Temperature 98.5 F 97.9 F 97.9 F Pulse Rate 88 90 86 Respiratory Rate 16 16 18 Blood Pressure 105/64 103/71 116/76 Pulse Oximetry 92 L 95 96 07/31/18 00:00 07/31/18 04:00 Temperature 98.4 F 98.3 F Pulse Rate 68 64 Respiratory Rate 16 18 Blood Pressure 123/77 124/81 Pulse Oximetry 94 L 96 Intake & Output 07/30/18 07/31/18 07/31/18 18:59 06:59 18:59 Intake Total 50 / 50 820 / 820 Output Total 460 / 460 Balance 50 / 50 360 / 360 Weight 64.2 kg Intake: IV 50 / 50 100 / 100 Ancef 2 GM Premix Inj 2 gm In 50 / 50 100 / 100 50 ml @ 200 mls/hr IV.SIG Q8H [facility] Rx#:[id number] Oral 720 / 720 Output: Urine 460 / 460 Other: Date of Last Bowel Movement 07/30/18 # Bowel Movements 1 Narrative: GENERAL: 68-year-old male, chronically ill appearing, pale, appears tired however not in obvious distress. SKIN: Warm and dry. No rash. CARDIOVASCULAR: Regular rate and rhythm. No murmur appreciated. RESPIRATORY: No accessory muscle use. Clear to auscultation. Breath sounds equal bilaterally. GASTROINTESTINAL: Abdomen soft, non-tender, nondistended. Normoactive bowel sounds x4. MUSCULOSKELETAL: No obvious deformities. Extremities without clubbing, cyanosis , or edema. Tender lower thoracic to upper lumbar spine NEUROLOGICAL: Awake and alert. No obvious cranial nerve deficits. Moving all extremities spontaneously. Normal speech. Results - Labs CBC & Chem 7: 07/24/18 06:12 07/27/18 00:17 Laboratory Results - last 24 hr 07/30/18 07/30/18 07/30/18 11:30 16:54 21:37 POC Glucose 97 146 H 99 07/31/18 08:40 POC Glucose 80 Microbiology 07/28/18 09:25 Tissue - Back Gram Stain - Final 07/28/18 09:25 Tissue - Back Wound Culture - Final No growth in 72 hours (aerobically and anaerobically ) - Procedures Status post T-spine biopsy by IR on 07/28/18 Assessment and Plan - Plan Generalized weakness, Recurrent Falls: -suspect multifactorial with chronic deconditioning, alcohol abuse, dehydration/JOEL -s/p IVF hydration -Fall precautions. -Consulted physical therapy Bacteremia: -3/4 preliminary blood cultures with gram positive cocci/MSSA -continue Ancef -repeated blood cultures negative -ID following, T-spine changes suggestive of osteomyelitis and T11 fracture. ESR 49. neurosurgery consulted. CT guided biopsy ( anticoagulation has worn off- patient was off Eliquis and Plavix)- will need to restart after the procedure Status post T-spine biopsy by IR on 07/28/18 Rectal wall thickening Diverticulosis and polyps- s/p polypectomy Schatzki's ring and antral gastropathy GI consulted s/p colonoscopy with no rectal abnormalities/ revealed diverticulosis and polyps- s/p polypectomy- biopsies to be followed up. s/p EGD with Schatzki's ring and antral gastropathy- f/u biopsy. Acute kidney injury: secondary to dehydration. Resolved -CK within normal limits. -UA negative -Avoid nephrotoxins -Monitor renal function Hypokalemia:resolved Low TSH but not suppressed. -Free T4 1.76, T3 1.58 suggestive of sick euthyroid -Recommend repeat TSH/T4 in 2-4weeks as outpatient Constipation: Bowel regimen. Alcohol abuse: acute -Extensively counseled on cessation, especially on anticoagulation. -thiamine/folate/MV -CIWA protocol. CAD: chronic -continue statin- plavix on hold for now for spine biopsy. -unable to start BB due to low BP -monitor on telemetry DVT prophylaxis with SCD and Eliquis (on hold, awaiting spine biopsy) Status post T-spine biopsy by IR on 07/28/18 Discharge plan: Discharge when improved and cleared by ID. The patient is status post a spine biopsy on 07/28/18. Pathology is pending
[2018-08-01] MEDS: ceFAZolin 2 GM Premix Inj 2 GM/50 ML PIGGYBACK IV.SIG SCH ×3 (04:14→20:01)
[2018-08-01] MEDS: Insulin NovoLOG Aspart Correctional Sugar Inj SQ SCH ×4 (08:28→20:03)
[2018-08-01] MEDS: Magnesium Oxide 400 MG Tablet PO SCH ×2 (09:46→20:01)
[2018-08-01] MEDS: Gabapentin 400 MG Capsule PO SCH (09:46)
[2018-08-01] MEDS: Senna/Docusate Sodium 8.6/50 MG Tablet PO SCH ×2 (09:48→20:02)
--- NOTE | 2018-08-01 13:03 | P.PNID ---
Subjective Remarks: MR showed L spine lesion osteo vs mets scheduled for CT guided bx after holding Plavix till the end of the week No new issue Growing MSSA in 4/4 bottles of bl clx repeat BC negative path cw osteo 2 D echo negative Antibiotics: cefazolin Allergies/Adverse Reactions: Allergies No Known Allergies Allergy (Verified 05/10/18 08:20) Objective Vital Signs 07/31/18 16:00 07/31/18 19:29 07/31/18 20:00 Temperature 97.6 F 98.1 F Pulse Rate 59 L 65 Respiratory Rate 18 17 17 Blood Pressure 113/67 112/64 Pulse Oximetry 97 96 07/31/18 20:07 08/01/18 00:00 08/01/18 00:20 Temperature 97.7 F Pulse Rate 67 63 60 Respiratory Rate 17 Blood Pressure 112/70 Pulse Oximetry 96 08/01/18 04:00 08/01/18 04:01 08/01/18 08:00 Temperature 98.3 F 97.4 F L Pulse Rate 60 58 L 60 Respiratory Rate 17 16 Blood Pressure 113/68 123/82 Pulse Oximetry 96 94 L 08/01/18 12:00 Temperature 97.8 F Pulse Rate 65 Respiratory Rate 16 Blood Pressure 104/66 Pulse Oximetry 94 L Intake & Output 07/31/18 08/01/18 08/01/18 18:59 06:59 18:59 Intake Total 50 / 50 340 / 340 Output Total 300 / 300 Balance 50 / 50 40 / 40 Weight 64 kg Intake: IV 50 / 50 100 / 100 Ancef 2 GM Premix Inj 2 gm In 50 / 50 100 / 100 50 ml @ 200 mls/hr IV.SIG Q8H [facility] Rx#:[id number] Oral 240 / 240 Output: Urine 300 / 300 Other: # Voids 1 Date of Last Bowel Movement 07/30/18 07/30/18 07/28/18 09:25 Tissue - Back Acid Fast Bacilli Smear - Final No acid fast bacilli seen 07/28/18 09:25 Tissue - Back Mycobacterial Culture - Pending 07/28/18 09:25 Tissue - Back Gram Stain - Final 07/28/18 09:25 Tissue - Back Wound Culture - Final No growth in 72 hours (aerobically and anaerobically ) Lab - Chemistry Results 07/30/18 07/30/18 07/31/18 16:54 21:37 08:40 POC Glucose 146 H 99 80 07/31/18 07/31/18 07/31/18 11:57 16:33 20:04 POC Glucose 179 H 120 H 100 08/01/18 08/01/18 08:26 11:55 POC Glucose 92 98 Imaging: ITS Impressions Chest X-Ray 07/15/18 11:06 CONCLUSION: 1. No new or acute intrathoracic disease. 2. Chronic-appearing nondisplaced fracture involving the distal right clavicle. Abdomen/Pelvis CT 07/16/18 00:00 CONCLUSION: 1. Circumferential rectal wall thickening. Correlation with physical exam/ sigmoidoscopy is recommended. 2. Ill-defined superior endplate erosive changes and subtle compression deformity of T11 superior endplate with prevertebral soft tissue changes. Differential considerations include osteomyelitis. Recommend further characterization with contrast-enhanced MRI exam. 3. Trace bilateral pleural effusions with associated airspace consolidation at the lung bases. 4. Apparent gallbladder wall thickening. This may be due to hypoalbuminemia. Ultrasound examination may be performed if there is continued clinical concern. Lumbar Spine MRI 07/16/18 00:00 CONCLUSION: 1. Abnormal signal and enhancement at T10 and T11 vertebral bodies without significant intervening disc signal abnormality or epidural enhancement. There is some prevertebral soft tissue prominence and enhancement particularly at T11. Findings are most concerning for metastatic disease with associated pathologic fracture at T11. Differential considerations include osteomyelitis. This process is not completely imaged on this lumbar MRI exam. Recommend MRI examination of the thoracic spine with contrast for better evaluation. Thoracic Spine MRI 07/17/18 00:00 CONCLUSION: 1. There is abnormal signal in the bodies of T10 and T11 with some compression along the superior endplate of T11. There is no abnormal enhancement at the disc space of T10-T11. There is abnormal enhancing soft tissue surrounding the vertebral bodies of T10 and T11. These findings suggest either an inflammatory process such as osteomyelitis without discitis versus neoplastic disease. Recommend correlation with patient's physical, clinical exam and laboratory values. A CT-guided needle biopsy of this area could be performed for pathologic diagnosis.. Biopsy,Fluoroscopy Guided 07/28/18 00:00 CONCLUSION: 1. Uncomplicated needle biopsy of the T11 vertebral body as above. Physical Exam: GENERAL: NAD SKIN: Warm and dry. HEAD: Atraumatic. Normocephalic. no Janeway lesion no splinter hemorrhages EYES: Pupils equal and round. No scleral icterus. No injection or drainage. ENT: No nasal bleeding or discharge. Mucous membranes pink and moist. NECK: Trachea midline. No JVD. CARDIOVASCULAR: Regular rate and rhythm. no murmurs RESPIRATORY: No accessory muscle use. Clear to auscultation. Breath sounds equal bilaterally. GASTROINTESTINAL: Abdomen soft, non-tender, nondistended. Hepatic and splenic margins not palpable. MUSCULOSKELETAL: Extremities without clubbing, cyanosis, or edema. BACK: some tenderness to palpation NEUROLOGICAL: Awake and alert. Non focal moves BLE 5/5 PSYCHIATRIC: calm, cooperative Assessment and Plan - Plan MSSA sepsis, awaiting final sensies Source is T11 spine osteo no fever or typicl embolic phenomena to clinically suggest endocarditis; repeat BC negative will hold off on BONNIE 2 D echo negative cont cefazolin x 8 wks fu repeat BC PICC' OPAT repeat MR in 6-8 weeks, earlier if neuro smx and/or worse pain OK to dc from [facility] fu with Dr Borden in 2-4 weeks after dc
--- NOTE | 2018-08-01 13:11 | P.DCO ---
Post Hospital Infusion Therapy - Infusion Therapy Location of Infusion Therapy: [facility] Infusion Therapy Order - Patient Information Patient Weight: 64 kg - Administer Medication Cefazolin Dose: 2 grams IV Directions: q 8 hours Start Treatment: 08/01/18 Stop Treatment: 09/10/18 - Additional Information Venous Access: PICC Line Additional Instructions: [x] Peripheral flush and dressing changes per protocol [x] Implanted port and central molding line assistant: * Implanted port: 10 ml Normal Saline followed by 5 ml Heparin 100 units/ml Heparin flush after each use and monthly to maintain. [] May leave port accessed during therapy. [] May leave peripheral site accessed for duration of therapy. [x] If patient has SOB or respiratory distress, check oxygen saturation. If less than 90% or clinical signs of respiratory distress, administer oxygen at 2 L/min. via nasal cannula and notify physician. [x] Anaphylaxis/Reaction orders: * Stop infusion. * Keep IV line open with saline flush. * Notify physician. * Monitor vital signs every 15 minutes until symptoms resolve. * Check Oxygen saturation; Oxygen at 2 L/min. via nasal cannula if less than 90% or clinical signs of respiratory distress. * Administer diphenhydramine (Benadryl) 25 mg IV STAT, (unless patient has received as pre-med). May repeat once, if necessary. * Solu-Cortef 250 mg IVP over 30-60 seconds, use 100 mg vials for each dissolution. * Epinephrine (1mg/1 ml) 0.3 mg subcutaneously or IVP now with any signs of respiratory distress. * Check with physician for new additional pre-med orders if patient is re- challenged or re-treated. [x] May remove PICC line when treatment complete, after confirming with Physician. [x] If the patient is admitted to the hospital, the ED, or transferred via [facility] , complete transfer form including medication reconciliation order sheet. Weekly Labs: CBC w/diff, CMP, CRP, SED Rate - Case Management Consult Case Management Consult-IVF: Yes - Patient Information Allergies No Known Allergies Allergy (Verified 05/10/18 08:20)
--- NOTE | 2018-08-01 13:28 | P.DS ---
Date of admission: 07/15/18 15:07 Primary care physician: UNKNOWN Brief History from admission: This is a 68-year-old male with a history of ETOH abuse, recurrent falls using walker, Coronary artery disease on Plavix, diabetes mellitus with neuropathy, hypertension, COPD and PE on Eliquis. His brought him to the hospital because he has been sleeping for the past 2 days. He has not been eating. Patient states that he got up last night because he was thirsty and fell while using his walker thinks he broke his right lower ribs. Denies head injury or injuries. Chest x-ray independently reviewed by me with no acute cardiopulmonary disease. ER evaluation shows acute kidney injury with creatinine 1.83 and hypokalemia 2.9. Patient received 20 mEq IV potassium and 40 mg p.o. EKG independently reviewed by me with sinus rhythm, marked right axis deviation, right bundle branch block no significant change from previous. Patient denies no new medications. No fever, chills, cough, UTI symptoms and diarrhea. All other systems reviewed negative DS: Diagnosis - Discharge Diagnosis (1) Hypokalemia Status: Acute (2) Elevated liver enzymes Status: Acute (3) Chronic alcoholism Status: Acute (4) Physical deconditioning Status: Acute (5) Recurrent falls Status: Acute (6) Fracture, thoracic vertebra, compression Status: Acute (7) GI bleed Status: Acute (8) Unintentional weight loss Status: Acute DS: Summary Hospital Course: Generalized weakness, Recurrent Falls: -suspect multifactorial with chronic deconditioning, alcohol abuse, dehydration/JOEL -s/p IVF hydration -Fall precautions. -Consulted physical therapy Bacteremia: -3/4 preliminary blood cultures with gram positive cocci/MSSA -continue Ancef -repeated blood cultures negative -ID following, ABX at DC : Cefazolin Dose: 2 grams IV. Directions: q 8 hours. Start Treatment: 08/01/18 . Stop Treatment: 09/10/18 T-spine changes suggestive of osteomyelitis and T11 fracture. ESR 49. neurosurgery consulted. CT guided biopsy ( anticoagulation has worn off- patient was off Eliquis and Plavix)- restarted after the procedure Status post T-spine biopsy by IR on 07/28/18: pathology resultes T11 BONE, BIOPSY: DEVITALIZED BONE FRAGMENTS, SLIGHTLY FIBROTIC MARROW, AND INCREASED PLASMA CELLS, SUSPICIOUS FOR MILD CHRONIC OSTEOMYELITIS. Rectal wall thickening Diverticulosis and polyps- s/p polypectomy Schatzki's ring and antral gastropathy GI consulted s/p colonoscopy with no rectal abnormalities/ revealed diverticulosis and polyps- s/p polypectomy- biopsies to be followed up. s/p EGD with Schatzki's ring and antral gastropathy- f/u biopsy. Acute kidney injury: secondary to dehydration. Resolved -CK within normal limits. -UA negative -Avoid nephrotoxins -Monitor renal function Hypokalemia:resolved Low TSH but not suppressed. -Free T4 1.76, T3 1.58 suggestive of sick euthyroid -Recommend repeat TSH/T4 in 2-4weeks as outpatient Constipation: Bowel regimen. Alcohol abuse: acute -Extensively counseled on cessation, especially on anticoagulation. -thiamine/folate/MV -CIWA protocol. CAD: chronic -continue statin- plavix on hold for now for spine biopsy. -unable to start BB due to low BP -monitor on telemetry DVT prophylaxis with SCD and Eliquis (on hold, awaiting spine biopsy) Status post T-spine biopsy by IR on 07/28/18 Discharge plan: Discharge when improved and cleared by ID. The patient is status post a spine biopsy on 07/28/18. Pathology reviewed and discussed with Dr Ilsas. DC on IV abx at [facility]. To follow up as OP with PCP and consultants. ABX at [facility] : Cefazolin Dose: 2 grams IV. Directions: q 8 hours. Start Treatment: 08/01/18 . Stop Treatment: 09/10/18 - Time Spent with Patient Total time spent providing and/or coordinating discharge services: Greater than 30 minutes - Quality: VTE Deep Vein Thrombosis/Pulmonary Embolism Present on Admission: No Exam Vital signs: Vital Signs 07/31/18 16:00 07/31/18 19:29 07/31/18 20:00 Temperature 97.6 F 98.1 F Pulse Rate 59 L 65 Respiratory Rate 18 17 17 Blood Pressure 113/67 112/64 Pulse Oximetry 97 96 07/31/18 20:07 08/01/18 00:00 08/01/18 00:20 Temperature 97.7 F Pulse Rate 67 63 60 Respiratory Rate 17 Blood Pressure 112/70 Pulse Oximetry 96 08/01/18 04:00 08/01/18 04:01 08/01/18 08:00 Temperature 98.3 F 97.4 F L Pulse Rate 60 58 L 60 Respiratory Rate 17 16 Blood Pressure 113/68 123/82 Pulse Oximetry 96 94 L 08/01/18 12:00 Temperature 97.8 F Pulse Rate 65 Respiratory Rate 16 Blood Pressure 104/66 Pulse Oximetry 94 L Intake & Output 07/31/18 08/01/18 08/01/18 18:59 06:59 18:59 Intake Total 50 / 50 340 / 340 Output Total 300 / 300 Balance 50 / 50 40 / 40 Weight 64 kg 64 kg Intake: IV 50 / 50 100 / 100 Ancef 2 GM Premix Inj 2 gm In 50 / 50 100 / 100 50 ml @ 200 mls/hr IV.SIG Q8H [facility] Rx#:[id number] Oral 240 / 240 Output: Urine 300 / 300 Other: # Voids 1 Date of Last Bowel Movement 07/30/18 07/30/18 Narrative: GENERAL: 68-year-old male, chronically ill appearing, pale, appears tired however not in obvious distress. SKIN: Warm and dry. No rash. CARDIOVASCULAR: Regular rate and rhythm. No murmur appreciated. RESPIRATORY: No accessory muscle use. Clear to auscultation. Breath sounds equal bilaterally. GASTROINTESTINAL: Abdomen soft, non-tender, nondistended. Normoactive bowel sounds x4. MUSCULOSKELETAL: No obvious deformities. Extremities without clubbing, cyanosis , or edema. Tender lower thoracic to upper lumbar spine NEUROLOGICAL: Awake and alert. No obvious cranial nerve deficits. Moving all extremities spontaneously. Normal speech. Results Procedures completed during hospitalization: Status post T-spine biopsy by IR on 07/28/18 Completed studies during hospitalization: Pending at discharge 07/20/18 07:23 Surgical [PTH] Routine Labs on day of discharge: Labs from last 24 hours 08/01/18 08/01/18 07/31/18 11:55 08:26 20:04 POC Glucose 98 92 100 07/31/18 16:33 POC Glucose 120 H - Impressions ITS Impressions Chest X-Ray 07/15/18 11:06 CONCLUSION: 1. No new or acute intrathoracic disease. 2. Chronic-appearing nondisplaced fracture involving the distal right clavicle. Abdomen/Pelvis CT 07/16/18 00:00 CONCLUSION: 1. Circumferential rectal wall thickening. Correlation with physical exam/ sigmoidoscopy is recommended. 2. Ill-defined superior endplate erosive changes and subtle compression deformity of T11 superior endplate with prevertebral soft tissue changes. Differential considerations include osteomyelitis. Recommend further characterization with contrast-enhanced MRI exam. 3. Trace bilateral pleural effusions with associated airspace consolidation at the lung bases. 4. Apparent gallbladder wall thickening. This may be due to hypoalbuminemia. Ultrasound examination may be performed if there is continued clinical concern. Lumbar Spine MRI 07/16/18 00:00 CONCLUSION: 1. Abnormal signal and enhancement at T10 and T11 vertebral bodies without significant intervening disc signal abnormality or epidural enhancement. There is some prevertebral soft tissue prominence and enhancement particularly at T11. Findings are most concerning for metastatic disease with associated pathologic fracture at T11. Differential considerations include osteomyelitis. This process is not completely imaged on this lumbar MRI exam. Recommend MRI examination of the thoracic spine with contrast for better evaluation. Thoracic Spine MRI 07/17/18 00:00 CONCLUSION: 1. There is abnormal signal in the bodies of T10 and T11 with some compression along the superior endplate of T11. There is no abnormal enhancement at the disc space of T10-T11. There is abnormal enhancing soft tissue surrounding the vertebral bodies of T10 and T11. These findings suggest either an inflammatory process such as osteomyelitis without discitis versus neoplastic disease. Recommend correlation with patient's physical, clinical exam and laboratory values. A CT-guided needle biopsy of this area could be performed for pathologic diagnosis.. Biopsy,Fluoroscopy Guided 07/28/18 00:00 CONCLUSION: 1. Uncomplicated needle biopsy of the T11 vertebral body as above. Discharge Plan - Discharge Disposition Patient Disposition: Discharge to SNF - Discharge Condition Condition: Stable - Discharge Order Discharge Orders: Discharge Order (Routine); Ordered 08/01/18 Ordered By: Alecia Hidalgo ED Use Only Admit Order (Routine); Ordered 07/15/18 Ordered By: Roberto Molina - Discharge Details Anticipated Discharge Date: 08/01/18 - Physicians Team Primary Care Provider: UNKNOWN, Attending Provider: Alecia Hidalgo Other Providers: Emil Stein ; Alissa Shafer MD ; Tim Borden MD ; [facility] ; Seng Rosario MD
[2018-08-01 15:13] LABS: Baso # (Auto) 0.1 th/mm3 (0.0-0.2); Eos # (Auto) 0.5 th/mm3 (0.0-0.4); Eos % (Auto) 6.9 % (0.0-4.0); Hematocrit 33.2 % (39.0-51.0); Hemoglobin 11.7 gm/dL (13.0-17.0); Lymph % (Auto) 30.3 % (9.0-44.0); Mean Corpuscular HGB Conc 35.2 % (32.0-36.0); Mean Corpuscular Hemoglobin 34.5 pg (27.0-34.0); Mean Platelet Volume 8.1 fL (7.0-11.0); Mono # (Auto) 0.5 th/mm3 (0.0-0.9); Mono % (Auto) 7.8 % (0.0-8.0); Neut # (Auto) 3.6 th/mm3 (1.8-7.7); Platelet Count 220 th/mm3 (150-450); Red Blood Count 3.39 mil/mm3 (4.50-5.90); Red Cell Distribution Width 14.9 % (11.6-17.2); White Blood Count 6.6 th/mm3 (4.0-11.0)
[2018-08-01 15:25] LABS: Activated Partial Thrombo Time 34.5 sec (23.4-31.7); INR 1.2 Ratio; Prothrombin Time 12.3 sec (9.8-11.6)
[2018-08-01 15:36] LABS: Anion Gap 6 meq/L (5-15); Blood Urea Nitrogen 12 mg/dL (7-18); Calcium 8.5 mg/dL (8.5-10.1); Carbon Dioxide 27.8 meq/L (21.0-32.0); Chloride 107 meq/L (98-107); Glomerular Filtration Rate Greater Than 89 mL/min (>89); Glucose,Random 136 mg/dL (74-106); Sodium 141 meq/L (136-145)
[2018-08-01] MEDS ORDERED: Heparin Central Flush 100 UNIT/ML 5 ML Vial IV.FLUSH PRN (17:17)
--- NOTE | 2018-08-01 18:21 | P.PN ---
Subjective Interval history: Seen earlier. Patient is able to walk a little with PT, needs rehab Path back discussed with ID and patient will have IV abx at DC to snf Patient deies cp, sob, n/v/d/c. Eating better Back pain with certain movement controlled by pain meds. Physical Exam Vital signs: Vital Signs 07/31/18 19:29 07/31/18 20:00 07/31/18 20:07 Temperature 98.1 F Pulse Rate 65 67 Respiratory Rate 17 17 Blood Pressure 112/64 Pulse Oximetry 96 08/01/18 00:00 08/01/18 00:20 08/01/18 04:00 Temperature 97.7 F 98.3 F Pulse Rate 63 60 60 Respiratory Rate 17 17 Blood Pressure 112/70 113/68 Pulse Oximetry 96 96 08/01/18 04:01 08/01/18 08:00 08/01/18 12:00 Temperature 97.4 F L 97.8 F Pulse Rate 58 L 60 65 Respiratory Rate 16 16 Blood Pressure 123/82 104/66 Pulse Oximetry 94 L 94 L 08/01/18 16:00 Temperature 97.2 F L Pulse Rate 68 Respiratory Rate 17 Blood Pressure 102/67 Pulse Oximetry 94 L Intake & Output 07/31/18 08/01/18 08/01/18 18:59 06:59 18:59 Intake Total 50 / 50 340 / 340 50 / 50 Output Total 300 / 300 Balance 50 / 50 40 / 40 50 / 50 Weight 64 kg 64 kg Intake: IV 50 / 50 100 / 100 50 / 50 Ancef 2 GM Premix Inj 2 gm In 50 / 50 100 / 100 50 / 50 50 ml @ 200 mls/hr IV.SIG Q8H [facility] Rx#:[id number] Oral 240 / 240 Output: Urine 300 / 300 Other: # Voids 1 Date of Last Bowel Movement 07/30/18 07/30/18 Narrative: GENERAL: 68-year-old male, chronically ill appearing, pale, appears tired however not in obvious distress. SKIN: Warm and dry. No rash. CARDIOVASCULAR: Regular rate and rhythm. No murmur appreciated. RESPIRATORY: No accessory muscle use. Clear to auscultation. Breath sounds equal bilaterally. GASTROINTESTINAL: Abdomen soft, non-tender, nondistended. Normoactive bowel sounds x4. MUSCULOSKELETAL: No obvious deformities. Extremities without clubbing, cyanosis , or edema. Tender lower thoracic to upper lumbar spine NEUROLOGICAL: Awake and alert. No obvious cranial nerve deficits. Moving all extremities spontaneously. Normal speech. Results - Labs CBC & Chem 7: 08/01/18 14:54 08/01/18 14:54 Laboratory Results - last 24 hr 07/31/18 08/01/18 08/01/18 20:04 08:26 11:55 WBC RBC Hgb Hct MCV MCH MCHC RDW Plt Count MPV Neut % (Auto) Lymph % (Auto) [place] % (Auto) Eos % (Auto) Baso % (Auto) Neut # (Auto) Lymph # (Auto) [place] # (Auto) Eos # (Auto) Baso # (Auto) WBC Differential Differential Comment PT INR APTT Sodium Potassium Chloride Carbon Dioxide Anion Gap BUN Creatinine Estimated GFR POC Glucose 100 92 98 Random Glucose Calcium 08/01/18 08/01/18 08/01/18 14:54 14:54 14:54 WBC 6.6 RBC 3.39 L Hgb 11.7 L Hct 33.2 L MCV 98.0 MCH 34.5 H MCHC 35.2 RDW 14.9 Plt Count 220 MPV 8.1 Neut % (Auto) 54.0 Lymph % (Auto) 30.3 [place] % (Auto) 7.8 Eos % (Auto) 6.9 H Baso % (Auto) 1.0 Neut # (Auto) 3.6 Lymph # (Auto) 2.0 [place] # (Auto) 0.5 Eos # (Auto) 0.5 H Baso # (Auto) 0.1 WBC Differential . Differential Comment Auto diff final PT 12.3 H INR 1.2 APTT 34.5 H Sodium 141 Potassium 4.0 Chloride 107 Carbon Dioxide 27.8 Anion Gap 6 BUN 12 Creatinine 0.56 L Estimated GFR Greater than 89 POC Glucose Random Glucose 136 H Calcium 8.5 08/01/18 08/01/18 14:54 17:40 WBC RBC Hgb Hct MCV MCH MCHC RDW Plt Count MPV Neut % (Auto) Lymph % (Auto) [place] % (Auto) Eos % (Auto) Baso % (Auto) Neut # (Auto) Lymph # (Auto) [place] # (Auto) Eos # (Auto) Baso # (Auto) WBC Differential Differential Comment PT Cancelled INR Cancelled APTT Sodium Potassium Chloride Carbon Dioxide Anion Gap BUN Creatinine Estimated GFR POC Glucose 102 Random Glucose Calcium Microbiology 07/28/18 09:25 Tissue - Back Acid Fast Bacilli Smear - Final No acid fast bacilli seen - Procedures Status post T-spine biopsy by IR on 07/28/18 Assessment and Plan - Assessment (1) Hypokalemia Code(s): E87.6 - Hypokalemia Status: Acute (2) Elevated liver enzymes Code(s): R74.8 - Abnormal levels of other serum enzymes Status: Acute (3) Chronic alcoholism Code(s): F10.20 - Alcohol dependence, uncomplicated Status: Acute (4) Physical deconditioning Code(s): R53.81 - Other malaise Status: Acute (5) Recurrent falls Code(s): R29.6 - Repeated falls Status: Acute (6) Fracture, thoracic vertebra, compression Code(s): S22.000A - Wedge compression fracture of unspecified thoracic vertebra , initial encounter for closed fracture Status: Acute (7) GI bleed Code(s): K92.2 - Gastrointestinal hemorrhage, unspecified Status: Acute (8) Unintentional weight loss Code(s): R63.4 - Abnormal weight loss Status: Acute - Plan Generalized weakness, Recurrent Falls: -suspect multifactorial with chronic deconditioning, alcohol abuse, dehydration/JOEL -s/p IVF hydration -Fall precautions. -Consulted physical therapy Bacteremia: -3/4 preliminary blood cultures with gram positive cocci/MSSA -continue Ancef -repeated blood cultures negative -ID following, ABX at DC : Cefazolin Dose: 2 grams IV. Directions: q 8 hours. Start Treatment: 08/01/18 . Stop Treatment: 09/10/18 T-spine changes suggestive of osteomyelitis and T11 fracture. ESR 49. neurosurgery consulted. CT guided biopsy ( anticoagulation has worn off- patient was off Eliquis and Plavix)- restarted after the procedure Status post T-spine biopsy by IR on 07/28/18: pathology resultes T11 BONE, BIOPSY: DEVITALIZED BONE FRAGMENTS, SLIGHTLY FIBROTIC MARROW, AND INCREASED PLASMA CELLS, SUSPICIOUS FOR MILD CHRONIC OSTEOMYELITIS. Rectal wall thickening Diverticulosis and polyps- s/p polypectomy Schatzki's ring and antral gastropathy GI consulted s/p colonoscopy with no rectal abnormalities/ revealed diverticulosis and polyps- s/p polypectomy- biopsies to be followed up. s/p EGD with Schatzki's ring and antral gastropathy- f/u biopsy. Acute kidney injury: secondary to dehydration. Resolved -CK within normal limits. -UA negative -Avoid nephrotoxins -Monitor renal function Hypokalemia:resolved Low TSH but not suppressed. -Free T4 1.76, T3 1.58 suggestive of sick euthyroid -Recommend repeat TSH/T4 in 2-4weeks as outpatient Constipation: Bowel regimen. Alcohol abuse: acute -Extensively counseled on cessation, especially on anticoagulation. -thiamine/folate/MV -CIWA protocol. CAD: chronic -continue statin- plavix on hold for now for spine biopsy. -unable to start BB due to low BP -monitor on telemetry DVT prophylaxis with SCD and Eliquis (on hold, awaiting spine biopsy) Status post T-spine biopsy by IR on 07/28/18 Discharge plan: Discharge when improved and cleared by ID. The patient is status post a spine biopsy on 07/28/18. Pathology reviewed and discussed with Dr Islas. DC on IV abx at [facility]. To follow up as OP with PCP and consultants. ABX at DC : Cefazolin Dose: 2 grams IV. Directions: q 8 hours. Start Treatment: 08/01/18 . Stop Treatment: 09/10/18 [facility] [place] [facility] Prescription Drug Monitoring Database has been queried and verified prior to prescribing the controlled substance. Acute pain exception. This patient has normal, predicted, physiological, and time limited response to an adverse mechanical stimulus associated with surgery, trauma, or acute illness as described in my notes. There is a lack of alternative treatment options other than to include the prescribed narcotic treatment for this condition. (6) Fracture, thoracic vertebra, compression Qualifiers: Encounter type: initial encounter Fracture type: closed Qualified Code(s): S22.000A - Wedge compression fracture of unspecified thoracic vertebra, initial encounter for closed fracture
[2018-08-02] MEDS: ceFAZolin 2 GM Premix Inj 2 GM/50 ML PIGGYBACK IV.SIG SCH ×3 (04:17→20:13)
[2018-08-02] MEDS: Insulin NovoLOG Aspart Correctional Sugar Inj SQ SCH ×4 (09:18→20:16)
[2018-08-02] MEDS: Heparin Central Flush 100 UNIT/ML 5 ML Vial IV.FLUSH SCH (09:20)
[2018-08-02] MEDS: Gabapentin 400 MG Capsule PO SCH (09:21)
[2018-08-02] MEDS: Senna/Docusate Sodium 8.6/50 MG Tablet PO SCH ×2 (09:22→20:20)
[2018-08-02] MEDS: Magnesium Oxide 400 MG Tablet PO SCH ×2 (09:22→20:13)
--- NOTE | 2018-08-02 12:06 | P.PNIM ---
Subjective Interval history: Patient in nad. No nausea, eating better. Pain in his back is fairly controlled by meds. No fever or chills. Plan to DC to SNF when arrangements are done Physical Exam Vital signs: Last Vital Signs Temp 97.6 F 08/02/18 11:45 Pulse 57 L 08/02/18 11:45 Resp 17 08/02/18 11:45 BP 109/64 08/02/18 11:45 Pulse Ox 96 08/02/18 11:45 Intake & Output 07/31/18 08/01/18 08/02/18 08/03/18 06:59 06:59 06:59 06:59 Intake Total 870 / 870 390 / 390 1450 / 1450 Output Total 460 / 460 300 / 300 700 / 700 Balance 410 / 410 90 / 90 750 / 750 Weight 64.2 kg 64 kg 64 kg Narrative: GENERAL: 68-year-old male, chronically ill appearing, pale, appears tired however not in obvious distress. SKIN: Warm and dry. No rash. CARDIOVASCULAR: Regular rate and rhythm. No murmur appreciated. RESPIRATORY: No accessory muscle use. Clear to auscultation. Breath sounds equal bilaterally. GASTROINTESTINAL: Abdomen soft, non-tender, nondistended. Normoactive bowel sounds x4. MUSCULOSKELETAL: No obvious deformities. Extremities without clubbing, cyanosis , or edema. Tender lower thoracic to upper lumbar spine NEUROLOGICAL: Awake and alert. No obvious cranial nerve deficits. Moving all extremities spontaneously. Normal speech. Results Labs CBC & Chem 7: 08/01/18 14:54 08/01/18 14:54 Procedures Procedures: Status post T-spine biopsy by IR on 07/28/18 Assessment and Plan (1) Hypokalemia: Code(s): E87.6 - Hypokalemia Status: Acute (2) Elevated liver enzymes: Code(s): R74.8 - Abnormal levels of other serum enzymes Status: Acute (3) Chronic alcoholism: Code(s): F10.20 - Alcohol dependence, uncomplicated Status: Acute (4) Physical deconditioning: Code(s): R53.81 - Other malaise Status: Acute (5) Recurrent falls: Code(s): R29.6 - Repeated falls Status: Acute (6) Fracture, thoracic vertebra, compression: Code(s): S22.000A - Wedge compression fracture of unspecified thoracic vertebra, initial encounter for closed fracture Status: Acute (7) GI bleed: Code(s): K92.2 - Gastrointestinal hemorrhage, unspecified Status: Acute (8) Unintentional weight loss: Code(s): R63.4 - Abnormal weight loss Status: Acute Plan Generalized weakness, Recurrent Falls: -suspect multifactorial with chronic deconditioning, alcohol abuse, dehydration/OJEL -s/p IVF hydration -Fall precautions. -Consulted physical therapy Bacteremia: -3/4 preliminary blood cultures with gram positive cocci/MSSA -continue Ancef -repeated blood cultures negative -ID following, ABX at DC : Cefazolin Dose: 2 grams IV. Directions: q 8 hours. Start Treatment: 08/01/18 . Stop Treatment: 09/10/18 T-spine changes suggestive of osteomyelitis and T11 fracture. ESR 49. neurosurgery consulted. CT guided biopsy ( anticoagulation has worn off- patient was off Eliquis and Plavix)- restarted after the procedure Status post T-spine biopsy by IR on 07/28/18: pathology resultes T11 BONE, BIOPSY: DEVITALIZED BONE FRAGMENTS, SLIGHTLY FIBROTIC MARROW, AND INCREASED PLASMA CELLS, SUSPICIOUS FOR MILD CHRONIC OSTEOMYELITIS. Rectal wall thickening Diverticulosis and polyps- s/p polypectomy Schatzki's ring and antral gastropathy GI consulted s/p colonoscopy with no rectal abnormalities/ revealed diverticulosis and polyps- s/p polypectomy- biopsies to be followed up. s/p EGD with Schatzki's ring and antral gastropathy- f/u biopsy. Acute kidney injury: secondary to dehydration. Resolved -CK within normal limits. -UA negative -Avoid nephrotoxins -Monitor renal function Hypokalemia:resolved Low TSH but not suppressed. -Free T4 1.76, T3 1.58 suggestive of sick euthyroid -Recommend repeat TSH/T4 in 2-4weeks as outpatient Constipation: Bowel regimen. Alcohol abuse: acute -Extensively counseled on cessation, especially on anticoagulation. -thiamine/folate/MV -CIWA protocol. CAD: chronic -continue statin- plavix on hold for now for spine biopsy. -unable to start BB due to low BP -monitor on telemetry DVT prophylaxis with SCD and Eliquis (on hold, awaiting spine biopsy) Status post T-spine biopsy by IR on 07/28/18 Discharge plan: Discharge when improved and cleared by ID. The patient is status post a spine biopsy on 07/28/18. Pathology reviewed and discussed with Dr Islas. DC on IV abx at . To follow up as OP with PCP and consultants. ABX at DC : Cefazolin Dose: 2 grams IV. Directions: q 8 hours. Start Treatment: 08/01/18 . Stop Treatment: 09/10/18 [facility] Prescription Drug Monitoring Database has been queried and verified prior to prescribing the controlled substance. Acute pain exception. This patient has normal, predicted, physiological, and time limited response to an adverse mechanical stimulus associated with surgery, trauma, or acute illness as described in my notes. There is a lack of alternative treatment options other than to include the prescribed narcotic treatment for this condition. Progress Note: Quality VTE Deep Vein Thrombosis/Pulmonary Embolism Present on Admission: No _ (1) Fracture, thoracic vertebra, compression Qualifiers: Encounter type: initial encounter Fracture type: closed Fracture healing: Qualified Code(s): S22.000A - Wedge compression fracture of unspecified thoracic vertebra, initial encounter for closed fracture (2) GI bleed Qualifiers: GI bleed type/associated pathology: Gastritis type:
[2018-08-03] MEDS: ceFAZolin 2 GM Premix Inj 2 GM/50 ML PIGGYBACK IV.SIG SCH ×2 (04:18→12:01)
[2018-08-03] MEDS: Insulin NovoLOG Aspart Correctional Sugar Inj SQ SCH ×2 (07:58→12:02)
[2018-08-03] MEDS ORDERED: Benzocaine/Menthol 15 MG/3.6 MG SF Lozenge BUCCAL PRN (08:13)
[2018-08-03 08:18] VITALS: BP 113/57; PULSE 67; RESP 17; TEMP 97.8; O2SAT 94
[2018-08-03] MEDS: Gabapentin 400 MG Capsule PO SCH (09:37)
[2018-08-03] MEDS: Magnesium Oxide 400 MG Tablet PO SCH (09:37)
[2018-08-03] MEDS: Senna/Docusate Sodium 8.6/50 MG Tablet PO SCH (09:37)
[2018-08-03] MEDS: Heparin Central Flush 100 UNIT/ML 5 ML Vial IV.FLUSH SCH (09:38)
== END 2018-08-03 12:40 ==
LOC: NEPC 10:24 → NEDA 10:24 → OBSVTOIN 14:24 → NEPHCDU 15:08 → N07 07-16 16:28
PROVIDERS: ADMIT Hospitalist; ATTEND Hospitalist
PROC: COLONOS (2018-07-20 12:48)
PROC: PANENDO (2018-07-20 12:48)
DX: E78.00 Pure hypercholesterolemia, unspecified; E86.0 Dehydration; Z79.01 Long term (current) use of anticoagulants; R79.89 Other specified abnormal findings of blood chemistry; A41.01 Sepsis due to Methicillin susceptible Staphylococcus aureus; I13.0 Hypertensive heart and chronic kidney disease with heart failure and stage 1 through stage 4 chronic kidney disease, or unspecified chronic kidney disease; K21.9 Gastro-esophageal reflux disease without esophagitis; K59.00 Constipation, unspecified; K29.70 Gastritis, unspecified, without bleeding; E11.42 Type 2 diabetes mellitus with diabetic polyneuropathy; N18.9 Chronic kidney disease, unspecified; E11.69 Type 2 diabetes mellitus with other specified complication; I50.9 Heart failure, unspecified; K31.9 Disease of stomach and duodenum, unspecified; K70.9 Alcoholic liver disease, unspecified; M46.24 Osteomyelitis of vertebra, thoracic region; F17.210 Nicotine dependence, cigarettes, uncomplicated; K57.30 Diverticulosis of large intestine without perforation or abscess without bleeding; F10.20 Alcohol dependence, uncomplicated; Z79.02 Long term (current) use of antithrombotics/antiplatelets; K64.8 Other hemorrhoids; Z86.718 Personal history of other venous thrombosis and embolism; I45.10 Unspecified right bundle-branch block; S22.088A Other fracture of T11-T12 vertebra, initial encounter for closed fracture; Z91.81 History of falling; Z86.711 Personal history of pulmonary embolism; K44.9 Diaphragmatic hernia without obstruction or gangrene; N17.9 Acute kidney failure, unspecified; W19.XXXA Unspecified fall, initial encounter; Z23 Encounter for immunization; K22.2 Esophageal obstruction; M19.90 Unspecified osteoarthritis, unspecified site; Z79.84 Long term (current) use of oral hypoglycemic drugs; Z95.5 Presence of coronary angioplasty implant and graft; M47.9 Spondylosis, unspecified; I25.10 Atherosclerotic heart disease of native coronary artery without angina pectoris; R29.6 Repeated falls; R63.4 Abnormal weight loss; D75.89 Other specified diseases of blood and blood-forming organs; K63.5 Polyp of colon; K92.2 Gastrointestinal hemorrhage, unspecified; Z79.899 Other long term (current) drug therapy; E11.22 Type 2 diabetes mellitus with diabetic chronic kidney disease; J44.9 Chronic obstructive pulmonary disease, unspecified; Z79.51 Long term (current) use of inhaled steroids; E87.6 Hypokalemia